=== PATIENT | female | born 1955 | race Caucasian/White ===

== ENCOUNTER → 2016-04-20 | Outpatient (CLI) | payer BC ==
[~2016-04-20] MED LIST: FOLI1TAB7 PO; HYDR-4380 PO; LEVO100T7 PO; LISI-461 PO; METH2.5T PO; MULTTAB58 PO; NAPR500T3 PO
--- NOTE | 2016-04-20 18:23 | DIAGNOSTIC IMAGING REPORT ---
RIGHT LOWER EXTREMITY VENOUS DOPPLER CLINICAL HISTORY: Right leg pain and swelling COMPARISON STUDY: No previous studies for comparison. TECHNIQUE: Sonography of the deep venous system of the right lower extremity was performed. Compression and augmentation were evaluated. FINDINGS: The right common femoral, superficial femoral and popliteal veins were compressible. Augmentation was normal. Flow was shown within the deep calf vessels. Note is made of occlusive thrombus within a superficial vein of the posterior right calf, likely the lesser saphenous vein. There is also superficial thrombus within several varicose veins within the posterior calf. Note is made of a 5.4 x 1.9 x 1.1 cm complex right popliteal cyst. IMPRESSION: 1. No evidence of deep venous thrombus within the right lower extremity. 2. Findings consistent with superficial thrombophlebitis of the right calf, as described above. 3. Complex suspected right popliteal cyst. A cystic lesion is considered much less likely however a follow-up ultrasound in 6 months is recommended. Electronically signed by: Miguel Fajardo M.D. 04/20/2016 6:22 PM Dictated Date/Time: 04/20/2016 6:20 PM
== END | disposition home or self-care (01) ==
LOC: C.ULTR 17:27
PROVIDERS: ATTEND Family Medicine
DX: M79.604 Pain in right leg (principal)

== ENCOUNTER → 2016-10-13 | Outpatient (CLI) | payer BC ==
--- NOTE | 2016-10-13 09:20 | DIAGNOSTIC IMAGING REPORT ---
RIGHT POPLITEAL ULTRASOUND CLINICAL HISTORY: Right knee popliteal cyst. COMPARISON STUDY: Right lower extremity venous Doppler April 20, 2016. FINDINGS: Sonography of the right popliteal fossa again demonstrates a complex right popliteal fluid collection which contains no color flow. This measures 4.9 x 1.3 x 3.2 cm. This previously measured 5.4 x 1.9 x 1.1 cm. Overall, this has slightly increased in size since prior exam. IMPRESSION: Slight increase in size of the complex right popliteal fluid collection suggestive of a popliteal cyst. Electronically signed by: Miguel Fajardo M.D. 10/13/2016 9:17 AM Dictated Date/Time: 10/13/2016 9:15 AM
== END | disposition home or self-care (01) ==
LOC: C.ULTR 08:58
PROVIDERS: ATTEND Family Medicine
DX: M71.21 Synovial cyst of popliteal space [Baker], right knee (principal)

== ENCOUNTER → 2016-10-28 | Outpatient (CLI) | payer BC | END | disposition home or self-care (01) | LOC: C.RDSM 11:54 | PROVIDERS: ATTEND Orthopaedic Surgery Sports Medicine | DX: M25.561 Pain in right knee (principal) ==

== ENCOUNTER → 2017-04-26 | Outpatient (CLI) | payer BC ==
[~2017-04-26] MED LIST changes: -FOLI1TAB7 PO; +FOLI1TAB8 PO; +NAPR-1231 PO; -NAPR500T3 PO
[2017-04-26 14:01] LABS: ALBUMIN 3.7 gm/dl (3.4-5.0); ALT/SGPT 23 U/L (12-78); BLOOD UREA NITROGEN 9 mg/dl (7-18); CALCIUM 9.1 mg/dl (8.5-10.1); CARBON DIOXIDE 29 mmol/L (21-32); CHOLESTEROL 210 mg/dl (0-200); CREATININE 0.81 mg/dl (0.60-1.20); GLUCOSE,FASTING 102 mg/dl (70-99); POTASSIUM 3.4 mmol/L (3.5-5.1); SODIUM 137 mmol/L (136-145)
[2017-04-26 14:10] LABS: ALKALINE PHOSPHATASE 65 U/L (45-117); AST/SGOT 18 U/L (15-37); LDL CHOLESTEROL CALCULATED 107 mg/dl; TOTAL PROTEIN 7.5 gm/dl (6.4-8.2)
== END | disposition home or self-care (01) ==
LOC: C.LABPBG 08:44
PROVIDERS: ATTEND Family Medicine
DX: I10 Essential (primary) hypertension (principal); Z72.0 Tobacco use; E03.9 Hypothyroidism, unspecified; M71.20 Synovial cyst of popliteal space [Baker], unspecified knee

== ENCOUNTER → 2017-09-10 | Outpatient (CLI) | payer BC | END | disposition home or self-care (01) | LOC: C.LABPBG 13:11 | PROVIDERS: ATTEND Family Medicine | DX: E03.9 Hypothyroidism, unspecified (principal) ==

== ENCOUNTER 2019-11-13 08:55 | Inpatient (IN) ==
[2019-11-13] MEDS ORDERED: SODIUM CHLORIDE 0.9% 1000ML 1,000 ML IV ONE ×2 (09:18→12:01)
[2019-11-13] MEDS ORDERED: ONDANSETRON INJ 2 MG/ML 2 ML VIAL IV STA (09:18)
--- NOTE | 2019-11-13 09:31 | Emergency Department Note ---
History of Present Illness General Chief complaint: Diarrhea Stated complaint: THINKS C-DIFF IS BACK Time Seen by Provider: 11/13/19 09:05 History of Present Illness Maximum Pain Intensity: 9 64-year-old female who presents to the emergency department with her with complaint of recurrence of diarrhea, abdominal pain and nausea. The patient reports that she was diagnosed with C. difficile colitis on 10/19/2019. She started oral vancomycin on 10/19, and completed the antibiotic on 10/28. The patient reports that she was doing fine until she developed diarrhea, rectal pain, abdominal pain and nausea this past Wednesday. The patient reports that she has gone to the bathroom at least a dozen times daily since then. She has not noticed any blood in the stools. The patient did contact her PCP (Dr. Weaver) and Dr. Johnson (ornamental metal worker) regarding her symptoms. She has not received any feedback from them over the weekend. The patient reports that she feels bad enough that she asked her to bring her to the emergency department for evaluation. The patient reports that she did have additional labs ordered for this morning. The patient rates her overall discomfort a 9 out of 10. She reports feeling severely dehydrated. Home Medications Home Medications Medication Instructions Recorded Confirmed Type adalimumab [Humira Pen] 80 mg SUBCUT .Q2WK FR 11/17/17 11/13/19 History duloxetine [Cymbalta] 60 mg PO QAM 11/17/17 11/13/19 History folic acid 1 mg PO QAM 11/17/17 11/13/19 History hydrocodone-acetaminophen 0.5 - 1 tab PO Q6H PRN 11/17/17 11/13/19 History levothyroxine 112 mcg PO HS 11/17/17 11/13/19 History lisinopril-hydrochlorothiazide 1 tab PO QAM 11/17/17 11/13/19 History methotrexate sodium 20 mg PO FR 11/17/17 11/13/19 History prednisone 5 mg PO QAM 11/17/17 11/13/19 History acetaminophen [Tylenol] 325 mg PO Q6H PRN 01/24/19 11/13/19 History cholecalciferol (vitamin D3) 25 mcg PO QAM 10/12/19 11/13/19 History [Vitamin D3] electrolytes-dextrose [Pedialyte] 240 ml PO QID PRN 10/12/19 11/13/19 History uioihyffuhjr-wgaq-koxdr acid 1 tab PO QAM 10/12/19 11/13/19 History [Centrum Women] ondansetron 4 mg PO Q6H PRN #15 tab 10/19/19 11/13/19 Rx folic acid 2 mg PO QDL 11/13/19 11/13/19 History Allergies Allergy/AdvReac Type Severity Reaction Status Date / Time No Known Allergies Allergy Verified 11/13/19 09:36 Past Med/Surg History Medical History Anemia High blood pressure Hypokalemia Hypothyroid Rheumatoid arthritis Surgical History No significant past surgical history Family History Other Family history non-contributory Social History Smoking Status: Current every day smoker Tobacco Type: Cigarettes Cigarettes Per Day: 10; Do You Dip or Chew Tobacco: No; Tobacco Cessation Education Requested by Patient: Yes Hx Alcohol Use: No Hx Substance Use: No Preferred Language: Turkmen Communication Ability: Effective Booking Manager Required: No Beliefs That Will Affect Care: None marital status: Current Living Situation: Spouse current occupational status: employed Other Information That Helps Us Care for You: No Feels Safe at Home: Yes Safety Concerns: Feels Safe At This Time Assistive Devices: Cane, CPAP, Denture - Upper and Glasses Review of Systems 10 system review was performed and was negative except for pertinent positives and negatives as indicated in history of present illness Physical Exam Vital Signs Vital Signs - 24 hr 11/13/19 09:00 11/13/19 10:55 11/13/19 13:37 Temperature 37.2 C Temperature Source Oral Pulse Rate 122 H Pulse Rate [Apical] 98 H 98 H Respiratory Rate 18 20 Respiratory Effort / Characteristics Non-Labored Spontaneous Non-Labored Spontaneous SOB on Exertion Respiratory Depth Normal Normal Respiratory Pattern Regular Regular Blood Pressure 121/79 Blood Pressure [Left Arm] 139/80 139/80 Blood Pressure Mean 93 Blood Pressure Mean [Left Arm] 99 99 Blood Pressure Position Sitting Blood Pressure Position [Left Arm] Sitting Pulse Oximetry 94 96 Oxygen Delivery Method Room Air Room Air Sepsis Recent Fever Within 48 Hours No Sepsis New/Unexplained Change in Mental Status N/A Sepsis Action Taken by Nursing No Action Required 11/13/19 13:41 11/13/19 16:17 Temperature Temperature Source Pulse Rate 108 H Pulse Rate [Apical] 92 H Respiratory Rate 20 20 Respiratory Effort / Characteristics Respiratory Depth Respiratory Pattern Blood Pressure 165/93 H Blood Pressure [Left Arm] 177/115 H Blood Pressure Mean Blood Pressure Mean [Left Arm] 135 Blood Pressure Position Blood Pressure Position [Left Arm] Pulse Oximetry 96 93 Oxygen Delivery Method Room Air Sepsis Recent Fever Within 48 Hours Sepsis New/Unexplained Change in Mental Status Sepsis Action Taken by Nursing CONSTITUTIONAL: Healthy and well nourished. Patient appears in moderate discomfort from pain and nausea. HEENT: Normocephalic, atraumatic. Pupils equal, round and reactive. Ears and nares are clear. Mucous membranes are dry. No tonsillar hypertrophy, exudates or posterior pharyngeal erythema. NECK: Full active range of motion without discomfort. LYMPHATICS: No cervical chain adenopathy. RESPIRATORY: Clear to auscultation bilaterally with no wheezing, crackles, rhonchi or stridor. CARDIOVASCULAR: Regular rate and rhythm with no murmurs, rubs or gallops. GASTROINTESTINAL: Bowel sounds present in all quadrants. Patient has generalized nonfocal tenderness to palpation of the abdomen. No rigidity, guarding or rebound. Negative Rovsing sign. Negative CVA tenderness. MUSCULOSKELETAL: Full range of motion of all joints without discomfort. INTEGUMENTARY: No rash or other significant dermatologic conditions noted. HEMATOLOGIC: No ecchymosis or petechiae. PSYCHIATRIC: Positive affect. NEUROLOGIC: No focal neurologic deficits noted. Course Course Patient history and physical exam were performed. Nurse's notes were reviewed. Vital signs were reviewed, showing a tachycardia of 122 bpm. Patient is curren tly afebrile and normotensive. Patient does appear in moderate discomfort with pain and nausea. I also reviewed prior medical records, showing that the patient did test positive for C. difficile on 10/18. As the patient indicates, she was provided a prescription for oral vancomycin, which the patient reports she completed with resolution of symptoms. IV access was established, and labs were drawn. The patient was hydrated with a liter of normal saline, and administered IV Zofran for nausea. Review of labs shows a mild hyponatremia and hypokalemia of 134 and 3.1, respectively. CBC is otherwise unremarkable. Glucose is mildly elevated at 138. Urinalysis is contaminated without obvious evidence for infection. Stool studies are ordered, with a positive C. difficile gene and C. difficile toxin A. Stool cultures are pending. CT of the abdomen and pelvis with IV contrast shows a worsening pancolitis without evidence for obstruction or free air. Findings were discussed with Dr. Mitchell, ED attending physician, who recommended hospitalist consultation. The case was then further discussed with Dr. Mcdonald, who recommended oral vancomycin and Colestid. Dr. Mitchell also recommended IV Compazine for additional nausea relief, along with additional IV hydration. All orders were entered for these medications, along with oral potassium chloride for the hypokalemia. Please see the hospitalist dictation for further treatment and final disposition. Administered Medications Colestipol HCl (Colestipol Hcl 1 Gm Tab) 1 gm PO BID SURESH Stop: 12/13/19 12:29 Last Admin: 11/13/19 13:41 Dose: 1 gm Documented by: [id number] Discontinued Medications Sodium Chloride (Nss 1000ml) 1,000 mls @ 999 mls/hr IV .Q1H1M ONE Stop: 11/13/19 10:18 Last Infusion: 11/13/19 10:58 Dose: 0 mls/hr Documented by: [id number] Admin: 11/13/19 09:42 Dose: 999 mls/hr Documented by: [id number] Sodium Chloride (Nss 1000ml) 1,000 mls @ 999 mls/hr IV .Q1H1M ONE Stop: 11/13/19 13:01 Last Infusion: 11/13/19 14:14 Dose: 0 mls/hr Documented by: [id number] Admin: 11/13/19 12:58 Dose: 999 mls/hr Documented by: [id number] Prochlorperazine 5 mg/ Syringe 5 mls @ 5 mls/min IV ONE ONE Stop: 11/13/19 12:02 Last Admin: 11/13/19 12:57 Dose: Not Given Documented by: [id number] Ioversol (Ioversol 100ml) 92 ml IV ONCE ONE Stop: 11/13/19 10:45 Last Admin: 11/13/19 10:44 Dose: 92 ml Documented by: [id number] Ondansetron HCl (Ondansetron Inj 2 Mg/Ml 2 Ml Vial) 4 mg IV NOW STA Stop: 11/13/19 09:19 Last Admin: 11/13/19 09:51 Dose: 4 mg Documented by: [id number] Potassium Chloride (Potassium Chloride 20 Meq Tabcr) 20 meq PO NOW STA Stop: 11/13/19 12:24 Last Admin: 11/13/19 12:57 Dose: 20 meq Documented by: [id number] Prochlorperazine (Prochlorperazine 5 Mg/Ml 2 Ml Vial) Confirm Administered Dose 10 mg .ROUTE .STK-MED ONE Stop: 11/13/19 12:43 Last Admin: 11/13/19 12:57 Dose: 5 mg Documented by: [id number] Vancomycin HCl (Vancomycin Hcl 125 Mg/2.5ml Soln) 125 mg PO NOW STA Stop: 11/13/19 12:20 Last Admin: 11/13/19 13:41 Dose: 125 mg Documented by: [id number] Medical Decision Making Medical Records Attestation: I reviewed the patient's medical records. Home Medications Current Medication List: was personally reviewed by me Laboratory Data Attestation: I reviewed the patient's lab results. Result diagrams: 11/13/19 09:35 11/13/19 09:35 Lab Results 11/13/19 11/13/19 11/13/19 Range/Units 09:35 09:35 09:35 WBC 9.07 (4.8-10.8) K/uL RBC 4.08 L (4.2-5.4) M/uL Hgb 14.0 (12.0-16.0) g/dL Hct 40.9 (37-47) % MCV 100.2 H (80-100) fL MCH 34.3 H (25-34) pg MCHC 34.2 (32-36) g/dL RDW Std Deviation 51.3 H (36.4-46.3) fL RDW Coeff of Hood 14.3 (11.5-14.5) % Plt Count 313 (130-400) K/uL MPV 10.7 H (7.4-10.4) fL Immature Gran % (Auto) 0.1 % Neut % (Auto) 72.5 % Lymph % (Auto) 9.6 % Person % (Auto) 17.6 % Eos % (Auto) 0.1 % Baso % (Auto) 0.1 % Neut # (Auto) 6.57 H (1.4-6.5) K/uL Lymph # (Auto) 0.87 L (1.2-3.4) K/uL Person # (Auto) 1.60 H (0.11-0.59) K/uL Eos # (Auto) 0.01 (0-0.5) K/uL Baso # (Auto) 0.01 (0-0.2) K/uL Immature Gran # (Auto) 0.01 (0.00-0.02) K/uL Sodium 134 L (136-145) mmol/L Potassium 3.1 L (3.5-5.1) mmol/L Chloride 99 (98-107) mmol/L Carbon Dioxide 27 (21-32) mmol/L Anion Gap 8.0 (3-11) BUN 7 (7-18) mg/dl Creatinine 0.78 (0.6-1.2) mg/dl Est Cr Clr Drug Dosing 74.0 ml/min Est GFR ( Amer) 94.4 Est GFR (Non-Af Amer) 81.5 BUN/Creatinine Ratio 9.5 L (10-20) Glucose 138 H (70-99) mg/dl Calcium 9.0 (8.5-10.1) mg/dl Magnesium (1.8-2.4) mg/dl Total Bilirubin 0.8 (0.2-1) mg/dl AST 16 (15-37) U/L ALT 30 (12-78) U/L Alkaline Phosphatase 80 (45-117) U/L Total Protein 7.1 (6.4-8.2) gm/dl Albumin 3.1 L (3.4-5.0) gm/dl Globulin 4.0 (2.5-4.0) gm/dl Albumin/Globulin Ratio 0.8 L (0.9-2) Lipase 45 L (73-393) U/L Urine Color Dark Yellow Urine Appearance Cloudy A (Clear) Urine pH 7.5 (4.5-7.5) Ur Specific [place] 1.016 (1.000-1.030) Urine Protein Negative (Negative) Urine Glucose (UA) Negative (Negative) Urine Ketones Negative (Negative) Urine Blood Negative (Negative) Urine Nitrite Negative (Negative) Urine Bilirubin Negative (Negative) Urine Urobilinogen Negative (Negative) Ur Leukocyte Esterase 1+ H (Negative) Urine WBC (Auto) 1-5 (0-5) /hpf Urine RBC (Auto) 0-4 (0-4) /hpf U Hyaline Cast (Auto) 10-30 H (0-5) /lpf U Epithel Cells (Auto) >30 H (0-5) /lpf Urine Bacteria (Auto) Negative (Negative) Stl C. diff Tox B Gene (Neg) Stl C.difficile Tox A&B (Negative) Random Vancomycin mcg/ml Hepatitis C Ab Screen (Neg) 11/13/19 11/13/19 11/13/19 Range/Units 09:35 09:35 09:35 WBC (4.8-10.8) K/uL RBC (4.2-5.4) M/uL Hgb (12.0-16.0) g/dL Hct (37-47) % MCV (80-100) fL MCH (25-34) pg MCHC (32-36) g/dL RDW Std Deviation (36.4-46.3) fL RDW Coeff of Hood (11.5-14.5) % Plt Count (130-400) K/uL MPV (7.4-10.4) fL Immature Gran % (Auto) % Neut % (Auto) % Lymph % (Auto) % Person % (Auto) % Eos % (Auto) % Baso % (Auto) % Neut # (Auto) (1.4-6.5) K/uL Lymph # (Auto) (1.2-3.4) K/uL Person # (Auto) (0.11-0.59) K/uL Eos # (Auto) (0-0.5) K/uL Baso # (Auto) (0-0.2) K/uL Immature Gran # (Auto) (0.00-0.02) K/uL Sodium (136-145) mmol/L Potassium (3.5-5.1) mmol/L Chloride (98-107) mmol/L Carbon Dioxide (21-32) mmol/L Anion Gap (3-11) BUN (7-18) mg/dl Creatinine (0.6-1.2) mg/dl Est Cr Clr Drug Dosing ml/min Est GFR ( Amer) Est GFR (Non-Af Amer) BUN/Creatinine Ratio (10-20) Glucose (70-99) mg/dl Calcium (8.5-10.1) mg/dl Magnesium 1.5 L (1.8-2.4) mg/dl Total Bilirubin (0.2-1) mg/dl AST (15-37) U/L ALT (12-78) U/L Alkaline Phosphatase (45-117) U/L Total Protein (6.4-8.2) gm/dl Albumin (3.4-5.0) gm/dl Globulin (2.5-4.0) gm/dl Albumin/Globulin Ratio (0.9-2) Lipase (73-393) U/L Urine Color Urine Appearance (Clear) Urine pH (4.5-7.5) Ur Specific [place] (1.000-1.030) Urine Protein (Negative) Urine Glucose (UA) (Negative) Urine Ketones (Negative) Urine Blood (Negative) Urine Nitrite (Negative) Urine Bilirubin (Negative) Urine Urobilinogen (Negative) Ur Leukocyte Esterase (Negative) Urine WBC (Auto) (0-5) /hpf Urine RBC (Auto) (0-4) /hpf U Hyaline Cast (Auto) (0-5) /lpf U Epithel Cells (Auto) (0-5) /lpf Urine Bacteria (Auto) (Negative) Stl C. diff Tox B Gene Positive Cdiff Gene H (Neg) Stl C.difficile Tox A&B Positive Cdiff Toxin A* (Negative) Random Vancomycin mcg/ml Hepatitis C Ab Screen Neg (Neg) 11/13/19 Range/Units 12:29 WBC (4.8-10.8) K/uL RBC (4.2-5.4) M/uL Hgb (12.0-16.0) g/dL Hct (37-47) % MCV (80-100) fL MCH (25-34) pg MCHC (32-36) g/dL RDW Std Deviation (36.4-46.3) fL RDW Coeff of Hood (11.5-14.5) % Plt Count (130-400) K/uL MPV (7.4-10.4) fL Immature Gran % (Auto) % Neut % (Auto) % Lymph % (Auto) % Person % (Auto) % Eos % (Auto) % Baso % (Auto) % Neut # (Auto) (1.4-6.5) K/uL Lymph # (Auto) (1.2-3.4) K/uL Person # (Auto) (0.11-0.59) K/uL Eos # (Auto) (0-0.5) K/uL Baso # (Auto) (0-0.2) K/uL Immature Gran # (Auto) (0.00-0.02) K/uL Sodium (136-145) mmol/L Potassium (3.5-5.1) mmol/L Chloride (98-107) mmol/L Carbon Dioxide (21-32) mmol/L Anion Gap (3-11) BUN (7-18) mg/dl Creatinine (0.6-1.2) mg/dl Est Cr Clr Drug Dosing ml/min Est GFR ( Amer) Est GFR (Non-Af Amer) BUN/Creatinine Ratio (10-20) Glucose (70-99) mg/dl Calcium (8.5-10.1) mg/dl Magnesium (1.8-2.4) mg/dl Total Bilirubin (0.2-1) mg/dl AST (15-37) U/L ALT (12-78) U/L Alkaline Phosphatase (45-117) U/L Total Protein (6.4-8.2) gm/dl Albumin (3.4-5.0) gm/dl Globulin (2.5-4.0) gm/dl Albumin/Globulin Ratio (0.9-2) Lipase (73-393) U/L Urine Color Urine Appearance (Clear) Urine pH (4.5-7.5) Ur Specific [place] (1.000-1.030) Urine Protein (Negative) Urine Glucose (UA) (Negative) Urine Ketones (Negative) Urine Blood (Negative) Urine Nitrite (Negative) Urine Bilirubin (Negative) Urine Urobilinogen (Negative) Ur Leukocyte Esterase (Negative) Urine WBC (Auto) (0-5) /hpf Urine RBC (Auto) (0-4) /hpf U Hyaline Cast (Auto) (0-5) /lpf U Epithel Cells (Auto) (0-5) /lpf Urine Bacteria (Auto) (Negative) Stl C. diff Tox B Gene (Neg) Stl C.difficile Tox A&B (Negative) Random Vancomycin < 0.8 mcg/ml Hepatitis C Ab Screen (Neg) Imaging Data Attestation: I personally reviewed and interpreted this imaging study as follows: My Impression: My interpretation of a CT of the abdomen and pelvis with IV contrast does not show any obvious obstruction, free air, diverticulitis or appendicitis. Pancolitis is noted. Radiologist report was also reviewed. Radiologist's Impression: CT OF THE ABDOMEN AND PELVIS WITH CONTRAST CLINICAL HISTORY: Abdominal pain, recent C-diff colitis. COMPARISON STUDY: CT of the abdomen and pelvis October 19, 2019. TECHNIQUE: Following IV administration of 92 mL of Optiray-320, axial images of the abdomen and pelvis were obtained from the lung bases to the proximal femurs. Images were reviewed in the axial, sagittal, and coronal planes. IV contrast was administered without complication. Automated exposure control was utilized for the study. A dose lowering technique was utilized adhering to the principles of ALARA. CT DOSE: 689.68 mGy.cm FINDINGS: Lung bases are unremarkable. There is fatty infiltration of the liver. No hepatic lesions are present. The spleen, right adrenal gland, kidneys and pancreas are normal. A 1.9 cm left adrenal nodule is similar to CT of November 17, 2017. This is benign and favors an adenoma. There is no biliary or pancreatic ductal dilatation. Infrarenal abdominal aorta is ectatic, measuring 2.6 cm in caliber. There is colonic diverticulosis. There is no evidence for acute diverticulitis. There is mild wall thickening of the entire colon. There is mild pericolonic infiltration. There is also wall thickening of the rectum. This has increased when compared to exam of October 19, 2019. No free air or abscess is present. Major vasculature is patent. There is no lymphadenopathy. Mild bladder wall thickening is noted. There are no suspicious osseous lesions. The appendix is normal. IMPRESSION: 1. Findings consistent with a pancolitis, mildly increased when compared to exam of October 19, 2019. While nonspecific, this would be consistent with the history of C. difficile colitis. No free air or abscess. 2. Fatty infiltration of the liver. 3. No bowel obstruction. Blood Pressure Blood Pressure Findings: Normal blood pressure MDM Narrative Patient presents to the emergency department with what appears to be a recurrent C. difficile colitis. The patient does not have any significant electrolyte abnormality except for mild hypokalemia and hyponatremia. Patient has no rectal bleeding and is not anemic. Sepsis is considered unlikely. Additional laboratory studies are not suggestive of pancreatitis, cholecystitis or hepatitis. Urinalysis is not consistent with infection. Impression & Plan Clostridium difficile colitis, Acute hypokalemia, Acute hyponatremia, Nausea Discharge Plan Visit Data Chief Complaint: Diarrhea Stated Complaint: THINKS C-DIFF IS BACK ED Provider: Terence Mitchell ED Midlevel Provider: Natanael Reed Discharge Problem: Clostridium difficile colitis, Acute hypokalemia, Acute hyponatremia, Nausea Discharge Instructions Interventions: ED Discharge Assessment Last Done: 11/13/19 16:17 Forms Stand Alone Forms: My [facility] [employer] Prescriptions Prescriptions: No Action hydrocodone-acetaminophen 5-325 mg Tablet 0.5 - 1 tab PO Q6H PRN (Reason: Pain) RF: 0 folic acid 1 mg Tablet 1 mg PO QAM RF: 0 lisinopril-hydrochlorothiazide 10-12.5 mg Tablet 1 tab PO QAM RF: 0 levothyroxine 112 mcg Tablet 112 mcg PO HS RF: 0 prednisone 5 mg Tablet 5 mg PO QAM RF: 0 methotrexate sodium 2.5 mg Tablet 20 mg PO FR RF: 0 duloxetine [Cymbalta] 30 mg Capsule,Delayed Release(Dr/Ec) 60 mg PO QAM RF: 0 Humira Pen 40 mg/0.8 mL Pen Injector Kit 80 mg SUBCUT .Q2WK FR RF: 0 electrolytes-dextrose [Pedialyte] Solution 240 ml PO QID PRN (Reason: Stomach Upset) RF: 0 cholecalciferol (vitamin D3) [Vitamin D3] 25 mcg (1,000 unit) Capsule 25 mcg PO QAM RF: 0 Centrum Women 18-400 mg-mcg Tablet 1 tab PO QAM RF: 0 folic acid 1 mg tablet 2 mg PO QDL RF: 0 acetaminophen [Tylenol] 325 mg Tablet 325 mg PO Q6H PRN (Reason: Pain) RF: 0 ondansetron 4 mg tablet,disintegrating 4 mg PO Q6H PRN (Reason: nausea and vomiting) Qty: 15 RF: 0 Referrals Referrals: Usha Weaver DO [Primary Care Provider] -
[2019-11-13 09:50] LABS: Basophils # (auto) 0.01 K/uL (0-0.2); Basophils % (auto) 0.1 %; Eosinophils # (auto) 0.01 K/uL (0-0.5); Eosinophils % (auto) 0.1 %; Hematocrit (blood only) 40.9 % (37-47); Immature Granulocytes # (auto) 0.01 K/uL (0.00-0.02); Immature Granulocytes % (auto) 0.1 %; Lymphocytes # (auto) 0.87 K/uL (1.2-3.4); Lymphocytes % (auto) 9.6 %; Mean Corpuscular Hemoglobin 34.3 pg (25-34); Mean Corpuscular Hgb Conc 34.2 g/dL (32-36); Mean Corpuscular Volume 100.2 fL (80-100); Mean Platelet Volume 10.7 fL (7.4-10.4); Monocytes % (auto) 17.6 %; Neutrophils # (auto) 6.57 K/uL (1.4-6.5); Neutrophils % (auto) 72.5 %; Platelet Count 313 K/uL (130-400); RDW Coefficient of Variation 14.3 % (11.5-14.5); RDW Standard Deviation 51.3 fL (36.4-46.3); Red Blood Count 4.08 M/uL (4.2-5.4); White Blood Count 9.07 K/uL (4.8-10.8)
[2019-11-13 09:51] LABS: Appearance Urine Cloudy (Clear); Bacteria Urine Automated Negative (Negative); Bilirubin Urine Negative (Negative); Blood Urine Negative (Negative); Color Urine Dark Yellow; Epithelial Cell Urine Auto >30 /lpf (0-5); Glucose Urine UA Negative (Negative); Ketones Urine Negative (Negative); Leukocyte Esterase Urine 1+ (Negative); Nitrite Urine Negative (Negative); RBC Urine Automated 0-4 /hpf (0-4); Specific Gravity Urine 1.016 (1.000-1.030); Urobilinogen Urine Negative (Negative); pH Urine 7.5 (4.5-7.5)
[2019-11-13 09:55] LABS: Protein Urine Negative (Negative); Sulfosalicylic Acid Urine Negative (Negative)
[2019-11-13 10:10] LABS: Albumin Level 3.1 gm/dl (3.4-5.0); BUN Creatinine Ratio 9.5 (10-20); Est GFR (African American) 94.4; Est GFR (Non-African American) 81.5; Potassium 3.1 mmol/L (3.5-5.1)
[2019-11-13 10:12] LABS: Albumin Globulin Ratio 0.8 (0.9-2); Bilirubin,Total 0.8 mg/dl (0.2-1); Total Protein 7.1 gm/dl (6.4-8.2)
[2019-11-13] MEDS ORDERED: IOVERSOL 100ml IV ONE (10:44)
--- NOTE | 2019-11-13 11:05 | CT Scan Report ---
CT OF THE ABDOMEN AND PELVIS WITH CONTRAST CLINICAL HISTORY: Abdominal pain, recent C-diff colitis. COMPARISON STUDY: CT of the abdomen and pelvis October 19, 2019. TECHNIQUE: Following IV administration of 92 mL of Optiray-320, axial images of the abdomen and pelvi s were obtained from the lung bases to the proximal femurs. Images were reviewed in the axial, sagitt al, and coronal planes. IV contrast was administered without complication. Automated exposure contro l was utilized for the study. A dose lowering technique was utilized adhering to the principles of A JAY. CT DOSE: 689.68 mGy.cm FINDINGS: Lung bases are unremarkable. There is fatty infiltration of the liver. No hepatic lesions a re present. The spleen, right adrenal gland, kidneys and pancreas are normal. A 1.9 cm left adrenal n odule is similar to CT of November 17, 2017. This is benign and favors an adenoma. There is no biliary or pancreatic ductal dilatation. Infrarenal abdominal aorta is ectatic, measuring 2.6 cm in caliber. There is colonic diverticulosis. There is no evidence for acute diverticulitis. There is mild wall t hickening of the entire colon. There is mild pericolonic infiltration. There is also wall thickening of the rectum. This has increased when compared to exam of October 19, 2019. No free air or abscess is present. Major vasculature is patent. There is no lymphadenopathy. Mild bladder wall thickening i s noted. There are no suspicious osseous lesions. The appendix is normal. IMPRESSION: 1. Findings consistent with a pancolitis, mildly increased when compared to exam of October 18 0. While nonspecific, this would be consistent with the history of C. difficile colitis. No free air or abscess. 2. Fatty infiltration of the liver. 3. No bowel obstruction. ACT 112: Negative or not required by law. Electronically signed by: Miguel Fajardo M.D. 11/13/2019 11:04 AM
[2019-11-13 11:46] LABS: Cdiff Antigen Positive
[2019-11-13] MEDS ORDERED: PROCHLORPERAZINE 5 MG in SYRINGE 4 ML IV ONE (12:01)
[2019-11-13 12:12] LABS: Cdiff Toxin A+B Positive Cdiff Toxin (Negative)
[2019-11-13] MEDS ORDERED: VANCOMYCIN HCL 125 MG/2.5ML SOLN PO STA (12:19)
[2019-11-13] MEDS ORDERED: POTASSIUM CHLORIDE 20 MEQ TABCR PO STA (12:23)
[2019-11-13] MEDS ORDERED: PROCHLORPERAZINE 5 MG/ML 2 ML VIAL ONE (12:42)
--- NOTE | 2019-11-13 13:29 | History & Physical Report ---
Date of Service November 13, 2019 Assessment & Plan (1) Recurrent Clostridioides difficile infection: Madelaine is a 64-year-old female with a past medical history of rheumatoid arthritis on Humira, methotrexate, and prednisone, hypertension, history of anemia, and past history of C. difficile who presents with 3 days of copious watery diarrhea concerning for first recurrence of C. difficile. C. difficile pancolitis, first recurrence - First recurrence, nonsevere (no leukocytosis, no VISHNU) - CT-A: Pancolitis, mildly increased when compared to exam of October 19, 2019. No free air or abscess. Fatty infiltration of the liver. No bowel obstruction. Patient on RA immunosuppressive therapy (Humira/MTX/prednisone) as below Initial episode onset by antibiotic use 1 month ago, treated with oral Vanco. Recurrence preceded by humira tx, no other med changes or abx. Fidaxomicin 200 mg twice daily x10 days -Patient may benefit from pulsed taper of Fidaxomicin (200mg PO on days 15, then once daily on alternate days on days 725) if she continues to recur 2/2 immunosuppressant treatment. [PMID: [id number]] Received colestipol 1 g in the ED with benefit. Continue 1 g twice daily. Hypokalemia, hyponatremia Sodium 134, potassium 3.1. Magnesium pending. Suspect due to GI losses with C. difficile diarrhea K rider x4 ordered, replete as needed Magnesium pending, last mag low at 1.6 - MgSulf 1g IV x1 - Mag-Ox 400 mg daily - BMP daily - Cr 0.78 Rheumatoid arthritis On Humira/prednisone/methotrexate prior to admission Hold methotrexate, Humira - Continue prednisone, stress dose x4 days (30, 20, 20, 20mg) - Pt due for next humira on 11/16, hold in the setting of active infection - May benefit from prolonged c. diff tx as noted above Hypothyroidism Continue Synthroid 112 mcg p.o. nightly - Last TSH 10/2019 normal Hypertension - Mildly hypertensive on admit with abdominal discomfort, mild tachycardia without prerenal appearing BMP Continue home lisinoprilhydrochlorothiazide 10-12.5 mg daily Polymyalgia, chronic pain Continue home duloxetine 60 mg p.o. every morning Continue home 5325 hydrocodone/acetaminophen every 6 hours as needed History of NANCIE on CPAP CPAP nightly Tobacco dependence Patient declines patch Nicotine gum as needed FEN/GI: Low fiber as tolerated, NSS+20KCl 100cc/hr until p.o. improves Disposition: Med/surge with telemetry CODE STATUS: Full code DVT prophylaxis: SCDs, heparin 5,000sq Q8H (2) Nausea: (3) Acute hyponatremia: (4) Acute hypokalemia: (5) No significant past surgical history: (6) Rheumatoid arthritis: History of Present Illness Chief Complaint: Diarrhea Primary Care Provider: Usha Weaver DO Madelaine is a 64-year-old female with a past medical history of rheumatoid arthritis on Humira, methotrexate, and prednisone, hypertension, history of anemia, and past history of C. difficile who presents with 3 days of copious watery diarrhea concerning for first recurrence of C. difficile. Madelaine reports she had her first episode of C. difficile last month. She reports that she initially had some left lower quadrant pain and was treated with Augmentin for diverticulitis. Following Augmentin treatment her pain increased and she developed severe copious diarrhea. She was diagnosed with gene/toxin positive C. difficile, nonsevere and was discharged to complete a 10-day course of oral vancomycin. She reports that she completed her complete course of oral vancomycin and her symptoms improved and she was having a formed but soft bowel movement about once daily for couple of weeks. Her symptoms recurred 3 days ago when she developed increasing diarrhea and abdominal tenderness which progressively increased over the weekend. He has not had associated fever, chills, sweats. Her bowel movements are completely liquid with a small amount of mucus and no blood. She denies syncope/presyncope. She has not had any medication changes or any antibiotics in the previous weeks since completing her vancomycin course. She is on Humira for rheumatoid arthritis, she reports she missed her 10/26 dose due to C. difficile treatment, received a dose on 11/02, and would normally be due for her next dose this week on 11/16. Today she has had diarrhea every 30-45 minutes. Twice since getting to ER. no blood in BM, some mucous with completely liquid stool. Painful BMs, feels her bottom is "sore " She has not had any cold-like symptoms. She reports a 40-year approximately half pack per day cigarette use. She has not been diagnosed with COPD or emphysema, but notes that she sometimes wheezes especially when going up stairs. She does not take any inhalers at home, but uses a CPAP for NANCIE. She does not feel short of breath at time of presentation to the ER, and has not needed oxygen at home. MedHx: Reviewed and as above Fhx: DM. Noncontributory. Surgical history: Reviewed Allergies: NKDA Social: Rare alcohol, none in 3 months. 10 cigarettes daily for more than 40 years. Would apreciate trying gum. No recreational drugs or medical marijuana. Lives at home with her and adult children. No sick contacts at home. Code Status: Full Code Allergies Allergy/AdvReac Type Severity Reaction Status Date / Time No Known Allergies Allergy Verified 11/13/19 09:36 Home Medications Home Medications Medication Instructions Recorded Confirmed Type adalimumab [Humira Pen] 80 mg SUBCUT .Q2WK FR 11/17/17 11/13/19 History duloxetine [Cymbalta] 60 mg PO QAM 11/17/17 11/13/19 History folic acid 1 mg PO QAM 11/17/17 11/13/19 History hydrocodone-acetaminophen 0.5 - 1 tab PO Q6H PRN 11/17/17 11/13/19 History levothyroxine 112 mcg PO HS 11/17/17 11/13/19 History lisinopril-hydrochlorothiazide 1 tab PO QAM 11/17/17 11/13/19 History methotrexate sodium 20 mg PO FR 11/17/17 11/13/19 History prednisone 5 mg PO QAM 11/17/17 11/13/19 History acetaminophen [Tylenol] 325 mg PO Q6H PRN 01/24/19 11/13/19 History cholecalciferol (vitamin D3) 25 mcg PO QAM 10/12/19 11/13/19 History [Vitamin D3] electrolytes-dextrose [Pedialyte] 240 ml PO QID PRN 10/12/19 11/13/19 History laqynxdqymjr-xsgz-ybwjr acid 1 tab PO QAM 10/12/19 11/13/19 History [Centrum Women] ondansetron 4 mg PO Q6H PRN #15 tab 10/19/19 11/13/19 Rx folic acid 2 mg PO QDL 11/13/19 11/13/19 History Past Med/Surg History Medical History Anemia High blood pressure Hypokalemia Hypothyroid Rheumatoid arthritis Surgical History No significant past surgical history Family History (Updated 11/14/19 @ 08:14 by George Mcdonald) Other Diabetes Family history non-contributory Social History Smoking Status: Current every day smoker Tobacco Type: Cigarettes Cigarettes Per Day: 10; Do You Dip or Chew Tobacco: No; Tobacco Cessation Education Requested by Patient: Yes Hx Alcohol Use: No Hx Substance Use: No Preferred Language: [place]se Communication Ability: Effective Computer Graphic Designer Required: No Beliefs That Will Affect Care: None marital status: Current Living Situation: Spouse current occupational status: employed Other Information That Helps Us Care for You: No Feels Safe at Home: Yes Safety Concerns: Feels Safe At This Time Assistive Devices: Cane, CPAP, Denture - Upper and Glasses Review of Systems Review of Systems: Constitutional: Denies fever, chills, malaise Eyes: Denies double vision, vision change, eye pain ENT: Denies ear pain, sore throat, sinus pain Cardiovascular: Denies Chest pain, chest pressure, palpitations, extremity swelling Respiratory: See HPI Gastrointestinal: See HPI Genitourinary: Denies pain with urination, urinary urgency, urinary frequency Musculoskeletal: Endorses joint pain, chronic arthritis. Otherwise denies muscle pains/new joint pains. Integumentary:Denies acute rash, lesions, bruising Neurological: Denies acute headache, numbness, tingling, focal weakness Physical Exam Physical Exam: General: A&Ox3. NAD. Appears fatigued. Cooperative. Nontoxic. HEENT: Atraumatic, normocephalic. Visual acuity grossly intact, hearing grossly intact. Pupils equal and reactive to light and accommodation. Extraocular movements intact without nystagmus. Pulm: Scattered expiratory wheezes more prominent on forced expiration. No rales, crackles, or rhonchi. Symmetrical chest rise. No increase work of br eathing. No respiratory distress. Cardiac: RRR, -mrg. Radial pulses intact and symmetrical. Abdominal: Mildly tender most prominent in right lower quadrant, slight tenderness in the left lower quadrant. No rebound tenderness. No guarding. No rigidity. Bowel sounds increased. Extremities: Moving all extremities equally. 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 Radial and PT pulses intact and symmetrical, non-bounding. Sensation to soft touch intact in fingertips and toes bilaterally without asymmetry. Results & Data Results & Data ([facility]) Vital Signs (Past 12 Hours) Vital Signs Temp Pulse Pulse Resp BP BP Pulse Ox 11/13/19 10:55 98 H 139/80 11/13/19 09:00 37.2 C 122 H 18 121/79 94 Code Status & VTE Plan VTE Prophylaxis Plan VTE Prophylaxis will be ordered: Yes Supervising Physician Co-Signing Physician Notes Attending Attestation & Admission Note: Pt seen/examined, chart reviewed, admission care plan d/w PGY3 Dr Rodo Walden. I agree w/ the carlisle components of his admission documentation. 64yo female with obesity, steroid-dependent RA (also on enbrel and methotrexate); tobacco dependence; HTN; hypothyroidism -- recent c diff colitis in early October Rx with 10-day course of vanco by mouth. Symptoms resolved with that treatment course. Now presenting with severe, recurrent diarrhea and repeat c diff gene/toxin +. CT abd/pelvis c/w pancolitis. Unable to tolerate any PO intake since symptoms began. PMH, PSH, allergies, meds, sochx, famhx - reviewed VSS, afebrile gen - looks dehydrated, ill appearing, NAD mouth - MM dry heart - RRR, s1 s2 lungs - mild end-exp wheeze b/l abd - distended, BS+ (hyperactive), mildly tender lower quadrants ext - no edema, pulses 2+ b/l skin - poor turgor A/P: 1st relapse of c diff colitis. Volume depletion. Electrolyte disturbance (low Na, low K, low mag). Steroid-dependent RA with enbrel/Mtx use. Tobacco use - suspect underlying COPD. Agree with dificid x 10 days. At risk of complications given her immunocompromised status. Stress-dose steroids - give additional 30mg prednisone today, with taper over 3- 4 days. Low fiber diet. IVF. Replete K and mag. Labs in am. Needs to quit smoking. George Mcdonald MD Resident Activity Tracking Resident Involvement: Resident Care Provided Care Provided: [facility]
[2019-11-13] MEDS: COLESTIPOL HCL 1 GM TAB PO SCH ×2 (13:41→21:23)
[2019-11-13] MEDS ORDERED: ONDANSETRON INJ 2 MG/ML 2 ML VIAL IV PRN (16:52)
[2019-11-13] MEDS ORDERED: NICOTINE POLACRILEX 2 MG GUM MT PRN (16:52)
[2019-11-13] MEDS ORDERED: ACETAMINOPHEN 325 MG TAB PO PRN (16:52)
[2019-11-13] MEDS ORDERED: HYDROCODONE/ACETAMOPHEN 5/325MG TAB PO PRN (17:04)
[2019-11-13] MEDS ORDERED: MAGNESIUM SULFATE / D5W 1 GM/100 ML BAG IV ONE (17:30)
[2019-11-13] MEDS: MAGNESIUM OXIDE 400 MG TAB PO SCH (17:35)
[2019-11-13] MEDS: NSS + 20MEQ KCL 20 MEQ/1,000 ML BAG IV SCH (17:35)
[2019-11-13] MEDS: POTASSIUM CHLORIDE / WTR 10 MEQ/100 ML PLCT IV SCH ×3 (19:52→23:16)
[2019-11-13] MEDS: LEVOTHYROXINE SODIUM 112 MCG TABLET PO SCH (19:54)
[2019-11-13] MEDS: FIDAXOMICIN 200 MG TAB PO SCH (19:54)
[2019-11-13] MEDS: HEPARIN SOD 5,000 UNIT/0.5 ML VIAL SQ SCH (19:57)
--- NOTE | 2019-11-13 23:44 | Billing Data ---
Date of Service November 13, 2019 Coding Level of Care Code 14433 Initial Inpt Care Lvl 3
[2019-11-14] MEDS ORDERED: MAGNESIUM SULFATE / D5W 1 GM/100 ML BAG IV ONE (01:00)
[2019-11-14] MEDS: NSS + 20MEQ KCL 20 MEQ/1,000 ML BAG IV SCH ×3 (03:51→21:40)
[2019-11-14] MEDS: POTASSIUM CHLORIDE / WTR 10 MEQ/100 ML PLCT IV SCH ×3 (03:53→10:10)
[2019-11-14] MEDS: HEPARIN SOD 5,000 UNIT/0.5 ML VIAL SQ SCH ×3 (05:34→20:00)
[2019-11-14 07:20] LABS: Basophils # (auto) 0.02 K/uL (0-0.2); Basophils % (auto) 0.2 %; Eosinophils # (auto) 0.43 K/uL (0-0.5); Eosinophils % (auto) 4.5 %; Hematocrit (blood only) 38.1 % (37-47); Hemoglobin 12.9 g/dL (12.0-16.0); Immature Granulocytes # (auto) 0.03 K/uL (0.00-0.02); Immature Granulocytes % (auto) 0.3 %; Lymphocytes # (auto) 2.61 K/uL (1.2-3.4); Lymphocytes % (auto) 27.4 %; Mean Corpuscular Hemoglobin 34.2 pg (25-34); Mean Corpuscular Hgb Conc 33.9 g/dL (32-36); Mean Corpuscular Volume 101.1 fL (80-100); Monocytes # (auto) 1.64 K/uL (0.11-0.59); Monocytes % (auto) 17.2 %; Neutrophils % (auto) 50.4 %; Platelet Count 296 K/uL (130-400); RDW Coefficient of Variation 14.4 % (11.5-14.5); RDW Standard Deviation 52.1 fL (36.4-46.3); Red Blood Count 3.77 M/uL (4.2-5.4); White Blood Count 9.53 K/uL (4.8-10.8)
[2019-11-14 08:19] LABS: BUN Creatinine Ratio 7.2 (10-20); Calcium 8.1 mg/dl (8.5-10.1); Creatinine Clr Calc Pharmacy 88.9 ml/min; Est GFR (African American) 110.3; Est GFR (Non-African American) 95.2; Potassium 2.8 mmol/L (3.5-5.1)
[2019-11-14 08:22] LABS: Magnesium 2.2 mg/dl (1.8-2.4)
[2019-11-14] MEDS ORDERED: POTASSIUM CHLORIDE 20 MEQ TABCR PO STA (08:24)
[2019-11-14] MEDS: FIDAXOMICIN 200 MG TAB PO SCH ×2 (08:52→20:00)
[2019-11-14] MEDS: MAGNESIUM OXIDE 400 MG TAB PO SCH (08:52)
[2019-11-14] MEDS ORDERED: predniSONE 10 MG TABLET PO ONE (09:00)
[2019-11-14] MEDS ORDERED: LISINOPRIL/HCTZ 10/12.5MG TAB PO SCH (09:00)
--- NOTE | 2019-11-14 09:36 | Gastrointestinal Consultation ---
Date of Consultation November 14, 2019 Assessment & Plan (1) Recurrent Clostridioides difficile infection: Recurrent C. difficile infection. She was on vancomycin previously for 2 weeks. She was started on Dificid 200 mg p.o. twice daily on admission. This will need to continue for 10 days. She is tolerating po diet. States she would like to go home today. Will need follow-up with GI which I will arrange once discharged. Please refer to supervising physician addendum for further recommendations. History of Present Illness Attending Physician: Madie Ferraro MD History of Present Illness The patient is a pleasant 64-year-old female with past medical history to include rheumatoid arthritis, hypothyroidism, anemia, mild hypertension, tobacco abuse with recent history of C. difficile infection diagnosed 10/19/2019 treated with vancomycin x2 weeks who presented to the emergency department 11/13/2019 due to recurrent diarrhea, nausea, abdominal cramping. She was subsequently admitted due to CT imaging that demonstrated pancolitis with positive C. difficile gene and toxin. On exam/interview today, she reports that she began experiencing diarrhea on 11/10/2019. She had finished vancomycin on 10/29/2019. When diarrhea started she thought that she may have eaten something that threw her off. She states she had 5 episodes of diarrhea Wednesday night, 4-5 Wednesday night, and multiple episodes on Wednesday. She reports nausea began on Wednesday. She had crampy abdominal discomfort but denies specific pain. She had sent a portal message to the office Wednesday evening but was unable to tolerate symptoms and presented to the emergency department for further evaluation. She reports mild nausea this morning. She is tolerating p.o. diet during our discussion. She reports she had approximately 4 episodes of diarrhea stools last night and several already this morning. She was given vancomycin in the emergency department. This was changed to Dificid with admission. She is a current smoker. She has been smoking approximately half a pack of cigarettes per day since 1974. She denies any use of alcohol. She denies use of recreational drugs including marijuana. She is with 1 adult daughter and 2 adult sons. Allergies Allergy/AdvReac Type Severity Reaction Status Date / Time No Known Allergies Allergy Verified 11/13/19 09:36 Home Medications Home Medications Medication Instructions Recorded Confirmed Type adalimumab [Humira Pen] 80 mg SUBCUT .Q2WK FR 11/17/17 11/13/19 History duloxetine [Cymbalta] 60 mg PO QAM 11/17/17 11/13/19 History folic acid 1 mg PO QAM 11/17/17 11/13/19 History hydrocodone-acetaminophen 0.5 - 1 tab PO Q6H PRN 11/17/17 11/13/19 History levothyroxine 112 mcg PO HS 11/17/17 11/13/19 History lisinopril-hydrochlorothiazide 1 tab PO QAM 11/17/17 11/13/19 History methotrexate sodium 20 mg PO FR 11/17/17 11/13/19 History prednisone 5 mg PO QAM 11/17/17 11/13/19 History acetaminophen [Tylenol] 325 mg PO Q6H PRN 01/24/19 11/13/19 History cholecalciferol (vitamin D3) 25 mcg PO QAM 10/12/19 11/13/19 History [Vitamin D3] electrolytes-dextrose [Pedialyte] 240 ml PO QID PRN 10/12/19 11/13/19 History rtyxjrfotner-hsin-nkepm acid 1 tab PO QAM 10/12/19 11/13/19 History [Centrum Women] ondansetron 4 mg PO Q6H PRN #15 tab 10/19/19 11/13/19 Rx folic acid 2 mg PO QDL 11/13/19 11/13/19 History Patient History Medical History Anemia High blood pressure Hypokalemia Hypothyroid Rheumatoid arthritis Surgical History No significant past surgical history Family History (Updated 11/14/19 @ 08:14 by George Mcdonald) Other Diabetes Family history non-contributory Social History Smoking Status: Current every day smoker Tobacco Type: Cigarettes Cigarettes Per Day: 10; Do You Dip or Chew Tobacco: No; Tobacco Cessation Education Requested by Patient: Yes Hx Alcohol Use: No Hx Substance Use: No Preferred Language: Malian Communication Ability: Effective Cat Dog Or Other Pet Groomer Required: No Beliefs That Will Affect Care: None marital status: Current Living Situation: Spouse current occupational status: employed Other Information That Helps Us Care for You: No Feels Safe at Home: Yes Safety Concerns: Feels Safe At This Time Assistive Devices: Cane, CPAP, Denture - Upper and Glasses Review of Systems Review of Systems: All systems reviewed & are unremarkable except as noted in Subjective Physical Exam Constitutional: WD/WN, vitals as above Eyes: PERRL, conjunctivae normal, anicteric sclerae ENMT: external ear and nose normal, oropharynx normal Neck: normal visual inspection and trachea midline Respiratory: normal respiratory effort, lungs clear to auscultation Cardiovascular: RRR, no murmur, no edema Gastrointestinal (Abdomen): normal bowel sounds, soft, nontender, no hepatosplenomegaly Musculoskeletal: Extremities: no cyanosis and no clubbing Skin: no rashes, warm and dry Neurologic: PERRL, EOMI, accommodation nl, no face palsy, no dysarthria Psychiatric: A+Ox3, euthymic affect Results & Data ([facility]) Vital Signs (Past 12 Hours) Vital Signs Temp Pulse Pulse Resp BP Pulse Ox 11/14/19 07:30 36.9 C 85 18 137/74 93 11/14/19 07:23 96 H 11/14/19 00:26 93 H 11/13/19 22:00 36.9 C 97 H 18 146/82 H 92 Laboratory Results - last 24 hr 11/13/19 11/13/19 11/13/19 09:35 09:35 09:35 WBC 9.07 RBC 4.08 L Hgb 14.0 Hct 40.9 MCV 100.2 H MCH 34.3 H MCHC 34.2 RDW Std Deviation 51.3 H RDW Coeff of Hood 14.3 Plt Count 313 MPV 10.7 H Immature Gran % (Auto) 0.1 Neut % (Auto) 72.5 Lymph % (Auto) 9.6 [place] % (Auto) 17.6 Eos % (Auto) 0.1 Baso % (Auto) 0.1 Neut # (Auto) 6.57 H Lymph # (Auto) 0.87 L [place] # (Auto) 1.60 H Eos # (Auto) 0.01 Baso # (Auto) 0.01 Immature Gran # (Auto) 0.01 Sodium 134 L Potassium 3.1 L Chloride 99 Carbon Dioxide 27 Anion Gap 8.0 BUN 7 Creatinine 0.78 Est Cr Clr Drug Dosing 74.0 Est GFR ( Amer) 94.4 Est GFR (Non-Af Amer) 81.5 BUN/Creatinine Ratio 9.5 L Glucose 138 H Calcium 9.0 Magnesium Total Bilirubin 0.8 AST 16 ALT 30 Alkaline Phosphatase 80 Total Protein 7.1 Albumin 3.1 L Globulin 4.0 Albumin/Globulin Ratio 0.8 L Lipase 45 L Urine Color Urine Appearance Urine pH Ur Specific [place] Urine Protein Urine Glucose (UA) Urine Ketones Urine Blood Urine Nitrite Urine Bilirubin Urine Urobilinogen Ur Leukocyte Esterase Urine WBC (Auto) Urine RBC (Auto) U Hyaline Cast (Auto) U Epithel Cells (Auto) Urine Bacteria (Auto) Stool Occult Bld Scrn Stl C. diff Tox B Gene Stl C.difficile Tox A&B Random Vancomycin Giardia Antigen Hepatitis C Ab Screen Norovirus RNA (PCR) Pending 11/13/19 11/13/19 11/13/19 09:35 09:35 09:35 WBC RBC Hgb Hct MCV MCH MCHC RDW Std Deviation RDW Coeff of Hood Plt Count MPV Immature Gran % (Auto) Neut % (Auto) Lymph % (Auto) [place] % (Auto) Eos % (Auto) Baso % (Auto) Neut # (Auto) Lymph # (Auto) [place] # (Auto) Eos # (Auto) Baso # (Auto) Immature Gran # (Auto) Sodium Potassium Chloride Carbon Dioxide Anion Gap BUN Creatinine Est Cr Clr Drug Dosing Est GFR ( Amer) Est GFR (Non-Af Amer) BUN/Creatinine Ratio Glucose Calcium Magnesium Total Bilirubin AST ALT Alkaline Phosphatase Total Protein Albumin Globulin Albumin/Globulin Ratio Lipase Urine Color Dark Yellow Urine Appearance Cloudy A Urine pH 7.5 Ur Specific [place] 1.016 Urine Protein Negative Urine Glucose (UA) Negative Urine Ketones Negative Urine Blood Negative Urine Nitrite Negative Urine Bilirubin Negative Urine Urobilinogen Negative Ur Leukocyte Esterase 1+ H Urine WBC (Auto) 1-5 Urine RBC (Auto) 0-4 U Hyaline Cast (Auto) 10-30 H U Epithel Cells (Auto) >30 H Urine Bacteria (Auto) Negative Stool Occult Bld Scrn Stl C. diff Tox B Gene Positive Cdiff Gene H Stl C.difficile Tox A&B Positive Cdiff Toxin A* Random Vancomycin Giardia Antigen Pending Hepatitis C Ab Screen Norovirus RNA (PCR) 11/13/19 11/13/19 11/13/19 09:35 09:35 12:29 WBC RBC Hgb Hct MCV MCH MCHC RDW Std Deviation RDW Coeff of Hood Plt Count MPV Immature Gran % (Auto) Neut % (Auto) Lymph % (Auto) [place] % (Auto) Eos % (Auto) Baso % (Auto) Neut # (Auto) Lymph # (Auto) [place] # (Auto) Eos # (Auto) Baso # (Auto) Immature Gran # (Auto) Sodium Potassium Chloride Carbon Dioxide Anion Gap BUN Creatinine Est Cr Clr Drug Dosing Est GFR ( Amer) Est GFR (Non-Af Amer) BUN/Creatinine Ratio Glucose Calcium Magnesium 1.5 L Total Bilirubin AST ALT Alkaline Phosphatase Total Protein Albumin Globulin Albumin/Globulin Ratio Lipase Urine Color Urine Appearance Urine pH Ur Specific [place] Urine Protein Urine Glucose (UA) Urine Ketones Urine Blood Urine Nitrite Urine Bilirubin Urine Urobilinogen Ur Leukocyte Esterase Urine WBC (Auto) Urine RBC (Auto) U Hyaline Cast (Auto) U Epithel Cells (Auto) Urine Bacteria (Auto) Stool Occult Bld Scrn Stl C. diff Tox B Gene Stl C.difficile Tox A&B Random Vancomycin < 0.8 Giardia Antigen Hepatitis C Ab Screen Neg Norovirus RNA (PCR) 11/14/19 11/14/19 11/14/19 06:45 06:45 09:20 WBC 9.53 RBC 3.77 L Hgb 12.9 Hct 38.1 MCV 101.1 H MCH 34.2 H MCHC 33.9 RDW Std Deviation 52.1 H RDW Coeff of Hood 14.4 Plt Count 296 MPV 11.0 H Immature Gran % (Auto) 0.3 Neut % (Auto) 50.4 Lymph % (Auto) 27.4 [place] % (Auto) 17.2 Eos % (Auto) 4.5 Baso % (Auto) 0.2 Neut # (Auto) 4.80 Lymph # (Auto) 2.61 [place] # (Auto) 1.64 H Eos # (Auto) 0.43 Baso # (Auto) 0.02 Immature Gran # (Auto) 0.03 H Sodium 138 Potassium 2.8 L Chloride 107 Carbon Dioxide 21 Anion Gap 11.0 BUN 5 L Creatinine 0.65 Est Cr Clr Drug Dosing 88.9 Est GFR ( Amer) 110.3 Est GFR (Non-Af Amer) 95.2 BUN/Creatinine Ratio 7.2 L Glucose 108 H Calcium 8.1 L Magnesium 2.2 Total Bilirubin AST ALT Alkaline Phosphatase Total Protein Albumin Globulin Albumin/Globulin Ratio Lipase Urine Color Urine Appearance Urine pH Ur Specific [place] Urine Protein Urine Glucose (UA) Urine Ketones Urine Blood Urine Nitrite Urine Bilirubin Urine Urobilinogen Ur Leukocyte Esterase Urine WBC (Auto) Urine RBC (Auto) U Hyaline Cast (Auto) U Epithel Cells (Auto) Urine Bacteria (Auto) Stool Occult Bld Scrn Pending Stl C. diff Tox B Gene Stl C.difficile Tox A&B Random Vancomycin Giardia Antigen Hepatitis C Ab Screen Norovirus RNA (PCR) 11/13/2019: CT of the abdomen pelvis with contrast demonstrated 1. Findings consistent with a pancolitis, mildly increased when compared to exam of October 19, 2019. While nonspecific, this would be consistent with the history of C. difficile colitis. No free air or abscess. 2. Fatty infiltration of the liver. 3. No bowel obstruction.
--- NOTE | 2019-11-14 10:36 | Hospitalist Progress Note ---
Date of Service November 14, 2019 Assessment & Plan (1) Recurrent Clostridioides difficile infection: * 64-year-old female with a past medical history of rheumatoid arthritis on Humira, methotrexate, and prednisone, hypertension, history of anemia, and past history of C. difficile who presents with 3 days of copious watery diarrhea concerning for first recurrence of C. difficile. * CTAP with pancolitis, first recurrence. No free air/abscess or obstruction. Fatty infiltration of liver noted * Given patient with RA on immunosuppressive therapy with Humira/MTX/prednisone, at risk for recurrence as demonstrated by her holding this while on Vanco PO and resumed a week following and now developed recurrent cdiff (initially treated with Augmentin for diverticulitis and then developed c.diff 1st time) * Continue with fidaxomicin 200mg BID x 10 days --> [facility] about having in stock -- have 10 tablets and can order more to dispense but will need prior auth * --> if continues to recur secondary to immunosuppressant therapy, may benefit from pulsed taper of Dificid 200mg PO on days 15, then once daily on alternate days on days 725 * Continue colestipol 1 g BID * Continue supportive care with IVF for now, although patient seems to be taking adequate PO. Expect d/c tomorrow if able to maintain * Replace electrolytes as needed * GI consulted -- continue treatment as ordered until improved enough to continue at home. May benefit from fecal transplant at [place] if relapse following Dificid. Will need follow up at d/c * Reported decreased frequency but still with same amount * Low fiber diet * fecal occult negative, stool WBC smear with moderate fecal WBC, mod mixed normal fecal delgado. No ecoli jennifer toxin detected on prelim * Continue to monitor (2) Nausea: * None reported today * Antiemetics prn (3) Acute hyponatremia: * Na 134 on admission -- suspect secondary to GI loss/cdiff as above * IVF continued * RESOLVED -- Na 138 * Continue to monitor (4) Acute hypokalemia: * K 3.1 on admission. Mag also low -- replaced through evening and night with mag now 2.2, however K only 2.8 -- secondary to above * Continue K in IVF and ordered 2K riders in addition to 40meq PO * No changes since yesterday PAC/PVCs on monitor and has been running 80-90s on monitor * BMP in AM and replace as needed -- expect rise now that Mag now wnl (5) Rheumatoid arthritis: * On Humira/prednisone/methotrexate prior to admission * Hold methotrexate, Humira (next dose scheduled for 11/16 but will be held in setting of active infection) * Continue prednisone, stress dose x4 days (30, 20, 20, 20mg) then resume home dose * May benefit from prolonged c. diff tx as noted above (6) Hypomagnesemia: * Mag 1.6 previous in October. Repeat down to 1.5 -- replaced * RESOLVED -- Mag 2.2 on AM labs (7) HTN (hypertension): * Mildly hypertensive on admit with abdominal discomfort, mild tachycardia * BP 136/76 * Continue home lisinoprilhydrochlorothiazide 10-12.5 mg daily but would consider holding if patient unable to keep up with oral intake * Continue to monitor (8) Hypothyroidism: * Continue Synthroid 112 mcg p.o. nightly * Last TSH 10/2019 wnl at 1.5 (9) NANCIE (obstructive sleep apnea): * CPAP (10) Polymyalgia: * Continue home duloxetine 60 mg p.o. every morning, 5325 hydrocodone/acetaminophen every 6 hours as needed (11) Tobacco use disorder: * Current smoker -- ordered nicotine patch if patient agreeable * Smoking cessation encouraged (12) DVT prophylaxis: * Heparin SQ Dispo: possible discharge tomorrow Admission and Anticipated Discharge Date Admission Date: November 13, 2019 Supervising Physician Co-Signing Physician Notes AVTAR Supervision Note: I did not personally see or examine the patient today, but I verified all carlisle points of AVTAR Farley's assessment and plan with the following exceptions/additions: For recurrent hypokalemia and hypomagnesemia, recommend discontinuing HCTZ and increase lisinopril dose to 20mg daily. If needed, could always add amlodipine to regimen for antihypertensives if BPs high. Continue Dificid treatment and await approval of prior auth prior to discharge to home Subjective Patient evaluated this morning. Still with same amount of diarrhea, but she states frequency has decreased and now is brown in color, which is a change from the green/mucus she had previously. Still feeling a little worn out. Denies fevers, chills, chest pain, shortness of breath, nausea or vomiting. Abd pain controlled. Eating/drinking without difficulty. Questions vanco vs Dificid and would like rx sent to [facility] pharmacy if they have this medication. Discussed low potassium and now that magnesium has been replaced, expect normalization of this on AM labs. She is hopeful for discharge tomorrow. Review of Systems Review of Systems: All systems reviewed & are unremarkable except as noted in HPI & below Physical Exam Constitutional: WD/WN, vitals as above comfortable; no acute distress Eyes: PERRL, conjunctivae normal, anicteric sclerae ENMT: mmm Neck: normal visual inspection Respiratory: normal respiratory effort, lungs clear to auscultation (minimal expiratory wheezing) Cardiovascular: RRR, no murmur, no edema Gastrointestinal (Abdomen): normal bowel sounds, soft, nontender, no hepatos plenomegaly Inspection/Auscultation: + abdomen distended (improved per patient) and + hyperactive bowel sounds Musculoskeletal: no cyanosis or clubbing, extremities motor strength 5/5 Skin: no rashes, warm and dry Neurologic: PERRL, EOMI, accommodation nl, no face palsy, no dysarthria Psychiatric: Orientation: alert and oriented x 3 Lymphatic: no cervical or axillary lymphadenopathy Results & Data Results & Data ([facility]) Vital Signs (Past 12 Hours) Vital Signs Temp Pulse Pulse Resp BP Pulse Ox 11/14/19 07:30 36.9 C 85 18 137/74 93 11/14/19 07:23 96 H 11/14/19 00:26 93 H Laboratory Results 11/14/19 11/14/19 11/14/19 Range/Units 09:20 06:45 06:45 WBC 9.53 (4.8-10.8) K/uL RBC 3.77 L (4.2-5.4) M/uL Hgb 12.9 (12.0-16.0) g/dL Hct 38.1 (37-47) % MCV 101.1 H (80-100) fL MCH 34.2 H (25-34) pg MCHC 33.9 (32-36) g/dL RDW Std Deviation 52.1 H (36.4-46.3) fL RDW Coeff of Hood 14.4 (11.5-14.5) % Plt Count 296 (130-400) K/uL MPV 11.0 H (7.4-10.4) fL Immature Gran % (Auto) 0.3 % Neut % (Auto) 50.4 % Lymph % (Auto) 27.4 % Charles % (Auto) 17.2 % Eos % (Auto) 4.5 % Baso % (Auto) 0.2 % Neut # (Auto) 4.80 (1.4-6.5) K/uL Lymph # (Auto) 2.61 (1.2-3.4) K/uL Charles # (Auto) 1.64 H (0.11-0.59) K/uL Eos # (Auto) 0.43 (0-0.5) K/uL Baso # (Auto) 0.02 (0-0.2) K/uL Immature Gran # (Auto) 0.03 H (0.00-0.02) K/uL Sodium 138 (136-145) mmol/L Potassium 2.8 L (3.5-5.1) mmol/L Chloride 107 (98-107) mmol/L Carbon Dioxide 21 (21-32) mmol/L Anion Gap 11.0 (3-11) BUN 5 L (7-18) mg/dl Creatinine 0.65 (0.6-1.2) mg/dl Est Cr Clr Drug Dosing 88.9 ml/min Est GFR ( Amer) 110.3 Est GFR (Non-Af Amer) 95.2 BUN/Creatinine Ratio 7.2 L (10-20) Glucose 108 H (70-99) mg/dl Calcium 8.1 L (8.5-10.1) mg/dl Magnesium 2.2 (1.8-2.4) mg/dl Stool Occult Bld Scrn Negative (Negative) Hepatitis C Ab Screen (Neg) 11/13/19 Range/Units 09:35 WBC (4.8-10.8) K/uL RBC (4.2-5.4) M/uL Hgb (12.0-16.0) g/dL Hct (37-47) % MCV (80-100) fL MCH (25-34) pg MCHC (32-36) g/dL RDW Std Deviation (36.4-46.3) fL RDW Coeff of Hood (11.5-14.5) % Plt Count (130-400) K/uL MPV (7.4-10.4) fL Immature Gran % (Auto) % Neut % (Auto) % Lymph % (Auto) % Charles % (Auto) % Eos % (Auto) % Baso % (Auto) % Neut # (Auto) (1.4-6.5) K/uL Lymph # (Auto) (1.2-3.4) K/uL Charles # (Auto) (0.11-0.59) K/uL Eos # (Auto) (0-0.5) K/uL Baso # (Auto) (0-0.2) K/uL Immature Gran # (Auto) (0.00-0.02) K/uL Sodium (136-145) mmol/L Potassium (3.5-5.1) mmol/L Chloride (98-107) mmol/L Carbon Dioxide (21-32) mmol/L Anion Gap (3-11) BUN (7-18) mg/dl Creatinine (0.6-1.2) mg/dl Est Cr Clr Drug Dosing ml/min Est GFR ( Amer) Est GFR (Non-Af Amer) BUN/Creatinine Ratio (10-20) Glucose (70-99) mg/dl Calcium (8.5-10.1) mg/dl Magnesium (1.8-2.4) mg/dl Stool Occult Bld Scrn (Negative) Hepatitis C Ab Screen Neg (Neg) PG Care Time/CCT Total # of Minutes Spent Total Time Spent with Patient: Total time spent is greater than 50% in coordination of care (as documented) at patient's floor/unit and/or counseling patient: Coding Level of Care Code 28733 Subseq Hosp Care Lvl 2 Diagnoses Recurrent Clostridioides difficile infection A49.8 Nausea R11.0 Acute hyponatremia E87.1 Acute hypokalemia E87.6 Rheumatoid arthritis M06.9 Hypomagnesemia E83.42 HTN (hypertension) I10 Hypothyroidism E03.9 NANCIE (obstructive sleep apnea) G47.33 Polymyalgia M35.3 Tobacco use disorder F17.200 DVT prophylaxis Z29.9
[2019-11-14] MEDS: COLESTIPOL HCL 1 GM TAB PO SCH ×2 (12:08→20:00)
[2019-11-14] MEDS: NICOTINE 7 MG/24 HR TDSY TD SCH (12:31)
--- NOTE | 2019-11-14 13:41 | Progress Notes ---
DATE: 11/14/2019 ADDENDUM (submitted by Ashwini Saeed): I interviewed and examined the patient as well as reviewed the chart and labs. The patient is on day 2 of Dificid for her C. diff. colitis. Her abdominal pain is decreased, although she is still having frequent loose stools. She is recorded to have 6 watery and loose stools so far today, but she is tolerating a low-fiber diet. IMPRESSION: The patient will continue on current course until she is improved enough that she can complete her treatment at home. I did talk to her about the possibility of a fecal transplant at [facility] if she has a relapse following Dificid.
[2019-11-14] MEDS: LEVOTHYROXINE SODIUM 112 MCG TABLET PO SCH (20:00)
[2019-11-15] MEDS: HEPARIN SOD 5,000 UNIT/0.5 ML VIAL SQ SCH ×3 (04:10→21:23)
[2019-11-15 06:57] LABS: Hematocrit (blood only) 34.6 % (37-47); Hemoglobin 11.8 g/dL (12.0-16.0); Mean Corpuscular Hemoglobin 34.6 pg (25-34); Mean Corpuscular Hgb Conc 34.1 g/dL (32-36); Mean Corpuscular Volume 101.5 fL (80-100); Mean Platelet Volume 10.4 fL (7.4-10.4); Platelet Count 258 K/uL (130-400); RDW Coefficient of Variation 14.3 % (11.5-14.5); RDW Standard Deviation 51.9 fL (36.4-46.3); Red Blood Count 3.41 M/uL (4.2-5.4); White Blood Count 7.65 K/uL (4.8-10.8)
[2019-11-15 07:36] LABS: BUN Creatinine Ratio 7.2 (10-20); Calcium 7.5 mg/dl (8.5-10.1); Creatinine Clr Calc Pharmacy 111.1 ml/min; Est GFR (African American) 118.7; Est GFR (Non-African American) 102.4; Potassium 3.1 mmol/L (3.5-5.1)
[2019-11-15] MEDS: lisinopriL 20 MG TAB PO SCH (07:45)
[2019-11-15] MEDS: NSS + 20MEQ KCL 20 MEQ/1,000 ML BAG IV SCH (07:45)
[2019-11-15] MEDS: MAGNESIUM OXIDE 400 MG TAB PO SCH (07:46)
[2019-11-15] MEDS: NICOTINE 7 MG/24 HR TDSY TD SCH (07:46)
[2019-11-15] MEDS: FIDAXOMICIN 200 MG TAB PO SCH ×2 (07:46→20:36)
[2019-11-15] MEDS ORDERED: POTASSIUM CHLORIDE 20 MEQ TABCR PO STA (08:13)
--- NOTE | 2019-11-15 08:40 | Gastroenterology Progress Note ---
Date of Service November 15, 2019 Assessment & Plan (1) Recurrent Clostridioides difficile infection: Recurrent C. difficile infection. She was on vancomycin previously for 2 weeks. She was started on Dificid 200 mg p.o. twice daily on admission. This will need to continue for 10 days. Case management is working on obtaining authorization prior to hospital discharge. She is tolerating po diet. Will need follow-up with GI which I will arrange once discharged. Please refer to supervising physician addendum for further recommendations. Admission and Anticipated Discharge Date Admission Date: November 13, 2019 Supervising Physician Co-Signing Physician Notes I have seen and examined nataly. I agree with NICOLA Fernandez note above ex cept as below. Pt states diarreha has improved. Cdiff--improved---complete course of Dificid. If has recurrent cdiff off dificid then would do extended vancomycin taper. Subjective Today the patient reports that diarrhea has continued through the night. She reports that she has had 4-5 episodes of diarrhea last night and this morning. She is having some crampy abdominal discomfort but denies specific pain. Denies any nausea vomiting this morning. She is tolerating a p.o. ocular diet while I am in the room. She continues Dificid and is tolerating well. Review of Systems Review of Systems: All systems reviewed & are unremarkable except as noted in Subjective Physical Exam Constitutional: WD/WN, vitals as above Eyes: PERRL, conjunctivae normal, anicteric sclerae ENMT: external ear and nose normal, oropharynx normal Neck: normal visual inspection and trachea midline Respiratory: normal respiratory effort, lungs clear to auscultation Cardiovascular: RRR, no murmur, no edema Gastrointestinal (Abdomen): normal bowel sounds, soft, nontender, no hepatosplenomegaly Musculoskeletal: Extremities: no cyanosis and no clubbing Skin: no rashes, warm and dry Neurologic: PERRL, EOMI, accommodation nl, no face palsy, no dysarthria Psychiatric: A+Ox3, euthymic affect Results & Data ([facility]) Vital Signs (Past 12 Hours) Vital Signs Temp Pulse Pulse Resp BP BP Pulse Ox 11/15/19 07:55 37.2 C 98 H 20 168/77 H 94 11/15/19 07:12 90 11/15/19 03:44 82 11/14/19 23:18 36.8 C 79 20 138/82 95 Laboratory Results - last 24 hr 11/13/19 11/14/19 11/15/19 09:35 09:20 06:46 WBC 7.65 RBC 3.41 L Hgb 11.8 L Hct 34.6 L MCV 101.5 H MCH 34.6 H MCHC 34.1 RDW Std Deviation 51.9 H RDW Coeff of Hood 14.3 Plt Count 258 MPV 10.4 Sodium Potassium Chloride Carbon Dioxide Anion Gap BUN Creatinine Est Cr Clr Drug Dosing Est GFR ( Amer) Est GFR (Non-Af Amer) BUN/Creatinine Ratio Glucose Calcium Magnesium Stool Occult Bld Scrn Negative Giardia Antigen SEE NOTE 11/15/19 06:46 WBC RBC Hgb Hct MCV MCH MCHC RDW Std Deviation RDW Coeff of Hood Plt Count MPV Sodium 141 Potassium 3.1 L Chloride 110 H Carbon Dioxide 26 Anion Gap 5.0 BUN 4 L Creatinine 0.52 L Est Cr Clr Drug Dosing 111.1 Est GFR ( Amer) 118.7 Est GFR (Non-Af Amer) 102.4 BUN/Creatinine Ratio 7.2 L Glucose 80 Calcium 7.5 L Magnesium 2.0 Stool Occult Bld Scrn Giardia Antigen 11/13/2019: Stool for white blood cell with moderate fecal white blood cell and mixed normal fecal delgado. 11/15/2019: Shiga toxin stool preliminary result is negative. Stool culture preliminary results no Salmonella, Shigella, Campylobacter identified to date
--- NOTE | 2019-11-15 08:53 | Hospitalist Progress Note ---
Date of Service November 15, 2019 Assessment & Plan (1) Recurrent Clostridioides difficile infection: * 64-year-old female with a past medical history of rheumatoid arthritis on Humira, methotrexate, and prednisone, hypertension, history of anemia, and past history of C. difficile who presents with 3 days of copious watery diarrhea concerning for first recurrence of C. difficile. * CTAP with pancolitis, first recurrence. No free air/abscess or obstruction. Fatty infiltration of liver noted * Given patient with RA on immunosuppressive therapy with Humira/MTX/prednisone, at risk for recurrence as demonstrated by her holding this while on Vanco PO and resumed a week following and now developed recurrent cdiff (initially treated with Augmentin for diverticulitis and then developed c.diff 1st time) * Continue with fidaxomicin 200mg BID x 10 days --> checked with and [facility] pharmacy about having in stock -- have 10 tablets and can order more to dispense but will need prior auth * --> if continues to recur secondary to immunosuppressant therapy, may benefit from pulsed taper of Dificid 200mg PO on days 15, then once daily on alternate days on days 725 * Continue colestipol 1 g BID * GI consulted -- continue treatment as ordered until improved enough to continue at home. May benefit from fecal transplant at [place] if relapse following Dificid. Will need follow up at d/c * Reported decreased frequency but still with same amount * Low fiber diet * fecal occult negative, stool WBC smear with moderate fecal WBC, mod mixed normal fecal delgado. No ecoli shiga toxin detected on prelim * D/C IVF at this time given wheezing on examination, although 94% on RA and keeping up with PO intake. * Replace electrolytes as needed * Continue to monitor (2) Nausea: * None reported today * Antiemetics prn (3) Acute hyponatremia: * Na 134 on admission -- suspect secondary to GI loss/cdiff as above * RESOLVED -- Na 141 * IVF disctoniued as above * Continue to monitor (4) Acute hypokalemia: * Persistent despite replacement of magnesium (now 2.0) -- suspect likely secondary to HCTZ use as she has required K supplementation in the past * Increased lisinopril to 20mg PO daily for better BP control and hypoK as we discontinued her HCTZ * K 3.1 on AM labs -- ordered 40meq PO today * Monitor on AM labs (5) Rheumatoid arthritis: * On Humira/prednisone/methotrexate prior to admission * Hold methotrexate, Humira (next dose scheduled for 11/16 but will be held in setting of active infection) * Continue prednisone, but will decrease to 10mg daily as BPs elevated and no signs of insufficiency as well as lack of sleep last evening due to elevated dose * Will need follow up with her Draughtsman Dr Lyn at discharge for further discussion/management of Humira moving forward * May benefit from prolonged c. diff tx as noted above (6) Hypomagnesemia: * Mag 1.6 previous in October. Repeat down to 1.5 -- replaced * RESOLVED -- Mag 2.0 on AM labs * Will repeat in AM given diarrhea to ensure stability (7) HTN (hypertension): * Mildly hypertensive on admit with abdominal discomfort, mild tachycardia * BP elevated at 168/77 this morning but did not receive her AM medications and also got increased prednisone as above. No headache/blurred vision/s/sx of ischemia * D/C'd IVF today, decreased prednisone to 10mg daily as well as discontinued her HCTZ and increased Lisinopril to 20mg PO daily * Continue to monitor (8) Hypothyroidism: * Continue Synthroid 112 mcg p.o. nightly * Last TSH 10/2019 wnl at 1.5 (9) NANCIE (obstructive sleep apnea): * CPAP (10) Polymyalgia: * Continue home duloxetine 60 mg p.o. every morning, 5325 hydrocodone/acetaminophen every 6 hours as needed (11) Tobacco use disorder: * Current smoker -- ordered nicotine patch with good results, continued * Smoking cessation encouraged again today during visit and offered to send rx at discharge if agreeable (12) Fatty liver: * Noted on CT * Needs weight loss (13) DVT prophylaxis: * Heparin SQ --> patient has been refusing CM assisting with insurance auth for Dificid -- hoping to hear back later today/tomorrow Dispo: possible discharge tomorrow Admission and Anticipated Discharge Date Admission Date: November 13, 2019 Supervising Physician Co-Signing Physician Notes PA Supervision Note: I did not personally see or examine the patient today, but I verified all carlisle points of AVTAR Farley's assessment and plan with the following exceptions/additions: None Subjective Patient evaluated this morning. BMs decreased in frequency and amount. Formed last evening and tolerated lunch well, but did not like her dinner and didn't take much in. She did have lots of applesauce and fluids. Cramping followed by BMs. 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 She states good results with nicotine patch yesterday and will continue. Discussed insurance authorization still pending for her Dificid but her potassium is low, likely combination of recent diarrhea and HCTZ use. Discussed now that magnesium replaced, potassium still low and increasing her Lisinopril and discontinuing her HCTZ. Agreeable to plan. She states she did have to take potassium supplementation in the past but that it has been quite a while. Denies fever, chills, chest pain, shortness of breath, abdominal pain (but does have occasional cramping), nausea or vomiting, hematochezia or melena. Hopeful for discharge tomorrow. Review of Systems Review of Systems: All systems reviewed & are unremarkable except as noted in HPI & below Physical Exam Constitutional: WD/WN, vitals as above comfortable; no acute distress Eyes: PERRL, conjunctivae normal, anicteric sclerae Neck: normal visual inspection Respiratory: normal respiratory effort, lungs clear to auscultation (minimal expiratory wheezing) Cardiovascular: RRR, no murmur, no edema Gastrointestinal (Abdomen): normal bowel sounds, soft, nontender, no hepatosplenomegaly Inspection/Auscultation: + abdomen distended (improved per patient) Musculoskeletal: no cyanosis or clubbing, extremities motor strength 5/5 Skin: no rashes, warm and dry Neurologic: PERRL, EOMI, accommodation nl, no face palsy, no dysarthria Psychiatric: Orientation: alert and oriented x 3 Lymphatic: no cervical or axillary lymphadenopathy Results & Data Results & Data ([facility]) Vital Signs (Past 12 Hours) Vital Signs Temp Pulse Pulse Resp BP BP Pulse Ox 11/15/19 07:55 37.2 C 98 H 20 168/77 H 94 11/15/19 07:12 90 11/15/19 03:44 82 11/14/19 23:18 36.8 C 79 20 138/82 95 Laboratory Results 11/15/19 11/15/19 11/14/19 Range/Units 06:46 06:46 09:20 WBC 7.65 (4.8-10.8) K/uL RBC 3.41 L (4.2-5.4) M/uL Hgb 11.8 L (12.0-16.0) g/dL Hct 34.6 L (37-47) % MCV 101.5 H (80-100) fL MCH 34.6 H (25-34) pg MCHC 34.1 (32-36) g/dL RDW Std Deviation 51.9 H (36.4-46.3) fL RDW Coeff of Hood 14.3 (11.5-14.5) % Plt Count 258 (130-400) K/uL MPV 10.4 (7.4-10.4) fL Sodium 141 (136-145) mmol/L Potassium 3.1 L (3.5-5.1) mmol/L Chloride 110 H (98-107) mmol/L Carbon Dioxide 26 (21-32) mmol/L Anion Gap 5.0 (3-11) BUN 4 L (7-18) mg/dl Creatinine 0.52 L (0.6-1.2) mg/dl Est Cr Clr Drug Dosing 111.1 ml/min Est GFR ( Amer) 118.7 Est GFR (Non-Af Amer) 102.4 BUN/Creatinine Ratio 7.2 L (10-20) Glucose 80 (70-99) mg/dl Calcium 7.5 L (8.5-10.1) mg/dl Magnesium 2.0 (1.8-2.4) mg/dl Stool Occult Bld Scrn Negative (Negative) Giardia Antigen 11/13/19 Range/Units 09:35 WBC (4.8-10.8) K/uL RBC (4.2-5.4) M/uL Hgb (12.0-16.0) g/dL Hct (37-47) % MCV (80-100) fL MCH (25-34) pg MCHC (32-36) g/dL RDW Std Deviation (36.4-46.3) fL RDW Coeff of Hood (11.5-14.5) % Plt Count (130-400) K/uL MPV (7.4-10.4) fL Sodium (136-145) mmol/L Potassium (3.5-5.1) mmol/L Chloride (98-107) mmol/L Carbon Dioxide (21-32) mmol/L Anion Gap (3-11) BUN (7-18) mg/dl Creatinine (0.6-1.2) mg/dl Est Cr Clr Drug Dosing ml/min Est GFR ( Amer) Est GFR (Non-Af Amer) BUN/Creatinine Ratio (10-20) Glucose (70-99) mg/dl Calcium (8.5-10.1) mg/dl Magnesium (1.8-2.4) mg/dl Stool Occult Bld Scrn (Negative) Giardia Antigen SEE NOTE PG Care Time/CCT Total # of Minutes Spent Total Time Spent with Patient: Total time spent is greater than 50% in coordination of care (as documented) at patient's floor/unit and/or counseling patient: Coding Level of Care Code 11589 Subseq Hosp Care Lvl 2 Diagnoses Recurrent Clostridioides difficile infection A49.8 Nausea R11.0 Acute hyponatremia E87.1 Acute hypokalemia E87.6 Rheumatoid arthritis M06.9 Hypomagnesemia E83.42 HTN (hypertension) I10 Hypothyroidism E03.9 NANCIE (obstructive sleep apnea) G47.33 Polymyalgia M35.3 Tobacco use disorder F17.200 Fatty liver K76.0 DVT prophylaxis Z29.9
[2019-11-15] MEDS ORDERED: predniSONE 20 MG TAB PO SCH (09:00)
[2019-11-15] MEDS: COLESTIPOL HCL 1 GM TAB PO SCH ×2 (12:03→20:38)
[2019-11-15] MEDS ORDERED: amLODIPine BESYLATE 5 MG TAB PO ONE (16:45)
[2019-11-15] MEDS ORDERED: LORazepam 0.5 MG TAB PO STA (16:53)
[2019-11-15] MEDS ORDERED: hydrALAZINE HCL 20 MG/ML VIAL IV PRN (18:31)
[2019-11-15] MEDS: LEVOTHYROXINE SODIUM 112 MCG TABLET PO SCH (20:38)
[2019-11-16] MEDS: HEPARIN SOD 5,000 UNIT/0.5 ML VIAL SQ SCH ×3 (05:17→22:30)
[2019-11-16] MEDS: COLESTIPOL HCL 1 GM TAB PO SCH ×2 (07:37→20:21)
[2019-11-16] MEDS: FIDAXOMICIN 200 MG TAB PO SCH ×2 (07:37→20:30)
[2019-11-16] MEDS: MAGNESIUM OXIDE 400 MG TAB PO SCH (07:37)
[2019-11-16 08:44] LABS: Basophils # (auto) 0.04 K/uL (0-0.2); Basophils % (auto) 0.4 %; Hematocrit (blood only) 40.2 % (37-47); Hemoglobin 13.1 g/dL (12.0-16.0); Immature Granulocytes # (auto) 0.12 K/uL (0.00-0.02); Immature Granulocytes % (auto) 1.2 %; Lymphocytes # (auto) 4.02 K/uL (1.2-3.4); Lymphocytes % (auto) 39.6 %; Mean Corpuscular Hemoglobin 33.1 pg (25-34); Mean Corpuscular Hgb Conc 32.6 g/dL (32-36); Mean Corpuscular Volume 101.5 fL (80-100); Mean Platelet Volume 10.7 fL (7.4-10.4); Monocytes # (auto) 1.46 K/uL (0.11-0.59); Monocytes % (auto) 14.4 %; Neutrophils # (auto) 4.22 K/uL (1.4-6.5); Neutrophils % (auto) 41.4 %; Platelet Count 316 K/uL (130-400); RDW Coefficient of Variation 14.5 % (11.5-14.5); Red Blood Count 3.96 M/uL (4.2-5.4); White Blood Count 10.16 K/uL (4.8-10.8)
[2019-11-16 09:08] LABS: Albumin Globulin Ratio 0.7 (0.9-2); Albumin Level 2.8 gm/dl (3.4-5.0); BUN Creatinine Ratio 3.9 (10-20); Bilirubin,Total 0.3 mg/dl (0.2-1); Calcium 8.2 mg/dl (8.5-10.1); Creatinine Clr Calc Pharmacy 93.2 ml/min; Est GFR (Non-African American) 96.6; Globulin 3.8 gm/dl (2.5-4.0); Total Protein 6.6 gm/dl (6.4-8.2)
[2019-11-16] MEDS: NICOTINE 7 MG/24 HR TDSY TD SCH (09:14)
[2019-11-16 09:46] LABS: Potassium 3.3 mmol/L (3.5-5.1)
[2019-11-16 09:50] LABS: Magnesium 1.7 mg/dl (1.8-2.4)
--- NOTE | 2019-11-16 09:56 | Gastroenterology Progress Note ---
Date of Service November 16, 2019 Assessment & Plan (1) Recurrent Clostridioides difficile infection: Improving on Dificid. She should complete course of that. If has recurrent symptoms would check Cdiff again and if postiive used vancomycin with extended taper. Will sign off. Please call for further questions. Admission and Anticipated Discharge Date Admission Date: November 13, 2019 Subjective cc f/u diarrhea HPI Pt states diarrhea is less and she is tolearting solid food. Stools about 3 in last 24 hours. Physical Exam Gastrointestinal (Abdomen): normal bowel sounds, soft, nontender, no hepatosplenomegaly Results & Data ([facility]) Vital Signs (Past 12 Hours) Vital Signs Temp Pulse Pulse Resp BP Pulse Ox 11/16/19 07:00 36.8 C 92 H 20 147/93 H 96 11/16/19 05:00 87 11/16/19 03:00 36.7 C 88 20 150/87 H 93
[2019-11-16] MEDS ORDERED: POTASSIUM CHLORIDE 20 MEQ TABCR PO ONE (11:30)
[2019-11-16] MEDS: lisinopriL 20 MG TAB PO SCH (11:53)
[2019-11-16] MEDS: predniSONE 10 MG TABLET PO SCH (11:54)
[2019-11-16] MEDS: MAGNESIUM SULFATE / D5W 1 GM/100 ML BAG IV SCH ×2 (11:54→13:56)
--- NOTE | 2019-11-16 16:06 | Hospitalist Progress Note ---
Date of Service November 16, 2019 Assessment & Plan (1) Recurrent Clostridioides difficile infection: * 64-year-old female with a past medical history of rheumatoid arthritis on Humira, methotrexate, and prednisone, hypertension, history of anemia, and past history of C. difficile who presents with 3 days of copious watery diarrhea concerning for first recurrence of C. difficile. * CTAP with pancolitis, first recurrence. No free air/abscess or obstruction. Fatty infiltration of liver noted * Given patient with RA on immunosuppressive therapy with Humira/MTX/prednisone, at risk for recurrence as demonstrated by her holding this while on Vanco PO and resumed a week following and now developed recurrent cdiff (initially treated with Augmentin for diverticulitis and then developed c.diff 1st time) * Continue with fidaxomicin 200mg BID x 10 days --> checked with and [facility] about having in stock -- have 10 tablets and can order more to dispense but will need prior auth (STILL WAITING, called twice yesterday and twice today -- it is flagged as urgent but still awaiting) * --> if continues to recur secondary to immunosuppressant therapy, per GI recommendations, would use vancomycin with extended taper * Continue colestipol 1 g BID * GI consulted -- appreciate assistance * Only 3 BM in past 24 hour reported * Low fiber diet * fecal occult negative, stool WBC smear with moderate fecal WBC, mod mixed normal fecal delgado. No ecoli shiga toxin detected on prelim * Replace electrolytes as needed * Continue to monitor (2) Nausea: * None reported today * Antiemetics prn (3) Acute hyponatremia: * Na 134 on admission -- suspect secondary to GI loss/cdiff as above * RESOLVED -- Na 138 (4) Acute hypokalemia: * Persistent despite replacement of magnesium (now 2.0) -- suspect likely secondary to HCTZ use as she has required K supplementation in the past * Increased lisinopril to 20mg PO daily for better BP control and hypoK as we discontinued her HCTZ --> to continue lisinopril 20mg at discharge * K 3.3 on AM labs -- ordered 20meq PO today but expect normalization given increased ROSA and now without diarrhea * Monitor on AM labs (5) Rheumatoid arthritis: * On Humira/prednisone/methotrexate prior to admission * Hold methotrexate, Humira (next dose scheduled for 11/16 but will be held in setting of active infection) * Continue home prednisone * Will need follow up with her Industrial Energy Engineer Dr Lyn at discharge for further discussion/management of Humira moving forward * May benefit from prolonged c. diff tx as noted above if recurs (6) Hypomagnesemia: * Mag 1.6 previous in October. Repeat down to 1.5 -- replaced * Mag 1.7 on AM labs -- ordered 2gm (7) HTN (hypertension): * BP much better controlled with adjustments as above, currently 131/77 * Continue increased lisinopril 20mg and pt instructed to d/c her HCTZ as done during this admission (8) Hypothyroidism: * Continue Synthroid 112 mcg p.o. nightly * Last TSH 10/2019 wnl at 1.5 (9) NANCIE (obstructive sleep apnea): * CPAP (10) Polymyalgia: * Continue home duloxetine 60 mg p.o. every morning, 5325 hydrocodone/acetaminophen every 6 hours as needed (11) Tobacco use disorder: * Current smoker -- ordered nicotine patch with good results, continued * Smoking cessation encouraged again today during visit and offered to send rx at discharge if agreeable (12) Fatty liver: * Noted on CT * Needs weight loss (13) DVT prophylaxis: * Heparin SQ --> patient has been refusing but did get two doses. * Encouraged frequent ambulation, currently 94% on RA and without shortness of breath or calf tenderness on examination Dispo: possible discharge tonight if we hear back from insurance, otherwise should hear back by tomorrow. CM assisting Admission and Anticipated Discharge Date Admission Date: November 13, 2019 Supervising Physician Co-Signing Physician Notes PA Supervision Note: I did not personally see or examine the patient today, but I verified all carlisle points of AVTAR Farley's assessment and plan with the following exceptions/additions: None Subjective Patient evaluated earlier this afternoon. States she is feeling much improved. Disappointed to see "our friends" in reference to the IV magnesium and potassium supplementation this morning. Discussed potassium improved and will likely be back to baseline by tomorrow given increase in her lisinopril and discontinuation of her HCTZ. Reported only 3 "snakes" in reference to bowel movements. Formed and without mucous or discoloration like in days past. Denies fever, chills, chest pain, shortness of breath, abdominal pain nausea or vomiting. Discussed insurance auth still pending and will check again this afternoon but worst case scenario we should hear back by tomorrow and will be able to get her home at that time. She did miss her third knee injection as previously done by Anika Stokes and [facility] that was supposed to be scheduled for Wednesday. She states third was to be within 7-10 days of second injection and today would be day 10. She states she will call their office but will let us know if she needs any assistance scheduling a follow-up with them. She had gotten two of the Heparin SQ injections but refused others. Discussed prevention of blood clots. She states she has been ambulating frequently in the room but it is difficult as she only has so far she is able to go while on contact precautions. Denies calve tenderness but did have some cramping in her left posterior thigh this morning which has resolved. Nicotine patch continuing to provide relief for her cravings. Hopeful for discharge this evening but understands this may not be until the morning. Questions/concerns addressed at this time. Review of Systems Review of Systems: All systems reviewed & are unremarkable except as noted in HPI & below Physical Exam Constitutional: WD/WN, vitals as above comfortable; no acute distress Eyes: PERRL, conjunctivae normal, anicteric sclerae Neck: normal visual inspection Respiratory: normal respiratory effort, lungs clear to auscultation (coarse breath sounds posterior lung richardson) Cardiovascular: RRR, no murmur, no edema Gastrointestinal (Abdomen): normal bowel sounds, soft, nontender, no hepatosplenomegaly Musculoskeletal: no cyanosis or clubbing, extremities motor strength 5/5 Skin: no rashes, warm and dry Neurologic: PERRL, EOMI, accommodation nl, no face palsy, no dysarthria Psychiatric: Orientation: alert and oriented x 3 Lymphatic: no cervical or axillary lymphadenopathy Results & Data Results & Data ([facility]) Vital Signs (Past 12 Hours) Vital Signs Temp Pulse Pulse Resp BP BP Pulse Ox 11/16/19 11:00 36.8 C 85 18 131/77 94 11/16/19 08:30 40 L 11/16/19 07:00 36.8 C 92 H 20 147/93 H 96 11/16/19 05:00 87 Laboratory Results 11/16/19 11/16/1920 Range/Units 09:15 08:26 08:26 WBC 10.16 (4.8-10.8) K/uL RBC 3.96 L (4.2-5.4) M/uL Hgb 13.1 (12.0-16.0) g/dL Hct 40.2 (37-47) % MCV 101.5 H (80-100) fL MCH 33.1 (25-34) pg MCHC 32.6 (32-36) g/dL RDW Std Deviation 53.0 H (36.4-46.3) fL RDW Coeff of Hood 14.5 (11.5-14.5) % Plt Count 316 (130-400) K/uL MPV 10.7 H (7.4-10.4) fL Immature Gran % (Auto) 1.2 % Neut % (Auto) 41.4 % Lymph % (Auto) 39.6 % Carolina % (Auto) 14.4 % Eos % (Auto) 3.0 % Baso % (Auto) 0.4 % Neut # (Auto) 4.22 (1.4-6.5) K/uL Lymph # (Auto) 4.02 H (1.2-3.4) K/uL Carolina # (Auto) 1.46 H (0.11-0.59) K/uL Eos # (Auto) 0.30 (0-0.5) K/uL Baso # (Auto) 0.04 (0-0.2) K/uL Immature Gran # (Auto) 0.12 H (0.00-0.02) K/uL Sodium 138 (136-145) mmol/L Potassium 3.3 L (3.5-5.1) mmol/L Chloride 107 (98-107) mmol/L Carbon Dioxide 27 (21-32) mmol/L Anion Gap 4.0 (3-11) BUN 2 L (7-18) mg/dl Creatinine 0.62 (0.6-1.2) mg/dl Est Cr Clr Drug Dosing 93.2 ml/min Est GFR ( Amer) 112.0 Est GFR (Non-Af Amer) 96.6 BUN/Creatinine Ratio 3.9 L (10-20) Glucose 100 H (70-99) mg/dl Calcium 8.2 L (8.5-10.1) mg/dl Magnesium 1.7 L (1.8-2.4) mg/dl Total Bilirubin 0.3 (0.2-1) mg/dl AST 21 (15-37) U/L ALT 36 (12-78) U/L Alkaline Phosphatase 57 (45-117) U/L Total Protein 6.6 (6.4-8.2) gm/dl Albumin 2.8 L (3.4-5.0) gm/dl Globulin 3.8 (2.5-4.0) gm/dl Albumin/Globulin Ratio 0.7 L (0.9-2) PG Care Time/CCT Total # of Minutes Spent Total Time Spent with Patient: Total time spent is greater than 50% in coordination of care (as documented) at patient's floor/unit and/or counseling patient: Coding Level of Care Code 28562 Subseq Hosp Care Lvl 2 Diagnoses Recurrent Clostridioides difficile infection A49.8 Nausea R11.0 Acute hyponatremia E87.1 Acute hypokalemia E87.6 Rheumatoid arthritis M06.9 Hypomagnesemia E83.42 HTN (hypertension) I10 Hypothyroidism E03.9 NANCIE (obstructive sleep apnea) G47.33 Polymyalgia M35.3 Tobacco use disorder F17.200 Fatty liver K76.0 DVT prophylaxis Z29.9
[2019-11-16] MEDS: LEVOTHYROXINE SODIUM 112 MCG TABLET PO SCH (20:24)
[2019-11-17] MEDS: HEPARIN SOD 5,000 UNIT/0.5 ML VIAL SQ SCH (06:14)
[2019-11-17 08:06] LABS: Hematocrit (blood only) 40.4 % (37-47); Hemoglobin 13.7 g/dL (12.0-16.0); Mean Corpuscular Hgb Conc 33.9 g/dL (32-36); Mean Corpuscular Volume 100.2 fL (80-100); Mean Platelet Volume 10.6 fL (7.4-10.4); Nucleated RBC # (auto) 0.03 K/uL (0-0); Nucleated RBC % (auto) 0.3 %; Platelet Count 313 K/uL (130-400); RDW Coefficient of Variation 14.4 % (11.5-14.5); Red Blood Count 4.03 M/uL (4.2-5.4); White Blood Count 11.55 K/uL (4.8-10.8)
[2019-11-17] MEDS: predniSONE 10 MG TABLET PO SCH (08:19)
[2019-11-17] MEDS: MAGNESIUM OXIDE 400 MG TAB PO SCH (08:19)
[2019-11-17] MEDS: COLESTIPOL HCL 1 GM TAB PO SCH (08:20)
[2019-11-17] MEDS: lisinopriL 20 MG TAB PO SCH (08:20)
[2019-11-17] MEDS: NICOTINE 7 MG/24 HR TDSY TD SCH (08:21)
[2019-11-17] MEDS: FIDAXOMICIN 200 MG TAB PO SCH (08:27)
[2019-11-17 08:38] LABS: Albumin Level 2.8 gm/dl (3.4-5.0); Calcium 8.4 mg/dl (8.5-10.1); Est GFR (African American) 109.7; Est GFR (Non-African American) 94.7; Magnesium 2.2 mg/dl (1.8-2.4); Potassium 2.9 mmol/L (3.5-5.1)
[2019-11-17 08:41] LABS: Albumin Globulin Ratio 0.8 (0.9-2); Bilirubin,Total 0.3 mg/dl (0.2-1); Globulin 3.6 gm/dl (2.5-4.0); Total Protein 6.4 gm/dl (6.4-8.2)
[2019-11-17] MEDS ORDERED: POTASSIUM CHLORIDE 20 MEQ TABCR PO STA (08:42)
[2019-11-17 08:52] LABS: Basophils # (auto) 0.06 K/uL (0-0.2); Basophils % (auto) 0.5 %; Eosinophils % (auto) 2.6 %; Immature Granulocytes # (auto) 0.22 K/uL (0.00-0.02); Immature Granulocytes % (auto) 1.9 %; Lymphocytes # (auto) 5.02 K/uL (1.2-3.4); Lymphocytes % (auto) 43.5 %; Monocytes # (auto) 1.88 K/uL (0.11-0.59); Monocytes % (auto) 16.3 %; Neutrophils # (auto) 4.07 K/uL (1.4-6.5); Neutrophils % (auto) 35.2 %
--- NOTE | 2019-11-17 09:45 | Discharge Summary ---
Date of Service November 17, 2019 Admission HPI Per Admitting Provider Madelaine is a 64-year-old female with a past medical history of rheumatoid arthritis on Humira, methotrexate, and prednisone, hypertension, history of anemia, and past history of C. difficile who presents with 3 days of copious watery diarrhea concerning for first recurrence of C. difficile. Madelaine reports she had her first episode of C. difficile last month. She reports that she initially had some left lower quadrant pain and was treated with Augmentin for diverticulitis. Following Augmentin treatment her pain increased and she developed severe copious diarrhea. She was diagnosed with gene/toxin positive C. difficile, nonsevere and was discharged to complete a 10-day course of oral vancomycin. She reports that she completed her complete course of oral vancomycin and her symptoms improved and she was having a formed but soft bowel movement about once daily for couple of weeks. Her symptoms recurred 3 days ago when she developed increasing diarrhea and abdominal tenderness which progressively increased over the weekend. He has not had associated fever, chills, sweats. Her bowel movements are completely liquid with a small amount of mucus and no blood. She denies syncope/presyncope. She has not had any medication changes or any antibiotics in the previous weeks since completing her vancomycin course. She is on Humira for rheumatoid arthritis, she reports she missed her 10/26 dose due to C. difficile treatment, received a dose on 11/02, and would normally be due for her next dose this week on 11/16. Today she has had diarrhea every 30-45 minutes. Twice since getting to ER. no blood in BM, some mucous with completely liquid stool. Painful BMs, feels her bottom is "sore " She has not had any cold-like symptoms. She reports a 40-year approximately half pack per day cigarette use. She has not been diagnosed with COPD or emphysema, but notes that she sometimes wheezes especially when going up stairs. She does not take any inhalers at home, but uses a CPAP for NANCIE. She does not feel short of breath at time of presentation to the ER, and has not needed oxygen at home. MedHx: Reviewed and as above Fhx: DM. Noncontributory. Surgical history: Reviewed Allergies: NKDA Social: Rare alcohol, none in 3 months. 10 cigarettes daily for more than 40 years. Would apreciate trying gum. No recreational drugs or medical marijuana. Lives at home with her and adult children. No sick contacts at home. Code Status: Full Code Admission Exam Per Admitting Provider General: A&Ox3. NAD. Appears fatigued. Cooperative. Nontoxic. HEENT: Atraumatic, normocephalic. Visual acuity grossly intact, hearing grossly intact. Pupils equal and reactive to light and accommodation. Extraocular movements intact without nystagmus. Pulm: Scattered expiratory wheezes more prominent on forced expiration. No rales, crackles, or rhonchi. Symmetrical chest rise. No increase work of breathing. No respiratory distress. Cardiac: RRR, -mrg. Radial pulses intact and symmetrical. Abdominal: Mildly tender most prominent in right lower quadrant, slight tenderness in the left lower quadrant. No rebound tenderness. No guarding. No rigidity. Bowel sounds increased. Extremities: Moving all extremities equally. Track Helper strength, ankle plantar flexion/dorsiflexion, hip flexion 5/5 and symmetric. Radial and PT pulses i ntact and symmetrical, non-bounding. Sensation to soft touch intact in fingertips and toes bilaterally without asymmetry. Principal Diagnosis Recurrent Cdiff Discharge Exam Constitutional WD/WN, vitals as above comfortable; no acute distress Eyes PERRL, conjunctivae normal, anicteric sclerae Neck normal visual inspection Respiratory normal respiratory effort, lungs clear to auscultation (coarse breath sounds posterior lung richardson) Cardiovascular RRR, no murmur, no edema Gastrointestinal (Abdomen) normal bowel sounds, soft, nontender, no hepatosplenomegaly Musculoskeletal no cyanosis or clubbing, extremities motor strength 5/5 Skin no rashes, warm and dry Neurologic PERRL, EOMI, accommodation nl, no face palsy, no dysarthria Psychiatric Orientation: alert and oriented x 3 Lymphatic no cervical or axillary lymphadenopathy Discharge Data Allergies Allergy/AdvReac Type Severity Reaction Status Date / Time No Known Allergies Allergy Verified 11/13/19 09:36 Consultations 11/13/19 12:23 ED Decision to Admit Stat Ordered Studies 11/13/19 09:18 CT abd pelvis IV con only Stat Hospital Course (1) Recurrent Clostridioides difficile infection: * 64-year-old female with a past medical history of rheumatoid arthritis on Humira, methotrexate, and prednisone, hypertension, history of anemia, and past history of C. difficile who presented with 3 days of copious watery diarrhea concerning for first recurrence of C. difficile. * CTAP with pancolitis, first recurrence. No free air/abscess or obstruction. F atty infiltration of liver noted * Given patient with RA on immunosuppressive therapy with Humira/MTX/prednisone, at risk for recurrence as demonstrated by her holding this while on Vanco PO and resumed a week following and now developed recurrent cdiff (initially treated with Augmentin for diverticulitis and then developed c.diff 1st time) * Cdiff positive * Initiated Dificid and had to await insurance authorization -- to complete today course of 10 days * Colestipol while inpatient and sent with cholestyramine at discharge to help with diarrhea, drastically improved from admission and now formed stool * Electrolytes monitored and replaced as needed, supportive care with IVF as well * GI consulted -- will need follow up as arranged by their office * If recurs, would consider tapered dose of dificid or [place]anco [place] [facility] [place] (2) Nausea: * None reported today * Antiemetics prn while inpatient (3) Acute hyponatremia: * Na 134 on admission -- suspect secondary to GI loss/cdiff as above as well as HCTZ use * RESOLVED -- Na 140 (4) Acute hypokalemia: * Secondary to HCTZ usage * HCTZ discontinued and her lisinopril was increased to 20mg daily * K down to 2.9 and given 40meq po with rx for 20meq po daily with repeat labs outpatient in next 2 days but suspect patient will have improvement now off HCTZ, increased ROSA and diarrhea slowed * Follow up with PCP outpatient (5) Rheumatoid arthritis: * On Humira/prednisone/methotrexate prior to admission * Held methotrexate, Humira (next dose scheduled for 11/16 but instructed to hold in setting of active infection and follow up with Dr. Lyn prior to restarting once finished with her abx as above * Continued home prednisone at discharge * May benefit from prolonged c. diff tx as noted above if recurs (6) Hypomagnesemia: * Mag 1.6 previous in October. Repeat down to 1.5 -- replaced * Resolved -- Mag 2.2 * Repeat as outpatient to see if she would need supplementation now that diarrhea resolved (7) HTN (hypertension): * BP improved with d/c HCTZ and increased lisinopril to 20mg daily as above * Follow up with PCP outpatient for further titration/adjustments (8) Hypothyroidism: * Continued Synthroid 112 mcg p.o. nightly * Last TSH 10/2019 wnl at 1.5 (9) NANCIE (obstructive sleep apnea): * CPAP (10) Polymyalgia: * Continue home duloxetine 60 mg p.o. every morning, 5325 hydrocodone/acetaminophen every 6 hours as needed (11) Tobacco use disorder: * Current smoker -- ordered nicotine patch with good results, continued while inpatient * Smoking cessation encouraged again today (12) Fatty liver: * Noted on CT * Needs weight loss (13) DVT prophylaxis: * Heparin SQ --> patient has been refusing but was agreeable for some -- 97% on RA. no sob, calf tenderness Discharged home Total Time Total Time Spent Total Time Spent (In Minutes): 60 Discharge Plan Discharge Items Patient Disposition: Home - Self-Care Reason For Visit: C DIFF COLITIS Discharge Diagnosis: Recurrent cdiff Goals: You have been hospitalized for an acute medical problem. During your stay at [facility], we have made an effort to correct the problem that brought you to the hospital while keeping you as comfortable as possible. Medications were used to bring your condition under control and your discharge instructions will include directions for any medications you should take after leaving the hospital. Please make sure you see your Primary Care Provider as part of your follow up plan. Activity: Resume your previous activity Non-emergency contact: Primary Care Provider, Specialist and Benefits Representative Call non-emergency contact if: you have any medication questions, your symptoms worsen, your pain is concerning for you and you have a fever Follow-up/Referrals: Usha Weaver DO [Primary Care Provider] - Matthieu Johnson [Physician] - 11/20/19 1:40 pm (You have an appt with Ashwini Saede on WednesdayNovember 19 at 140p. It is important that you keep this appt, if it does not fit your schedule, please call [phone] to reschedule. Please arrive 15 minutes prior to your appt. ) Aimee Lyn MD, PhD [Physician] - (Dr. Lyn's office will call you with appt date and time. ) Diet: Heart Healthy and Low Fiber Ambulatory Orders: Basic Metabolic Panel (Routine) Timeframe: 2 Days Location: Determined by Patient Ordered By: Adriana Farley Magnesium (Routine) Timeframe: 2 Days Location: Determined by Patient Ordered By: Adriana Farley Addtl Attending Provider Instructions: You have been hospitalized for cdiff. You have been treated with Dificid and will continue this medication twice daily for the next six days. Insurance authorization was finally accepted and your prescription has been sent. If this happens again, GI is recommending either a tapered dose of dificid or vancomycin vs a fecal transplant as they had previously discussed. You are also being sent home with some cholestyramine that will help with diarrhea during this time. Your blood pressures had been elevated and your potassium continued to be low, likely due to the hydrochlorothiazide in your blood pressure medicine and this was discontinued and your lisinopril was increased to 20mg daily. A prescription has been sent for the increased dose of lisinopril and this will also help with your potassium. You have been sent in a prescription for 20meq of potassium daily until potassium back in normal range. You have been provided lab slips to repeat your BMP and magnesium in the next two days to ensure you will not need any further supplementation. You should continue to hold your methotrexate and Humira until seen by Dr. Lyn. You should follow up with Dr. Johnson's office in the next several weeks. Their office will call you with follow-up appointment. You should also follow up with your primary care provider in the next week to monitor your progress. Please return to the emergency department with worsening diarrhea, abdominal pain, shortness of breath, chest pain or for any other symptoms that are worrisome for you It is highly recommended that you quit smoking and utilize smoking cessation agents to help with this. It has been a pleasure being a part of the medical team providing for you while you have been in the hospital. Take care! Pending Studies at Discharge: No Stand-Alone Forms: [facility], Work/School Release (Inpt), Smoking Cessation Medications and DC Order Prescriptions: New Dificid 200 mg Tablet 200 mg PO BID Qty: 12 RF: 0 cholestyramine (with sugar) 4 gram powder 4 g PO TID Qty: 378 RF: 0 lisinopril 20 mg Tablet 20 mg PO QAM Qty: 30 RF: 1 potassium chloride 20 mEq tablet extended release 20 meq PO DAILY Qty: 30 RF: 0 Continued hydrocodone-acetaminophen 5-325 mg Tablet 0.5 - 1 tab PO Q6H PRN (Reason: Pain) RF: 0 folic acid 1 mg Tablet 1 mg PO QAM RF: 0 levothyroxine 112 mcg Tablet 112 mcg PO HS RF: 0 prednisone 5 mg Tablet 5 mg PO QAM RF: 0 duloxetine [Cymbalta] 30 mg Capsule,Delayed Release(Dr/Ec) 60 mg PO QAM RF: 0 electrolytes-dextrose [Pedialyte] Solution 240 ml PO QID PRN (Reason: Stomach Upset) RF: 0 cholecalciferol (vitamin D3) [Vitamin D3] 25 mcg (1,000 unit) Capsule 25 mcg PO QAM RF: 0 Centrum Women 18-400 mg-mcg Tablet 1 tab PO QAM RF: 0 folic acid 1 mg tablet 2 mg PO QDL RF: 0 acetaminophen [Tylenol] 325 mg Tablet 325 mg PO Q6H PRN (Reason: Pain) RF: 0 ondansetron 4 mg tablet,disintegrating 4 mg PO Q6H PRN (Reason: nausea and vomiting) Qty: 15 RF: 0 Discontinued lisinopril-hydrochlorothiazide 10-12.5 mg Tablet 1 tab PO QAM RF: 0 methotrexate sodium 2.5 mg Tablet 20 mg PO FR RF: 0 Humira Pen 40 mg/0.8 mL Pen Injector Kit 80 mg SUBCUT .Q2WK FR RF: 0 Discharge Orders: Discharge Order (Routine); Ordered 11/17/19 Ordered By: Adriana Farley Admission Data Admit Date/Time: 11/13/19 13:08 Attending Provider: Madie Ferraro Admit Provider: George Mcdonald Primary Care Provider: Usha Weaver Other Providers: George Mcdonald Other Interventions: Discharge Summary Assessment (RN) Last Done: 11/17/19 10:23 Supervising Physician Co-Signing Physician Notes PA Supervision Note: I personally saw and examined the patient. I verified all carlisle points and agree with AVTAR Farley with the following exceptions and/or additions: Pt doing well, no complaints, diarrhea resolved, ladi po. Denies CP/SOB/abd pain VSS NAD, AAOx3 RRR no mgr CTAB no wcr ABd +BS soft NT ND EXt no edema 64 yo female here with recurrent c. diff colitis, improved on DIficid, stable for dc to home on dificid course as above Coding Level of Care Code D/C Day Management >30 mins Diagnoses Recurrent Clostridioides difficile infection A49.8 Nausea R11.0 Acute hyponatremia E87.1 Acute hypokalemia E87.6 Rheumatoid arthritis M06.9 Hypomagnesemia E83.42 HTN (hypertension) I10 Hypothyroidism E03.9 NANCIE (obstructive sleep apnea) G47.33 Polymyalgia M35.3 Tobacco use disorder F17.200 Fatty liver K76.0 DVT prophylaxis Z29.9
== END 2019-11-17 11:18 | disposition home or self-care (01) | DRG 372 ==
LOC: ED 08:55 → 2W 13:08 → SUATTDRO 13:08 → 2W 16:17

== ENCOUNTER 2024-01-21 08:07 | Inpatient (IN) ==
--- NOTE | 2024-01-21 08:38 | Emergency Department Note ---
History of Present Illness General Chief complaint: Shortness of Breath/Dyspnea Stated complaint: SOB/TROUBLE BREATHING, DIZZY Time Seen by Provider: 01/21/24 08:18 History of Present Illness Patient is a 69-year-old female with past medical history significant for rheumatoid arthritis, hypertension, hypothyroidism, lifelong smoker without diagnosis of COPD, history of sleep apnea, among other chronic medical problems who presents to the emergency department for evaluation of shortness of breath. She reports developing some upper respiratory symptoms in the last several days. She developed cough and wheezing in the last 1-2 days. She has used DayQuil and NyQuil, and has an albuterol inhaler that she was using. Her primary care provider's office called in prescriptions for DuoNebs which she started yesterday, she is only done 2. Last nebulizer treatment was about 4 hours ago. She reports midsternal chest pain with coughing, and scant sputum production. No fevers. Denies any sick contacts. Again, lifelong smoker, but no formal diagnosis of COPD. She only has an albuterol inhaler that she uses as needed. Home Medications Medication Instructions Recorded Confirmed Type folic acid 1 mg tablet 1 mg PO QAM 11/17/17 01/21/24 History prednisone 5 mg tablet 5 mg PO QAM 11/17/17 01/21/24 History cholecalciferol (vitamin D3) 25 25 mcg PO QAM 10/12/19 01/21/24 History mcg (1,000 unit) capsule (Vitamin D3) multivitamin-ferrous 1 tab PO QAM 10/12/19 01/21/24 History fumarate-folic acid 18 mg-400 mcg tablet (Centrum Women) lisinopril 20 mg tablet 20 mg PO QAM #30 tabs 11/17/19 01/21/24 Rx methotrexate sodium 2.5 mg tablet 20 mg PO WK 01/19/22 01/21/24 History turmeric 400 mg capsule 400 mg PO QAM ##0 01/19/22 01/21/24 History levothyroxine 150 mcg tablet 150 mcg PO QAM 03/31/22 01/21/24 History amlodipine 2.5 mg tablet 2.5 mg PO QAM 01/21/24 01/21/24 History duloxetine 60 mg capsule,delayed 60 mg PO DAILY 01/21/24 01/21/24 History release hydroxychloroquine 200 mg tablet 400 mg PO HS 01/21/24 01/21/24 History ipratropium 0.5 mg-albuterol 3 mg 3 ml inhalation Q6H PRN 01/21/24 01/21/24 History (2.5 mg base)/3 mL nebulization SOB/Wheezing soln metoprolol succinate 50 mg 50 mg PO DAILY 01/21/24 01/21/24 History tablet,extended release 24 hr rosuvastatin 10 mg tablet 10 mg PO DAILY 01/21/24 01/21/24 History Allergies Allergy/AdvReac Type Severity Reaction Status Date / Time amoxicillin [From Augmentin] AdvReac Unknown Diarrhea Verified 04/03/22 07:55 clavulanic acid AdvReac Unknown Diarrhea Verified 04/03/22 07:55 [From Augmentin] Past Med/Surg History Problem List (Updated 01/21/24 @ 14:03 by Elo Ritter) Elevated troponin (Acute) Hypomagnesemia (Acute) Acute exacerbation of chronic obstructive pulmonary disease (Acute) Elevated troponin COPD exacerbation Encounter for pre-operative examination HTN (hypertension) (Chronic) Hypothyroid (Chronic) Right knee pain (Acute) No significant past surgical history Acute hypokalemia (Acute) Recurrent Clostridioides difficile infection Tobacco use disorder Hypothyroidism Hypomagnesemia Bilateral lumbar radiculopathy Polymyalgia NANCIE (obstructive sleep apnea) cpap Fatty liver Medical History Hypothyroidism DVT prophylaxis Hypomagnesemia Rheumatoid arthritis on methotrexate and prednisone Clostridium difficile colitis hx 2020- resolved, no current issues High blood pressure Surgical History S/P epidural steroid injection Hx of colonoscopy Hx of breast biopsy Hx of dilation and curettage Hx of tonsillectomy Hx of basal cell carcinoma excision Family History Other Diabetes Family history non-contributory Social History Smoking Status: Current every day smoker Tobacco Type: Cigarettes Cigarettes Per Day: 10 cigs per day; Second Hand Exposure: No; Do You Dip or Chew Tobacco: No; Hx Alcohol Use: No Hx Substance Use: No Preferred Language: [place] Communication Ability: Effective Director [facility] Required: No Beliefs That Will Affect Care: None marital status: Current Living Situation: Family current occupational status: employed Feels Safe at Home: Yes Assistive Devices: CPAP, Denture - Upper and Glasses Review of Systems A total of 10 systems reviewed and were otherwise negative Physical Exam Vital Signs Vital Signs - 24 hr 01/21/24 08:11 01/21/24 08:32 01/21/24 08:33 Temperature 36.9 C Temperature Source Temporal Artery Scan Pulse Rate 100 H 102 H 104 H Respiratory Rate 21 21 Blood Pressure 180/90 H 133/103 H Blood Pressure Mean 120 113 Pulse Oximetry 94 94 Oxygen Delivery Method Room Air Room Air Oxygen Flow Rate Sepsis Recent Fever Within 48 Hours No Sepsis New/Unexplained Change in Mental Status N/A Sepsis Action Taken by Nursing No Action Required Oxygen Flow Rate - Titration Pulse Oximetry Post Tiitration 01/21/24 09:03 01/21/24 10:00 01/21/24 10:31 Temperature Temperature Source Pulse Rate 98 H 98 H 102 H Respiratory Rate 21 17 18 Blood Pressure 136/103 H 129/103 H 129/88 Blood Pressure Mean 114 111 93 Pulse Oximetry 96 96 95 Oxygen Delivery Method Nebulizer Room Air Room Air Oxygen Flow Rate 6 Sepsis Recent Fever Within 48 Hours Sepsis New/Unexplained Change in Mental Status Sepsis Action Taken by Nursing Oxygen Flow Rate - Titration Pulse Oximetry Post Tiitration 01/21/24 11:00 01/21/24 11:48 01/21/24 12:00 Temperature Temperature Source Pulse Rate 101 H 98 H Respiratory Rate 20 20 Blood Pressure 130/85 126/95 Blood Pressure Mean 104 110 Pulse Oximetry 95 90 97 Oxygen Delivery Method Room Air Nasal Cannula Nasal Cannula Oxygen Flow Rate 2 Sepsis Recent Fever Within 48 Hours Sepsis New/Unexplained Change in Mental Status Sepsis Action Taken by Nursing Oxygen Flow Rate - Titration 2 Pulse Oximetry Post Tiitration 93 01/21/24 12:33 01/21/24 13:30 Temperature Temperature Source Pulse Rate 99 H 101 H Respiratory Rate 20 Blood Pressure 143/101 H Blood Pressure Mean 124 Pulse Oximetry 95 Oxygen Delivery Method Nasal Cannula Oxygen Flow Rate 2 Sepsis Recent Fever Within 48 Hours Sepsis New/Unexplained Change in Mental Status Sepsis Action Taken by Nursing Oxygen Flow Rate - Titration Pulse Oximetry Post Tiitration CONSTITUTIONAL: Patient is an ill 69-year-old female who is awake and alert and sitting semiupright on the gurney. Audible wheezing noted, but vital signs are stable. Mild conversational dyspnea. EYES: Pupils equal, round, reactive to light and accommodation. EOMs intact without nystagmus. Sclera are anicteric. ENT: Tympanic membranes intact, with normal landmarks. External canals are clear. Oral and nasopharynx are clear. Mucous membranes are moist, no lesions, tongue and gums appear normal. CARDIOVASCULAR: Regular rate and rhythm. Peripheral pulses easy to palpable. RESPIRATORY: Breath sounds are diminished with harsh inspiratory and expiratory wheezes throughout. GI: Bowel sounds are present. Abdomen is soft, nontender, nondistended. No organomegaly. No pulsatile masses. No guarding or rebound. MUSCULOSKELETAL: Full range of motion of extremities x 4 with good strength. No cyanosis, edema, joint tenderness or swelling. No deformity. INTEGUMENTARY: No lesions or rash, normal skin turgor. LYMPH: No lymphadenopathy. Course Course Patient was seen and assessed as above. External medical records are reviewed. She presents to the emergency department for evaluation of chest pain and shortness of breath, in the setting of an upper respiratory illness that started this week. On exam, she is in moderate distress from increased work of breathing and wheezing. She is immune compromised, on methotrexate and chronic prednisone for RA. IV lock was initiated and laboratory studies were collected. EKG was obtained. She was observed on the cardiac nurse. She was given Solu-Medrol 125 mg IV and DuoNeb x 3. CBC with differential, CMP, urinalysis, troponin, BNP and magnesium more collected. Chest x-ray was obtained. Upper respiratory viral panel was performed. Diagnostics, as interpreted by la: Laboratory studies: Normal white count at 10,600, left shift noted. H&H 14.3 and 40.9. Magnesium slightly low at 1.3, otherwise no significant electrolyte imbalance requiring correction. No VISHNU. No transaminitis. High-sensitivity troponin elevated at 92.4, repeat 2-hour troponin not statistically change, 94.8. BNP mildly elevated at 134, but not likely indicative of acute CHF. Upper respiratory BioFire positive for coronavirus OC43. ECG: Poor tracing due to artifact, sinus rhythm, occasional PACs at 99 bpm. No acute ischemic changes. No significant change on review of EKG from 10/2019. Cardiac Monitoring: Cardiac monitoring: An order was placed for continuous cardiac monitoring. The monitor shows a sinus tachycardia between 98 and 110 per my interpretation. Imaging studies: Chest x-ray clear, no infiltrate or consolidation. Case reviewed with attending physician, Dr. Sweet. Patient was ordered a dose of magnesium IV for repletion. She was reassessed after each DuoNeb, with minimal improvement in her wheezing. Vital signs remained stable, she was oxygenating well on room air. All laboratory and diagnostic imaging studies were reviewed with her. She appears to have an acute viral URI, which is causing COPD exacerbation. Wheezing was refractory to nebulizer treatments x 3, in combination with the elevated troponin (likely demand mediated), I did recommend further inpatient care and she was in agreement. Patient discussed with ED case packer and sealer and consultation placed with the [facility] service for further care and management. Patient was reviewed with Seth Castelan PA-C. Please refer to her H&P and orders for further information. Differential diagnosis: Bronchitis, reactive airway disease, pneumonia, pneumothorax, COPD exacerbation, CHF, infection, cardiac ischemia, pulmonary embolism, musculoskeletal, as well as other pathologies. Administered Medications Discontinued Medications Albuterol (Albut/Ipratrop 3mg/0.5mg Neb 3 Ml Vial) 3 ml INH NOW STA Stop: 01/21/24 08:33 Last Admin: 01/21/24 08:41 Dose: 3 ml Documented By: ELIAZAR Albuterol (Albut/Ipratrop 3mg/0.5mg Neb 3 Ml Vial) 3 ml NEB NOW STA; Protocol Stop: 01/21/24 09:03 Last Admin: 01/21/24 09:10 Dose: 3 ml Documented By: ELIAZAR Albuterol (Albut/Ipratrop 3mg/0.5mg Neb 3 Ml Vial) 3 ml NEB NOW STA; Protocol Stop: 01/21/24 09:27 Last Admin: 01/21/24 09:58 Dose: 3 ml Documented By: ELIAZAR Amlodipine Besylate (Amlodipine Besylate 5 Mg Tab) 2.5 mg PO NOW ONE Stop: 01/21/24 11:22 Last Admin: 01/21/24 12:06 Dose: 2.5 mg Documented By: ELIAZAR Magnesium Sulfate/Dextrose (Magnesium Sulfate / D5w) 1 gm in 100 mls @ 100 mls/hr IV NOW STA Stop: 01/21/24 10:28 Last Infusion: 01/21/24 10:58 Dose: Infused Documented By: Admin: 01/21/24 09:58 Dose: 100 mls/hr Documented By: ELIAZAR Levothyroxine Sodium (Levothyroxine Sodium 150 Mcg Tablet) 150 mcg PO ONE ONE Stop: 01/21/24 11:23 Last Admin: 01/21/24 12:06 Dose: 150 mcg Documented By: ELIAZAR Lisinopril (Lisinopril 20 Mg Tab) 20 mg PO NOW ONE Stop: 01/21/24 11:24 Last Admin: 01/21/24 12:06 Dose: 20 mg Documented By: ELIAZAR Methylprednisolone (Methylprednisolone 125 Mg/2 Ml Vial) 125 mg IV NOW STA Stop: 01/21/24 08:33 Last Admin: 01/21/24 08:41 Dose: 125 mg Documented By: ELIAZAR Medical Decision Making Differential Diagnosis See ED course. Medical Records Attestation: I reviewed the patient's medical records. Home Medications Current Medication List: was personally reviewed by me Laboratory Data Attestation: I reviewed the patient's lab results. 01/21/24 08:25 01/21/24 08:25 Lab Results 01/21/24 01/21/24 01/21/24 Range/Units 08:25 08:28 10:37 WBC 10.67 (4.8-10.8) K/ul RBC 4.25 (4.20-5.40) M/uL Hgb 14.3 (12.0-16.0) g/dl Hct 40.9 (37.0-47.0) % MCV 96.2 (80.0-100.0) fL MCH 33.6 (25.0-34.0) pg MCHC 35.0 (32.0-36.0) g/dL RDW Std Deviation 47.9 H (36.4-46.3) fL RDW Coeff of Hood 13.6 (11.5-14.5) % Plt Count 196 (130-400) K/uL MPV 11.5 (9.4-12.4) fL Immature Gran % (Auto) 0.3 % Neut % (Auto) 82.3 % Lymph % (Auto) 8.1 % Kimball % (Auto) 8.9 % Eos % (Auto) 0.0 % Baso % (Auto) 0.4 % Neut # (Auto) 8.79 H (1.40-6.50) K/uL Lymph # (Auto) 0.86 L (1.20-3.40) K/uL Kimball # (Auto) 0.95 H (0.11-0.59) K/uL Eos # (Auto) 0.00 (0.00-0.50) K/uL Baso # (Auto) 0.04 (0.00-0.20) K/uL Immature Gran # (Auto) 0.03 (0.01-0.20) K/uL VBG pH (7.36-7.41) VBG pCO2 (38-50) mmHg VBG pO2 mmHg VBG HCO3 mmol/L VBG O2 Saturation % VBG Base Excess mEq/L Sodium 135 L (136-145) mmol/L Potassium 3.6 (3.5-5.1) mmol/L Chloride 97 L (98-107) mmol/L Carbon Dioxide 28 (21-32) mmol/L Anion Gap 10 (3-11) BUN 11 (6-23) mg/dl Creatinine 0.74 (0.6-1.2) mg/dl Est Cr Clr Drug Dosing Not Reportable eGFR 88.62 BUN/Creatinine Ratio 14.9 (10-20) Glucose 183 H (70-99(Fasting)) mg/dl Calcium 9.3 (8.6-10.3) mg/dl Magnesium 1.3 L (1.7-2.4) mg/dl Total Bilirubin 0.3 (0.2-1.0) mg/dl AST 22 (13-39) U/L ALT 16 (7-52) U/L Alkaline Phosphatase 67 (34-104) U/L Troponin I High Sens 92.4 H* 94.8 H* (0-14) pg/ml B-Natriuretic Peptide 134 H (0-100) pg/ml Total Protein 7.3 (6.0-8.3) gm/dl Albumin 3.9 (3.4-5.0) gm/dl Globulin 3.4 (2.5-4.0) gm/dl Albumin/Globulin Ratio 1.1 (0.9-2) Adenovirus (PCR) Not Detected (NotDetected) B. pertussis DNA (PCR) Not Detected (NotDetected) B.parapertussis DNA PCR Not Detected (NotDetected) C. pneumoniae DNA (PCR) Not Detected (NotDetected) Coronavirus OC43 (PCR) DETECTED A (NotDetected) Coronavirus HKU1 (PCR) Not Detected (NotDetected) Coronavirus 229E (PCR) Not Detected (NotDetected) SARS-CoV-2 (PCR) Not Detected (NotDetected) Coronavirus NL63 (PCR) Not Detected (NotDetected) Human Metapneumovir PCR Not Detected (NotDetected) Influenza Type A (PCR) Not Detected (NotDetected) Influenza Type B (PCR) Not Detected (NotDetected) M. pneumoniae (PCR) Not Detected (NotDetected) Parainfluenza 1 (PCR) Not Detected (NotDetected) Parainfluenza 2 (PCR) Not Detected (NotDetected) Parainfluenza 3 (PCR) Not Detected (NotDetected) Parainfluenza 4 (PCR) Not Detected (NotDetected) RSV (PCR) Not Detected (NotDetected) Entero/Rhino (PCR) Not Detected (NotDetected) 01/21/24 Range/Units 11:43 WBC (4.8-10.8) K/ul RBC (4.20-5.40) M/uL Hgb (12.0-16.0) g/dl Hct (37.0-47.0) % MCV (80.0-100.0) fL MCH (25.0-34.0) pg MCHC (32.0-36.0) g/dL RDW Std Deviation (36.4-46.3) fL RDW Coeff of Hood (11.5-14.5) % Plt Count (130-400) K/uL MPV (9.4-12.4) fL Immature Gran % (Auto) % Neut % (Auto) % Lymph % (Auto) % Kimball % (Auto) % Eos % (Auto) % Baso % (Auto) % Neut # (Auto) (1.40-6.50) K/uL Lymph # (Auto) (1.20-3.40) K/uL Kimball # (Auto) (0.11-0.59) K/uL Eos # (Auto) (0.00-0.50) K/uL Baso # (Auto) (0.00-0.20) K/uL Immature Gran # (Auto) (0.01-0.20) K/uL VBG pH 7.43 H (7.36-7.41) VBG pCO2 37 L (38-50) mmHg VBG pO2 49 mmHg VBG HCO3 25 mmol/L VBG O2 Saturation 81.7 % VBG Base Excess 0.5 mEq/L Sodium (136-145) mmol/L Potassium (3.5-5.1) mmol/L Chloride (98-107) mmol/L Carbon Dioxide (21-32) mmol/L Anion Gap (3-11) BUN (6-23) mg/dl Creatinine (0.6-1.2) mg/dl Est Cr Clr Drug Dosing eGFR BUN/Creatinine Ratio (10-20) Glucose (70-99(Fasting)) mg/dl Calcium (8.6-10.3) mg/dl Magnesium (1.7-2.4) mg/dl Total Bilirubin (0.2-1.0) mg/dl AST (13-39) U/L ALT (7-52) U/L Alkaline Phosphatase (34-104) U/L Troponin I High Sens (0-14) pg/ml B-Natriuretic Peptide (0-100) pg/ml Total Protein (6.0-8.3) gm/dl Albumin (3.4-5.0) gm/dl Globulin (2.5-4.0) gm/dl Albumin/Globulin Ratio (0.9-2) Adenovirus (PCR) (NotDetected) B. pertussis DNA (PCR) (NotDetected) B.parapertussis DNA PCR (NotDetected) C. pneumoniae DNA (PCR) (NotDetected) Coronavirus OC43 (PCR) (NotDetected) Coronavirus HKU1 (PCR) (NotDetected) Coronavirus 229E (PCR) (NotDetected) SARS-CoV-2 (PCR) (NotDetected) Coronavirus NL63 (PCR) (NotDetected) Human Metapneumovir PCR (NotDetected) Influenza Type A (PCR) (NotDetected) Influenza Type B (PCR) (NotDetected) M. pneumoniae (PCR) (NotDetected) Parainfluenza 1 (PCR) (NotDetected) Parainfluenza 2 (PCR) (NotDetected) Parainfluenza 3 (PCR) (NotDetected) Parainfluenza 4 (PCR) (NotDetected) RSV (PCR) (NotDetected) Entero/Rhino (PCR) (NotDetected) Imaging Data Attestation: I personally reviewed and interpreted this imaging study as follows: Radiologist's Impression: Chest X-Ray 01/21/24 08:32 XR chest 1V portable CLINICAL HISTORY: Dyspnea TECHNIQUE: Single frontal radiograph of the chest was obtained. Comparison: Comparison is made to chest radiograph 02/13/2022 FINDINGS: No lines and tubes are seen. Calcified aortic knob is seen. The lungs are clear. No evidence of pleural effusion or pneumothorax. IMPRESSION: No acute abnormalities and in particular no radiographic evidence of pneumonia. ACT 112: Negative or not required by law. Electronically signed by: Jack Johnson M.D. 01/21/2024 9:05 AM MDM Narrative See ED Course. Impression & Plan Acute exacerbation of chronic obstructive pulmonary disease, Hypomagnesemia, Elevated troponin Discharge Plan Visit Data Chief Complaint: Shortness of Breath/Dyspnea Stated Complaint: SOB/TROUBLE BREATHING, DIZZY ED Provider: Cher Sweet ED Midlevel Provider: Elo Ritter Discharge Problem: Acute exacerbation of chronic obstructive pulmonary disease, Hypomagnesemia, Elevated troponin Patient Disposition: Admitted As Inpatient Forms Stand Alone Forms: My [facility] Prescriptions Prescriptions: No Action folic acid 1 mg Tablet 1 mg PO QAM prednisone 5 mg Tablet 5 mg PO QAM cholecalciferol (vitamin D3) [Vitamin D3] 25 mcg (1,000 unit) Capsule 25 mcg PO QAM Rx Instructions: Unable to verify OTC meds at this date/time. Centrum Women 18-400 mg-mcg Tablet 1 tab PO QAM Rx Instructions: Unable to verify OTC meds at this date/time. lisinopril 20 mg Tablet 20 mg PO QAM Qty: 30 1RF methotrexate sodium 2.5 mg tablet 20 mg PO WK Rx Instructions: takes 8 tabs on fridays turmeric 400 mg Capsule 400 mg PO QAM Qty: 0 Rx Instructions: Unable to verify OTC meds at this date/time. levothyroxine 150 mcg Tablet 150 mcg PO QAM ipratropium-albuterol 0.5 mg-3 mg(2.5 mg base)/3 mL solution for nebulization 3 ml inhalation Q6H PRN (Reason: SOB/Wheezing) metoprolol succinate 50 mg tablet extended release 24 hr 50 mg PO DAILY amlodipine 2.5 mg tablet 2.5 mg PO QAM hydroxychloroquine 200 mg tablet 400 mg PO HS rosuvastatin 10 mg tablet 10 mg PO DAILY duloxetine 60 mg capsule,delayed release(DR/EC) 60 mg PO DAILY Referrals Referrals: Usha Weaver DO [Primary Care Provider] -
[2024-01-21] MEDS: ALBUT/IPRATROP 3MG/0.5MG NEB 3 ML VIAL INH STA (08:41)
[2024-01-21] MEDS: methylPREDNISolone 125 MG/2 ML VIAL IV STA (08:41)
[2024-01-21 08:48] LABS: Basophils # (auto) 0.04 K/uL (0.00-0.20); Basophils % (auto) 0.4 %; Hematocrit (blood only) 40.9 % (37.0-47.0); Hemoglobin 14.3 g/dl (12.0-16.0); Immature Granulocytes # (auto) 0.03 K/uL (0.01-0.20); Immature Granulocytes % (auto) 0.3 %; Lymphocytes # (auto) 0.86 K/uL (1.20-3.40); Lymphocytes % (auto) 8.1 %; Mean Corpuscular Hemoglobin 33.6 pg (25.0-34.0); Mean Corpuscular Volume 96.2 fL (80.0-100.0); Mean Platelet Volume 11.5 fL (9.4-12.4); Monocytes # (auto) 0.95 K/uL (0.11-0.59); Monocytes % (auto) 8.9 %; Neutrophils # (auto) 8.79 K/uL (1.40-6.50); Neutrophils % (auto) 82.3 %; Platelet Count 196 K/uL (130-400); RDW Coefficient of Variation 13.6 % (11.5-14.5); RDW Standard Deviation 47.9 fL (36.4-46.3); Red Blood Count 4.25 M/uL (4.20-5.40); White Blood Count 10.67 K/ul (4.8-10.8)
[2024-01-21 09:06] LABS: Alanine Aminotransferase 16 U/L (7-52); Albumin Globulin Ratio 1.1 (0.9-2); Albumin Level 3.9 gm/dl (3.4-5.0); Alkaline Phosphatase 67 U/L (34-104); Anion Gap 10 (3-11); Aspartate Aminotransferase 22 U/L (13-39); BUN Creatinine Ratio 14.9 (10-20); Bilirubin,Total 0.3 mg/dl (0.2-1.0); Blood Urea Nitrogen 11 mg/dl (6-23); Calcium 9.3 mg/dl (8.6-10.3); Carbon Dioxide 28 mmol/L (21-32); Chloride 97 mmol/L (98-107); Globulin 3.4 gm/dl (2.5-4.0); Glucose 183 mg/dl (70-99(Fasting)); Magnesium 1.3 mg/dl (1.7-2.4); Potassium 3.6 mmol/L (3.5-5.1); Sodium 135 mmol/L (136-145); Total Protein 7.3 gm/dl (6.0-8.3)
--- NOTE | 2024-01-21 09:07 | XRay Report ---
XR chest 1V portable CLINICAL HISTORY: Dyspnea TECHNIQUE: Single frontal radiograph of the chest was obtained. Comparison: Comparison is made to chest radiograph 02/13/2022 FINDINGS: No lines and tubes are seen. Calcified aortic knob is seen. The lungs are clear. No evidence of pleur al effusion or pneumothorax. IMPRESSION: No acute abnormalities and in particular no radiographic evidence of pneumonia. ACT 112: Negative or not required by law. Electronically signed by: Jack Johnson M.D. 01/21/2024 9:05 AM
[2024-01-21] MEDS: ALBUT/IPRATROP 3MG/0.5MG NEB 3 ML VIAL NEB STA ×2 (09:10→09:58)
[2024-01-21 09:17] LABS: Troponin I High Sensitivity 92.4 pg/ml (0-14)
[2024-01-21 09:42] LABS: Adenovirus PCR Not Detected (NotDetected); Bordetella parapertussis PCR Not Detected (NotDetected); Bordetella pertussis PCR Not Detected (NotDetected); Chlamydia pneumoniae PCR Not Detected (NotDetected); Coronavirus 229E PCR Not Detected (NotDetected); Coronavirus CoV-2 (COVID19)PCR Not Detected (NotDetected); Coronavirus HKU1 PCR Not Detected (NotDetected); Coronavirus NL63 PCR Not Detected (NotDetected); Coronavirus OC43PCR DETECTED (NotDetected); Human Metapneumovirus PCR Not Detected (NotDetected); Influenza A PCR Not Detected (NotDetected); Influenza B PCR Not Detected (NotDetected); Mycoplasma pneumoniae PCR Not Detected (NotDetected); Parainfluenza Virus 1 PCR Not Detected (NotDetected); Parainfluenza Virus 2 PCR Not Detected (NotDetected); Parainfluenza Virus 3 PCR Not Detected (NotDetected); Parainfluenza Virus 4 PCR Not Detected (NotDetected); Respiratory Syncytial VirusPCR Not Detected (NotDetected); Rhinovirus/Enterovirus PCR Not Detected (NotDetected)
[2024-01-21] MEDS: MAGNESIUM SULFATE / D5W 1 GM/100 ML BAG IV STA (09:58)
--- NOTE | 2024-01-21 10:51 | Emergency Department Note ---
ED Visit Note I was consulted by the Advanced Practice Provider. I personally made/approved the management plan and take responsibility for the patient management. I performed a substantive portion of the visit. This includes the aspects of: -History/Physical -MDM .
--- NOTE | 2024-01-21 10:54 | History & Physical Report ---
Date of Service January 21, 2024 Assessment & Plan (1) COPD exacerbation: Plan: One day SOB + coughing, without relief and utilizing inhaler nebulizers at home. No O2 at baseline, satting on RA. No formal diagnosis COPD or CHF per patient, does smoke cigarettes daily ~ 1/2 ppd, since 19 y/o - Admit - No O2 at baseline; O2 as needed, wean as patient tolerates - IC + FV - CBC grossly WNL, with exception RDW 47.9; CMP sodium 135, chloride 97, no anion gap, glucose 183; magnesium 1.3 - Troponin 92.4, pending repeat; BNP 134 - Pending VBG - Biofire (+) for coronavirus 0C43 -> airborne, contact precautions - No clear guidelines per [place] Disease-Specific Infection Prevention & Control Isolation Guidelines - Able to adjust this as appropriate - CXR without evidence of pneumonia or acute processes - EKG sinus, PACs, right 100 bpm; no signs ischemia - Provided with prednisolone and albuterol nebulizer/inhalers in ED - DuoNeb q4hr, Budesonide-formoterol BID while awake - Home dose steroids- prednisone 5mg --> Increase to 40mg BID while inpatient - Deferring abx currently- no F/C, no leukocytosis, no PNA on Cxr, + h/o Cdiff --> Reevaluate during course of stay as appropriate - CBC + CMP am (2) Elevated troponin: Plan: Pt w/ h/o significant cardiac history; no current chest pain or cardiac symptoms otherwise - Troponin 92.4, pending repeat every 6 hours until peak - EKG sinus tach, PACs; rate around 100 bpm; without ischemic changes - Likely 2/2 demand (3) Hypomagnesemia: Plan: Documented history of during last hospital admission - Mg 1.3 on admission; replaced with mag sulfate in ED - Provide Mag sulfate 2 g x 1 - Continue po Mg --> 400mg BID - Mg am (4) Rheumatoid arthritis: Plan: H/o RA - Prednisone/hydroxychloroquine/methotrexate (20 mg weekly) prior to admission - Continue methotrexate + hydroxychloroquine given no sign of bacterial infection at this time - no leukocytosis at this time or other signs of infection; no antibiotics on board at this time- if hospital course starts to reveal signs of possible infection/antibiotics were used, hold immunosuppressive agents - Continue prednisone at increased dose 40mg BID while inpatient, then taper back to 5mg daily - Due for methotrexate today- will provide dose Plan Hypothyroidism- levothyroxine; Last TSH 10/2019 1.5; pending repeat HTN- amlodipine, lisinopril, metoprolol succinate HLD- rosuvastatin Polymyalgia, chronic pain- Duloxetine History of NANCIE on CPAP- To be on CPAP but has not been on since it was recalled; f/u appointment 02/15 Tobacco dependence- encouraged cessation, patch and nicotine gum offered - Smokes 02/09 ppd, since 19 y/o Provided AM medications Dispo: Admit Diet: Reg VTE Prophylaxis: Lovenox Code: Full Admission and Anticipated Discharge Date Admission Date: 01/21/2024 History of Present Illness Chief Complaint: SOB Primary Care Provider: Usha Weaver DO 69-year-old female presenting for SOB and coughing x 1 day, no home O2. ED course: CBC grossly WNL with exception RDW 47.9, neutrophils 8.79, monocytes 0.95, lymphocytes 0.86; CMP sodium 135, chloride 97, glucose 183; magnesium 1.3 (replaced in ED); troponin 92.4, pending repeat; BNP 134; pending BioFire; CXR no acute abnormalities and no radiographic evidence of pneumonia; EKG sinus rhythm, PACs; rate around 100 bpm; provided with methylprednisolone, mag sulfate, and albuterol nebulizer in ED. Patient is a 69-year-old female PMHx RA, HTN, hypothyroidism, lifelong smoker without diagnosis of COPD, and NANCIE who presented for shortness of breath and coughing x 2-3 days. States that she has been using at home inhaler and nebulizer without relief. No O2 at home per baseline. Shortness of breath and coughing started approximately 2 to 3 days ago, rather sudden onset compared to slow progression. States that she has been having productive coughing, producing sputum a clear sputum. Notes wheezing and herself which has been ongoing. Some episodes of lightheadedness when coughing hard, no episodes syncope. Was provided with nebulizer as outpatient, and has been using that without great relief. 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 Denying current chest pain, palpitations, abdominal pain, N/V/D/C, numbness/tingling, LUTS, or headache. Did not take a.m. medications. Smokes approximately half pack cigarettes per day, ongoing since 19 years old. Has been unable to smoke past few days secondary to breathing. Please see Dr. Peace's attestation for adjustments/additions to treatment plan. Allergies Allergy/AdvReac Type Severity Reaction Status Date / Time amoxicillin [From Augmentin] AdvReac Unknown Diarrhea Verified 04/03/22 07:55 clavulanic acid AdvReac Unknown Diarrhea Verified 04/03/22 07:55 [From Augmentin] Home Medications Medication Instructions Recorded Confirmed Type folic acid 1 mg tablet 1 mg PO QAM 11/17/17 01/21/24 History prednisone 5 mg tablet 5 mg PO QAM 11/17/17 01/21/24 History cholecalciferol (vitamin D3) 25 25 mcg PO QAM 10/12/19 01/21/24 History mcg (1,000 unit) capsule (Vitamin D3) multivitamin-ferrous 1 tab PO QAM 10/12/19 01/21/24 History fumarate-folic acid 18 mg-400 mcg tablet (Centrum Women) lisinopril 20 mg tablet 20 mg PO QAM #30 tabs 11/17/19 01/21/24 Rx methotrexate sodium 2.5 mg tablet 20 mg PO WK 01/19/22 01/21/24 History turmeric 400 mg capsule 400 mg PO QAM ##0 01/19/22 01/21/24 History levothyroxine 150 mcg tablet 150 mcg PO QAM 03/31/22 01/21/24 History amlodipine 2.5 mg tablet 2.5 mg PO QAM 01/21/24 01/21/24 History duloxetine 60 mg capsule,delayed 60 mg PO DAILY 01/21/24 01/21/24 History release hydroxychloroquine 200 mg tablet 400 mg PO HS 01/21/24 01/21/24 History ipratropium 0.5 mg-albuterol 3 mg 3 ml inhalation Q6H PRN 01/21/24 01/21/24 History (2.5 mg base)/3 mL nebulization SOB/Wheezing soln metoprolol succinate 50 mg 50 mg PO DAILY 01/21/24 01/21/24 History tablet,extended release 24 hr rosuvastatin 10 mg tablet 10 mg PO DAILY 01/21/24 01/21/24 History Past Med/Surg History Problem List (Updated 01/21/24 @ 14:03 by Elo Ritter) Elevated troponin (Acute) Hypomagnesemia (Acute) Acute exacerbation of chronic obstructive pulmonary disease (Acute) Elevated troponin COPD exacerbation Encounter for pre-operative examination HTN (hypertension) (Chronic) Hypothyroid (Chronic) Right knee pain (Acute) No significant past surgical history Acute hypokalemia (Acute) Recurrent Clostridioides difficile infection Tobacco use disorder Hypothyroidism Hypomagnesemia Bilateral lumbar radiculopathy Polymyalgia NANCIE (obstructive sleep apnea) cpap Fatty liver Medical History Hypothyroidism DVT prophylaxis Hypomagnesemia Rheumatoid arthritis on methotrexate and prednisone Clostridium difficile colitis hx 2020- resolved, no current issues High blood pressure Surgical History S/P epidural steroid injection Hx of colonoscopy Hx of breast biopsy Hx of dilation and curettage Hx of tonsillectomy Hx of basal cell carcinoma excision Family History Other Diabetes Family history non-contributory Social History Smoking Status: Current every day smoker Tobacco Type: Cigarettes Cigarettes Per Day: 10 cigs per day; Second Hand Exposure: No; Do You Dip or Chew Tobacco: No; Hx Alcohol Use: No Hx Substance Use: No Preferred Language: Lithuanian Communication Ability: Effective Explosives Worker Required: No Beliefs That Will Affect Care: None marital status: Current Living Situation: Spouse and Family current occupational status: employed Feels Safe at Home: Yes Safety Concerns: Feels Safe At This Time Assistive Devices: Glasses Assistive Devices Comment: cpap was recalled, has appt for new machine Review of Systems Review of Systems: All systems reviewed & are unremarkable except as noted in Subjective Physical Exam Physical Exam: General: No acute distress Skin: Warm and dry, without rashes or lesions. No cyanosis Head: Normocephalic, atraumatic Eyes: PERRL, conjunctivae clear, sclera non-icteric ENT: External ear and ear canal without swelling; nose atraumatic; good dentition Neck: Supple, no LAD; no JVD Cardio: RRR, no M/G/R, S1 and S2 normal Resp: No respiratory distress; inspiratory + expiratory wheezing throughout, even when just talking; lungs without rales or rhonchi Abdomen: Soft, symmetric, nontender; no masses or hepatosplenomegaly; Bowel sounds normoactive MSK: No deformities, full ROM throughout; pulses palpable and equal; no edema. Neuro: Awake, alert; sensation intact bilaterally; CN intact Psych: Appropriate mood and affect present in room at time of visit. Results & Data Results & Data Vital Signs (Past 12 Hours) Vital Signs Temp Pulse Resp BP Pulse Ox O2 Del Method O2 Flow Rate 01/21/24 10:00 98 H 17 129/103 H 96 Room Air 01/21/24 09:03 98 H 21 136/103 H 96 Nebulizer 6 01/21/24 08:33 104 H 21 133/103 H 94 Room Air 01/21/24 08:32 102 H 01/21/24 08:11 36.9 C 100 H 21 180/90 H 94 Room Air Laboratory Results 01/21/24 01/21/24 08:28 08:25 WBC 10.67 RBC 4.25 Hgb 14.3 Hct 40.9 MCV 96.2 MCH 33.6 MCHC 35.0 RDW Std Deviation 47.9 H RDW Coeff of Hood 13.6 Plt Count 196 MPV 11.5 Immature Gran % (Auto) 0.3 Neut % (Auto) 82.3 Lymph % (Auto) 8.1 [place] % (Auto) 8.9 Eos % (Auto) 0.0 Baso % (Auto) 0.4 Neut # (Auto) 8.79 H Lymph # (Auto) 0.86 L [place] # (Auto) 0.95 H Eos # (Auto) 0.00 Baso # (Auto) 0.04 Immature Gran # (Auto) 0.03 Sodium 135 L Potassium 3.6 Chloride 97 L Carbon Dioxide 28 Anion Gap 10 BUN 11 Creatinine 0.74 Est Cr Clr Drug Dosing Not Reportable eGFR 88.62 BUN/Creatinine Ratio 14.9 Glucose 183 H Calcium 9.3 Magnesium 1.3 L Total Bilirubin 0.3 AST 22 ALT 16 Alkaline Phosphatase 67 Troponin I High Sens 92.4 H* B-Natriuretic Peptide 134 H Total Protein 7.3 Albumin 3.9 Globulin 3.4 Albumin/Globulin Ratio 1.1 Adenovirus (PCR) Not Detected B. pertussis DNA (PCR) Not Detected B.parapertussis DNA PCR Not Detected C. pneumoniae DNA (PCR) Not Detected Coronavirus OC43 (PCR) DETECTED A Coronavirus HKU1 (PCR) Not Detected Coronavirus 229E (PCR) Not Detected SARS-CoV-2 (PCR) Not Detected Coronavirus NL63 (PCR) Not Detected Human Metapneumovir PCR Not Detected Influenza Type A (PCR) Not Detected Influenza Type B (PCR) Not Detected M. pneumoniae (PCR) Not Detected Parainfluenza 1 (PCR) Not Detected Parainfluenza 2 (PCR) Not Detected Parainfluenza 3 (PCR) Not Detected Parainfluenza 4 (PCR) Not Detected RSV (PCR) Not Detected Entero/Rhino (PCR) Not Detected Diagnostic Findings Chest X-Ray 01/21/24 08:32 XR chest 1V portable CLINICAL HISTORY: Dyspnea TECHNIQUE: Single frontal radiograph of the chest was obtained. Comparison: Comparison is made to chest radiograph 02/13/2022 FINDINGS: No lines and tubes are seen. Calcified aortic knob is seen. The lungs are clear. No evidence of pleural effusion or pneumothorax. IMPRESSION: No acute abnormalities and in particular no radiographic evidence of pneumonia. ACT 112: Negative or not required by law. Electronically signed by: Jack Johnson M.D. 01/21/2024 9:05 AM Medications Administered Methylprednisolone 125 mg IV Mag sulfate/dextrose 1 g and 1000 mL at 100 mL/h IV Albuterol 3L neb x 2, inhaler x 1 ECG Additional Comments: Sinus rhythm, PACs, marked ST abnormality possible lateral subendocardial injury 99 bpm [place] 204, QRS 80, QT/QTc 336/431, PRT 71, 5, 55 Code Status & VTE Plan Code Status Full VTE Prophylaxis Plan VTE Prophylaxis will be ordered: Yes Supervising Physician Co-Signing Physician Notes I personally saw and examined the patient. I independently reviewed the labs, EKG, imaging, problem list, medication list, past medical history and family history. I verified all carlisle points and agree with Seth Castelan PA-C with the following exceptions and/or additions: 69 year old female presents to the ER with shortness of breath. No known history of COPD or asthma. Significant improved when seen in the evening with nebulizers given earlier in the day O/E HS RRR, no murmurs, Chest expiratory wheezing without crackles, Abdo SNT A/P Suspected COPD exacerbation - encouraged smoking cessation, duonebs, budesonide/formoterol Neb, Solu-medrol 40mg IV BID, no antibiotics given history of c. diff Hypoxia - aim O2 sats > 88% PG Care Time/CCT Total # of Minutes Spent Total Time Spent with Patient: Total time spent is greater than 50% in coordination of care (as documented) at patient's floor/unit and/or counseling patient: Coding Level of Care Code 78822 INT INP/OBS CARE 2/55MIN Diagnoses COPD exacerbation J44.1 Elevated troponin R79.89 Hypomagnesemia E83.42 Rheumatoid arthritis M06.9 Time Spent (min) 60
[2024-01-21 11:57] LABS: Base Excess VBG 0.5 mEq/L; HCO3 VBG 25 mmol/L; Oxygen Saturation VBG 81.7 %; PCO2 VBG 37 mmHg (38-50); PO2 VBG 49 mmHg; pH VBG 7.43 (7.36-7.41)
[2024-01-21] MEDS: LEVOTHYROXINE SODIUM 150 MCG TABLET PO ONE (12:06)
[2024-01-21] MEDS: lisinopril 20 MG TAB PO ONE (12:06)
[2024-01-21] MEDS: amLODIPine BESYLATE 5 MG TAB PO ONE (12:06)
--- NOTE | 2024-01-21 12:27 | Electrocardiogram Report ---
Test Reason : Blood Pressure : */* mmHG Vent. Rate : 99 BPM Atrial Rate : 99 BPM P-R Int : 204 ms QRS Dur : 80 ms QT Int : 336 ms P-R-T Axes : 71 5 55 degrees QTcB Int : 431 ms Poor data quality, interpretation may be adversely affected Sinus rhythm with Premature atrial complexes Abnormal ECG When compared with ECG of 19-Oct-2019 16:27, Premature atrial complexes are now Present Confirmed by Brad Michelle ([id number]) on 01/21/2024 12:27:20 PM Referred By: REFERRED SELF Confirmed By: Brad Michelle
[2024-01-21] MEDS: ALBUT/IPRATROP 3MG/0.5MG NEB 3 ML VIAL NEB SCH (14:40)
[2024-01-21] MEDS ORDERED: INFLUENZA VACC TS2024-25(65y+)/PF (IIV3) 0.5mL Syr IM ONE (17:19)
[2024-01-21 19:15] LABS: Appearance Urine Clear (Clear); Bacteria Urine Automated None Seen (None Seen); Bilirubin Urine Negative (Negative); Blood Urine Trace (Negative); Cast Urine Automated 0-2 /lpf (0-2); Color Urine Yellow; Glucose Urine UA Trace (Negative); Ketones Urine Negative (Negative); Leukocyte Esterase Urine Negative (Negative); Nitrite Urine Negative (Negative); Protein Urine Trace (Negative); Specific Gravity Urine 1.014 (1.000-1.030); Urobilinogen Urine Negative (Negative); WBC Urine Automated 0-5 /hpf (0-5); pH Urine 5.5 (4.5-7.5)
[2024-01-21] MEDS: metHOTREXate sodium 2.5 MG TAB PO ONE (19:39)
[2024-01-21] MEDS: FORMOTEROL 20 MCG/2 ML VIAL NEB SCH (20:13)
[2024-01-21] MEDS: BUDESONIDE 0.5 MG/2 ML VIAL (PULMICORT) NEB SCH (20:13)
[2024-01-21] MEDS ORDERED: methylPREDNISolone 125 MG/2 ML VIAL IV SCH (21:00)
[2024-01-21] MEDS ORDERED: predniSONE 20 MG TAB PO SCH (21:00)
[2024-01-21] MEDS: ENOXAPARIN INJ 40 MG/0.4 ML SYR SQ SCH (21:11)
[2024-01-21] MEDS: HYDROXYCHLOROQUINE SULFATE 200 MG TAB PO SCH (21:11)
[2024-01-21] MEDS: methylPREDNISolone 40 MG in SYRINGE 0 ML IV SCH (21:11)
[2024-01-22] MEDS: LEVOTHYROXINE SODIUM 150 MCG TABLET PO SCH (05:27)
[2024-01-22 06:09] LABS: Hematocrit (blood only) 38.9 % (37.0-47.0); Hemoglobin 13.1 g/dl (12.0-16.0); Mean Corpuscular Hgb Conc 33.7 g/dL (32.0-36.0); Mean Platelet Volume 11.6 fL (9.4-12.4); Platelet Count 202 K/uL (130-400); RDW Coefficient of Variation 13.5 % (11.5-14.5); RDW Standard Deviation 48.5 fL (36.4-46.3); Red Blood Count 3.97 M/uL (4.20-5.40); White Blood Count 10.63 K/ul (4.8-10.8)
[2024-01-22 06:19] LABS: BUN Creatinine Ratio 21.7 (10-20); Creatinine Clr Calc Pharmacy 76.8 ml/min; Magnesium 1.9 mg/dl (1.7-2.4); Potassium 3.7 mmol/L (3.5-5.1)
[2024-01-22 06:40] LABS: Thyroid Stimulating Hormone 0.115 uIu/ml (0.300-4.500); Troponin I High Sensitivity 35.8 pg/ml (0-14)
[2024-01-22] MEDS: BUDESONIDE/FORMOTEROL FUMARATE 160/4.5 60 PUFFS/INHALER INH SCH (06:40)
--- NOTE | 2024-01-22 07:01 | Hospitalist Progress Note ---
Date of Service January 22, 2024 Assessment & Plan (1) COPD exacerbation: Plan: No formal diagnosis COPD or CHF per patient, extensive smoking history x50 years - No supplemental O2 requirement at baseline; O2 as needed, currently stable on room air - VBG on admission consistent with mild respiratory alkalosis (pH 7.43, pCO2 37) - Biofire (+) for coronavirus 0C43 - CXR without evidence of pneumonia or acute processes - Continue DuoNeb q4hr, Budesonide-formoterol BID - Continue IV Methylprednisolone 40mg BID - IC + FV (2) Elevated troponin: Plan: Resolved - No chest pain or palpitations - Troponin peaked ~95, likely demand ischemia in the setting of COPD exacerbation - EKG without ischemic changes (3) Hypomagnesemia: Plan: Resolved - Mg 1.3 on admission s/p repletion - repeat Mg 1.9 (4) Rheumatoid arthritis: Plan: H/o RA - Prednisone/hydroxychloroquine/methotrexate (20 mg weekly) prior to admission - Okay to continue methotrexate (last dose 01/20) + hydroxychloroquine given no sign of bacterial infection at this time - no leukocytosis, afebrile - if hospital course reveals signs of possible infection/if antibiotics required, will hold immunosuppressive agents - Continue escalated steroid dosing for COPD exacerbation, then taper back to baseline dose of 5mg daily Plan Hypothyroidism- TSH ~.115, suggestive of overtreatment - continue Levothyroxine, recommend dose titration in outpatient setting HTN- amlodipine, lisinopril, metoprolol succinate HLD- rosuvastatin Polymyalgia, chronic pain- Duloxetine History of NANCIE on CPAP- To be on CPAP but has not been on since it was recalled; f/u appointment 02/15 Tobacco dependence- encouraged cessation, patch and nicotine gum offered - Smokes 1/2 ppd, since 19 y/o Diet: Reg VTE Prophylaxis: Lovenox Admission and Anticipated Discharge Date Admission Date: January 21, 2024 Supervising Physician Co-Signing Physician Notes Attending Physician Supervision Note: I independently interviewed and examined the patient and verified the carlisle history and physical, reviewed labs and image studies and agree with findings and care plan noted above. 69 y/o F here with shortness of breath. No known history of COPD or asthma. E xtensive history of smoking. Significant improved when seen in the evening with nebulizers given earlier in the day HS RRR, no murmurs, Chest expiratory wheezing without crackles, Abdo SNT Suspected COPD exacerbation - Sec to viral illness. -Continue Solu-medrol 40mg IV BID, -Duonebs, budesonide/formoterol Neb, encouraged smoking cessation, no antibiotics given history of c. diff -will need PFT on discharge Hypoxia - aim O2 sats > 88% Subjective Patient reports increased SOB since Wednesday, also developed cough but denies fevers/chills, rhinorrhea, sore throat. Patient with significant smoking history, states that she has never had formal pulmonary function testing, not on oxygen at home. Currently on 2L though states that she does not think supplemental O2 is necessary. Not on maintenance inhalers, only PRNs. Review of Systems Review of Systems: as per HPI Physical Exam Physical Exam: General: Alert and oriented. No acute distress Cardiac: Regular rate and rhythm, no murmurs appreciated Respiratory: Lungs diminished bilaterally, mild expiratory wheezes appreciated Extremities: No lower extremity edema, calves non-tender bilaterally Results & Data Results & Data Vital Signs (Past 12 Hours) Vital Signs Temp Pulse Pulse Pulse Resp BP Pulse Ox 01/22/24 06:58 104 H 18 90 01/22/24 04:37 36.6 C 93 H 20 134/72 95 01/21/24 23:24 36.6 C 96 H 20 128/78 94 01/21/24 23:07 91 H 18 94 01/21/24 21:59 101 H 01/21/24 20:14 98 H 18 91 01/21/24 20:00 36.6 C 99 H 20 139/85 92 01/21/24 19:40 O2 Del Method O2 Flow Rate 01/22/24 06:58 Nasal Cannula 2 01/22/24 04:37 Nasal Cannula 01/21/24 23:24 Nasal Cannula 2 01/21/24 23:07 Nasal Cannula 2 01/21/24 21:59 01/21/24 20:14 Nasal Cannula 2 01/21/24 20:00 Nasal Cannula 2 01/21/24 19:40 Nasal Cannula 2 Resident Activity Tracking Resident Involvement: Resident Care Provided Care Provided: Adult Hospital Medicine
[2024-01-22] MEDS: amLODIPine BESYLATE 5 MG TAB PO SCH (10:13)
[2024-01-22] MEDS: DULoxetine HCL 60 MG CAP PO SCH (10:14)
[2024-01-22] MEDS: lisinopril 20 MG TAB PO SCH (10:14)
[2024-01-22] MEDS: MAGNESIUM OXIDE 400 MG TAB PO SCH (10:15)
[2024-01-22] MEDS: ROSUVASTATIN CALCIUM 10 MG TAB PO SCH (10:16)
[2024-01-22] MEDS: FOLIC ACID 1 MG TAB PO SCH (10:16)
[2024-01-22] MEDS: METOPROLOL SUCC 50MG EXT REL TAB PO SCH (10:16)
--- OUTSIDE RECORDS SUMMARY | 2024-01-22 16:19 | External Medical Summary | Summary of Care ---
Author Name Unknown Organization [facility] Address [address] [place] [address] Phone [phone] Care Team Providers Care Senior Program Planner Name Role Phone Usha Weaver DO Primary Care Provider Reason for Visit * Reason Comments NEW PATIENT New patient. Sleep a pnea. Has CPAP. Was recalled . Doesn't have new one. Hasn't used one in over year. * Evaluate & Treat - Unlimited Visits (Within 10 days (routine)) - Authorized Specialty Diagnoses / Procedures Referred By Andrea diaz Referred To Contact Sleep Medicine / Sleep Disorders Diagnoses Sleep apnea, unspecified type Jerald Guo PA-C [address] [place] [address] Referral ID Status Reason Start Date Expiration Date Visits Requested Visits Authorized [id number] Authorized Specialty Services Required 4 2 2 Encounter Details Date Type Department Care Team (Late st Contact Info) Description 12/16/2023 1:40 PM EST Office Visit Sleep Disorders Ctr [facility] [address] [place] [phone] Kyara Weiner DO [address] [place] [address] Obstructive sleep apnea*; Hypersomnolence Allergies Active Allergy Reactions Criticality Noted Date Comments Amoxicillin-Pot Clavulanate 10/24/19 22 Other reaction(s): C diff documented as of this encounter (statuses as of 12/16/2023) Medications Medication Sig Dispensed Refills Start Date End Date Status DULoxetine (CYMBALTA) 60 MG CPEP Take 1 Capsule by mouth in the morning. 09/20/2018 Active Cyanocobalamin (VITAMIN B-12) 1000 MCG Tablet Take 1 Tablet by mouth in the morning. Active Urea 40 % External Cream As needed 04/10/2019 Active Lisinopril 20 MG Oral Tablet (PRINIVIL) 1 Tablet. 1 daily 11/17/2019 Active Cholecalciferol 25 MCG (1000 UT) Oral Capsule 1 daily 10/12/2019 Active Levothyroxine Sodium 150 MCG Oral Capsule Take 1 Capsule by mouth in the morning. 07/27/2021 Active Folic Acid 1 MG Oral Tablet Take by mouth 1 Tablet in the morning. 30 Tablet 5 10/23/2021 Active Albuterol Sulfate HFA 108 (90 Base) MCG/ACT Inhalation Aerosol Solution INHALE TWO PUFFS BY MOUTH FOUR TIMES DAILY NEEDED 02/13/2022 Active Acetaminophen ER 650 MG Oral Tablet Extended Release Take 1 Tablet by mouth every 8 hours as needed. Active Euflexxa 20 MG/2ML Intra-articular Solution Prefilled Syringe Inject 20 mg intra-articular ly every 7 days for three weeks into right knee. 6 mL 06/15/2022 Active Milk Thistle 250 MG Oral Capsule Take 1 Capsule by mouth in the morning. Active Turmeric 500 MG Oral Capsule Take 1 Capsule by mouth in the morning. Active One A Day Women 50 Plus Oral Tablet Chewable Take 1 Tablet by mouth every morning. 10/21/2022 Active Euflexxa 20 MG/2ML Intra-articular Solution Prefilled Syringe (Sodium Hyaluronate (Viscosup)) Inject 20mg intra-articular ly into both knees once weekly for 3 weeks 12 mL 03/25/2023 Active Rosuvastatin Calcium 10 MG Oral Tablet (Crestor) Take 1 Tablet by mouth in the morning. Active amLODIPine Besylate 2.5 MG Oral Tablet (Norvasc) Take 1 Tablet by mouth in the morning. 90 Tablet 3 05/25/2023 Active Aspirin 81 MG Oral Tablet Delayed Release Take 1 Tablet by mouth in the morning. 05/25/2023 Active Metoprolol Succinate ER 50 MG Oral Tablet Extended Release 24 Hour (Toprol XL)Indications:Hy pertensive heart disease without congestive heart failure,Premature atrial contractions,HTN, goal below 140/90 Take 1 Tablet by mouth daily. 90 Tablet 3 06/28/2023 Active Methotrexate Sodium 2.5 MG Oral Tablet TAKE EIGHT TABLETS BY MOUTH ONCE WEEKLY 104 Tablet 1 10/05/2023 Active Euflexxa 20 MG/2ML Intra-articular Solution Prefilled Syringe (Sodium Hyaluronate (Viscosup)) Inject 20 mg intra-articular ly into right knee every 7 days for 3 weeks. DJD M17.11 6 mL 10/15/2023 Active predniSONE 5 MG Oral Tablet (Deltasone) Take 1 Tablet by mouth in the morning. 90 Tablet 1 10/19/2023 Active Ipratropium-Albut mike 0.5-2.5 (3) MG/3ML Inhalation Solution (Duoneb)Indicatio ns:Chronic obstructive pulmonary disease, unspecified COPD type (HCC) Inhale 3 mL by mouth every 6 hours as needed for Shortness of Breath or Wheezing. 180 mL 5 12/07/2023 Active Hydroxychloroquin e Sulfate 200 MG Oral Tablet (Plaquenil) Take 2 Tablets by mouth at bedtime. 60 Tablet 5 12/10/2023 Active Ciclopirox 8 % External Solution APPLY TOPICALLY EVERY DAY FOR THREE MONTHS 07/31/2021 Discontinued documented as of this encounter (statuses as of 12/16/2023) Active Problems Problem Noted Date Diagnosed Date Hyperlipidemia 09/21/2023 Age-related osteoporosis wit hout current pathological fracture 09/21/2023 History of squamous cell carcinoma of skin 09/15 Prediabetes 09/15/2022 Fibromyalgia 09/15/2022 Obstructive sleep apnea syndrome 09/15/2022 Polymyalgia 09/15/2022 Sacroiliitis 09/15/2022 Steatosis of liver 09/15/2022 Tobacco user 09/15/2022 Recurrent major depressive disorder, in partial remission 09/15/2022 Rheumatoid arthritis 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 10/07/2015 Hypothyroidism 05/10/2014 Hypertension 05/10/2014 Raynaud's syndrome 04/14/2007 Other psoriasis 04/14/2007 documented as of this encounter (statuses as of 12/16/2023) Resolved Problems Problem Noted Date Diagnosed Date Resolved Date Encounter for long-term (cur rent) use of high-risk medication 08/27/2014 11/25/2017 Encounter for long-term (cur rent) use of medications 06/03/2010 09/21/2023 ARTHRITIS,RHEUMATOID 01/18/2009 016 Arthropathy of hand 04/14/2007 07/25/19 11 Other and unspecified nonspe cific immunological findings 04/14/2007 10/31/2009 documented as of this encounter (statuses as of 12/16/2023) Immunizations Name Administration Dates Next Due COVID-19 mRNA, LNP-s, No Pre serve, 2-Dose Series (Moderna) 04/12/2020,03/15/2020 Covid-19, Mrna, Lnp-s, Pf, B ivalent, 50 Mcg, IM, 12 yrs and above (Moderna) 11/28/2021 Pneumococcal Conjugate Vacci ne, 20-valent (Bnopvyo23) 08/17/2023 Pneumococcal Polysaccharide PPV23 (Pneumovax) 11/22/2019,10/08/2014,01/18/2009,01/26(Deferred: Patient Refused - Patient has URI) Seasonal Influenza Vac., MDV , IM, 0.5 mL (Fluzone) 10/25/2017,12/19/2014,03/15/2014(Defer red: Patient Refused),03/03/2012(Deferred: Patient Refused - does not want to have it),01/30/2010,01/30/2010(Deferred: Patient Refused),12/09/2007,11/15/2007(Deferre d: Patient Refused - Patient has URI) Seasonal Influenza, Quadriva lent Hd (Fluzone Hd) 11/17/2022 TDAP (age 10 and older)(Boostrix) 06/19/2021 Zoster Vaccine Recombinant (Shingrix) 02/18/2019 ,12/20/2018 documented as of this encounter Social History Tobacco Use Types Packs/Day Years Used Date Smoking Tobacco: Every Day Cigarettes 0.6 36 Smokeless Tobacco: Never Tobacco Cessation:Ready to Q uit: Not Asked; Counseling Given: Not Answered Comments:1/2 ppd smoker. 12/16/2023. Alcohol Use Standard Drinks/Week Comments Not Currently 0 (1 standard drink = 0.6 oz pur e alcohol) Hunger Vital Sign Answer Date Recorded Within the past 12 months, y ou worried that your food would run out before you got the money to buy more. Never true 09/21/19 24 Within the past 12 months, t he food you bought just didn't last and you didn't have money to get more. Never true 09/21/2023 Childcare Answer Date Recorded Do you feel overwhelmed with taking care of a child, family member or friend? No 09/21/2023 Does your family need help f inding childcare? (Household - for ages 0-17 years) Not on file 09/21/2023 Clothing Answer Date Recorded Have you been unable to get clothing when it was really needed? No 09/21/2023 Is your family able to get c lothes or diapers when needed? (Household - for ages 0-17 years) Not on file 09/21/2023 Personal Safety Answer Date Recorded Do you feel unsafe or have concerns for your saf ety? No 09/21/2023 Do you have concerns for you r family's safety? (Household - for ages 0-17 years) Not on file 09/21/2023 Utilities Answer Date Recorded Do you have trouble paying y our heating, water, or electric bill? No 09/21/2023 Is your family able to pay t he heat, water, or electric bill? (Household - for ages 0-17 years) Not on file 09/21/2023 Does your family have access to good internet? (Household - for ages 0-17 years) Not on file 09/21/2023 Employment Status Answer Date Recorded Are you unemployed or without regular income? No 09/21/2023 Does the household have a re gular source of income? (Household - for ages 0-17 years) Not on file 09/21/2023 Social Connections Answer Date Recorded How often do you feel lonely or isolated from th ose around you? Never 09/21/2023 Financial Resource Strain Answer Date R ecorded Do you have any trouble payi ng for your medications, or do you think you might in the future? No 09/21/2023 Does your family have troubl e paying for medicine? (Household - for ages 0-17 years) Not on file 09/21/2023 Transportation Needs Answer Date Record ed Do you have trouble getting a ride to medical visits or work? (Adult - for ages 18 years and over) Not on file 09/21/2023 Does your family have a hard time getting a ride to doctors visits? (Household - for ages 0-17 years) Not on file 09/21/2023 Has lack of transportation k ept you from medical appointments, meetings, work, or from getting things needed for daily living? Check all that apply. No 09/21/2023 Do you (or your family) have trouble finding or paying for a ride (transportation)? (Household - for ages 0-17 years) Not on file 09/21/2023 Housing Stability Answer Date Recorded Do you currently live in a s helter or have no steady place to sleep at night? No 09/21/2023 Do you think you are at risk of becoming homeless? (Adult - for ages 18 years and over) Not on file 09/21/2023 Does your family worry about paying for your home or becoming homeless? (Household - for ages 0-17 years) Not on file 0 09/21/2023 Are you homeless or worried that you might be in the future? No 09/21/2023 Are you (or your family) brittaney eless or worried that you might be in the future? (Household - for ages 0-17 years) Not on file Food Insecurity Answer Date Recorded Do you need food for this week? No 09/21/2023 Are you able to get enough f ood for your family? (Household - for ages 0-17 years) Not on file 09/21/2023 Does your family need food t his week? (Household - for ages 0-17 years) Not on file 09/21/2023 Do you always have enough fo od for your family? (Household - for ages 0-17 years) Not on file 09/21/2023 Sex and Gender Information Value Date Recorded Sex Assigned at Female 02/09/2022 10:46 PM EST Gender Identity Female 02/09/2022 10:46 PM EST Sexual Orientation Straight 02/09/2022 10 :46 PM EST Job Start Date Occupation Industry Not on file Not on file Not on file documented as of this encounter Last Filed Vital Signs Vital Sign Reading Time Taken Comments Blood Pressure 118/78 12/16/2023 1:23 PM EST Pulse 58 12/16/2023 1:23 PM EST Temperature 36.9 C (98.4 F) 12/16/2023 1:23 PM ES T Respiratory Rate 16 12/16/2023 1:23 PM EST Oxygen Saturation 97% 12/16/2023 1:23 PM EST Inhaled Oxygen Concentration - - Weight 83.5 kg (184 lb) 12/16/2023 1:23 PM EST Height 152.5 cm (5' 0.05") 12/16/2023 1:23 PM ES T Body Mass Index 35.88 12/16/2023 1:23 PM EST documented in this encounter Progress Notes * Tim Weinerkwasi Marin, DO - 12/16/2023 1:29 PM EST Sleep Medicine Evaluation [address] [place] [address] [address] Consultation was requested by: Jerald Guo PA-C for: chronic fatigue, untreated NANCIE and a copy of this report is being sent to the provider electronically. Relevant available records reviewed. HPI: Madelaine Seo is a(n) 68 year old female presenting for evaluation and management of NANCIE. She does not recall why she was initially tested for sleep apnea. She notes she was not this tired at that time. [employer] HST 01/12/2018 (weight around 182 lbs): AHI(3%) 12.4, AHI(4%) 8.6, SpO2 mini 83%, time <90% 22.3 min (across 2 nights). (Report to be scanned.) She was subsequently treated with CPAP. Per most recent data in [facility], she was using autoCPAP 4-20 cwp. However, she stopped using CPAP after learning of the Respironics recall. Has not received a recall replacement device. She has not used CPAP in over a year. She had had issues with mask leak, not staying in place well. + daytime sleepiness, feels like she could take a nap now. Napping most days. She will often get up, get dressed, then lay down and nap. More sleepy since she retired 2 years ago. Sleepiness has been worse in the past year to year and a half. She does not relate this to timing of when she had stopped the CPAP. Getting thyroid rechecked. Patient reports a typical bedtime of 8 PM, to read for an hour or two. It takes varying times to fall asleep. If she puts the TV on, she will get to sleep. Sometimes her active mind keeps her up. Patient awakens by midnight to go to the bathroom, sometimes again at 4 AM. From 4 AM on, she will have very weird dreams. Patient awakens for the day by 8-9 AM, feeling varying, often still tired, though she notes she felt well rested this morning after going to bed last night at 6 PM. Patient does feel sleepy and tired during the day. Patient does have caffeine, tea in the morning, and Pepsi often 1/day. The patient reports having ("+" indicates reports, "-" indicates denies): unsure Snoring (sleeps alone; sleeps separately) - Choking/gasping awakenings + Mouth breathing, dry mouth when congested. occasional Acid reflux at night + Nocturia - Morning headaches Restless Legs Syndrome Symptoms ("+" indicates reports, "-" indicates denies): - Urge to move legs at night Parasomnias Symptoms ("+" indicates reports, "-" indicates denies): - Sleepwalking - Dream-enactment Narcoleptic Symptoms ("+" indicates reports, "-" indicates denies): + Vivid dreams - Dreams with short naps (only in later part of overnight sleep) - Sleep paralysis - Sleep-related hallucinations - Cataplexy A couple times she felt like her left hip might give out, but not seeming to be related to emotion Excessive Daytime Sleepiness: Austin Sleepiness Scale 7 Modified F.O.S.Q. 22 - Drowsy driving + Sleepy with sedentary activity Austin Sleepiness Scale Question 12/16/2023 9:26 AM EST - Filed by Patient What is the chance you will doze off in the following situation? Sitting and reading No chance of dozing Watching TV Moderate chance of dozing Sitting inactive in a public place, such as a theater or meeting Slight chance of dozing As a passenger in a car for an hour without a break Slight chance of dozing Lying down to rest in the afternoon when circumstances permit High chance of dozing When sitting and talking to someone No chance of dozing When sitting quietly after lunch without alcohol No chance of dozing In a car, while stopped for a few minutes in traffic No chance of dozing Score (range: 0 - 24) 7 Functional Outcomes Of Sleep Question 12/16/2023 9:29 AM EST - Filed by Patient Please complete the following questions. Do you have difficulty concentrating because you are sleepy or tired? Yes, moderate Do you have difficulty remembering things because you are sleepy or tired? Yes, moderate Do you have difficulty operating a motor vehicle for short distances (less than 100 miles) because you become sleepy? No Do you have difficulty operating a motor vehicle for long distances (more than 100 miles) because you become sleepy? Yes, a little Do you have difficulty visiting family or friends in their home because you become sleepy or tired?Yes, a little Has your relationship with family, friends, or work colleagues been affected because you are sleepyor tired? Yes, moderate Do you have difficulty watching a movie or video because you become sleepy or tired? Yes, moderate Do you have difficulty being as active as you want to be in the evening because you are tired or sleepy? Yes, moderate Do you have difficulty being as active as you want to be in the morning because you are tired or sleepy? Yes, extreme Has your mood been affected because you are sleepy or tired? Yes, extreme Score (range: 10 - 40) 22 Travel Screening Question 12/16/2023 1:18 PM EST - Filed by Patient Do you have any of the following new or worsening symptoms? None of these Have you recently been in contact with someone who was sick? No / Unsure Prior sleep study: only the HST as noted above. PMH: Past Medical History: Diagnosis Date Anemia HTN, goal below 140/90 Hypertension, benign Hypothyroidism RA Polymyalgia Fibromyalgia NANCIE HLD Past Surgical History: Procedure Laterality Date BIOPSY OF BREAST, OPEN DILATION AND CURETTAGE (D&C) D&C and laproscopy Tonsillectomy at about 6 yo ALLERGIES: Review of patient's allergies indicates: Allergen Reactions Amoxicillin-Pot Clavulanate Other reaction(s): C diff MEDS: Current Outpatient Medications Medication Sig Dispense Refill Hydroxychloroquine Sulfate 200 MG Oral Tablet (Plaquenil) Take 2 Tablets by mouth at bedtime. 60 Tablet 5 Ipratropium-Albuterol 0.5-2.5 (3) MG/3ML Inhalation Solution (Duoneb) Inhale 3 mL by mouth every 6 hours as needed for Shortness of Breath or Wheezing. 180 mL 5 predniSONE 5 MG Oral Tablet (Deltasone) Take 1 Tablet by mouth in the morning. 90 Tablet 1 Euflexxa 20 MG/2ML Intra-articular Solution Prefilled Syringe (Sodium Hyaluronate (Viscosup)) Inject 20 mg intra-articularly into right knee every 7 days for 3 weeks. DJD M17.11 6 mL 0 Methotrexate Sodium 2.5 MG Oral Tablet TAKE EIGHT TABLETS BY MOUTH ONCE WEEKLY 104 Tablet 1 Metoprolol Succinate ER 50 MG Oral Tablet Extended Release 24 Hour (Toprol XL) Take 1 Tablet by mouth daily. 90 Tablet 3 amLODIPine Besylate 2.5 MG Oral Tablet (Norvasc) Take 1 Tablet by mouth in the morning. 90 Tablet 3 Aspirin 81 MG Oral Tablet Delayed Release Take 1 Tablet by mouth in the morning. Rosuvastatin Calcium 10 MG Oral Tablet (Crestor) Take 1 Tablet by mouth in the morning. Euflexxa 20 MG/2ML Intra-articular Solution Prefilled Syringe (Sodium Hyaluronate (Viscosup)) Inject 20mg intra-articularly into both knees once weekly for 3 weeks 12 mL 0 Euflexxa 20 MG/2ML Intra-articular Solution Prefilled Syringe Inject 20 mg intra-articularly every 7 days for three weeks into right knee. 6 mL 0 Acetaminophen ER 650 MG Oral Tablet Extended Release Take 1 Tablet by mouth every 8 hours as needed. Albuterol Sulfate HFA 108 (90 Base) MCG/ACT Inhalation Aerosol Solution INHALE TWO PUFFS BY MOUTH FOUR TIMES DAILY NEEDED Folic Acid 1 MG Oral Tablet Take by mouth 1 Tablet in the morning. 30 Tablet 5 Levothyroxine Sodium 150 MCG Oral Capsule Take 1 Capsule by mouth in the morning. Cholecalciferol 25 MCG (1000 UT) Oral Capsule 1 daily Lisinopril 20 MG Oral Tablet (PRINIVIL) 1 Tablet. 1 daily Urea 40 % External Cream As needed Cyanocobalamin (VITAMIN B-12) 1000 MCG Tablet Take 1 Tablet by mouth in the morning. DULoxetine (CYMBALTA) 60 MG CPEP Take 1 Capsule by mouth in the morning. Milk Thistle 250 MG Oral Capsule Take 1 Capsule by mouth in the morning. (Patient not taking: Reported on 12/16/2023) One A Day Women 50 Plus Oral Tablet Chewable Take 1 Tablet by mouth every morning. (Patient not taking: Reported on 12/16/2023) Turmeric 500 MG Oral Capsule Take 1 Capsule by mouth in the morning. (Patient not taking: Reported on 12/16/2023) No current facility-administered medications for this visit. FHx: no known family history of sleep disordered breathing Social hx: Tobacco use: smokes 1/2 ppd, trying to quit Alcohol use: none Drug use: none PE: VITAL SIGNS: Filed Vitals: 12/16/23 1323 BP: 118/78 Pulse: 58 Resp: 16 Temp: 36.9 C (98.4 F) TempSrc: Tympanic SpO2: 97% Weight: 83.5 kg (184 lb) Height: 1.525 m (5' 0.05") Body mass index is 35.88 kg/m. GEN: Ambulatory, obese, NAD ORAL: denture Tongue not enlarged Hard palate normal Oral mucous membranes moist OP: Soft palate normal Mallampati IV NECK: Circumference 14.5" RESP: Unlabored respirations Breath sounds clear, no wheezes or rales CVS: Regular rate and rhythm NEURO: Speech clear and appropriate IMPRESSION/RECOMMENDATIONS: Mild NANCIE per 2018 HST, untreated for over a year Excessive daytime sleepiness - suspect NANCIE contributes to EDS. She is also working with PCP on dosing of levothyroxine. RA may also play a role in excessive fatigue. - update sleep testing to re-qualify for tx of NANCIE - [facility] home sleep apnea test to re-evaluate for NANCIE. Discussed that if the HSAT does not show NANCIE,we will likely recommend in-lab PSG. If testing confirms NANCIE, will likely plan to restart CPAP, with new CPAP device (her old device is > 5 yo now). - Avoid driving when sleepy/drowsy. Follow-up: Return will send MyG with HST results. | Check-out note: [facility] HST Ruby Weiner DO documented in this encounter Nursing Notes * Tamica Mix, ROMULO - 12/16/2023 1:27 PM EST Chief Complaint Patient presents with NEW PATIENT New patient. Sleep apnea. Has CPAP. Was recalled . Doesn't have new one. Hasn't used one in over year. Austin Sleepiness Scale Question 12/16/2023 9:26 AM EST - Filed by Patient What is the chance you will doze off in the following situation? Sitting and reading No chance of dozing Watching TV Moderate chance of dozing Sitting inactive in a public place, such as a theater or meeting Slight chance of dozing As a passenger in a car for an hour without a break Slight chance of dozing Lying down to rest in the afternoon when circumstances permit High chance of dozing When sitting and talking to someone No chance of dozing When sitting quietly after lunch without alcohol No chance of dozing In a car, while stopped for a few minutes in traffic No chance of dozing Score (range: 0 - 24) 7 Functional Outcomes Of Sleep Question 12/16/2023 9:29 AM EST - Filed by Patient Please complete the following questions. Do you have difficulty concentrating because you are sleepy or tired? Yes, moderate Do you have difficulty remembering things because you are sleepy or tired? Yes, moderate Do you have difficulty operating a motor vehicle for short distances (less than 100 miles) because you become sleepy? No Do you have difficulty operating a motor vehicle for long distances (more than 100 miles) because you become sleepy? Yes, a little Do you have difficulty visiting family or friends in their home because you become sleepy or tired?Yes, a little Has your relationship with family, friends, or work colleagues been affected because you are sleepyor tired? Yes, moderate Do you have difficulty watching a movie or video because you become sleepy or tired? Yes, moderate Do you have difficulty being as active as you want to be in the evening because you are tired or sleepy? Yes, moderate Do you have difficulty being as active as you want to be in the morning because you are tired or sleepy? Yes, extreme Has your mood been affected because you are sleepy or tired? Yes, extreme Score (range: 10 - 40) 22 Travel Screening Question 12/16/2023 1:18 PM EST - Filed by Patient Do you have any of the following new or worsening symptoms? None of these Have you recently been in contact with someone who was sick? No / Unsure Neck: 14.5". documented in this encounter Plan of Treatment Upcoming Encounters Date Type Department Care Team (Late st Contact Info) Description 02/14/2024 3:00 PM EST Office Visit Rheumatology [address] [place] [phone] Kellie Bales CRNP [address] [place] [address] [place] [id number] 02/16/2024 1:00 PM EST PulmDiagnostic Sleep Lab Ruby Maynard [address] [place] [address] [facility] [address] [place] [address] 05/26/2024 9:00 AM EDT Imaging Radiology [address] [place] [address] 06/15/2024 7:30 AM EDT Cardiac Studies Cardiac Studies [address] [place] [address] 06/15/2024 9:00 AM EDT Imaging Radiology [address] [place] [address] 06/15/2024 9:45 AM EDT Imaging Radiology [address] [place] [address] 06/22/2024 12:30 PM EDT Office Visit Cardiology [address] [place] [address] Jerald Guo PA-C [address] [place] [address] 09/19/2024 11:35 AM EDT Telemedicine Care at Home [address] [place] [address] Merissa England CRNP [address] [place], [place] [id number] Scheduled Orders Name Type Priority Associated Diagnoses Orde r Schedule SLEEP TEST W/ TYPE 3 PORTABLE MONITOR, 4 CHANNEL; AT HOME Procedures Routine Obstructive sleep apnea Hypersomnolence Ordered: 12/16/2023 Health Maintenance Due Date Last Done Comments Albumin/Creatinine Ratio 1975 VITAMIN D LEVEL ONCE IN A LIFETIME-USE SMARTSET# [id number] 1997 Cologuard 2002 Colonoscopy 2002 Colorectal Cancer Screening 2002 Fecal Occult Blood Test 2002 Sigmoidoscopy 2002 TSH 05/27/2023 05/26/2022, 05/09, 11/01/2003, Additional history exists COVID-19 Vaccine ( season) 2023 11/28/2021, 04/12/2020, 03/15/2020 Influenza Vaccine (FLU shot) (#1) 2023 11/17/2022, 12/11/2021, 11/13/2020, Additional history exists Mammogram 04/06/2024 04/06/2023, 04/08, 05/16/2020, Additional history exists HbA1c 08/05/2024 08/06/2023 Depression Monitoring 09/20/2024 09/21/2023 GFR 11/04/2024 11/05/2023, 07/10, 08/02/2023, Additional history exists DXA Scan 03/31/2025 03/31/2023, 03/12, 12/24/2020 Lipid Panel 08/05/2028 08/06/2023, 01/10, 02/07/2002 DTap/Tdap Vaccines (2 - Td or Tdap) 06/20/2031 06/19/2021 Zoster Vaccines Completed 02/24/2019, 02/08, 12/20/2018 Pneumococcal Vaccine: 65+ Years Completed 08/17/2023, 11/22/2019, 10/08/2014, Additional history exists HPV (Gardasil) Vaccine Aged Out No lo nger eligible based on patient's age to complete this topic Hepatitis B Vaccine Aged Out No longe r eligible based on patient's age to complete this topic MENINGOCOCCAL (MENACTRA/MENVEO) Aged Out No longer eligible based on patient's age to complete this topic documented as of this encounter Medical Devices Not on filedocumented as of this encounter Visit Diagnoses Diagnosis Obstructive sleep apnea- Primary Obstructive sleep apnea (adult) (pediatric) Hypersomnolence Hypersomnia, unspecified documented in this encounter Care Teams Senior Program Planner Relationship Specialty Start Date End Date Usha Weaver DO [address] [place] [address] Dr Sanders [address] [place] [address], [place] [address] PCP - General Family Medicine 03/15/14 documented as of this encounter
--- OUTSIDE RECORDS SUMMARY | 2024-01-22 16:19 | External Medical Summary | Summary of Care ---
Author Name Unknown Organization [facility] Address [address] [place] [address] Phone [phone] Care Team Providers Care Automatic Log Cut Off Sawyer Name Role Phone Usha Weaver DO Primary Care Provider Reason for Referral * Evaluate & Treat - Unlimited Visits (Within 10 days (routine)) - Authorized Specialty Diagnoses / Procedures Referred By Andrea diaz Referred To Contact Sleep Medicine / Sleep Disorders Diagnoses Sleep apnea, unspecified type Jerald Guo PA-C [address] [facility] [place] [address] Referral ID Status Reason Start Date Expiration Date Visits Requested Visits Authorized [id number] Authorized Specialty Services Required 4 2 2 Question Answer GS CAD SLEEP MED ADULT REFERRAL Sleep Apnea Testing and Management Does the patient snore and/or gasp at night or has been told they stop breathing at night? Yes, document patient's symptoms in progress note Referral Priority Within 10 days (routine) Where should this appointment be scheduled? [facility] (Diagnostic [facility]) (Within 10 days (routine)) - Authorized Specialty Diagnoses / Procedures Referred By Contac t Referred To Contact Cardiac Studies Diagnoses Hypertensive heart disease without congestive heart failure Premature atrial contractions SOW (dyspnea on exertion) Procedures ECHO, COMPLETE (2D), TRANS-THORACIC Jerald Guo PA-C [address] [place] [address] Referral ID Status Reason Start Date Expiration Date V isits Requested Visits Authorized [id number] Authorized [facility] 06/06/2024 999 999 Reason for Visit * Reason Comments Follow Up 6 1/2 month follow u p. URI last week and saw PCP- stated prednisone and z-xavier which has helped with wheezing. Tired all the time. After waking needs a nap about 3 hours later. SOB no worse then prior. Denies chest pain, edema, dizziness and palpitations. Encounter Details Date Type Department Care Team (Late st Contact Info) Description 12/07/2023 10:00 AM EDT Office Visit Cardiology [address] [place] [address] Jerald Guo PA-C [address] [place] [address] Hypersomnolence*; HTN, goal below 140/90; Hypertensive heart disease without congestive heart failure; Mild carotid artery disease (HCC); Premature atrial contractions; History of tobacco abuse; Left carotid bruit; Abdominal aortic ectasia (HCC); SOW (dyspnea on exertion); Sleep apnea, unspecified type; Chronic obstructive pulmonary disease, unspecified COPD type (HCC) Allergies Active Allergy Reactions Criticality Noted Date Comments Amoxicillin-Pot Clavulanate 10/24/19 22 Other reaction(s): C diff documented as of this encounter (statuses as of 12/08/2023) Medications Medication Sig Dispensed Refills Start Date [...] UT) Oral Capsule 1 daily 10/12/2019 Active Ciclopirox 8 % External Solution APPLY TOPICALLY EVERY DAY FOR THREE MONTHS 07/31/2021 Active Levothyroxine Sodium 150 MCG Oral Capsule [...] by mouth in the morning. 05/25/2023 Active Hydroxychloroquine Sulfate 200 MG Oral Tablet (Plaquenil) Take 2 Tablets by mouth at bedtime. 60 Tablet 5 06/11/2023 Active Metoprolol Succinate ER 50 MG Oral Tablet Extended Release 24 Hour (Toprol XL)Indications:Hyper tensive heart disease without congestive heart failure,Premature atrial [...] the morning. 90 Tablet 1 10/19/2023 Active Ipratropium-Albutero l 0.5-2.5 (3) MG/3ML Inhalation Solution (Duoneb)Indications: Chronic obstructive pulmonary disease, unspecified COPD type (HCC) Inhale 3 mL by mouth every 6 hours as needed for Shortness of Breath or Wheezing. 180 mL 5 12/07/2023 Active documented as of this encounter (statuses as of 12/08/2023) Active Problems Problem Noted Date Diagnosed Date Hyperlipidemia 09/21/2023 Age-related osteoporosis wit hout current pathological fracture 09/21/2023 History of squamous cell carcinoma of skin 09/15 Prediabetes 09/15/2022 Fibromyalgia 09/15/2022 Obstructive sleep apnea syndrome 09/15/2022 Polymyalgia 09/15/2022 Sacroiliitis 09/15/2022 Steatosis of liver 09/15/2022 Tobacco user 09/15/2022 Recurrent major depressive disorder, in partial remission 09/15/2022 Rheumatoid arthritis of [facility] without rheumatoid factor 10/07/2015 Hypothyroidism 05/10/2014 Hypertension 05/10/2014 Raynaud's syndrome 04/14/2007 Other psoriasis 04/14/2007 documented as of this encounter (statuses as of 12/08/2023) Resolved Problems Problem Noted Date Diagnosed Date Resolved Date Encounter for long-term (cur rent) use of high-risk medication 08/27/2014 11/25/2017 Encounter for long-term (cur rent) use of medications 06/03/2010 09/21/2023 ARTHRITIS,RHEUMATOID 01/18/2009 016 Arthropathy of hand 04/14/2007 07/25/19 11 Other and unspecified nonspe cific immunological findings 04/14/2007 10/31/2009 documented as of this encounter (statuses as of 12/08/2023) Immunizations Name Administration Dates Next Due COVID-19 mRNA, LNP-s, No Pre serve, 2-Dose Series (Moderna) 04/12/2020,03/15/2020 Covid-19, Mrna, Lnp-s, Pf, B ivalent, 50 Mcg, IM, 12 yrs and above (Moderna) 11/28/2021 Pneumococcal Conjugate Vacci ne, 20-valent (Piuclpd03) 08/17/2023 Pneumococcal Polysaccharide PPV23 (Pneumovax) 11/22/2019,10/08/2014,01/18/2009,01/26(Deferred: Patient [...] Day Cigarettes 0.6 36 Smokeless Tobacco: Never Alcohol Use Standard Drinks/Week Comments Not Currently [...] No 09/21/2023 Does the household have a [facility] source of income? (Household - for ages [...] Sign Reading Time Taken Comments Blood Pressure 124/74 12/07/2023 9:58 AM EDT Pulse 76 12/07/2023 9:58 AM EDT Temperature - - Respiratory Rate 16 12/07/2023 9:58 AM EDT Oxygen Saturation - - Inhaled Oxygen Concentration - - Weight 83.3 kg (183 lb 9.6 oz) 12/07/2023 9:58 A M EDT Height - - Body Mass Index 34.69 01/08/2023 10:50 AM EST documented in this encounter Progress Notes * Jerald Guo PA-C - 12/07/2023 10:00 AM EDT History of Present Illness: Madelaine Seo is a 68 year old female who returns today for routine cardiology follow-up evaluation Initial consultation was with Dr. Roca in April of 2022, evaluation after pre anesthesia clinic assessment noted the patient to be hypertensive and tachycardic. Frequent ectopy observed on monitor during surgical procedure (carpal tunnel). Metoprolol prescribed with improvement in breathlessness with activity as well as resolution of left subclavian area chest tightness that typically occurred without rhyme or reason. Amlodipine added for blood pressure in November 2022 without adverse reaction. Patient returns today feeling somewhat poorly. Notes recently being seen through her PCP and treated with an acute COPD exacerbation with a Z-Xavier, prednisone, and albuterol inhaler. Notes not feelingsignificantly improved with the use of prednisone as she had in the past. Patient notes significantissues attempting to utilize the albuterol nebulizer. She notes significant chronic fatigue and desc ribes being tired all the time. She notes being up for 2 hours then being ready to go and take a nap. She has a history of sleep apnea however she has not use CPAP since the David recall. Laboratory work was recently completed through [facility], unfortunately is not available for review. She notes plans for follow-up laboratory work through her PCP in January. She continues to smoke, 1/2 pack per day. No chest pain, palpitations, or orthopnea, PND, edema, dizziness, syncope, melena, hematochezia, or hematuria. Problem List: Frequent ectopy Longstanding hypertension, hypertensive heart disease Rheumatoid arthritis Polymyalgia rheumatica Psoriasis Prediabetes Hypothyroidism Anemia Chronic tobacco abuse Obesity Obstructive sleep apnea Review of patient's allergies indicates: Allergen Reactions Amoxicillin-Pot Clavulanate Other reaction(s): C diff Current Outpatient Medications Medication Sig Dispense Refill DULoxetine (CYMBALTA) 60 MG CPEP Take 1 Capsule by mouth in the morning. Cyanocobalamin (VITAMIN B-12) 1000 MCG Tablet Take 1 Tablet by mouth in the morning. Urea 40 % External Cream As needed Lisinopril 20 MG Oral Tablet (PRINIVIL) 1 Tablet. 1 daily Cholecalciferol 25 MCG (1000 UT) Oral Capsule 1 daily Levothyroxine Sodium 150 MCG Oral Capsule Take 1 Capsule by mouth in the morning. Folic Acid 1 MG Oral Tablet Take by mouth 1 Tablet in the morning. 30 Tablet 5 Albuterol Sulfate HFA 108 (90 Base) MCG/ACT Inhalation Aerosol Solution INHALE TWO PUFFS BY MOUTH FOUR TIMES DAILY NEEDED Acetaminophen ER 650 MG Oral Tablet Extended Release Take 1 Tablet by mouth every 8 hours as needed. Euflexxa 20 MG/2ML Intra-articular Solution Prefilled Syringe Inject 20 mg intra-articularly every 7 days for three weeks into right knee. 6 mL 0 Milk Thistle 250 MG Oral Capsule Take 1 Capsule by mouth in the morning. Turmeric 500 MG Oral Capsule Take 1 Capsule by mouth in the morning. One A Day Women 50 Plus Oral Tablet Chewable Take 1 Tablet by mouth every morning. Euflexxa 20 MG/2ML Intra-articular Solution Prefilled Syringe (Sodium Hyaluronate (Viscosup)) Inject 20mg intra-articularly into both knees once weekly for 3 weeks 12 mL 0 Rosuvastatin Calcium 10 MG Oral Tablet (Crestor) Take 1 Tablet by mouth in the morning. amLODIPine Besylate 2.5 MG Oral Tablet (Norvasc) Take 1 Tablet by mouth in the morning. 90 Tablet 3 Aspirin 81 MG Oral Tablet Delayed Release Take 1 Tablet by mouth in the morning. Hydroxychloroquine Sulfate 200 MG Oral Tablet (Plaquenil) Take 2 Tablets by mouth at bedtime. 60 Tablet 5 Metoprolol Succinate ER 50 MG Oral Tablet Extended Release 24 Hour (Toprol XL) Take 1 Tablet by mouth daily. 90 Tablet 3 Methotrexate Sodium 2.5 MG Oral Tablet TAKE EIGHT TABLETS BY MOUTH ONCE WEEKLY 104 Tablet 1 Euflexxa 20 MG/2ML Intra-articular Solution Prefilled Syringe (Sodium Hyaluronate (Viscosup)) Inject 20 mg intra-articularly into right knee every 7 days for 3 weeks. DJD M17.11 6 mL 0 predniSONE 5 MG Oral Tablet (Deltasone) Take 1 Tablet by mouth in the morning. 90 Tablet 1 Ipratropium-Albuterol 0.5-2.5 (3) MG/3ML Inhalation Solution (Duoneb) Inhale 3 mL by mouth every 6 hours as needed for Shortness of Breath or Wheezing. 180 mL 5 Ciclopirox 8 % External Solution APPLY TOPICALLY EVERY DAY FOR THREE MONTHS (Patient not taking: Reported on 12/07/2023) No current facility-administered medications for this visit. OBJECTIVE/PHYSICAL EXAMINATION: BP 124/74 | Pulse 76 | Resp 16 | Wt 83.3 kg (183 lb 9.6 oz) | BMI 34.69 kg/m | BSA 1.89 m General: Alert. Oriented. Fatigued. Eyes: PER. Conjunctiva pink, sclera clear. HENT: Normocephalic. Atraumatic. Neck: Left carotid bruit. No JVD. Heart: Irregular with frequent ectopy, 68 bpm. No murmur. No rub. No gallop. Lungs: Decreased. Diminished. No wheeze. No rhonchi. No rales. SpO2 96% on room air at rest. Abdomen: +BS. Extremities: No clubbing. No cyanosis. No significant edema. Pulses: radial=2/4, posterior tibial=1/4. Limited neurological examination: No focal deficit. Data: Stress testing performed in August 2003 notable for a hypertensive systolic blood pressure response to exercise, supraventricular ectopy observed following exercise, nonischemic May 26, 2022 TTE Interpretation Summary (as per Dr. Jeffries): The LV wall thickness is moderately increased (concentric). The left ventricular cavity size is normal. The qualitative LV ejection fraction is 55-59% (normal). The right ventricular systolic function is normal as assessed by tricuspid annular plane systolic excursion (TAPSE) (normal >1.7 cm). The left atrium is normal sized. The right atrial size is normal. No significant valvular disease is present. EKG on May 25, 2023: Sinus rhythm at 72 bpm with premature supraventricular complexes, stable inferior and lateral T-wave abnormality. Lipid Panel Results: Results for orders placed or performed in visit on 08/06/23 LIPID PANEL WITH DIRECT LDL IF TG IS HIGH Result Value Ref Range Triglycerides 70 <=174 mg/dL Cholesterol 141 <200 mg/dL HDL Cholesterol 61 >49 mg/dL Non-HDL Cholesterol 80 <=159 mg/dL LDL Cholesterol 66 <=129 mg/dL ASSESSMENT AND RECOMMENDATIONS/PLAN: Chronic fatigue, untreated sleep apnea. Recent CBC okay. Known hypothyroidism, followed by PCP. Recommend Sleep Medicine evaluation, retesting and treatment for known sleep apnea and/or nocturnal hypoxemia. Hypertension. Blood pressure is acceptably controlled. Continue the current antihypertensive regimen. Dyslipidemia. Lipids acceptably controlled, as above. Continue rosuvastatin 10 mg/day. Chronic atrial and ventricular ectopy. Patient asymptomatic in regards to the ectopy. She is at increased risk for atrial fibrillation as noted. Continue beta-berlin therapy. Refer for resting echocardiography. Reconsider referral for ambulatory ekg evaluation at next evaluation. Mild atherosclerotic changes, infrarenal abdominal aortic ectasia via May 2023 chest imaging. Continue aspirin and statin. Refer for an abdominal aortic duplex in May 2023. Chronic tobacco use. Mild emphysema via May [address] chest CT. Find a way to become an ex-smoker. Prior nightmares noted with Chantix. She has nicotine replacement therapy at homeand is considering. [place] quit program discussed. DuoNebs prescribed noting difficulty using albuterolinhaler with her rheumatoid arthritis. Harsh left carotid bruit. Carotid duplex in May 2023 with mild bilateral internal carotid artery disease. Continue aspirin. Continue statin. Find a way to become an ex-smoker. Repeat carotid duplexin May 2024 Routine Cardiology follow-up in 6 months or as needed. ER with emergencies. Jerald Guo PA-C Department of Cardiology I spent a total of 30-39 minutes (exact time 34 mins) on the date of service in preparation, delivery, and documentation of the care provided to Madelaine Seo excluding any time spent in the performance of separately billed services. This visit involved medical care services related to at least one serious condition or complex condition requiring ongoing care. This chart was completed in part utilizing [employer] Speech Voice Recognition Software. Grammatical errors, random word insertions, prounoun errors, and incomplete sentences are an occasional consequence of this system due to software l imitations, ambient noise, and hardware issues. Any formal questions or concerns about the content,text, or information contained within the body of this dictation should be directly addressed to the provider for clarification. documented in this encounter Nursing Notes * Shane Wagoner LPN - 12/07/2023 9:57 AM EDT Patient identified by full name and date of Chief Complaint Patient presents with Follow Up 6 1/2 month follow up. URI last week and saw PCP- stated prednisone and z-xavier which has helped withwheezing. Tired all the time. After waking needs a nap about 3 hours later. SOB no worse then prior. Denies chest pain, edema, dizziness and palpitations. Examination Room: 3 Name: Madelaine Buck Rayray Date of : (1955). Reason for Visit: Follow up Interim Hospitalization(s): Denies Problems/Concerns: See chief complaint Chest Pain/SOB: See chief complaint [facility] Discussed: Yes My [facility] is a way you can talk to your provider online through e-mail. Would you like to sign up? I can activate it for you? ALREADY ACTIVE Patient was instructed to not get up on the exam table until directed and assisted by their provider; patient is to remain seated in the chair/ wheelchair/ exam table for fall prevention and safety reasons. Patient is aware to have assistance to step down off exam table with personnel. Patient voiced full comprehension of instructions. documented in this encounter Plan of Treatment Upcoming Encounters Date Type Department Care Team (Late st Contact Info) Description 12/16/2023 1:40 PM EST [facility] [address] [place] [phone] Kyara Weiner DO [address] [place] [address] 02/14/2024 3:00 PM EST Office Visit Rheumatology [address] [place] [phone] Kellie Bales CRNP [address] [place] [address] [place] [address] 05/26/2024 9:00 AM EDT Imaging Radiology [address] [place] [address] 06/15/2024 7:30 AM EDT Cardiac Studies Cardiac Studies [address] [place] [address] 06/15/2024 9:00 AM EDT Imaging Radiology [address] [place] [address] 06/15/2024 9:45 AM EDT Imaging Radiology [address] [place] [address] 06/22/2024 12:30 PM EDT Office Visit Cardiology [address] [place] [address] Jerald Guo PA-C [address] [place] [address] 09/19/2024 11:35 AM EDT Telemedicine Care at Home [address] [place] [address] Merissa England, APARTMENT MANAGER [address] [place] [address] Scheduled Orders Name Type Priority Associated Diagnoses Orde r Schedule VASC DUPLEX CAROTID BILAT Medical Imaging Routine Left carotid bruit Expected: 06/06/2024, Expires: 01/06/2025 VASC AORTIC DUPLEX EVAL-COMPLETE Medical Imaging Routine Abdominal aortic ectasia (HCC) Expected: 06/06/2024, Expires: 01/06/2025 ECHO, COMPLETE (2D), TRANS-THORACIC Echocardiology Routine Hypertensive heart disease without congestive heart failure Premature atrial contractions SOW (dyspnea on exertion) Expected: 06/06/2024, Expires: 01/06/2026 Scheduled Referrals Name Type Priority Associated Diagnoses Orde r Schedule SLEEP MEDICINE REFERRAL OP Referral Within 10 days (routine) Sleep apnea, unspecified type Ordered: 12/07/2023 Health Maintenance Due Date Last Done Comments Albumin/Creatinine Ratio 1975 VITAMIN D LEVEL ONCE IN A LIFETIME-USE SMARTSET# [id number] 1997 Cologuard 2002 Colonoscopy 2002 Colorectal Cancer [...] as of this encounter Visit Diagnoses Diagnosis Hypersomnolence- Primary Hypersomnia, unspecified HTN, goal below 140/90 Unspecified essential hypertension Hypertensive heart disease without congestive heart failure Unspecified hypertensive heart disease without heart failure Mild carotid artery disease (HCC) Unspecified disorders of arteries and arterioles Premature atrial contractions Supraventricular premature beats History of tobacco abuse Personal history of tobacco use, presenting hazards to health Left carotid bruit Other symptoms involving cardiovascular system Abdominal aortic ectasia (HCC) Abdominal aortic ectasia SOW (dyspnea on exertion) Other dyspnea and respiratory abnormality Sleep apnea, unspecified type Chronic obstructive pulmonary disease, unspecified COPD type (HCC) documented in this encounter Care Teams Automatic Log Cut Off Sawyer Relationship Specialty Start Date End Date Usha Weaver DO [address] [facility] [address] Sanders [address] [place], [place] [address] [address] PCP - General Family Medicine 03/15/14 documented as of this encounter"
--- OUTSIDE RECORDS SUMMARY | 2024-01-22 16:19 | External Medical Summary | Continuity of Care Document ---
Author Name Unknown Organization [facility] [address] Address [address] [place], [place] [id number] Care Team Providers Care Collision Technician Name Role Phone Usha Weaver Primary Care Physician [phone] Encounter [facility] [id number] Date(s): 01/17/24 - 01/17/24 [facility] [address] [place], [place] [phone] Encounter Diagnosis Essential (primary) hypertension(Final) - Hyperlipidemia, unspecified(Final) - Hypothyroidism, unspecified(Final) - Discharge Disposition: Home or Self Care Attending Physician: DO Weaver Kristen M Referring Physician: DO Weaver Kristen M Allergies, Adverse Reactions, Alerts Substance Criticality Severity Reaction Reaction Severity Status Augmentin C diff Active Immunizations Given and Recorded Vaccine Date Status Refusal Reason pneumococcal 20-valent conjugate vaccine 08/17/23 Given influenza virus vaccine, inactivated 12/11/21 Dylan rded influenza virus vaccine, inactivated 12/11/21 Dylan rded influenza virus vaccine, inactivated 11/13/20 Dylan rded influenza virus vaccine, inactivated 11/22/19 Give n influenza virus vaccine, inactivated 10/26/18 Dylan rded influenza virus vaccine, inactivated 10/26/17 Dylan rded influenza virus vaccine, inactivated 10/28/16 Give n influenza virus vaccine, inactivated 12/19/14 Dylan rded SARS-CoV-2 mRNA-1273 (6y+ bivalent) 1 11/28/21 Rec orded tetanus/diphtheria/pertuss, acel (Tdap) 06/19/21 G iven tetanus/diphtheria/pertuss, acel (Tdap) 08/30/11 R ecorded tetanus/diphtheria/pertuss, acel (Tdap) 10/11/08 R ecorded SARS-CoV-2 (COVID-19) mRNA-1273 vaccine 12/27/20 R ecorded SARS-CoV-2 (COVID-19) mRNA-1273 vaccine 04/12/20 R ecorded SARS-CoV-2 (COVID-19) mRNA-1273 vaccine 03/15/20 R ecorded pneumococcal 23-valent vaccine 11/22/19 Given pneumococcal 23-valent vaccine 2 10/08/14 Recorded pneumococcal 23-valent vaccine 3 01/18/09 Recorded zoster vaccine, inactivated 4 02/24/19 Recorded zoster vaccine, inactivated 5 02/18/19 Recorded tetanus toxoids-diphtheria, Td (Adult) 01/13/99 Re corded 1Result Comment: 2022-02-27: Historical information-source unspecified 2Result Comment: 2021-06-19: Historical information-source unspecified 3Result Comment: 2021-06-19: Historical information-source unspecified 4Result Comment: 2021-06-19: Historical information-source unspecified 5Result Comment: 2021-06-19: Historical information-source unspecified Medications Aerosol Pocket Chamber Start: 11/29/23 11:13:00 AM EDT, See Instructions, Disp# 1 each, Please use with albuterol inhaler,Pharmacy: [email or web address] Start Date: 11/29/23 Status: Ordered albuterol CFC free 90 mcg/inh MDI Start: 02/13/22 10:16:00 AM EST, 2 puff, inhaled, qid, Disp# 8 g, PRN: as needed for wheezing, Pharmacy: [facility] Start Date: 02/13/22 Status: Ordered amLODIPine 2.5 mg oral tablet Start: 12/17/22 10:43:00 AM EST, 1 tab, PO, Daily Start Date: 12/17/22 Status: Ordered Crestor 10 mg oral tablet Start: 09/22/23 11:53:00 AM EDT, 1 tab, PO, Daily, Disp# 90 tab, Refills: 3, Pharmacy: [facility] Start Date: 09/22/23 Status: Ordered DULoxetine 60 mg oral delayed release capsule Start: 07/02/23 3:33:00 PM EDT, 1 cap, PO, Daily, Disp# 90 cap, Refills: 3, Pharmacy: [facility] Start Date: 07/02/23 Status: Ordered Efudex/Calciportiene Start: 10/26/23 11:25:00 AM EDT, Efudex/Calciportiene, eRx Product Type: Compound, See Instructions,Disp# 30 g, Refills: 1, Apply to invovled areas BID 5 days. Don't get near eyes. Avoid sun., Note to Pharmacy: Compounded 5% flurouracil and calciportiene 0.005% cream, Pharmacy [facility] Start Date: 10/26/23 Status: Ordered Euflexxa 10 mg/mL intra-articular solution Start: 10/15/23 11:55:00 AM EDT, 20 mg =, intra-articular, q7days, Disp# 6 mL, Refills: 0, R KNEE [id number], Note to Pharmacy: 3 syringes for R knees. Please ship to physician's office; [address] [place] [address], Pharmacy: [facility] Start Date: 10/15/23 Stop Date: 11/05/23 Status: Ordered folic acid 1 mg oral tablet Start: 02/10/23 2:18:00 PM EST, 1 tab, PO, Daily, Disp# 90 tab, Refills: 3, Pharmacy: [facility] Start Date: 02/10/23 Stop Date: 02/05/24 Status: Ordered hydroxychloroquine 200 mg oral tablet TAKE TWO TABLETS BY MOUTH AT BEDTIME Start Date: 06/30/22 Status: Ordered levothyroxine 150 mcg (0.15 mg) oral tablet Start: 02/16/23 12:00:00 PM EST, See Instructions, Disp# 90 tab, Refills: 3, TAKE ONE TABLET BY MOUTHEVERY , Pharmacy: [email or web address] Start Date: 02/16/23 Status: Ordered lisinopril 20 mg oral tablet Start: 12/16/23 10:11:00 AM EST, 1 tab, PO, Daily, Disp# 90 tab, Refills: 1, Pharmacy: [facility] Start Date: 12/16/23 Status: Ordered methotrexate 2.5 mg oral tablet Start: 12/22/21 8:00:00 AM EST Start Date: 12/22/21 Status: Ordered metoprolol succinate 50 mg oral tablet, extended release Start: 12/17/22 10:43:00 AM EST, 1 tab, PO, Daily Start Date: 12/17/22 Status: Ordered multivitamin Start: 10/21/22 11:10:00 AM EDT, 1 tab, PO, Daily Start Date: 10/21/22 Status: Ordered Penlac Nail Lacquer 8% topical solution Start: 07/31/21 3:03:00 PM EDT, 1 appl, topical, Daily, Disp# 6.6 mL, Refills: 4, Pharmacy: [facility] Start Date: 07/31/21 Stop Date: 11/18/23 Status: Ordered predniSONE 20 mg oral tablet Start: 11/29/23 11:10:00 AM EDT, 2 tab, PO, Daily, Disp# 10 tab, Refills: 0, Pharmacy: [facility] Start Date: 11/29/23 Stop Date: 12/04/23 Status: Ordered predniSONE 5 mg oral tablet Start: 03/24/22 1:01:00 PM EST Start Date: 03/24/22 Status: Ordered turmeric 500 mg oral capsule Start: 10/21/22 11:11:00 AM EDT Start Date: 10/21/22 Status: Ordered Vitamin B12 1000 mcg oral tablet Start: 03/15/18 11:11:00 AM EST, 1 tab, PO, Daily Start Date: 03/15/18 Status: Ordered Vitamin D3 1000 intl units (25 mcg) oral capsule Start: 10/21/22 11:11:00 AM EDT, 1 cap, PO, Daily Start Date: 10/21/22 Status: Ordered Zithromax Z-Xavier 250 mg oral tablet Start: 11/29/23 11:10:00 AM EDT, See Comments, PO, Daily, Disp# 6 tab, 500 mg (2 tabs) on day 1, then 250 mg (1 tab) on days 2-5, Pharmacy: [email or web address] Start Date: 11/29/23 Status: Ordered Problem List Condition Confirmation Course Effective Dates Status H ealth Status Informant Acute bronchitis Confirmed Active Adult hypothyroidism Confirmed Active Anemia Confirmed Active Ankle pain, left Confirmed Active ARTHRITIS, RHEUMATOID Confirmed Active Xerosis cutis Confirmed Active Carpal tunnel syndrome, right Confirmed Active Carpal tunnel syndrome of right wrist Confirmed Active Changing skin lesion Confirmed Active Estrogen deficiency Confirmed Active Acute pain of right foot Confirmed Active Lateral pain of left hip Confirmed Active History of squamous cell carcinoma Confirmed Active Elevated blood sugar Confirmed Active Hyperlipidemia Confirmed Active Hypokalemia Confirmed Active IT band syndrome Confirmed Active Sacroiliitis Confirmed Active 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 Confirmed Active Hyperkeratosis Confirmed Active Left lower quadrant pain Confirmed Active Lumbar pain with radiation down left leg Confirmed Active Mild HTN Confirmed Active Actinic keratoses Confirmed Active Notalgia paresthetica Confirmed Active Tinea unguium Confirmed Active Osteoarthritis of right knee Confirmed Active Left knee DJD Confirmed Active Right knee DJD Confirmed Active Pain 1 Confirmed Active Left knee pain Confirmed Active Right hand paresthesia Confirmed Active Paresthesia of left leg Confirmed Active Seborrheic keratoses Confirmed Active Squamous cell carcinoma Confirmed Active Situational stress Confirmed Active S/P orthopedic surgery, follow-up exam Confirmed Active Bakers cyst Confirmed Active Popliteal cyst Confirmed Active Tobacco abuse Confirmed Active Weight disorder Confirmed Active 1right knee Procedures Procedure Date Related Diagnosis Body Site Status Shave biopsy and cauterizati on of skin 1 10/21/22 Completed Carpal tunnel release 2 04/03/22 C ompleted COLONOSCOPY & POLYPECTOMY 3, 4, 5 11/06/21 Completed Shave biopsy and cauterization of skin 10/20/[address] of abdomen and pelvis wit h contrast 6 12/26/[address] of abdomen and pelvis wit h contrast 7 11/13/19 Completed Hand X-ray - right 8 01/23/19 Comp leted Electrodesiccation with curettage 03/24/18 Completed Shave biopsy and cauterization of skin 03/15/18 Completed Chest x-ray 9 01/05/18 Completed Ultrasound scan of knee 10 10/13/16 Completed Colonoscopy 11 10/05/11 Completed D&C - Dilatation and curettage Completed Laparoscopy Completed Mammogram 12 Completed 1Central upper forehead 2R 3Impression: one 5mm polyp in the descending colon, removed witha jumbo cold forceps. Resected and retrieved. Diverticulosis in the sigmoid colon and in the descending colon. The exam was otherwise normal. Pathology letter sent. 4path: colonic mucosa w/ mild hyperplastic change and mild melanosis coli 55 year recall 6Impression: Findings of colitis have resolved as compared to the 11/13/2019. Moderate colonic diverticulosis without CT evidence of acute diverticulitis There is nonspecific bladder wall thickening. Correlation with clinical findings and urinalysis will be required. Additional findings as above. 71. Findings consistent with a pancolitis, mildly increased when compared to exam of October 19, 2019. While nonspecific, this would be consistent with the history of C. difficile colitis. No free air or abscess. 2. Fatty infiltration of the liver. 3. No bowel obstruction. 8IMPRESSION: No fracture or dislocation Arthritis as described above 9No acute process 10Slight increase in size of the complex right popliteal fluid collection suggestive of a popliteal cyst. 11Repeat colonoscopy in 10 years for surveillance Impression: Diverticulosis in the sigmoid colon 12wnl Results Laboratory List Name Date Complete Blood Count w Differential (CBC ,DIFFH) 01/17/24 Comprehensive Metabolic Panel (COMP META B PANEL) 01/17/24 Hemoglobin A1C (HEMOGLOBIN, A1C) 01/17/24 T4, Free (T4, FREE) 01/17/24 Thyroid Stimulating Hormone (TSH) 4 Most recent to oldest [Reference Range]: 1 eGFR CKD-EPI [>60 mL/min/1.73 m2] >90 mL /min/1.73 m2 1 (01/17/24 8:09 AM) Estimated Average Glucose 131 mg/dL 2 (01/17/24 8:09 AM) Estimated CrCl 82.66 mL/min (01/17/24 8:53 AM) MPV [9.0-12.2 fL] 11.6 fL (01/17/24 8:09 AM) Immature Gran% 0.7 % (01/17/24 8:09 AM) Neut% 63.3 % (01/17/24 8:09 AM) Lymph% 28.0 % (01/17/24 8:09 AM) [place]% 7.1 % (01/17/24 8:09 AM) Baso% 0.6 % (01/17/24 8:09 AM) Eos% 0.3 % (01/17/24 8:09 AM) Immat Gran, Abs [0-0.4 K/uL] 0.06 K/uL (01/17/24 8:09 AM) Neut, Abs [2.0-7.7 K/uL] 5.75 K/uL (01/17/24 8:09 AM) Lymph, Abs [1.0-3.4 K/uL] 2.54 K/uL (01/17/24 8:09 AM) [place], Abs [0-1.0 K/uL] 0.64 K/uL (01/17/24 8:09 AM) Baso, Abs [0-0.1 K/uL] 0.05 K/uL (01/17/24 8:09 AM) Eos, Abs [0-0.5 K/uL] 0.03 K/uL (01/17/24 8:09 AM) Type of Diff: AUTO *Unknown* (01/17/24 8:09 AM) RDW [11.5-14.2 %] 13.6 % (01/17/24 8:09 AM) Anion Gap [5-14 mmol/L] 3 mmol/L *LOW* (01/17/24 8:09 AM) Alb [3.5-5.0 g/dL] 3.6 g/dL (01/17/24 8:09 AM) Alk Phos [38-126 unit/L] 58 unit/L (01/17/24 8:09 AM) ALT [<35 unit/L] 18 unit/L (01/17/24 8:09 AM) AST [15-46 unit/L] 23 unit/L (01/17/24 8:09 AM) BUN [7-20 mg/dL] 10 mg/dL (01/17/24 8:09 AM) Ca [8.4-10.2 mg/dL] 8.9 mg/dL (01/17/24 8:09 AM) Cl- [96-107 mmol/L] 104 mmol/L (01/17/24 8:09 AM) HCO3 [22-30 mmol/L] 30 mmol/L (01/17/24 8:09 AM) Cret [0.60-1.00 mg/dL] 0.63 mg/dL (01/17/24 8:09 AM) HbA1c [4.0-6.0 %] 6.2 % *HI* (01/17/24 8:09 AM) Glu [74-106 mg/dL] 198 mg/dL *HI* (01/17/24 8:09 AM) Hct [35-44 %] 39.6 % (01/17/24 8:09 AM) Hgb [11.7-15.0 g/dL] 13.5 g/dL (01/17/24 8:09 AM) K [3.5-5.1 mmol/L] 3.5 mmol/L (01/17/24 8:09 AM) MCH [28-33 pg] 34.8 pg *HI* (01/17/24 8:09 AM) MCHC [32-36 g/dL] 34.1 g/dL (01/17/24 8:09 AM) MCV [81-96 fL] 102.1 fL *HI* (01/17/24 8:09 AM) Na [137-145 mmol/L] 137 mmol/L (01/17/24 8:09 AM) Plts [150-350 K/uL] 220 K/uL (01/17/24 8:09 AM) RBC [3.90-5.00 M/uL] 3.88 M/uL *LOW* (01/17/24 8:09 AM) Free T4 [0.70-1.48 ng/dL] 1.31 ng/dL 3 (01/17/24 8:09 AM) T Bili [0.2-1.3 mg/dL] 0.5 mg/dL (01/17/24 8:09 AM) Prot [6.3-8.2 g/dL] 6.7 g/dL (01/17/24 8:09 AM) TSH [0.47-4.68 uIU/mL] 0.62 uIU/mL 4 (01/17/24 8:09 AM) WBC [4.0-10.4 K/uL] 9.07 K/uL (01/17/24 8:09 AM) 1Result Comment: Testing Performed By: Dept of Pathology [facility] [address], [address], [place] [address] 2Result Comment: Testing Performed By: Dept of Pathology [facility] [address], [address], [place] [address] 3Result Comment: Testing Performed By: Dept of Pathology [facility] [address], [address] [place] [address] 4Result Comment: Testing Performed By: Dept of Pathology [facility] [address], [address] [facility] [place] [address] Social History Social History Type Response Tobacco Current every day sm oker, Cigarettes, 10 per day. Smoking Status Current every day li ght smoker Sex Sex Representation Female (finding) Patient Care team information Care Team Personnel Name: NICOLA Saeed Janet Griffith Position: Nurse Pract - Pulmonary Med Member Role: Lifetime Relationship Address: [address] [place] [phone] Name: DO Weaver Kristen M Position: Physician - Family Med Member Role: Primary Care Provider Address: [address] [place] [phone] [place] Name: NICOLA Beavers Shari A Position: Nurse Pract - Family Med Member Role: Lifetime Relationship Address: [address] [place] [phone] [place] Care Team Related Persons Name: SHELLEY JEAN Name: MITUL JEAN
--- OUTSIDE RECORDS SUMMARY | 2024-01-22 16:19 | External Medical Summary | Summary of Care ---
Author Name Unknown Organization [facility] Address [address] [place] [address] Phone [phone] Care Team Providers Care Painter And Body Work Name Role Phone Meg Ushamita Leo DO Primary Care Provider Reason for Visit * Reason Comments eRx-Medication Refill Encounter Details Date Type Department Care Team (Late st Contact Info) Description 12/09/2023 Refill Rheumatology [address] [place] [phone] Kellie Roach CRNP [address] [place] [address] [place] [id number] Allergies Active Allergy Reactions Criticality Noted Date Comments Amoxicillin-Pot Clavulanate 10/24/19 22 Other reaction(s): C diff documented as of this encounter (statuses as of 12/10/2023) Medications Medication Sig Dispensed Refills Start Date [...] at bedtime. 60 Tablet 5 12/10/2023 Active Hydroxychloroquin e Sulfate 200 MG Oral Tablet (Plaquenil) Take 2 Tablets by mouth at bedtime. 60 Tablet 5 06/11/2023 Discontinued documented as of this encounter (statuses as of 12/10/2023) Active Problems Problem Noted Date Diagnosed Date Hyperlipidemia 09/21/2023 Age-related osteoporosis wit hout current pathological fracture 09/21/2023 History of squamous cell carcinoma of skin 09/15 Prediabetes 09/15/2022 Fibromyalgia 09/15/2022 Obstructive sleep apnea syndrome 09/15/2022 Polymyalgia 09/15/2022 Sacroiliitis 09/15/2022 Steatosis of liver 09/15/2022 Tobacco user 09/15/2022 Recurrent major depressive disorder, in partial remission 09/15/2022 Rheumatoid arthritis of [facility] without rheumatoid factor 10/07/2015 Hypothyroidism 05/10/2014 Hypertension 05/10/2014 Raynaud's syndrome 04/14/2007 Other psoriasis 04/14/2007 documented as of this encounter (statuses as of 12/10/2023) Resolved Problems Problem Noted Date Diagnosed Date Resolved Date Encounter for long-term (cur rent) use of high-risk medication 08/27/2014 11/25/2017 Encounter for long-term (cur rent) use of medications 06/03/2010 09/21/2023 ARTHRITIS,RHEUMATOID 01/18/2009 016 Arthropathy of hand 04/14/2007 07/25/19 11 Other and unspecified nonspe cific immunological findings 04/14/2007 10/31/2009 documented as of this encounter (statuses as of 12/10/2023) Immunizations Name Administration Dates Next Due COVID-19 mRNA, LNP-s, No Pre serve, 2-Dose Series (Moderna) 04/12/2020,03/15/2020 Covid-19, Mrna, Lnp-s, Pf, B ivalent, 50 Mcg, IM, 12 yrs and above (Moderna) 11/28/2021 Pneumococcal Conjugate Vacci ne, 20-valent ([id number]) 08/17/2023 Pneumococcal Polysaccharide PPV23 (Pneumovax) 11/22/2019,10/08/2014,01/18/2009,01/26(Deferred: Patient [...] 09/21/2023 Does the household have a re lar source of income? (Household - for ages [...] on file documented as of this encounter Miscellaneous Notes * Telephone Encounter - Simón Vu [facility] - 12/10/2023 10:48 AM EDTSigned Prescriptions: Disp Refills Hydroxychloroquine Sulfate 200 MG Oral Tab*60 Tab*5 Sig: Take 2 Tablets by mouth at bedtime.Authorizing Provider: KELLIE ROACH User: SIMÓN VU----- * Telephone Encounter - Simón Vu [facility] - 12/10/2023 10:45 AM EDT Rheumatology: Refill Request(s) Per review of the refill parameters, Medication was refilled Simón Vu RPh [facility] Clinical Pharmacist Rheumatology Department 12/10/2023,10:47 AM documented in this encounter Plan of Treatment Upcoming Encounters Date Type Department Care Team (Late st Contact Info) Description 12/16/2023 1:40 PM EST Office Visit Sleep Disorders Ctr [facility] [address] [place] [phone] Kyara Weiner DO [address] [place] [address] 02/14/2024 3:00 PM EST Office Visit Rheumatology [address] [place] [phone] Kellie Roach CRNP [address] [place] [address] [place] [address] 05/26/2024 9:00 AM EDT Imaging Radiology [address] [place] [address] 06/15/2024 7:30 AM EDT Cardiac Studies Cardiac Studies [address] [place] [address] 06/15/2024 9:00 AM EDT Imaging Radiology [address] [place] [address] 06/15/2024 9:45 AM EDT Imaging Radiology [address] [place] [address] 06/22/2024 12:30 PM EDT Office Visit Cardiology [address] [place] [address] Jerald Guo PA-C [address] [place] [address] 09/19/2024 11:35 AM EDT Telemedicine Care at Home [address] [place], [place] [phone] Merissa England, NICOLA [address] [place], [place] [phone] Health Maintenance Due Date Last Done Comments Albumin/Creatinine Ratio 1975 VITAMIN D LEVEL ONCE IN A LIFETIME-USE SMARTSET# 30274 1997 Cologuard 2002 Colonoscopy 2002 Colorectal Cancer [...] Not on filedocumented as of this encounter Care Teams Painter And Body Work Relationship Specialty Start Date End Date Usha Weaver DO [address] [place] [address] Dr Sanders [address] [place] [address], [place] [address] PCP - General Family Medicine 03/15/14 documented as of this encounter
--- OUTSIDE RECORDS SUMMARY | 2024-01-22 16:19 | External Medical Summary | Continuity of Care Document ---
Author Name Unknown Organization [facility] [address] Address [address] [place] [id number] Care Team Providers Care Data Processing Mechanic Name Role Phone Usha eWaver Primary Care Physician [phone] [id number] Date(s): 01/17/24 - 01/17/24 [facility] [address] [place], [phone] Encounter Diagnosis Essential (primary) hypertension(Final) - Hyperlipidemia, [...] 1 each, Please use with albuterol inhaler,Pharmacy: [facility] Start Date: 11/29/23 Status: Ordered albuterol CFC free 90 mcg/inh MDI Start: 02/13/22 10:16:00 AM EST, 2 puff, inhaled, qid, Disp# 8 g, PRN: as needed for wheezing, Pharmacy: [facility] Start Date: 02/13/22 Status: Ordered amLODIPine 2.5 mg oral tablet Start: 12/17/22 10:43:00 AM EST, 1 tab, PO, Daily Start Date: 12/17/22 Status: Ordered Crestor 10 mg oral tablet Start: 09/22/23 11:53:00 AM EDT, 1 tab, PO, Daily, Disp# 90 tab, Refills: 3, Pharmacy: [facility] Start Date: 09/22/23 Status: Ordered DULoxetine 60 mg oral delayed release capsule Start: 07/02/23 3:33:00 PM EDT, 1 cap, PO, Daily, Disp# 90 cap, Refills: 3, Pharmacy: [facility] Start Date: 07/02/23 Status: Ordered Efudex/Calciportiene Start: [...] physician's office; [address] [place] [address], Pharmacy: [facility] Start Date: 10/15/23 Stop Date: 11/05/23 Status: Ordered folic acid 1 mg oral tablet Start: 02/10/23 2:18:00 PM EST, 1 tab, PO, Daily, Disp# 90 tab, Refills: 3, Pharmacy: [facility] Start Date: 02/10/23 Stop Date: 02/05/24 Status: Ordered hydroxychloroquine 200 mg oral tablet TAKE TWO TABLETS BY MOUTH AT BEDTIME Start Date: 06/30/22 Status: Ordered levothyroxine 150 mcg (0.15 mg) oral tablet Start: 02/16/23 12:00:00 PM EST, See Instructions, Disp# 90 tab, Refills: 3, TAKE ONE TABLET BY MOUTHEVERY , Pharmacy: [facility] Start Date: 02/16/23 Status: Ordered lisinopril 20 mg oral tablet Start: 12/16/23 10:11:00 AM EST, 1 tab, PO, Daily, Disp# 90 tab, Refills: 1, Pharmacy: [facility] Start Date: 12/16/23 Status: Ordered methotrexate 2.5 [...] Daily, Disp# 6.6 mL, Refills: 4, Pharmacy: [facility] Start Date: 07/31/21 Stop Date: 11/18/23 Status: Ordered predniSONE 20 mg oral tablet Start: 11/29/23 11:10:00 AM EDT, 2 tab, PO, Daily, Disp# 10 tab, Refills: 0, Pharmacy: [facility] Start Date: 11/29/23 Stop Date: 12/04/23 Status: [...] mg (1 tab) on days 2-5, Pharmacy: [facility] Start Date: 11/29/23 Status: Ordered Problem List [...] AM) Lymph% 28.0 % (01/17/24 8:09 AM) [place]% 7.1 % (01/17/24 8:09 AM) Baso% 0.6 % (01/17/24 8:09 AM) Eos% 0.3 % (01/17/24 8:09 AM) Immat Gran, Abs [0-0.4 K/uL] 0.06 K/uL (01/17/24 8:09 AM) Neut, Abs [2.0-7.7 K/uL] 5.75 K/uL (01/17/24 8:09 AM) Lymph, Abs [1.0-3.4 K/uL] 2.54 K/uL (01/17/24 8:09 AM) [place], Abs [0-1.0 K/uL] 0.64 K/uL (01/17/24 8:09 [...] Comment: Testing Performed By: Dept of Pathology [facility] [address], [address], [place] [address] 2Result Comment: Testing Performed By: Dept of Pathology [facility] [address], [address], [place] [address] 3Result Comment: Testing Performed By: Dept of Pathology [facility] [address], [address] [place] [address] 4Result Comment: Testing Performed By: Dept of Pathology [facility] [address], [address] [facility] [place] [address] Social History Social History Type Response Tobacco Current every day sm oker, Cigarettes, 10 per day. Smoking Status Current every day li ght smoker Sex Sex Representation Female (finding) Patient Care team information Care Team Personnel Name: NICOLA Saeed Janet Griffith Position: Nurse Pract - Pulmonary Med Member Role: Lifetime Relationship Address: [address] [place] [phone] Name: DO Weaver Kristen M Position: Physician - Family Med Member Role: Primary Care Provider Address: [address] [place] [address] [place] Name: NICOLA Beavers Shari A Position: Nurse Pract - Family Med Member Role: Lifetime Relationship Address: [address] [place] [phone] [place] Care Team Related Persons Name: SHELLEY JEAN Name: MITUL JEAN
--- OUTSIDE RECORDS SUMMARY | 2024-01-22 16:20 | External Medical Summary ---
Author Name Unknown Address Unknown Organization K01:[facility] [place] [facility] [address] [facility] [address] Laboratory Report Ordering Provider Test Date Status MARLEY PRIDE 11/05/2023 13:33:10 Final Observation Date Value Abnormality Reference (Units ) Status WBC, Total 11/05/2023 13:33:10 11.88 Above high normal 4.00-10.80 (K/uL) Final RBC 11/05/2023 13:33:10 4.41 3.85-5.15 (M/uL) Final Hemoglobin 11/05/2023 13:33:10 14.7 12.0-15.3 (g/dL) Final HCT 11/05/2023 13:33:10 44.8 36.0-45.2 (%) Final MCV 11/05/2023 13:33:10 101.6 81.5-97.5 (fL) Final MCH 11/05/2023 13:33:10 33.3 27.0-34.0 (pg) Final MCHC 11/05/2023 13:33:10 32.8 32.0-36.0 (g/dL) Final RDW 11/05/2023 13:33:10 14.2 11.5-15.5 (%) Final Platelets 11/05/2023 13:33:10 237 140-400 (K/uL) Final MPV 11/05/2023 13:33:10 11.7 6.6-11.1 (fL) Final Nucleated erythrocytes/100 leukocytes [Ratio] in Blood by Automated count 11/05/2023 13:33:10 0 <=0 (/100 WBCs) Final Performing Location [facility] [place] [address] [facility] [address]
--- OUTSIDE RECORDS SUMMARY | 2024-01-22 16:20 | External Medical Summary | Continuity of Care Document ---
Author Name Unknown Organization [facility] [address] [facility] [address] [id number] Care Team Providers Care Pick Up Man Name Role Phone Usha Weaver Primary Care Physician [phone] [id number] Date(s): 10/26/23 - 10/26/23 [facility] [address] [facility] [address] [place] [id number] Encounter Diagnosis History of squamous cell carcinoma(Discharge Diagnosis) - 10/26/23 Seborrheic keratoses(Discharge Diagnosis) - 10/26/23 Actinic keratoses(Discharge Diagnosis) - 10/26/23 Xerosis cutis(Discharge Diagnosis) - 10/26/23 Discharge Disposition: Home or Self Care Attending Physician: MD Mullen Sara B Allergies, Adverse Reactions, Alerts Substance Criticality Severity Reaction Reaction Severity Status Augmentin C diff Active Assessment and Plan Extracted from: Title:Dermatology Office Visit Note Author:Antonio thomas MD, Sara B Date:10/26/23 1.History of squamous cell carcinoma Warning signs of skin cancer were reviewed. Sun protection reviewed. Follow-up in 12 months, sooner for any changing or growing lesions or acute concerns. I also recommended monthly self skin exams 2.Seborrheic keratoses Chronic, within normal limits 3.Actinic keratoses Chronic but worsening. Discussed with patient. Offered different options including freezingand topicals. She elected to proceed with Efudex calcipotriene. [facility] Risks and benefits discussedincluding pain open sores bleeding superinfection redness. Written instructions given. Call with any issues. 4.Xerosis cutis Recommended Cetaphil or CeraVe creams twice daily Immunizations Given and Recorded Vaccine Date Status [...] 5Result Comment: 2021-06-19: Historical information-source unspecified Medications albuterol CFC free 90 mcg/inh MDI Start: 02/13/22 10:16:00 AM EST, 2 puff, inhaled, qid, Disp# 8 g, PRN: as needed for wheezing, Pharmacy: [facility] Start Date: 02/13/22 Status: Ordered amLODIPine 2.5 mg oral tablet Start: 12/17/22 10:43:00 AM EST, 1 tab, PO, Daily Start Date: 12/17/22 Status: Ordered Crestor 10 mg oral tablet Start: 09/22/23 11:53:00 AM EDT, 1 tab, PO, Daily, Disp# 90 tab, Refills: 3, Pharmacy: [facility] Start Date: 09/22/23 Status: Ordered DULoxetine 60 mg oral delayed release capsule Start: 07/02/23 3:33:00 PM EDT, 1 cap, PO, Daily, Disp# 90 cap, Refills: 3, Pharmacy: [facility] Start Date: 07/02/23 Status: Ordered Efudex/Calciportiene Start: [...] Please ship to physician's office; [address] [place] [address], [place] [address], Pharmacy: [facility] Start Date: 10/15/23 Stop Date: 11/05/23 Status: Ordered folic acid 1 mg oral tablet Start: 02/10/23 2:18:00 PM EST, 1 tab, PO, Daily, Disp# 90 tab, Refills: 3, Pharmacy: [facility] Start Date: 02/10/23 Stop Date: 02/05/24 Status: Ordered hydroxychloroquine 200 mg oral tablet TAKE TWO TABLETS BY MOUTH AT BEDTIME Start Date: 06/30/22 Status: Ordered levothyroxine 150 mcg (0.15 mg) oral tablet Start: 02/16/23 12:00:00 PM EST, See Instructions, Disp# 90 tab, Refills: 3, TAKE ONE TABLET BY MOUTHEVERY , Pharmacy: [facility] Start Date: 02/16/23 Status: Ordered lisinopril 20 mg oral tablet Start: 07/01/23 9:30:00 AM EDT, 1 tab, PO, Daily, Disp# 90 tab, Refills: 1, [facility] Start Date: 07/01/23 Status: Ordered methotrexate 2.5 mg oral tablet [...] Daily, Disp# 6.6 mL, Refills: 4, [facility] Start Date: 07/31/21 Stop Date: 11/18/23 Status: Ordered predniSONE 5 mg oral tablet [...] PO, Daily Start Date: 10/21/22 Status: Ordered Mental Status 10/26/23 Barriers to Learning one year None evide nt Mandatory Health Literacy Documentation Yes Health Literacy Communication Barriers N ever Primary Language Turkmen Problem List Condition Confirmation Course Effective Dates [...] Active Weight disorder Confirmed Active 1right knee Diagnosis Diagnosis Type Effective Dates Health Status Clinical Service Informant Seborrheic keratoses Discharge Diagnosis 10/26/23 Actinic keratoses Discharge Diagnosis 10/26/23 Xerosis cutis Discharge Diagnosis 10/26/23 History of squamous cell carcinoma Discharge Diagnosis 10/26/23 Procedures Procedure Date Related Diagnosis Body Site [...] Impression: Diverticulosis in the sigmoid colon 12wnl Social History Social History Type Response Tobacco Current every day sm oker, Cigarettes, 10 per day. 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 She is here for a skin check. [1] Physical Exam Gen: Well appearing patient, no acute distress. Alert and oriented x3. Good mood. Waist up skin exam completed per pt request of face, ears, scalp, hair, lips, neck, chest, back, abdomen, upper extremitites bilaterally including hands and fingersplus legs from upper thighs to ankles.She also has a knee brace in place on the right knee. She has multiple thin actinic keratoses on the nose and medial cheeks a little bit on the upper cutaneous lip. Numerous lentigines and seborrheic keratoses. No evidence of recurrent squamous cell. Scars are clear. She has xerosis especially on the arms and back. Assessment/Plan 1.History of squamous cell carcinoma Warning signs of skin cancer were reviewed. Sun protection reviewed. Follow-up in 12 months,sooner for any changing or growing lesions or acute concerns. I also recommended monthly self skin exams 2.Seborrheic keratoses Chronic, within normal limits 3.Actinic keratoses Chronic but worsening. Discussed with patient. Offered different options including freezingand topicals. She elected to proceed with Efudex calcipotriene. [facility]. Risks and benefits discussedincluding pain open sores bleeding superinfection redness. Written instructions given. Call with any issues. 4.Xerosis cutis Recommended Cetaphil or CeraVe creams twice daily Problem List/Past Medical History Ongoing Actinic keratoses Acute bronchitis Acute pain of right foot Adult hypothyroidism Anemia Ankle pain, left ARTHRITIS, RHEUMATOID Bakers cyst Carpal tunnel syndrome of right wrist Carpal tunnel syndrome, right Changing skin lesion Elevated blood sugar Estrogen deficiency History of squamous cell carcinoma Hyperkeratosis Hyperlipidemia Hypokalemia IT band syndrome Lateral pain of left hip Left knee DJD Left knee pain Left lower quadrant pain Lumbar pain with radiation down left leg Mild HTN Notalgia paresthetica Osteoarthritis of right knee Pain Paresthesia of left leg Popliteal cyst Right hand paresthesia Right knee DJD S/P orthopedic surgery, follow-up exam Sacroiliitis Seborrheic keratoses Situational stress Squamous cell carcinoma 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 Tinea unguium Tobacco abuse Weight disorder Xerosis cutis Procedure/Surgical History Shave biopsy and cauterization of skin| Service Date: 3Carpal tunnel release| Service Date: 04/03/2022 COLONOSCOPY & POLYPECTOMY| Service Date: 11/06/2021 Shave biopsy and cauterization of skin| Service Date: 2CT of abdomen and pelvis with contrast| Service Date: 12/26/2019CT of abdomen and pelvis with contrast| Service Date: 11/13/2019Hand X-ray - right| Service Date: 01/23/2019Electrodesiccation with curettage| Service Date: 03/24/2018Shave biopsy and cauterization of skin| Service Date: 03/15/2018Chest x-ray| Service Date: 01/05/2018Ultrasound scan of knee| Service Date: 10/13/2016Colonoscopy| Service Date: 10/05/2011Laparoscopy D&C - Dilatation and curettage Mammogram Medications albuterol(albuterol CFC free 90 mcg/inh MDI), 2 puff, inhaled, qid, PRN amLODIPine(amLODIPine 2.5 mg oral tablet), 2.5 mg= 1 tab, PO, Daily cholecalciferol(Vitamin D3 1000 intl units (25 mcg) oral capsule), 25 mcg= 1 cap, PO, Daily ciclopirox topical(Penlac Nail Lacquer 8% topical solution), 1 appl, topical, Daily, 4 refills cyanocobalamin(Vitamin B12 1000 mcg oral tablet), 1000 mcg= 1 tab, PO, Daily DULoxetine(DULoxetine 60 mg oral delayed release capsule), 60 mg= 1 cap, PO, Daily, 3 refills folic acid(folic acid 1 mg oral tablet), 1 mg= 1 tab, PO, Daily, 3 refills hydroxychloroquine(hydroxychloroquine 200 mg oral tablet) levothyroxine(levothyroxine 150 mcg (0.15 mg) oral tablet), See Instructions, 3 refills lisinopril(lisinopril 20 mg oral tablet), 1 tab, PO, Daily methotrexate(methotrexate 2.5 mg oral tablet) metoprolol(metoprolol succinate 50 mg oral tablet, extended release), 50 mg= 1 tab, PO, Daily multivitamin, 1 tab, PO, Daily predniSONE(predniSONE 5 mg oral tablet) rosuvastatin(Crestor 10 mg oral tablet), 10 mg= 1 tab, PO, Daily, 3 refills sodium hyaluronate(Euflexxa 10 mg/mL intra-articular solution), 20 mg, intra- articular, q7days turmeric(turmeric 500 mg oral capsule) unlisted medication(Efudex/Calciportiene), See Instructions, 1 refills Allergies AugmentinC diff Social History Smoking Status Current every day light smoker Alcohol - Denies Alcohol Use Substance Abuse - Denies Substance Abuse Tobacco Use:Current every day smoker Type:Cigarettes Tobacco use per day:10 Family History Cancer: Mother. Diabetes: Mother. Heart attack: Father. High Blood Pressure: Father. Stroke: Father. Health Status Family Member(s) [1]Office Visit Note; MD Paz, Mckayla Lance 10/21/2022 11:48 EDT Electronic Signature on File Electronically Reviewed/Signed by: Mckayla Mullen MD Author Signature Dt/Tm:10/26/2023 11:29 AM Department of Dermatology [facility] Patient Care team information Care Team Personnel Name: NICOLA Saeed Janet Griffith Position: Nurse Pract - Pulmonary Med Member Role: Lifetime Relationship Address: [address] [place] [id number] Name: DO Weaver Kristen M Position: Physician - Family Med Member Role: Primary Care Provider Address: [address] [place] [address] Name: NICOLA Beavers Shari A Position: Nurse Pract - Family Med Member Role: Lifetime Relationship Address: [address] [place] [address] Care Team Related Persons Name: SHELLEY JEAN Name: MITUL JEAN"
--- OUTSIDE RECORDS SUMMARY | 2024-01-22 16:20 | External Medical Summary | Continuity of Care Document ---
Author Name Unknown Organization [facility] [address] [place], [place] [address]A Address [address] [place] [id number] Care Team Providers Care Poultry Hanger Name Role Phone Usha Weaver Primary Care Physician [phone] [id number] Date(s): 09/27/23 - 09/27/23 [facility] [address] [facility] [address] [place] [address] Encounter Diagnosis Right knee DJD(Discharge Diagnosis) - 09/27/23 Discharge Disposition: Home or Self Care Attending Physician: JOSE Rojas, Ana Gaytan Allergies, Adverse Reactions, Alerts Substance Criticality Severity [...] g, PRN: as needed for wheezing, [facility]acy: [facility] Start Date: 02/13/22 Status: Ordered amLODIPine 2.5 mg oral tablet Start: 12/17/22 10:43:00 AM EST, 1 tab, PO, Daily Start Date: 12/17/22 Status: Ordered Crestor 10 mg oral tablet Start: 09/22/23 11:53:00 AM EDT, 1 tab, PO, Daily, Disp# 90 tab, Refills: 3, Pharmacy: [facility] Start Date: 09/22/23 Status: Ordered DULoxetine 60 mg oral delayed release capsule Start: 07/02/23 3:33:00 PM EDT, 1 cap, PO, Daily, Disp# 90 cap, Refills: 3, [facility] Start Date: 07/02/23 Status: Ordered folic acid 1 mg oral tablet Start: 02/10/23 2:18:00 PM EST, 1 tab, PO, Daily, Disp# 90 tab, Refills: 3, Pharmacy: [facility] Start Date: 02/10/23 Stop Date: 02/05/24 Status: Ordered hydroxychloroquine 200 mg oral tablet TAKE TWO TABLETS BY MOUTH AT BEDTIME Start Date: 06/30/22 Status: Ordered levothyroxine 150 mcg (0.15 mg) oral tablet Start: 02/16/23 12:00:00 PM EST, See Instructions, Disp# 90 tab, Refills: 3, TAKE ONE TABLET BY MOUTHEVER, Pharmacy: [facility] Start Date: 02/16/23 Status: Ordered lisinopril 20 mg oral tablet Start: 07/01/23 9:30:00 AM EDT, 1 tab, PO, Daily, Disp# 90 tab, Refills: 1, Pharmacy: [facility] Start Date: 07/01/23 Status: Ordered methotrexate 2.5 [...] Daily, Disp# 6.6 mL, Refills: 4, Pharmacy: [facility] Start Date: 07/31/21 Stop Date: 11/18/23 Status: [...] Start Date: 10/21/22 Status: Ordered Mental Status 09/27/23 Barriers to Learning one year None evide nt Mandatory Health Literacy Documentation Yes Health Literacy Communication Barriers N ever Primary Language Tanzanian Problem List Condition Confirmation Course Effective Dates [...] Diagnosis Diagnosis Type Effective Dates Health Status Cl inical Service Informant Right knee DJD Discharge Diagnosis 09/27/23 Procedures Procedure Date Related Diagnosis Body Site [...] of skin 03/15/18 Completed Chest x-ray 9 11/28/18 Completed Ultrasound scan of knee 10 10/13/16 [...] Pulmonary Med Member Role: Lifetime Relationship Address: [address] [place] [id number] [place] Name: DO Weaver Kristen M Position: Physician - Family Med Member Role: Primary Care Provider Address: [address] [place] [id number] [place] Name: NICOLA Beavers Shari A Position: Nurse Pract - Family Med Member Role: Lifetime Relationship Address: [address] [place] [id number] [place] Care Team Related Persons Name: SHELLEY JEAN Name: MITUL JEAN
--- OUTSIDE RECORDS SUMMARY | 2024-01-22 16:20 | External Medical Summary ---
Author Name Unknown Address Unknown Organization K01:[facility] [place] [address] [facility] [address] Laboratory Report Ordering Provider Test Date Status MARLEY PRIDE 11/05/2023 13:33:10 Final Observation Date Value Abnormality Reference (Units ) Status SYNC LEUKOCYTES IN BLOOD BY AUTOMATED COUNT 11/05/2023 13:33:10 11.88 Above high normal 4.00-10.80 (K/uL) Final Segs 11/05/2023 13:33:10 77.4 Above high normal 40.0-75.0 (%) Final Lymphs % 11/05/2023 13:33:10 14.6 Below low normal 18.0-42.0 (%) Final Monos 11/05/2023 13:33:10 6.5 1.0-11.0 (%) Final Eosinophils 11/05/2023 13:33:10 0.0 0.0-6.0 (%) Final Basos 11/05/2023 13:33:10 0.7 0.0-2.0 (%) Final Immature Granulocyte, Percent 11/05/2023 13:33:10 0.8 0.0-2.0 (%) Final Absolute Segs 11/05/2023 13:33:10 9.21 Above high normal 1.80-7.70 (K/uL) Final Lymphs, absolute 11/05/2023 13:33:10 1.73 1.00-4.80 (K/ul) Final Monos, Abs 11/05/2023 13:33:10 0.77 0.00-1.10 (K/uL) Final Eos, Abs 11/05/2023 13:33:10 0.00 0.00-0.70 (K/uL) Final Basos, Abs 11/05/2023 13:33:10 0.08 0.00-0.20 (K/uL) Final Immature Granulocytes, Number 11/05/2023 13:33:10 0.09 0.00-0.20 (K/uL) Final Performing Location [facility] [place] [facility] [address] [facility] [address]
--- OUTSIDE RECORDS SUMMARY | 2024-01-22 16:20 | External Medical Summary | Continuity of Care Document ---
Author Name Unknown Organization [address] Address [address] [place] [phone] Care Team Providers Care Internal Combustion Engineer Name Role Phone Usha Weaver Primary Care Physician [phone] [id number] Date(s): 11/29/23 - 11/29/[address], [address] [phone] Encounter Diagnosis Wheezing(Discharge Diagnosis) - 11/29/23 COPD exacerbation(Discharge Diagnosis) - 11/29/23 Discharge Disposition: Home or Self Care Attending Physician: DO Stanley Mehwish Referring Physician: DO Stanley Mehwish Allergies, Adverse Reactions, Alerts Substance Criticality Severity Reaction Reaction Severity Status Augmentin C diff Active Assessment and Plan Extracted from: Title:Office Visit Note - APSO Author:DO Stanley Mehwish Date:11/29/23 1.Wheezing 2.COPD exacerbation Chronic in severe exacerbation/progression/side effects Goal:Resolution Data:_ Plan: -Discussed use of albuterol inhaler every 4 hours regularly until symptoms improve. If she needs the albuterol inhaler more than every 4 hours, she should be seekingadditional medical care. -Prescription for an AeroChamber was also provided. -Will start aprednisone burst with40 mg for 5 days. -Prescription for Z-Xavier was provided. -She was advised to follow-up if symptoms not improving,if symptoms persistconsider chest x-ray for further evaluation. - Continue symptomatic OTC medications such as Dayquil/Nyquil ormucinex Immunizations Given and Recorded Vaccine Date Status [...] 1 each, Please use with albuterol inhaler,Pharmacy: [facility] Start Date: 11/29/23 Status: Ordered albuterol CFC free 90 mcg/inh MDI Start: 02/13/22 10:16:00 AM EST, 2 puff, inhaled, qid, Disp# 8 g, PRN: as needed for wheezing, Pharmacy: [facility] Start Date: 02/13/22 Status: Ordered amLODIPine 2.5 mg oral tablet Start: 12/17/22 10:43:00 AM EST, 1 tab, PO, Daily Start Date: 12/17/22 Status: Ordered Crestor 10 mg oral tablet Start: 09/22/23 11:53:00 AM EDT, 1 tab, PO, Daily, Disp# 90 tab, Refills: 3, Pharmacy: [facility] Start Date: 09/22/23 Status: Ordered DULoxetine 60 mg oral delayed release capsule Start: 07/02/23 3:33:00 PM EDT, 1 cap, PO, Daily, Disp# 90 cap, Refills: 3, [facility] Start Date: 07/02/23 Status: Ordered Efudex/Calciportiene Start: [...] to physician's office; [address] [place] [address], [place] [address], Pharmacy: [facility] Start Date: 10/15/23 Stop Date: 11/05/23 Status: Ordered folic acid 1 mg oral tablet Start: 02/10/23 2:18:00 PM EST, 1 tab, PO, Daily, Disp# 90 tab, Refills: 3, Pharmacy: [facility] Start Date: 02/10/23 Stop Date: 02/05/24 Status: Ordered hydroxychloroquine 200 mg oral tablet TAKE TWO TABLETS BY MOUTH AT BEDTIME Start Date: 06/30/22 Status: Ordered levothyroxine 150 mcg (0.15 mg) oral tablet Start: 02/16/23 12:00:00 PM EST, See Instructions, Disp# 90 tab, Refills: 3, TAKE ONE TABLET BY MOUTHEVERY DAY, Pharmacy: [facility] Start Date: 02/16/23 Status: Ordered lisinopril 20 mg oral tablet Start: 07/01/23 9:30:00 AM EDT, 1 tab, PO, Daily, Disp# 90 tab, Refills: 1, Pharmacy: [facility] Start Date: 07/01/23 Status: Ordered methotrexate 2.5 [...] Daily, Disp# 6.6 mL, Refills: 4, Pharmacy: [facility] Start Date: 07/31/21 Stop Date: 11/18/23 Status: Ordered predniSONE 20 mg oral tablet Start: 11/29/23 11:10:00 AM EDT, 2 tab, PO, Daily, Disp# 10 tab, Refills: 0, Pharmacy: [facility] Start Date: 11/29/23 Stop Date: 12/04/23 Status: [...] mg (1 tab) on days 2-5, Pharmacy: [facility] [place] Start Date: 11/29/23 Status: Ordered Mental Status 11/29/23 Barriers to Learning one year None evide nt Mandatory Health Literacy Documentation Yes Health Literacy Communication Barriers N ever Primary Language Georgian Problem List Condition Confirmation Course Effective Dates [...] Effective Dates Health Status Clinical Service Informant Wheezing Discharge Diagnosis 11/29/23 Non-Specified COPD exacerbation Discharge Diagnosis 11/29/23 Non-Specified Procedures Procedure Date Related Diagnosis Body Site [...] polyp in the descending colon, removed witha Soniqplaymbo cold forceps. Resected and retrieved. Diverticulosis in [...] Impression: Diverticulosis in the sigmoid colon 12wnl Vital Signs Most recent to oldest [Reference Range]: 1 Patient Weight 82 kg (11/29/23 10:48 AM) Heart Rate 62 bpm (11/29/23 10:48 AM) Respiratory Rate 20 br/min (11/29/23 10:48 AM) Blood Pressure 118/82mmHg (11/29/23 10:48 AM) Social History Social History Type Response Tobacco Current every day sm oker, Cigarettes, 10 per day. Smoking Status Current every day jackelyn ght smoker Sex Sex Representation Female (finding) [facility]CM Outpt Note * DO Stanley Mehwish: PERFORM Event Display: [facility] Outpt Note Authored Date: [id number] Assessment/Plan 1.Wheezing 2.COPD exacerbation Chronic in severe exacerbation/progression/side effects Goal:Resolution Data:_ Plan: -Discussed use of albuterol inhaler every 4 hours regularly until symptoms improve. If she needs the albuterol inhaler more than every 4 hours, she should be seekingadditional medical care. -Prescription for an AeroChamber was also provided. -Will start aprednisone burst with40 mg for 5 days. -Prescription for Z-Xavier was provided. -She was advised to follow-up if symptoms not improving,if symptoms persistconsider chest x-rayfor further evaluation. - Continue symptomatic OTC medications such as Dayquil/Nyquil ormucinex Chief Complaint SOB, wheezing, cough x 1 week, pain in left chest when coughing History of Present Illness Dio a 68-year-old femaleseen for an acute visitfor shortness of breath, coughing and wheezing. Symptoms began lastMonday. She denies any feversor chills. She feels like her wheezing has gotten worse over the past week. She has been using her albuterol twice a day, though today shehas already used it twice. She has been using NyQuil/DayQuil. Physical Exam Vitals & Measurements HR:62(Monitored) RR:20 BP:118/82 SpO2:95% WT:82.000kg(Dosing) WT:82kg PHQ2 Data(Data Documented on:11/29/2023 10:49) Emotional health assessment NEGATIVE GENERAL APPEARANCE: The patient is alert, oriented and in no acute distress. VITALS: As above. HEENT: Head is normocephalic/atraumatic. TMs clear bilaterally. Oropharynx with no tonsillar swelling or exudates, no post nasal drip visualized. NECK: Supple without lymphadenopathy. CARDIOVASCULAR: Regular rate and rhythm LUNGS:Has bilateralinspiratory and expiratory wheezingon anterior and posterior examination. No area of focal consolidation/cracklesor rhonchi. NEUROLOGICAL: Grossly non-focal exam. Problem List/Past Medical History Ongoing Actinic keratoses [...] tablet), 2.5 mg= 1 tab, PO, Daily azithromycin(Zithromax Z-Xavier 250 mg oral tablet), See Comments, PO, Daily cholecalciferol(Vitamin D3 1000 intl units [...] 3 refills hydroxychloroquine(hydroxychloroquine 200 mg oral tablet) inhalation accessory(Aerosol Pocket Chamber), See Instructions levothyroxine(levothyroxine 150 mcg (0.15 mg) oral tablet), See Instructions, 3 refills lisinopril(lisinopril 20 mg oral tablet), 1 tab, PO, Daily methotrexate(methotrexate 2.5 mg oral tablet) metoprolol(metoprolol succinate 50 mg oral tablet, extended release), 50 mg= 1 tab, PO, Daily multivitamin, 1 tab, PO, Daily predniSONE(predniSONE 5 mg oral tablet) predniSONE(predniSONE 20 mg oral tablet), 40 mg= 2 tab, PO, Daily rosuvastatin(Crestor 10 mg oral tablet), 10 mg= [...] Father. Stroke: Father. Health Status Family Member(s) Immunizations Vaccine Date Status pneumococcal 20-valent conjugate vaccine 08/17/2023 Given influenza virus vaccine, inactivated 12/11/2021 Recorded influenza virus vaccine, inactivated 12/11/2021 Recorded SARS-CoV-2 mRNA-1273 (6y+ bivalent) 11/28/2021 Recorded Comments : 2022-02-27: Historical information-source unspecified tetanus/diphtheria/pertuss, acel (Tdap) 06/19/2021 Given SARS-CoV-2 (COVID-19) mRNA-1273 vaccine 12/27/2020 Recorded influenza virus vaccine, inactivated 11/13/2020 Recorded SARS-CoV-2 (COVID-19) mRNA-1273 vaccine 04/12/2020 Recorded SARS-CoV-2 (COVID-19) mRNA-1273 vaccine 03/15/2020 Recorded pneumococcal 23-valent vaccine 11/22/2019 Given influenza virus vaccine, inactivated 11/22/2019 Given zoster vaccine, inactivated 02/24/2019 Recorded Comments : 2021-06-19: Historical information-source unspecified zoster vaccine, inactivated 02/18/2019 Recorded Comments : 2021-06-19: Historical information-source unspecified influenza virus vaccine, inactivated 10/26/2018 Recorded influenza virus vaccine, inactivated 10/26/2017 Recorded influenza virus vaccine, inactivated 10/28/2016 Given influenza virus vaccine, inactivated 12/19/2014 Recorded pneumococcal 23-valent vaccine 10/08/2014 Recorded Comments : 2021-06-19: Historical information-source unspecified tetanus/diphtheria/pertuss, acel (Tdap) 08/30/2011 Recorded pneumococcal 23-valent vaccine 01/18/2009 Recorded Comments : 2021-06-19: Historical information-source unspecified tetanus/diphtheria/pertuss, acel (Tdap) 10/11/2008 Recorded tetanus toxoids-diphtheria, Td (Adult) 01/13/1999 Recorded Recommendations Health Maintenance Pending(in the next year) OverDue Adult Influenza Vaccine due08/08/23and every 1year Due Adult COVID-19 Vaccination due11/29/23Unknown Frequency Adult Social Determinants of Health Screening due11/29/23Unknown Frequency Falls Plan of Care due11/29/23Unknown Frequency Hepatitis C Screening due11/29/23One-time only Shingles Vaccine due11/29/23One-time only Satisfied(in the past 1 year) Satisfied Body Mass Index on08/17/23.Satisfied by ROMULO Benítez Angela Breast Cancer Screening on04/06/23.Satisfied by ROMULO Velazquez Angela Lipid Screening on12/17/22.Satisfied by Contributor_system, [email or web address] Electronic Signature on File CC: Usha WeaverDO [address] [place] [address] Electronically Reviewed/Signed by: Clarissa Stanley DO Author Signature Dt/Tm:11/29/2023 11:24 AM Division of Sports Medicine MM Patient Care team information Care Team Personnel Name: NICOLA Saeed Janet Griffith Position: Nurse Pract - Pulmonary Med Member Role: Lifetime Relationship Address: [address] [place] [id number] Name: DO Weaver Kristen M Position: Physician - Family Med Member Role: Primary Care Provider Address: [address] [place] [address] Name: NICOLA Beavers Shari A Position: Nurse Pract - Family Med Member Role: Lifetime Relationship Address: [address] [place] [address] Care Team Related Persons Name: SHELLEY JEAN Name: MITUL JEAN"
--- OUTSIDE RECORDS SUMMARY | 2024-01-22 16:20 | External Medical Summary | Summary of Care ---
Author Name Unknown Organization [facility] Address [address] [place] [address] Phone [phone] Care Team Providers Care Field Checker Name Role Phone Usha Weaver DO Primary Care Provider Reason for Referral * Evaluate & Treat - Unlimited Visits (Within 10 days (routine)) - Authorized Specialty Diagnoses / Procedures Referred By Andrea diaz Referred To Contact Sleep Medicine / Sleep Disorders Diagnoses Sleep apnea, unspecified type Jerald Guo PA-C [address] [place] [address] Referral ID Status Reason Start Date Expiration Date Visits Requested Visits Authorized [id number] Authorized Specialty Services Required 4 2 2 [...] Guo PA-C [address] [place] [address] Referral ID Status Reason Start Date Expiration Date V isits Requested Visits Authorized [id number] Authorized Precert 06/06/2024 999 999 Reason for [...] 12/07/2023 10:00 AM EDT Office Visit Cardiology [address] [place] [address] Jerald Guo PA-C [address] [place] [address] Hypersomnolence*; HTN, goal below 140/90; Hypertensive heart [...] in partial remission 09/15/2022 Rheumatoid arthritis of [facility] without rheumatoid factor 10/07/2015 Hypothyroidism 05/10/2014 [...] (Moderna) 11/28/2021 Pneumococcal Conjugate Vacci ne, 20-valent ([id number]) 08/17/2023 Pneumococcal Polysaccharide PPV23 (Pneumovax) 11/22/2019,10/08/2014,01/18/2009,01/26(Deferred: Patient [...] No 09/21/2023 Does the household have a [facility] source [facility] income? (Household - for ages [...] recall. Laboratory work was recently completed through [facility], unfortunately is not available for review. She [...] This chart was completed in part utilizing [employer] Speech Voice Recognition Software. Grammatical errors, random [...] EST [facility] [address] [place] [phone] Kyara Weiner DO [address] [place] [address] 02/14/2024 3:00 PM EST Office Visit Rheumatology [address] [place] [phone] Kellie Bales CRNP [address] [place] [address] [place] [address] 05/26/2024 9:00 AM EDT Imaging Radiology [address] [place] [address] 06/15/2024 7:30 AM EDT Cardiac Studies Cardiac Studies [address] [place] [address] 06/15/2024 9:00 AM EDT Imaging Radiology [address] [place] [address] 06/15/2024 9:45 AM EDT Imaging Radiology [address] [place] [address] 06/22/2024 12:30 PM EDT Office Visit Cardiology [address] [place] [address] Jerald Guo PA-C [address] [place] [address] 09/19/2024 11:35 AM EDT Telemedicine Care at Home [address] [place] [address] Merissa England, OPERATIONS RESEARCH MANAGER [address] [place] [address] Scheduled Orders Name Type Priority [...] D LEVEL ONCE IN A LIFETIME-USE SMARTSET# [id number] 1997 Cologuard 2002 Colonoscopy 2002 Colorectal Cancer [...] (HCC) documented in this encounter Care Teams Field Checker Relationship Specialty Start Date End Date Usha Weaver DO [address] [facility] [address] [place], [place] [address] [address] PCP - General Family Medicine 03/15/14 documented as of this encounter"
--- OUTSIDE RECORDS SUMMARY | 2024-01-22 16:20 | External Medical Summary | Continuity of Care Document ---
Author Name Unknown Organization [id number] Address [address] [place] [phone] Care Team Providers Care Rn Oncology Research Name Role Phone Usha Weaver Primary Care Physician [phone] Encounter [facility] [id number] Date(s): 11/15/23 - 11/15/23 [facility] 0 [facility] [facility] [address] [place] [address] Encounter Diagnosis Right knee DJD(Discharge Diagnosis) - 11/15/23 Discharge Disposition: Home or Self Care Attending Physician: JOSE Rojas Jennifer R Allergies, Adverse Reactions, Alerts Substance Criticality Severity Reaction Reaction Severity Status Augmentin C diff Active Assessment and Plan Extracted from: Title:Clinical Document Author:JOSE Rojas Je nnifer R Date:11/15/23 ORTHOPAEDICS OUTPATIENT NOTE Name: MADELAINE JEAN Patient Number: [id number] : 1955 Date of Service: 11/15/2023 DJD right knee, Euflexxa injection #2 of 3 HPI: Madelaine is here today for Her second Euflexxa injection to the right knee. No issues from last week's injection. Overall doing well. Has not noticed any significant relief thus far. OBJECTIVE Vitals: Last Updated 11/15/23 10:23 Date Temp BP Location Pulse RR SpO2 Pain 11/15/23 3 11/08/23 0 10/26/23 0 Physical Exam Exam of the right knee: No effusion. No erythema. No ecchymosis. A stable leg manage exam with varus valgus stress at 0 and 30 degrees. She is able to independently straight leg raise and hold against resistance. Strength is 5/5. Full ankle range of motion. No distal edema. Calf is supple and nontender. No prepatellar effusion. Nontender the quadriceps or patellar tendons. Medial and lateral joint line tenderness with palpation. Crepitation with flexion and extension. Ambulates with a slight antalgic gait with no assistive device. ASSESSMENT: DJD right knee, Euflexxa injection #2 of 3 PLAN: Recommended ice, anti-inflammatories and activity modifications necessary. Follow-up next week as scheduled. Call with any problems, questions or concerns. Procedure: Patient was placed in the supine position on the exam table. Her right knee was bumped with a rolled towel for comfort. Timeout and verbal consent was obtained. Risks and benefits of the injection were discussed. Injection site was confirmed by Junaid Aj LPN. The right knee superolateral pouch was marked with my initials, cleansed with alcohol, anesthetized with ethyl chloride and cleansed with alcohol again. Her second vial of Euflexxa was injected into her right knee by Houston Adam PA-C. It was free-flowing throughout the joint. She tolerated the injection well. Pressure was applied for hemostasis and a Band-Aid was applied to the injection site. This chart was completed utilizing [employer] voice recognition software. Grammatical errors, random word insertions, pronoun errors, and in complete sentences are an occasional consequence of the system. Any questions or concerns about the content, text, or information contained within the body of this dictation should be addressed directly to the provider for clarification. Immunizations Given and Recorded Vaccine Date Status [...] g, PRN: as needed for wheezing, Pharmacy: [facility] Start Date: 02/13/22 Status: Ordered amLODIPine 2.5 mg oral tablet Start: 12/17/22 10:43:00 AM EST, 1 tab, PO, Daily Start Date: 12/17/22 Status: Ordered Crestor 10 mg oral tablet Start: 09/22/23 11:53:00 AM EDT, 1 tab, PO, Daily, Disp# 90 tab, Refills: 3, Pharmacy: [facility] Start Date: 09/22/23 Status: Ordered DULoxetine 60 mg oral delayed release capsule Start: 07/02/23 3:33:00 PM EDT, 1 cap, PO, Daily, Disp# 90 cap, Refills: 3, Pharmacy: [facility] Start Date: 07/02/23 Status: Ordered Efudex/Calciportiene Start: [...] to physician's office; [address] [place] [address], [place] [address], Pharmacy: [facility] Start Date: 10/15/23 Stop Date: 11/05/23 Status: Ordered folic acid 1 mg oral tablet Start: 02/10/23 2:18:00 PM EST, 1 tab, PO, Daily, Disp# 90 tab, Refills: 3, Pharmacy: [facility] Start Date: 02/10/23 Stop Date: 02/05/24 Status: Ordered hydroxychloroquine 200 mg oral tablet TAKE TWO TABLETS BY MOUTH AT BEDTIME Start Date: 06/30/22 Status: Ordered levothyroxine 150 mcg (0.15 mg) oral tablet Start: 02/16/23 12:00:00 PM EST, See Instructions, Disp# 90 tab, Refills: 3, TAKE ONE TABLET BY MOUTHEVERY DAY, Pharmacy: [facility] Start Date: 02/16/23 Status: Ordered lisinopril 20 mg oral tablet Start: 07/01/23 9:30:00 AM EDT, 1 tab, PO, Daily, Disp# 90 tab, Refills: 1, Pharmacy: [facility] Start Date: 07/01/23 Status: Ordered methotrexate 2.5 [...] Daily, Disp# 6.6 mL, Refills: 4, Pharmacy: [facility] Start Date: 07/31/21 Stop Date: 11/18/23 Status: [...] Start Date: 10/21/22 Status: Ordered Mental Status 11/15/23 Barriers to Learning one year None evide nt Mandatory Health Literacy Documentation Yes Health Literacy Communication Barriers N ever Primary Language German Problem List Condition Confirmation Course Effective Dates [...] Service Informant Right knee DJD Discharge Diagnosis 11/15/23 Procedures Procedure Date Related Diagnosis Body Site [...] ght smoker Sex Sex Representation Female (finding) Ortho Outpt Note * JOSE Rojas, Ana Gaytan: PERFORM Event Display: Ortho Outpt Note Authored Date: [id number] ORTHOPAEDICS OUTPATIENT NOTE Name: MADELAINE JEAN Patient Number: [id number] : 1955 Date of Service: 11/15/2023 DJD right knee, Euflexxa injection #2 of 3 HPI: Madelaine is here today for Her second Euflexxa injection to the right knee. No issues from last week's injection. Overall doing well. Has not noticed any significant relief thus far. OBJECTIVE Vitals: Last Updated 11/15/23 10:23 Date Temp BP Location Pulse RR SpO2 Pain 11/15/23 3 11/08/23 0 10/26/23 0 Physical Exam Exam of the right knee: No effusion. No erythema. No ecchymosis. A stable leg manage exam with varus valgus stress at 0 and 30 degrees. She is able to independently straight leg raise and hold against resistance. Strength is 5/5. Full ankle range of motion. No distal edema. Calf is supple and nontender. No prepatellar effusion. Nontender the quadriceps or patellar tendons. Medial and lateral joint line tenderness with palpation. Crepitation with flexion and extension. Ambulates with a slight antalgic gait with no assistive device. ASSESSMENT: DJD right knee, Euflexxa injection #2 of 3 PLAN: Recommended ice, anti-inflammatories and activity modifications necessary. Follow-up next week as scheduled. Call with any problems, questions or concerns. Procedure: Patient was placed in the supine position on the exam table. Her right knee was bumped with a rolled towel for comfort. Timeout and verbal consent was obtained. Risks and benefits of the injection were discussed. Injection site was confirmed by Junaid Aj LPN. The right knee superol ateral pouch was marked with my initials, cleansed with alcohol, anesthetized with ethyl chloride and cleansed with alcohol again. Her second vial of Euflexxa was injected into her right knee by JOSE Gamez. It was free-flowing throughout the joint. She tolerated the injection well. Pressure was applied for hemostasis and a Band-Aid was applied to the injection site. This chart was completed utilizing [employer] voice recognition software. Grammatical errors,random word insertions, pronoun errors, and in complete sentences are an occasional consequence of the system. Any questions or concerns about the content, text, or information contained within the body of this dictation should be addressed directly to the provider for clarification. Electronic Signature on File Electronically Reviewed/Signed by: Ana Rojas PA-C Author Signature Dt/Tm:11/15/2023 01:11PM Division of Sports Medicine Electronically Reviewed/Signed by: Jude Paul MD Cosigner Signature Dt/Tm: 11/16/2023 02:11 PM [facility] Community Nurse Department of Orthopaedics and Rehabilitation [facility] [address], [address] Patient Care team information Care Team Personnel Name: NICOLA Saeed Janet Griffith Position: Nurse Pract - Pulmonary Med Member Role: Lifetime Relationship Address: [address] [place] [address] Name: DO Weaver Kristen M Position: Physician - Family Med Member Role: Primary Care Provider Address: [address] [place] [address] [place] Name: NICOLA Beavers Shari A Position: Nurse Pract - Family Med Member Role: Lifetime Relationship Address: [address] [place] [address] [place] Care Team Related Persons Name: SHELLEY JEAN Name: MITUL JEAN
--- OUTSIDE RECORDS SUMMARY | 2024-01-22 16:20 | External Medical Summary | Continuity of Care Document ---
Author Name Unknown Organization [id number] Address [address] [place] [address] [phone] Care Team Providers Care Director [employer] Name Role Phone Usha Weaver Primary Care Physician [phone] Encounter [facility] [phone] Date(s): 11/08/23 - 11/08/23 [facility] [address] [place] [address] Encounter Diagnosis Right knee DJD(Discharge Diagnosis) - 11/08/23 Discharge Disposition: Home or Self Care Attending Physician: JOSE Rojas Jennifer R Allergies, Adverse Reactions, Alerts Substance Criticality Severity Reaction Reaction Severity Status Augmentin C diff Active Assessment and Plan Extracted from: Title:Clinical Document Author:JOSE Rojas Je nnifer R Date:11/08/23 ORTHOPAEDICS OUTPATIENT NOTE Name: MADELAINE JEAN Patient Number: [id number] : 1955 Date of Service: 11/08/2023 Chief Complaint: DJD right knee, Euflexxa injection #1 of 3 HPI: Madelaine is here today for another start of her Euflexxa series into her right knee. Doing well. No new injury. No significant issues from the cortisone injection she had about a month ago. She would like to continue with the Euflexxa injections as long as they are helping. She is not interested in a Total joint arthroplasty at this time. OBJECTIVE Vitals: Last Updated 11/08/23 10:37 Date Temp BP Location Pulse RR SpO2 Pain 11/08/23 0 10/26/23 0 09/27/23 8 Physical Exam Exam of the right knee: [...] device. ASSESSMENT: DJD right knee, Euflexxa injection #1 of 3 PLAN: Recommended ice, anti-inflammatories and [...] ethyl chloride and cleansed with alcohol again. Then injected her first vial of Euflexxa into her right knee. It was free-flowing throughout the joint. She tolerated the injection well. Pressure was applied for hemostasis and a Band-Aid was applied to the injection site. This chart was completed utilizing Cloud9 IDE voice recognition software. Grammatical errors, random word [...] Dylan rded influenza virus vaccine, inactivated 10/26/17 Dlyan rded influenza virus vaccine, inactivated 10/28/16 Give [...] g, PRN: as needed for wheezing, Pharmacy: [facility] Start Date: 02/13/22 Status: Ordered amLODIPine 2.5 mg oral tablet Start: 12/17/22 10:43:00 AM EST, 1 tab, PO, Daily Start Date: 12/17/22 Status: Ordered Crestor 10 mg oral tablet Start: 09/22/23 11:53:00 AM EDT, 1 tab, PO, Daily, Disp# 90 tab, Refills: 3, Pharmacy: [facility] Start Date: 09/22/23 Status: Ordered DULoxetine 60 mg oral delayed release capsule Start: 07/02/23 3:33:00 PM EDT, 1 cap, PO, Daily, Disp# 90 cap, Refills: 3, Pharmacy: [facility] Start Date: 07/02/23 Status: Ordered Efudex/Calciportiene Start: [...] to physician's office; [address] [place] [place] [id number], Pharmacy: [facility] Start Date: 10/15/23 Stop Date: 11/05/23 Status: Ordered folic acid 1 mg oral tablet Start: 02/10/23 2:18:00 PM EST, 1 tab, PO, Daily, Disp# 90 tab, Refills: 3, Pharmacy: [facility] Start Date: 02/10/23 Stop Date: 02/05/24 Status: Ordered hydroxychloroquine 200 mg oral tablet TAKE TWO TABLETS BY MOUTH AT BEDTIME Start Date: 06/30/22 Status: Ordered levothyroxine 150 mcg (0.15 mg) oral tablet Start: 02/16/23 12:00:00 PM EST, See Instructions, Disp# 90 tab, Refills: 3, TAKE ONE TABLET BY MOUTHEVERY DAY, Pharmacy: [facility] Start Date: 02/16/23 Status: Ordered lisinopril 20 mg oral tablet Start: 07/01/23 9:30:00 AM EDT, 1 tab, PO, Daily, Disp# 90 tab, Refills: 1, Pharmacy: [facility] Start Date: 07/01/23 Status: Ordered methotrexate 2.5 [...] Daily, Disp# 6.6 mL, Refills: 4, Pharmacy: [facility] Start Date: 07/31/21 Stop Date: 11/18/23 Status: [...] Start Date: 10/21/22 Status: Ordered Mental Status 11/08/23 Barriers to Learning one year None evide nt Mandatory Health Literacy Documentation Yes Health Literacy Communication Barriers N ever Primary Language Uzbek Problem List Condition Confirmation Course Effective Dates [...] Service Informant Right knee DJD Discharge Diagnosis 11/08/23 Procedures Procedure Date Related Diagnosis Body Site [...] Ortho Outpt Note * JOSE Rojas, Ana R: PERFORM, MODIFY Event Display: Ortho Outpt Note Authored Date: [id number] ORTHOPAEDICS OUTPATIENT NOTE Name: MADELAINE JEAN Patient Number: [id number] : 1955 Date of Service: 11/08/2023 Chief Complaint: DJD right knee, Euflexxa injection #1 of 3 HPI: Madelaine is here today for another start of her Euflexxa series into her right knee. Doing well. No new injury. No significant issues from the cortisone injection she had about a month ago. She would like to continue with the Euflexxa injections as long as they are helping. She is not interested in a Total joint arthroplasty at this time. OBJECTIVE Vitals: Last Updated 11/08/23 10:37 Date Temp BP Location Pulse RR SpO2 Pain 11/08/23 0 10/26/23 0 09/27/23 8 Physical Exam Exam of the right knee: [...] device. ASSESSMENT: DJD right knee, Euflexxa injection #1 of 3 PLAN: Recommended ice, anti-inflammatories and [...] ethyl chloride and cleansed with alcohol again. Then injected her first vial of Euflexxa into her right knee. It wasfree-flowing throughout the joint. She tolerated the injection well. Pressure was applied for hemostasis and a Band-Aid was applied to the injection site. This chart was completed utilizing Cloud9 IDE voice recognition software. Grammatical errors,random word insertions, pronoun errors, and in complete sentences are an occasional consequence of the system. Any questions or concerns about the content, text, or information contained within the body of this dictation should be addressed directly to the provider for clarification. Electronic Signature on File Electronically Reviewed/Signed by: Ana Rojas PA-C Author Signature Dt/Tm:11/08/2023 02:52PM Division of Sports Medicine Electronically Reviewed/Signed by: Jude Paul MD Cosigner Signature Dt/Tm: 11/09/2023 09:41 AM [facility] [employer] Department of Orthopaedics and Rehabilitation [facility] [address], [address] Patient Care team information Care Team Personnel Name: NICOLA Saeed Janet Griffith Position: Nurse Pract - Pulmonary Med Member Role: Lifetime Relationship Address: [address] [place] [id number] [place] Name: DO Weaver Kristen M Position: Physician - Family Med Member Role: Primary Care Provider Address: [address] [place] [id number] [place] Name: NICOLA Beavers Shari A Position: Nurse Pract - Family Med Member Role: Lifetime Relationship Address: [address] [place] [address] [place] Care Team Related Persons Name: SHELLEY JEAN Name: MITUL JEAN
--- OUTSIDE RECORDS SUMMARY | 2024-01-22 16:20 | External Medical Summary | Summary of Care ---
Author Name Unknown Organization [facility] Address [address] [place] [address] Phone [phone] Care Team Providers Care Filling Machine Set Up Mechanic Name Role Phone Meg Ushalynn Leo DO Primary Care Provider Reason for Visit * Reason Comments eRx-Medication Refill Encounter Details Date Type Department Care Team (Late st Contact Info) Description 10/04/2023 Refill Rheumatology [address] [place] [phone] Shannen Roach CRNP [address] [place] [address] [place] [address] Allergies Active Allergy Reactions Criticality Noted Date Comments Amoxicillin-Pot Clavulanate 10/24/19 22 Other reaction(s): C diff documented as of this encounter (statuses as of 10/05/2023) Medications Medication Sig Dispensed Refills Start Date [...] Tablet by mouth every morning. 10/21/2022 Active predniSONE 5 MG Oral Tablet (Deltasone) Take 1 Tablet by mouth in the morning. 90 Tablet 2 01/08/2023 Active Euflexxa 20 MG/2ML Intra-articular Solution Prefilled [...] by mouth in the morning. 05/25/2023 Active Hydroxychloroquin e Sulfate 200 MG Oral [...] ONCE WEEKLY 104 Tablet 1 10/05/2023 Active Methotrexate Sodium 2.5 MG Oral Tablet TAKE EIGHT TABLETS BY MOUTH ONCE WEEKLY 104 Tablet 1 04/20/2023 Discontinued documented as of this encounter (statuses as of 10/05/2023) Active Problems Problem Noted Date Diagnosed Date Hyperlipidemia 09/21/2023 Age-related osteoporosis wit hout current pathological fracture 09/21/2023 History of squamous cell carcinoma of skin 09/15 Prediabetes 09/15/2022 Fibromyalgia 09/15/2022 Obstructive sleep apnea syndrome 09/15/2022 Polymyalgia 09/15/2022 Sacroiliitis 09/15/2022 Steatosis of liver 09/15/2022 Tobacco user 09/15/2022 Recurrent major depressive disorder, in partial remission 09/15/2022 Rheumatoid arthritis of [facility] sites without rheumatoid factor 10/07/2015 Hypothyroidism 05/10/2014 Hypertension 05/10/2014 Raynaud's syndrome 04/14/2007 Other psoriasis 04/14/2007 documented as of this encounter (statuses as of 10/05/2023) Resolved Problems Problem Noted Date Diagnosed Date Resolved Date Encounter for long-term (cur rent) use of high-risk medication 08/27/2014 11/25/2017 Encounter for long-term (cur rent) use of medications 06/03/2010 09/21/2023 ARTHRITIS,RHEUMATOID 01/18/2009 016 Arthropathy of hand 04/14/2007 07/25/19 11 Other and unspecified nonspe cific immunological findings 04/14/2007 10/31/2009 documented as of this encounter (statuses as of 10/05/2023) Immunizations Name Administration Dates Next Due COVID-19 mRNA, LNP-s, No Pre serve, 2-Dose Series (Moderna) 04/12/2020,03/15/2020 Covid-19, Mrna, Lnp-s, Pf, B ivalent, 50 Mcg, IM, 12 yrs and above (Moderna) 11/28/2021 Pneumococcal Conjugate Vacci ne, 20-valent ([id number]) 08/17/2023 Pneumococcal Polysaccharide PPV23 (Pneumovax) 11/22/2019,10/08/2014,01/18/2009,01/26(Deferred: Patient Refused - Patient has URI) Seasonal Influenza, Quadriva lent Hd (Fluzone Hd) 11/17/2022 Seasonal Influenza, Split, I IV3, With Preserve, Inj 10/25/2017,12/19/2014,03/15/2014(Defer red: Patient Refused),03/03/2012(Deferred: Patient Refused - does not want to have it),01/30/2010,01/30/2010(Deferred: Patient Refused),12/09/2007,11/15/2007(Deferre d: Patient Refused - Patient has URI) TDAP (age 10 and older)(Boostrix) 06/19/2021 Zoster Vaccine Recombinant (Shingrix) 02/18/2019 ,12/20/2018 documented as of this encounter Social History Tobacco Use Types Packs/Day Years Used Date Smoking Tobacco: Every Day Cigarettes 0.6 36 Smokeless Tobacco: Never Alcohol Use Standard Drinks/Week Comments Not Currently 0 (1 standard drink = 0.6 oz pur e alcohol) Sex and Gender Information Value Date Recorded Sex Assigned at Female 02/09/2022 10:46 PM EST Gender Identity Female 02/09/2022 10:46 PM EST Sexual Orientation Straight 02/09/2022 10 :46 PM EST Job Start Date Occupation Industry Not on file Not on file Not on file documented as of this encounter Miscellaneous Notes * Telephone Encounter - Mayra Clements RPh - 10/05/2023 10:08 AM EDTSigned Prescriptions: Disp Refills Methotrexate Sodium 2.5 MG Oral Tablet 104 Ta*1 Sig: TAKE EIGHT TABLETS BY MOUTH ONCE WEEKLYAuthorizing Provider: SHANNEN ROACH User: MAYRA CLEMENTS--- * Telephone Encounter - Mayra Clements RPh - 10/05/2023 10:07 AM EDT Rheumatology: Refill Request(s) Per review of the refill parameters, Medication was refilled Mayra Clements RPh [facility] Clinical Pharmacist Rheumatology Department 10/05/2023,10:07 AM * Telephone Encounter - Jessica Ramirez - 10/04/2023 1:56 PM EDTPending Prescriptions: Disp Refills Methotrexate Sodium 2.5 MG Oral Tablet [Ph*104 Ta*1 Sig: TAKE EIGHT TABLETS BY MOUTH ONCE WEEKLY * Telephone Encounter - Jessica Ramirez - 10/04/2023 1:55 PM EDT Did you pend patient's preferred pharmacy and medication before forwarding?yes [facility] [address] [place] Pending Prescriptions: Disp Refills Methotrexate Sodium 2.5 MG Oral Tablet [P*104 Ta*1 Sig: TAKE EIGHT TABLETS BY MOUTH ONCE WEEKLY Last Visit: 10/23/2021 (in office), Visit date not found (telemedicine) Next Visit: Visit date not found If no future appointments scheduled, and last appointment is greater than a year ago, please schedule patient for a follow-up appointment Last date the medication was ordered: 04/20/2023 Is this request for a controlled substance?No Urine Drug Screen: Results for orders placed or performed in visit on 04/01/20 PAIN MANAGEMENT DRUG PANEL, URINE W/ INTERPRETATION Result Value Compliance Interpretation Based on the medication information provided: The absence of hydrocodone could be due to intermittent use of low-dose hydrocodone therapy. Amphetamines Screen, U Negative Benzodiazepines Screen, U Negative Cannabinoids Screen, U Negative Cocaine Metabolite Screen, U Negative Hydrocodone Screen, U Refer to confirmation results (A) Methadone Metabolite Screen, U Negative Morphine/Codeine Screen, U Negative Oxycodone Screen, U Negative Valid Interpretation Normal Creatinine, U 29 Narrative Cutoff Concentrations: Drug Level Amphetamines 500 ng/mL Benzodiazepines 100 ng/mL Cannabinoids 50 ng/mL Cocaine Metabolite 150 ng/mL Hydrocodone / Hydromorphone 100 ng/mL Methadone Metabolite 100 ng/mL Morphine / Codeine 300 ng/mL Oxycodone / Oxymorphone 100 ng/mL Screening results are presumptive and can only be used for medical purposes. Confirmatory testing is available upon request. Patient Phone Numbers Labs: Lab Results Component Value Date/Time CREAT 0.8 08/06/2023 09:10 AM CREAT 0.8 09/18/2019 02:02 PM POTASSIUM 3.7 08/06/2023 09:10 AM POTASSIUM 3.8 08/27/2016 01:29 PM TSH 0.25 (L) 05/26/2022 01:06 PM TSH 0.24 (L) 05/25/2014 03:50 PM LDLCALC 66 08/06/2023 09:10 AM LDLCALC 84 02/07/2002 08:53 AM LDLDIRECT 88 02/07/2002 08:53 AM ALT 24 08/06/2023 09:10 AM ALT 30 09/18/2019 02:02 PM HGBA1C 6.4 (H) 08/06/2023 09:10 AM documented in this encounter Plan of Treatment Upcoming Encounters Date Type Department Care Team (Late st Contact Info) Description 12/07/2023 10:00 AM EDT Office Visit Cardiology [address] [place] [address] Jerald Guo PA-C [address] [place] [address] 01/31/2024 2:00 PM EST Office Visit Rheumatology [address] [place] [phone] Shannen Roach CRNP [address] [employer] [facility] [place] [address] 05/26/2024 9:00 AM EDT Imaging Radiology [address] [place] [address] 09/19/2024 11:35 AM EDT Telemedicine Care at Home [address] [place] [address] Merissa England CRNP [address] [place] [address] Health Maintenance Due Date Last Done Comments Albumin/Creatinine Ratio 1975 VITAMIN D LEVEL ONCE IN A LIFETIME-USE SMARTSET# 40373 1997 Cologuard 2002 Colonoscopy 2002 Colorectal Cancer Screening 2002 Fecal Occult Blood Test 2002 Sigmoidoscopy 2002 COVID-19 Vaccine ( season) 2022 11/28/2021, 04/12/2020, 03/15/2020 TSH 05/27/2023 05/26/2022, 05/09, 11/01/2003, Additional history exists Influenza Vaccine (FLU shot) (#1) 2023 11/17/2022, 12/11/2021, 11/13/2020, Additional history exists Mammogram 04/06/2024 04/06/2023, 04/08, 05/16/2020, Additional history exists GFR 08/05/2024 08/06/2023, 07/10, 04/06/2023, Additional history exists HbA1c 08/05/2024 08/06/2023 Depression Monitoring 09/20/2024 09/21/2023 DXA Scan 03/31/2025 03/31/2023, 03/12, 12/24/2020 Lipid [...] filedocumented as of this encounter Care Teams Filling Machine Set Up Mechanic Relationship Specialty Start Date End Date Usha Weaver DO [address] [facility] [address] [place] [address], [place] [address] PCP - General Family Medicine 03/15/14 documented as of this encounter
--- OUTSIDE RECORDS SUMMARY | 2024-01-22 16:20 | External Medical Summary | Summary of Care ---
Author Name Unknown Organization [facility] Address [address] [place] [address] Phone [phone] Care Team Providers Care Staff Electronic Warfare Officer Name Role Phone MegCharuen Felipa Primary Care Provider Reason for Visit * Reason Onset Date Comments Medication Refill 10/17/2023 Encounter Details Date Type Department Care Team (Late st Contact Info) Description 10/17/2023 Refill Rheumatology [address] [place] [phone] Shannen Roach CRNP [address] [facility] [place] [id number] Allergies Active Allergy Reactions Criticality Noted Date Comments Amoxicillin-Pot Clavulanate 10/24/19 22 Other reaction(s): C diff documented as of this encounter (statuses as of 10/19/2023) Medications Medication Sig Dispensed Refills Start Date [...] Syringe (Sodium Hyaluronate (Viscosup)) Inject 20 mg into the bilateral knee joints once a week for 3 weeks. 12 mL 10/08/2023 11/02/2023 Active Euflexxa 20 MG/2ML Intra-articular Solution Prefilled Syringe (Sodium Hyaluronate (Viscosup)) Inject 20 mg intra-articular ly into right knee every 7 days for 3 weeks. DJD M17.11 6 mL 10/15/2023 Active predniSONE 5 MG Oral Tablet (Deltasone) Take 1 Tablet by mouth in the morning. 90 Tablet 1 10/19/2023 Active predniSONE 5 MG Oral Tablet (Deltasone) Take 1 Tablet by mouth in the morning. 90 Tablet 2 01/08/2023 10/17/2023 Discontinue d(Refill) documented as of this encounter (statuses as of 10/19/2023) Active Problems Problem Noted Date Diagnosed Date Hyperlipidemia 09/21/2023 Age-related osteoporosis wit hout current pathological fracture 09/21/2023 History of squamous cell carcinoma of skin 09/15 Prediabetes 09/15/2022 Fibromyalgia 09/15/2022 Obstructive sleep apnea syndrome 09/15/2022 Polymyalgia 09/15/2022 Sacroiliitis 09/15/2022 Steatosis of liver 09/15/2022 Tobacco user 09/15/2022 Recurrent major depressive disorder, in partial remission 09/15/2022 Rheumatoid arthritis of [facility] sites without rheumatoid factor 10/07/2015 Hypothyroidism 05/10/2014 Hypertension 05/10/2014 Raynaud's syndrome 04/14/2007 Other psoriasis 04/14/2007 documented as of this encounter (statuses as of 10/19/2023) Resolved Problems Problem Noted Date Diagnosed Date Resolved Date Encounter for long-term (cur rent) use of high-risk medication 08/27/2014 11/25/2017 Encounter for long-term (cur rent) use of medications 06/03/2010 09/21/2023 ARTHRITIS,RHEUMATOID 01/18/2009 016 Arthropathy of hand 04/14/2007 07/25/19 11 Other and unspecified nonspe cific immunological findings 04/14/2007 10/31/2009 documented as of this encounter (statuses as of 10/19/2023) Immunizations Name Administration Dates Next Due COVID-19 mRNA, LNP-s, No Pre serve, 2-Dose Series (Moderna) 04/12/2020,03/15/2020 Covid-19, Mrna, Lnp-s, Pf, B ivalent, 50 Mcg, IM, 12 yrs and above (Moderna) 11/28/2021 Pneumococcal Conjugate Vacci ne, 20-valent ([id number]) 08/17/2023 Pneumococcal Polysaccharide PPV23 (Pneumovax) 11/22/2019,10/08/2014,01/18/2009,01/26(Deferred: Patient Refused - Patient has URI) Seasonal Influenza, Quadriva lent Hd (Fluzone Hd) 11/17/2022 Seasonal Influenza, Trivalen t, (IIV3), with Preserv, (Fluzone) 10/25/2017,12/19/2014,03/15/2014(Defer red: Patient Refused),03/03/2012(Deferred: Patient Refused [...] No 09/21/2023 Does the household have a [facility] source of income? (Household - for [...] encounter Miscellaneous Notes * Telephone Encounter - Trino Fontanez [facility] - 10/19/2023 3:10 PM EDTSigned Prescriptions: Disp Refills predniSONE 5 MG Oral Tablet (Deltasone) 90 Tab*1 Sig: Take 1 Tablet by mouth in the morning.Authorizing Provider: SHANNEN ROACH User: TRINO FONTANZE-- * Telephone Encounter - Trino Fontanez RPh - 10/19/2023 3:08 PM EDT Rheumatology: Refill Request(s) Per review of the refill parameters, Medication was refilled Trino Fontanez RPh [facility] Clinical Pharmacist Rheumatology Department 10/19/2023,3:08 PM * Telephone Encounter - Nya Sun LPN - 10/18/2023 8:48 AM EDTPending Prescriptions: Disp Refills predniSONE 5 MG Oral Tablet (Deltasone) 90 Tab*2 Sig: Take 1 Tablet by mouth in the morning. documented in this encounter Plan of Treatment Upcoming Encounters Date Type Department Care Team (Late st Contact Info) Description 12/07/2023 10:00 AM EDT Office Visit Cardiology [address] [place] [id number] Jerald Guo PA-C [address] [place] [address] 01/31/2024 2:00 PM EST Office Visit Rheumatology [address] [place] [phone] Shannen Roach CRNP [address] [place] [address] [place] [address] 05/26/2024 9:00 AM EDT Imaging Radiology [address] [place] [address] 09/19/2024 11:35 AM EDT Telemedicine Care at Home [address] [place] [address] Merissa England CRNP [address] [place] [facility] [place] [address] Health Maintenance Due Date Last Done Comments Albumin/Creatinine Ratio 1975 VITAMIN D LEVEL ONCE IN A LIFETIME-USE SMARTSET# [id number] 1997 Cologuard 2002 Colonoscopy 2002 Colorectal Cancer [...] filedocumented as of this encounter Care Teams Staff Electronic Warfare Officer Relationship Specialty Start Date End Date Usha Weaver DO [address] [place] [address] [address] PCP - General Family Medicine 03/15/14 documented as of this encounter
--- OUTSIDE RECORDS SUMMARY | 2024-01-22 16:20 | External Medical Summary ---
Author Name Unknown Address Unknown Organization K01:[facility] [place] [address] [place] [address] Laboratory Report Ordering Provider Test Date Status MARLEY PRIDE 11/05/2023 13:33:10 Final Observation Date Value Abnormality Reference (Units ) Status BUN 11/05/2023 13:33:10 9 6-20 (mg/dL) Final Creatinine 11/05/2023 13:33:10 0.8 0.5-1.0 (mg/dL) Final Glomerular filtration rate/1.73 sq M.predicted [Volume Rate/Area] in Serum, Plasma or Blood by Creatinine-based formula (CKD-EPI) 11/05/2023 13:33:10 85 >=60 (mL/min) Final eGFR is calculated based on the CKD-EPI 2020 equation. Sodium 11/05/2023 13:33:10 141 135-146 (m mol/L) Final Potassium 11/05/2023 13:33:10 4.0 3.5-5.1 (m mol/L) Final Cl 11/05/2023 13:33:10 101 98-107 (mm ol/L) Final CO2 11/05/2023 13:33:10 27 22-32 (mmo l/L) Final Anion gap 11/05/2023 13:33:10 13 7-15 (mmol /L) Final Glucose 11/05/2023 13:33:10 87 70-120 (mg /dL) Final Albumin 11/05/2023 13:33:10 4.2 3.8-5.0 (g /dL) Final AST (Aspartate aminotransferase) 11/05/2023 13:33:10 29 10-35 (U/L) Final Alk Phos 11/05/2023 13:33:10 77 35-130 (U/ L) Final Bilirubin, Total 11/05/2023 13:33:10 0.2 <=1 .2 (mg/dL) Final Calcium 11/05/2023 13:33:10 10.0 8.4-10.2 ( mg/dL) Final Protein 11/05/2023 13:33:10 6.7 6.0-8.3 (g /dL) Final ALT (Alanine aminotransferase) 11/05/2023 13:33:10 30 10-35 (U/L) Final Performing Location [facility] [address] [facility] [address]
--- OUTSIDE RECORDS SUMMARY | 2024-01-22 16:20 | External Medical Summary | Continuity of Care Document ---
Author Name Unknown Organization [place] [id number] Address [address] [place] [id number] Care Team Providers Care Logging Tractor Operator Swamp Name Role Phone Usha Weaver Primary Care Physician [phone] Encounter [facility] [id number] Date(s): 11/22/23 - 11/22/23 [facility] [address] [place] [id number] [facility] [address] [place] [address] Encounter Diagnosis Right knee DJD(Discharge Diagnosis) - 11/22/23 Discharge Disposition: Home or Self Care Attending Physician: JOSE Rojas Jennifer R Allergies, Adverse Reactions, Alerts Substance Criticality Severity Reaction Reaction Severity Status Augmentin C diff Active Assessment and Plan Extracted from: Title:Orthopaedics Office Visit Note Author:Zenia mckeon PA-C, Jennifer R Date:11/22/23 1.Right knee DJD Assessment: DJD right knee, Euflexxa injection #3 of 3 Plan: Recommended ice, anti-inflammatories and activity modifications as necessary. Follow-up on an as-needed basis. Call with any problems, questions or concerns. She understands and agrees with the plan. All questions were answered today. Procedure:Patient was placed in the supine position on [...] chloride and cleansed with alcohol again. Her third vial of Euflexxa was injected into her right knee. It was free-flowing throughout the joint. She tolerated the injection well. Pressure was applied for hemostasis and a Band-Aid was applied to the injection site. This chart was completed utilizing gDine voice recognition software. Grammatical errors, random word [...] g, PRN: as needed for wheezing, Pharmacy: [facility] Start Date: 02/13/22 Status: Ordered amLODIPine 2.5 mg oral tablet Start: 12/17/22 10:43:00 AM EST, 1 tab, PO, Daily Start Date: 12/17/22 Status: Ordered Crestor 10 mg oral tablet Start: 09/22/23 11:53:00 AM EDT, 1 tab, PO, Daily, Disp# 90 tab, Refills: 3, Pharmacy: [facility] Start Date: 09/22/23 Status: Ordered DULoxetine 60 mg oral delayed release capsule Start: 07/02/23 3:33:00 PM EDT, 1 cap, PO, Daily, Disp# 90 cap, Refills: 3, Pharmacy: [facility] Start Date: 07/02/23 Status: Ordered Efudex/Calciportiene Start: [...] R knees. Please ship to physician's office; [address] [place] [address], [place] [address], Pharmacy: [facility] Start Date: 10/15/23 Stop Date: 11/05/23 Status: Ordered folic acid 1 mg oral tablet Start: 02/10/23 2:18:00 PM EST, 1 tab, PO, Daily, Disp# 90 tab, Refills: 3, Pharmacy: [facility] Start Date: 02/10/23 Stop Date: 02/05/24 Status: Ordered hydroxychloroquine 200 mg oral tablet TAKE TWO TABLETS BY MOUTH AT BEDTIME Start Date: 06/30/22 Status: Ordered levothyroxine 150 mcg (0.15 mg) oral tablet Start: 02/16/23 12:00:00 PM EST, See Instructions, Disp# 90 tab, Refills: 3, TAKE ONE TABLET BY MOUTHEVERY DAY, Pharmacy: [facility] Start Date: 02/16/23 Status: Ordered lisinopril 20 mg oral tablet Start: 07/01/23 9:30:00 AM EDT, 1 tab, PO, Daily, Disp# 90 tab, Refills: 1, Pharmacy: [facility] Start Date: 07/01/23 Status: Ordered methotrexate 2.5 [...] Daily, Disp# 6.6 mL, Refills: 4, Pharmacy: [facility] Start Date: 07/31/21 Stop Date: 11/18/23 Status: [...] Start Date: 10/21/22 Status: Ordered Mental Status 11/22/23 Barriers to Learning one year None evide nt Mandatory Health Literacy Documentation Yes Health Literacy Communication Barriers N ever Primary Language Tajik Problem List Condition Confirmation Course Effective Dates [...] Service Informant Right knee DJD Discharge Diagnosis 11/22/23 Non-Specified Procedures Procedure Date Related Diagnosis Body [...] per day. Smoking Status Current [facility] Sex Sex Representation Female (finding) Ortho Outpt Note * JOSE Rojas, Ana Gaytan: PERFORM Event Display: Ortho Outpt Note Authored Date: [id number] Primary Care Provider DO Weaver Kristen M Chief Complaint R knee euflexxa History of Present Illness Madelaine is here today for her third Euflexxa injection into her right knee. No issues from last week's injection. Overall doing very well. Has not noticed any significant relief. Mild discomfort today but nothing out of the ordinary. She has done well with the series in the past. Physical Exam Vitals:Last Updated 11/22/23 10:28 Date Temp BP Location Pulse RR SpO2 Pain 11/22/23 4 11/15/23 3 11/08/23 0 Exam of the right knee:No effusion. No erythema. No ecchymosis. A stable leg manage examwith varus valgus stress at 0 and 30 degrees. She is able to independently straight leg raise andhold against resistance. Strength is 5/5. Full ankle range of motion. No distal edema. Calfis supple and nontender. No prepatellar effusion. Nontender the quadriceps or patellar tendons.Medial and lateral joint line tenderness with palpation. Crepitation with flexion and extension. Ambulates with a slight antalgic gait with no assistive device. Assessment/Plan 1.Right knee DJD Assessment: DJD right knee, Euflexxa injection #3 of 3 Plan: Recommended ice, anti-inflammatories and activity modifications as necessary. Follow-up on an as-needed basis. Call with any problems, questions or concerns. She understands and agrees with the plan. All questions were answered today. Procedure:Patient was placed in the supine position on [...] chloride and cleansed with alcohol again. Her third vial of Euflexxa was injected into her rightknee. It was free-flowing throughout the joint. She tolerated the injection well. Pressure was applied for hemostasis and a Band-Aid was applied to the injection site. This chart was completed utilizing gDine voice recognition software. Grammatical errors, random word insertions, pronoun errors, and in complete sentences are an occasional consequence of the system. Any questions or concerns about the content, text, or information contained within the body of this dictation should be addressed directly to the provider for clarification. Problem List/Past Medical History Ongoing Actinic keratoses [...] biopsy and cauterization of skin| Service Date: 10/21/2022arpal tunnel release| Service Date: 04/03/2022 COLONOSCOPY & [...] Father. High Blood Pressure: Father. Stroke: Father. Electronic Signature on File Electronically Reviewed/Signed by: Ana Rojas PA-C Author Signature Dt/Tm:11/22/2023 10:52AM Division of Sports Medicine Electronically Reviewed/Signed by: Jude Paul MD Cosigner Signature Dt/Tm: 11/22/2023 12:53 PM [facility] Department of Orthopaedics and Rehabilitation [facility] [address], [place] [address] [facility] Patient Care team information Care Team Personnel Name: NICOLA Saeed Janet Griffith Position: Nurse Pract - Pulmonary Med Member Role: Lifetime [facility] [address] [facility] [address] Name: DO Weaver Kristen M Position: Physician - Family Med Member Role: Primary Care Provider Address: [address] [place] [id number] [place] Name: NICOLA Beavers Shari A Position: Nurse Pract - Family Med Member Role: Lifetime Relationship Address: [address] [place] [id number] [place] Care Team Related Persons Name: SHELLEY JEAN Name: MITUL JEAN"
--- OUTSIDE RECORDS SUMMARY | 2024-01-22 16:20 | External Medical Summary | Summary of Care ---
Author Name Unknown Organization [facility] Address [address] [place] [address] Phone [phone] Care Team Providers Care Senior Product Consultant Name Role Phone Usha Weaver DO Primary Care Provider Reason for Visit * Reason Comments Outpatient Testing Encounter Details Date Type Department Care Team (Late st Contact Info) Description 11/05/2023 1:30 PM EDT Laboratory Laboratory [address] [place] [phone] [facility] [address] [place] [address] Encounter for long-term (current) use of medications Allergies Active Allergy Reactions Criticality Noted Date Comments Amoxicillin-Pot Clavulanate 10/24/19 22 Other reaction(s): C diff documented as of this encounter (statuses as of 11/05/2023) Medications Medication Sig Dispensed Refills Start Date [...] the morning. 90 Tablet 1 10/19/2023 Active documented as of this encounter (statuses as of 11/05/2023) Active Problems Problem Noted Date Diagnosed Date Hyperlipidemia 09/21/2023 Age-related osteoporosis wit hout current pathological fracture 09/21/2023 History of squamous cell carcinoma of skin 09/15 Prediabetes 09/15/2022 Fibromyalgia 09/15/2022 Obstructive sleep apnea syndrome 09/15/2022 Polymyalgia 09/15/2022 Sacroiliitis 09/15/2022 Steatosis of liver 09/15/2022 Tobacco user 09/15/2022 Recurrent major depressive disorder, in partial remission 09/15/2022 Rheumatoid arthritis of [facility] sites without rheumatoid factor 10/07/2015 Hypothyroidism 05/10/2014 Hypertension 05/10/2014 Raynaud's syndrome 04/14/2007 Other psoriasis 04/14/2007 documented as of this encounter (statuses as of 11/05/2023) Resolved Problems Problem Noted Date Diagnosed Date Resolved Date Encounter for long-term (cur rent) use of high-risk medication 08/27/2014 11/25/2017 Encounter for long-term (cur rent) use of medications 06/03/2010 09/21/2023 ARTHRITIS,RHEUMATOID 01/18/2009 016 Arthropathy of hand 04/14/2007 07/25/19 11 Other and unspecified nonspe cific immunological findings 04/14/2007 10/31/2009 documented as of this encounter (statuses as of 11/05/2023) Immunizations Name Administration Dates Next Due COVID-19 mRNA, LNP-s, No Pre serve, 2-Dose Series (Moderna) 04/12/2020,03/15/2020 Covid-19, Mrna, Lnp-s, Pf, B ivalent, 50 Mcg, IM, 12 yrs and above (Moderna) 11/28/2021 Pneumococcal Conjugate Vacci ne, 20-valent ([id number]) 08/17/2023 Pneumococcal Polysaccharide PPV23 (Pneumovax) 11/22/2019,10/08/2014,01/18/2009,01/26(Deferred: Patient [...] on file documented as of this encounter Plan of Treatment Upcoming Encounters Date Type Department Care Team (Late st Contact Info) Description 12/07/2023 10:00 AM EDT Office Visit Cardiology [address] [place] [address] Jerald Guo PA-C [address] [place] [address] 02/14/2024 3:00 PM EST Office Visit Rheumatology [address] [place] [phone] Kellie Bales CRNP [address] [facility] [place] [address] 05/26/2024 9:00 AM EDT Imaging Radiology [address] [place] [address] 09/19/2024 11:35 AM EDT Telemedicine Care at Home [address] [place] [address] Merissa England, MAINFRAME DEVELOPER [address] [place] [address] Pending Results Name Type Priority Associated Diagnoses Date /Time CBC WITH WBC DIFFERENTIAL Lab Routine Encounter for long-term (current) use of medications 11/05/2023 1:33 PM EDT COMPREHENSIVE METABOLIC PANEL Lab Routine Encounter for long-term (current) use of medications 11/05/2023 1:33 PM EDT CBC Lab Routine Encounter for long-term (current) use of medications 11/05/2023 1:33 PM EDT DIFFERENTIAL, AUTOMATED Lab Routine Encounter for long-term (current) use of medications 11/05/2023 1:33 PM EDT Health Maintenance Due Date Last Done Comments Albumin/Creatinine Ratio 1975 VITAMIN D LEVEL ONCE IN A LIFETIME-USE SMARTSET# [id number] 1997 Cologuard 2002 Colonoscopy 2002 Colorectal Cancer [...] as of this encounter Visit Diagnoses Diagnosis Encounter for long-term (current) use of medications Encounter for long-term (current) use of other medications documented in this encounter Care Teams Senior Product Consultant Relationship Specialty Start Date End Date Usha Weaver DO [address] [facility] [address] Sanders [address] [place] [phone] PCP - General Family Medicine 03/15/14 documented as of this encounter
--- OUTSIDE RECORDS SUMMARY | 2024-01-22 16:21 | External Medical Summary | Summary of Care ---
Author Name Unknown Organization [facility] Address [address] [place] [address] Phone [phone] Care Team Providers Care Labor Delivery Rn Name Role Phone Usha Weaver DO Primary Care Provider Reason for Visit * Reason Comments Outpatient Testing Encounter Details Date Type Department Care Team (Late st Contact Info) Description 08/06/2023 9:10 AM EDT Laboratory Laboratory [address] [place] [phone] [facility] [address] [place] [address] Encounter for long-term (current) use of medications; Arthritis, rheumatoid (HCC); Blood glucose elevated; Inflammation of sacroiliac joint (HCC); Dyslipidemia, goal LDL below 160; Hypothyroidism Allergies Active Allergy Reactions Criticality Noted Date Comments Amoxicillin-Pot Clavulanate 10/24/19 22 Other reaction(s): C diff documented as of this encounter (statuses as of 08/06/2023) Medications Medication Sig Dispensed Refills Start Date [...] for 3 weeks 12 mL 03/25/2023 Active Methotrexate Sodium 2.5 MG Oral Tablet TAKE EIGHT TABLETS BY MOUTH ONCE WEEKLY 104 Tablet 1 04/20/2023 Active Rosuvastatin Calcium 10 MG Oral Tablet [...] mouth daily. 90 Tablet 3 06/28/2023 Active documented as of this encounter (statuses as of 08/06/2023) Active Problems Problem Noted Date Diagnosed Date History of squamous cell carcinoma of skin 09/15 Prediabetes 09/15/2022 Fibromyalgia 09/15/2022 Obstructive sleep apnea syndrome 09/15/2022 Polymyalgia 09/15/2022 Sacroiliitis 09/15/2022 Steatosis of liver 09/15/2022 Tobacco user 09/15/2022 Recurrent major depressive disorder, in partial remission 09/15/2022 Rheumatoid arthritis of [facility] sites without rheumatoid factor 10/07/2015 Hypothyroidism 05/10/2014 Hypertension 05/10/2014 Encounter for long-term (current) use of medicat ions 06/03/2010 Raynaud's syndrome 04/14/2007 Other psoriasis 04/14/2007 documented as of this encounter (statuses as of 08/06/2023) Resolved Problems Problem Noted Date Diagnosed Date Resolved Date Encounter for long-term (cur rent) use of high-risk medication 08/27/2014 11/25/2017 ARTHRITIS,RHEUMATOID 01/18/2009 016 Arthropathy of hand 04/14/2007 07/25/19 11 Other and unspecified nonspe cific immunological findings 04/14/2007 10/31/2009 documented as of this encounter (statuses as of 08/06/2023) Immunizations Name Administration Dates Next Due COVID-19 mRNA, LNP-s, No Pre serve, 2-Dose Series (Moderna) 04/12/2020,03/15/2020 Pneumococcal Polysaccharide PPV23 (Pneumovax) 10/08/2014,01/18/2009,01/27/2008(Defer red: Patient Refused - Patient has URI) Seasonal Influenza, Quadriva lent Hd (Fluzone Hd) 11/17/2022 Seasonal Influenza, Split, I IV3, With Preserve, Inj 10/25/2017,12/19/2014,03/15/2014(Defer red: Patient Refused),03/03/2012(Deferred: Patient Refused - does not want to have it),01/30/2010,01/30/2010(Deferred: Patient Refused),12/09/2007,11/15/2007(Deferre d: Patient Refused - Patient has URI) Zoster Vaccine Recombinant (Shingrix) 02/18/2019 ,12/20/2018 documented [...] Care Team (Late st Contact Info) Description 09/21/2023 10:30 AM EDT Telemedicine Care at Home [address] [place] [address] Merissa England CRNP [address] [place] [address] 12/07/2023 10:00 AM EDT Office Visit Cardiology [address] [place] [address] Jerald Guo PA-C [address] [facility] [address] 01/31/2024 2:00 PM EST Office Visit Rheumatology [address] [place] [phone] Kellie Bales CRNP [address] [place] [address] [place] [address] 05/26/2024 9:00 AM EDT Imaging Radiology [address] [place] [address] Pending Results Name Type Priority Associated Diagnoses Date /Time LIPID PANEL WITH DIRECT LDL IF TG IS HIGH Lab Routine Arthritis, rheumatoid (HCC) Blood glucose elevated Inflammation of sacroiliac joint (HCC) Dyslipidemia, goal LDL below 160 Hypothyroidism 08/06/2023 9:10 AM EDT HEMOGLOBIN A1C Lab Routine Arthritis, rheumatoid (HCC) Blood glucose elevated Inflammation of sacroiliac joint (HCC) Dyslipidemia, goal LDL below 160 Hypothyroidism 08/06/2023 9:10 AM EDT COMPREHENSIVE METABOLIC PANEL Lab Routine Arthritis, rheumatoid (HCC) Blood glucose elevated Inflammation of sacroiliac joint (HCC) Dyslipidemia, goal LDL below 160 Hypothyroidism 08/06/2023 9:10 AM EDT Scheduled Orders Name Type Priority Associated Diagnoses Orde r Schedule CBC Lab Routine Encounter for long-term (current) use of medications Ordered: 08/06/2023 DIFFERENTIAL, AUTOMATED Lab Routine Encounter for long-term (current) use of medications Ordered: 08/06/2023 Health Maintenance Due Date Last Done Comments HbA1c 1965 Depression Monitoring 1969 Albumin/Creatinine Ratio 1975 DTaP,Tdap,and Td Vaccines (1 - Tdap) 01/11/1976 Cologuard 2002 Colonoscopy 2002 Colorectal Cancer Screening 2002 Fecal Occult Blood Test 2002 Sigmoidoscopy 2002 Lipid Panel 02/07/2007 02/07/2002, 02/07/2002 COVID-19 Vaccine (3 - Moderna risk series) 05/10/2020 04/12/2020, 03/15/2020 Pneumococcal Vaccine: 65+ Years (3 of 3 - PCV) 11/21/2020 11/22/2019, 10/08/2014, 01/18/2009 TSH 05/27/2023 05/26/2022, 05/09, 11/01/2003, Additional history exists Mammogram 04/06/2024 04/06/2023, 04/08, 05/16/2020, Additional history exists GFR 08/01/2024 08/02/2023, 03/12, 11/05/2022, Additional history exists DXA Scan 03/31/2033 03/31/2023, 03/12, 12/24/2020 Zoster Vaccines Completed 02/24/2019, 02/08, 12/20/2018 Influenza Vaccine (FLU shot) Completed 11/2022, 12/11/2021, 11/13/2020, Additional history exists GARDASIL-HPV IMMUNIZATION SERIES Aged Out No longer eligible based on patient's age to complete this topic Hepatitis B Aged Out No longer eligi ble based on patient's age to complete this topic MENINGOCOCCAL (MENACTRA/MENVEO) Aged Out No longer eligible based on patient's age to complete this topic documented as of this encounter Medical Devices Not on filedocumented as of this encounter Visit Diagnoses Diagnosis Encounter for long-term (current) use of medications Encounter for long-term (current) use of other medications Arthritis, rheumatoid (HCC) Rheumatoid arthritis Blood glucose elevated Other abnormal glucose Inflammation of sacroiliac joint (HCC) Sacroiliitis, not elsewhere classified Dyslipidemia, goal LDL below 160 Other and unspecified hyperlipidemia Hypothyroidism Unspecified hypothyroidism documented in this encounter Care Teams Labor Delivery Rn Relationship Specialty Start Date End Date Usha Weaver DO 6 [facility] [address] [place] [address] PCP - General Family Medicine 03/15/14 documented as of this encounter
--- OUTSIDE RECORDS SUMMARY | 2024-01-22 16:21 | External Medical Summary | Summary of Care ---
Author Name Unknown Organization [facility] Address [address] [place] [address] Phone [phone] Care Team Providers Care Traffic Workforce Representative Name Role Phone MegCharulynn Clarosna Primary Care Provider Encounter Details Date Type Department Care Team (Late st Contact Info) Description 08/09/2023 Orders Only Outcomes Research Department [address] [place] [address] Sherry Polk CHRA [employer] Research Other*[id number] Allergies Active Allergy Reactions Criticality Noted Date Comments Amoxicillin-Pot Clavulanate 10/24/19 22 Other reaction(s): C diff documented as of this encounter (statuses as of 08/09/2023) Medications Medication Sig Dispensed Refills Start Date [...] as of this encounter (statuses as of 08/09/2023) Active Problems Problem Noted Date Diagnosed Date [...] as of this encounter (statuses as of 08/09/2023) Resolved Problems Problem Noted Date Diagnosed Date Resolved Date Encounter for long-term (cur rent) use of high-risk medication 08/27/2014 11/25/2017 ARTHRITIS,RHEUMATOID 01/18/2009 016 Arthropathy of hand 04/14/2007 07/25/19 11 Other and unspecified nonspe cific immunological findings 04/14/2007 10/31/2009 documented as of this encounter (statuses as of 08/09/2023) Immunizations Name Administration Dates Next Due COVID-19 [...] EDT Telemedicine Care at Home [address] [place] [address] Merissa England CRNP [address] [place] [address] 12/07/2023 10:00 AM EDT Office Visit Cardiology [address] [place] [address] Jerald Guo PA-C [address] [place] [address] 01/31/2024 2:00 PM EST Office Visit Rheumatology [address] [place] [phone] Kellie Bales [facility] [address] [facility] [address] 05/26/2024 9:00 AM EDT Imaging Radiology [address] [place] [address] Scheduled Orders Name Type Priority Associated Diagnoses Orde r Schedule MYCODE SUBSEQUENT ADULT Lab Routine MyCode Research Other*[id number] Every 6 Months for 2 Occurrences starting 08/09/2023 until 08/28/2024 Health Maintenance Due Date Last Done Comments Depression Monitoring 1969 Albumin/Creatinine Ratio 1975 DTaP,Tdap,and Td Vaccines (1 - Tdap) 01/11/1976 Cologuard 2002 Colonoscopy 2002 Colorectal Cancer Screening 2002 Fecal Occult Blood Test 2002 Sigmoidoscopy 2002 COVID-19 Vaccine (3 - Moderna risk series) 05/10/2020 04/12/2020, 03/15/2020 Pneumococcal Vaccine: 65+ Years (3 of 3 - PCV) 11/21/2020 11/22/2019, 10/08/2014, 01/18/2009 TSH 05/27/2023 05/26/2022, 05/09, 11/01/2003, Additional history exists Mammogram 04/06/2024 04/06/2023, 04/08, 05/16/2020, Additional history exists GFR 08/05/2024 08/06/2023, 07/10, 04/06/2023, Additional history exists HbA1c 08/05/2024 08/06/2023 Lipid Panel 08/05/2028 08/06/2023, 01/10, 02/07/2002 DXA Scan 03/31/2033 03/31/2023, 03/12, 12/24/2020 Zoster [...] as of this encounter Visit Diagnoses Diagnosis MyCode Research Other*[id number] documented in this encounter Care Teams Traffic Workforce Representative Relationship Specialty Start Date End Date Usha Weaver DO [address] [place] [address] Dr Sanders [address] [place] [address], [place] [address] PCP - General Family Medicine 03/15/14 documented as of this encounter
--- OUTSIDE RECORDS SUMMARY | 2024-01-22 16:21 | External Medical Summary | Summary of Care ---
Author Name Unknown Organization [facility] Address [address] [place] [address] Phone [phone] Care Team Providers Care Eligibility Technician Name Role Phone Usha Weaver DO Primary Care Provider Reason for Visit * Reason Comments Outpatient Testing Encounter Details Date Type Department Care Team (Late st Contact Info) Description 08/06/2023 9:10 AM EDT Laboratory Laboratory [address] [place] [phone] [facility] Lab [address] [place] [address] Encounter for long-term (current) use of medications [...] in partial remission 09/15/2022 Rheumatoid arthritis of [facility] sites without rheumatoid factor 10/07/2015 Hypothyroidism 05/10/2014 [...] EDT Telemedicine Care at Home [address] [place] [address] Merissa England CRNP [address] [place] [address] 12/07/2023 10:00 AM EDT Office Visit Cardiology [address] [place] [address] Jerald Guo PA-C [address] [place] [address] 01/31/2024 2:00 PM EST Office Visit Rheumatology [address] [place] [phone] Kell[facility]ales [facility] [facility] [place] [address] 05/26/2024 9:00 AM EDT Imaging Radiology [address] [place] [address] Scheduled Orders Name Type Priority Associated Diagnoses [...] medications documented in this encounter Care Teams Eligibility Technician Relationship Specialty Start Date End Date Usha Weaver DO [address] [place] [address], [place] [address] PCP - General Family Medicine 03/15/14 documented as of this encounter
--- OUTSIDE RECORDS SUMMARY | 2024-01-22 16:21 | External Medical Summary | Summary of Care ---
Author Name Unknown Organization [facility] Address [address] [place] [address] Phone [phone] Care Team Providers Care Public Health Internship Name Role Phone Usha Weaver DO Primary Care Provider Reason for Visit * Reason Comments Outpatient Testing Encounter Details Date Type Department Care Team (Late st Contact Info) Description 08/06/2023 9:10 AM EDT Laboratory Laboratory [address] [place] [phone] [facility] Lab [address] [place] [address] Encounter for long-term (current) use of medications [...] in partial remission 09/15/2022 Rheumatoid arthritis of [facility] sites without rheumatoid factor 10/07/2015 [...] EDT Telemedicine Care at Home [address] [place] [address] Merissa England CRNP [address] [place] [address] 12/07/2023 10:00 AM EDT Office Visit Cardiology [address] [place] [address] Jerald Guo PA-C [address] [place] [address] 01/31/2024 2:00 PM EST Office Visit Rheumatology [address] [place] [phone] Kell[facility]ales [facility] [facility] [address] 05/26/2024 9:00 AM EDT Imaging Radiology [address] [place] [address] Pending Results Name Type Priority Associated Diagnoses Date /Time COMPREHENSIVE METABOLIC PANEL Lab Routine Encounter for long-term (current) use of medications 08/06/2023 9:06 AM EDT Scheduled Orders Name Type Priority [...] medications documented in this encounter Care Teams Public Health Internship Relationship Specialty Start Date End Date Usha Weaver DO [address] Sanders [address] [place] [id number] PCP - General Family Medicine 03/15/14 documented as of this encounter
--- OUTSIDE RECORDS SUMMARY | 2024-01-22 16:21 | External Medical Summary | Continuity of Care Document ---
Author Name Unknown Organization [address] Address [address] [place] [phone] Care Team Providers Care Market Research Associate Name Role Phone Usha Weaver Primary Care Physician [phone] [id number] Date(s): 08/17/23 - 08/17/[address], [address] [phone] Encounter Diagnosis Body mass index [BMI] 35.0-35.9, adult(Discharge Diagnosis) - 08/17/23 Mild HTN(Discharge Diagnosis) - 08/17/23 Hyperlipidemia(Discharge Diagnosis) - 08/17/23 Adult hypothyroidism(Discharge Diagnosis) - 08/17/23 Discharge Disposition: Home or Self Care Attending Physician: DO Weaver Kristen M Referring Physician: DO Weaver Kristen M Allergies, Adverse Reactions, Alerts Substance Criticality Severity Reaction Reaction Severity Status Augmentin C diff Active Assessment and Plan Extracted from: Title:Office Visit Note Author:DO Weaver Kriste n M Date:08/17/23 1.Mild HTN Chronic condition, stable Goal:Resolution Data:unique tests ordered: _ Plan: _recheck 138/86--pt states she will discuss with cardio 2.Hyperlipidemia Chronic condition, stable Goal:Resolution Data:unique tests ordered: _ Plan: _well controlled 3.Adult hypothyroidism Chronic condition, stable Goal:Resolution Data:unique tests ordered: _ Plan: _check TSH and free t4 Pneumococcal Immunizations Given and Recorded Vaccine Date Status Refusal Reason pneumococcal 20-valent conjugate vaccine 08/17/23 Given influenza virus vaccine, inactivated 12/11/21 Dylan rded influenza virus vaccine, inactivated 12/11/21 Dylan rded influenza virus vaccine, inactivated 10/6/21 Dylan rded influenza virus vaccine, inactivated 11/22/19 [...] g, PRN: as needed for wheezing, Pharmacy: [facility] Start Date: 02/13/22 Status: Ordered amLODIPine 2.5 mg oral tablet Start: 12/17/22 10:43:00 AM EST, 1 tab, PO, Daily Start Date: 12/17/22 Status: Ordered Crestor 10 mg oral tablet Start: 02/16/23 12:01:00 PM EST, 1 tab, PO, Daily, Disp# 90 tab, Refills: 3, Pharmacy: [facility] Start Date: 02/16/23 Status: Ordered DULoxetine 60 mg oral delayed release capsule Start: 07/02/23 3:33:00 PM EDT, 1 cap, PO, Daily, Disp# 90 cap, Refills: 3, Pharmacy: [facility] Start Date: 07/02/23 Status: Ordered folic acid 1 mg oral tablet Start: 02/10/23 2:18:00 PM EST, 1 tab, PO, Daily, Disp# 90 tab, Refills: 3, Pharmacy: [facility] Start Date: 02/10/23 Stop Date: 02/05/24 Status: Ordered hydroxychloroquine 200 mg oral tablet TAKE TWO TABLETS BY MOUTH AT BEDTIME Start Date: 06/30/22 Status: Ordered levothyroxine 150 mcg (0.15 mg) oral tablet Start: 02/16/23 12:00:00 PM EST, See Instructions, Disp# 90 tab, Refills: 3, TAKE ONE TABLET BY MOUTHEVER DAY, Pharmacy: [facility] Start Date: 02/16/23 Status: Ordered lisinopril 20 mg oral tablet Start: 07/01/23 9:30:00 AM EDT, 1 tab, PO, Daily, Disp# 90 tab, Refills: 1, Pharmacy: [facility] Start Date: 07/01/23 Status: Ordered methotrexate 2.5 [...] Daily, Disp# 6.6 mL, Refills: 4, [facility] [place] Start Date: 07/31/21 Stop Date: 11/18/23 Status: [...] Start Date: 10/21/22 Status: Ordered Mental Status 08/17/23 Barriers to Learning one year None evide nt Mandatory Health Literacy Documentation Yes Health Literacy Communication Barriers N ever Primary Language Trinidadian Problem List Condition Confirmation Course Effective Dates [...] Effective Dates Health Status Clinical Service Informant Body mass index [BMI] 35.0-35.9, adult Discharge Diagnosis 08/17/23 Non-Specified Mild HTN Discharge Diagnosis 08/17/23 Non-Specified Hyperlipidemia Discharge Diagnosis 08/17/23 Non-Specified Adult hypothyroidism Discharge Diagnosis 08/17/23 Non-Specified Procedures Procedure Date Related Diagnosis Body [...] polyp in the descending colon, removed witha [employer] cold forceps. Resected and retrieved. Diverticulosis in [...] Most recent to oldest [Reference Range]: 1 Height 153 cm (08/17/23 8:43 AM) Patient Weight 82.5 kg (08/17/23 8:43 AM) Body Mass Index 35.24 kg/m2 (08/17/23 8:43 AM) Temperature [36.5-37.9 DegC] 36.0 DegC *LOW* (08/17/23 8:43 AM) Heart Rate 54 bpm (08/17/23 8:43 AM) Respiratory Rate 16 br/min (08/17/23 8:43 AM) Blood Pressure 154/88mmHg (08/17/23 8:43 AM) Cuff Pulse Pressure 66 mmHg (08/17/23 8:43 AM) Social History Social History Type Response Tobacco Current every day sm oker, Cigarettes, 10 per day. Smoking Status Current every day he hector smoker Sex FCM Outpt Note * DO Weaver Kristen M: PERFORM Event Display: FCM Outpt Note Authored Date: Chief Complaint follow up appt- review [facility] History of Present Illness Pt presents to discuss labs [facility]. Review of Systems ROS: Denies RANDLE, visual changes, SOB, CP, N/V, no edema, fever, chills, dysuria, bowel changes Physical Exam Vitals & Measurements T:36.0C HR:54(Monitored) RR:16 BP:154/88 SpO2:98% HT:153cm WT:82.500kg(Dosing) WT:82.5kg BMI:35.24 PHQ2 Data(Data Documented on:08/17/2023 08:43) Emotional health assessment NEGATIVE G: AAAOx3, NAD H: RR normal S1/S2 no M/R/G L: CTA b/l no r/r/w HEENT: external ear canal and TM wnl, oral mucosa moist, no lymphadenopathy A: soft +bs nt nd E: no c/C/E b/l, pos distal pulses P: normal affect and insight, no homicidal/suicidal ideation Assessment/Plan 1.Mild HTN Chronic condition, stable Goal:Resolution Data:unique tests ordered: _ Plan: _recheck 138/86--pt states she will discuss with cardio 2.Hyperlipidemia Chronic condition, stable Goal:Resolution Data:unique tests ordered: _ Plan: _well controlled 3.Adult hypothyroidism Chronic condition, stable Goal:Resolution Data:unique tests ordered: _ Plan: _check TSH and free t4 Pneumococcal Attestation I spent4 mintime in previsit planning including prepping note and chart review . I spent22 time in face to face interaction with patient concerning the issues that brought them in today. I spent4 min time in post visit planning including finishing note and depart process Total time spent today on patient visit30 min Problem List/Past Medical History Ongoing Actinic keratoses [...] intra-articular solution), 20 mg, intra- articular, q7days sodium hyaluronate(Euflexxa 10 mg/mL intra-articular solution), 20 mg, intra- articular, q7days sodium hyaluronate(Euflexxa 10 mg/mL intra-articular solution), 20 mg, intra- articular, q7days turmeric(turmeric 500 mg oral capsule) Allergies AugmentinC diff Social History Smoking Status Current every day heavy smoker Alcohol - Denies Alcohol Use Substance Abuse - Denies Substance Abuse Tobacco Use:Current every day smoker Type:Cigarettes Tobacco use per day:10 Family History Cancer: Mother. Diabetes: Mother. Heart attack: Father. High Blood Pressure: Father. Stroke: Father. Health Status Family Member(s) Immunizations Vaccine Date Status influenza virus vaccine, inactivated 12/11/2021 Recorded influenza [...] Recommendations Health Maintenance Pending(in the next year) Due Adult Influenza Vaccine due08/08/23and every 1year Adult COVID-19 Vaccination due08/17/23Unknown Frequency Adult Social Determinants of Health Screening due08/17/23Unknown Frequency Hepatitis C Screening due08/17/23One-time only Shingles Vaccine due08/17/23One-time only Satisfied(in the past 1 year) Satisfied Body Mass Index on08/17/23.Satisfied by ROMULO Benítez Angela Breast Cancer Screening on04/06/23.Satisfied by ROMULO Velazquez Angela Lipid Screening on12/17/22.Satisfied by Contributor_system, [employer] Electronic Signature on File Electronically Reviewed/Signed by: Usha Weaver DO Author Signature Dt/Tm:08/17/2023 09:27 AM Department of Family Medicine [facility] Patient Care team information Care Team Personnel Name: NICOLA Saeed Janet Griffith Position: Nurse Pract - Pulmonary Med Member Role: Lifetime Relationship Address: Address: [address] [place] [address] Name: DO Weaver Kristen M Position: Physician - Family Med Member Role: Primary Care Provider Address: Address: [address] [place] [address] Name: NICOLA Beavers Shari A Position: Nurse Pract - Family Med Member Role: Lifetime Relationship Address: Address: [address] [place] [address] Care Team Related Persons Name: SHELLEY JEAN Address: [facility] Address: home [address], [place] [id number] Name: MITUL JEAN Address: home [address], [place] [id number]"
--- OUTSIDE RECORDS SUMMARY | 2024-01-22 16:21 | External Medical Summary | Summary of Care ---
Author Name Unknown Organization [facility] Address [address] [place] [address] Phone [phone] Care Team Providers Care Infrastructure Architect Name Role Phone Usha Weaver DO Primary Care Provider Reason for Visit * Reason Comments Outpatient Testing Encounter Details Date Type Department Care Team (Late st Contact Info) Description 08/06/2023 9:10 AM EDT Laboratory Laboratory [address] [place] [phone] [facility] Lab [address] [place] [address] Encounter for long-term (current) use of medications; [...] in partial remission 09/15/[address] 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 10/07/2015 [...] EDT Telemedicine Care at Home [address] [place] [address] Merissa England CRNP [address] [place] [address] 12/07/2023 10:00 AM EDT Office Visit Cardiology [address] [place] [address] Jerald Guo PA-C [address] [facility] [address] 01/31/2024 2:00 PM EST Office Visit Rheumatology [address] [place] [phone] Kellie Bales CRNP [address] [place] [address] [place] [address] 05/26/2024 9:00 AM EDT Imaging Radiology [address] [place] [address] Pending Results Name Type Priority Associated Diagnoses [...] hypothyroidism documented in this encounter Care Teams Infrastructure Architect Relationship Specialty Start Date End Date Usha Weaver DO 6 [facility] [address] [place] [address] PCP - General Family Medicine 03/15/14 documented as of this encounter
--- OUTSIDE RECORDS SUMMARY | 2024-01-22 16:21 | External Medical Summary | Summary of Care ---
Author Name Unknown Organization [facility] Address [address] [place] [address] Phone [phone] Care Team Providers Care Hearing Aid Mechanic Name Role Phone Avery Bo DO Primary Care Provider Reason for Visit * Reason Onset Date Comments Health Risk Assessment 09/21/2023 Leandro diaz Visit Encounter Details Date Type Department Care Team (Latest Contact Info) Description 09/21/2023 10:30 AM EDT Telemedicine Care at Home [address] [place] [address] Merissa England CRNP [address] [place] [address] Routine general medical examination at a health care facility*; Rheumatoid arthritis of 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 factor (HCC); Recurrent major depressive disorder, in partial remission (HCC); Sacroiliitis (HCC); Polymyalgia (HCC); Other psoriasis; Hypothyroidism, unspecified type; Hyperlipidemia, unspecified hyperlipidemia type; Age-related osteoporosis without current pathological fracture; Prediabetes; Obstructive sleep apnea syndrome; Raynaud's disease without gangrene; Hypertension, unspecified type; Tobacco user; Fibromyalgia Allergies Active Allergy Reactions Criticality Noted Date Comments Amoxicillin-Pot Clavulanate 10/24/19 Other reaction(s): C diff documented as of this encounter (statuses as of 09/21/2023) Medications Medication Sig Dispensed Refills Start Date [...] as of this encounter (statuses as of 09/21/2023) Active Problems Problem Noted Date Diagnosed Date Hyperlipidemia 09/21/2023 Age-related osteoporosis wit hout current pathological fracture 09/21/2023 History of squamous cell carcinoma of skin 09/15 Prediabetes 09/15/2022 Fibromyalgia 09/15/2022 Obstructive sleep apnea syndrome 09/15/2022 Polymyalgia 09/15/2022 Sacroiliitis 09/15/2022 Steatosis of liver 09/15/2022 Tobacco user 09/15/2022 Recurrent major depressive disorder, in partial remission 09/15/2022 Rheumatoid arthritis of [facility] sites without rheumatoid factor 10/07/2015 Hypothyroidism 05/10/2014 Hypertension 05/10/2014 Raynaud's syndrome 04/14/2007 Other psoriasis 04/14/2007 documented as of this encounter (statuses as of 09/21/2023) Resolved Problems Problem Noted Date Diagnosed Date Resolved Date Encounter for long-term (cur rent) use of high-risk medication 08/27/2014 11/25/2017 Encounter for long-term (cur rent) use of medications 06/03/2010 09/21/2023 ARTHRITIS,RHEUMATOID 01/18/2009 016 Arthropathy of hand 04/14/2007 07/25/19 11 Other and unspecified nonspe cific immunological findings 04/14/2007 10/31/2009 documented as of this encounter (statuses as of 09/21/2023) Immunizations Name Administration Dates Next Due COVID-19 mRNA, LNP-s, No Pre serve, 2-Dose Series (Moderna) 04/12/2020,03/15/2020 Covid-19, Mrna, Lnp-s, Pf, B ivalent, 50 Mcg, IM, 12 yrs and above (Moderna) 11/28/2021 Pneumococcal Conjugate Vacci ne, 20-valent ([id number]) 08/17/2023 Pneumococcal Polysaccharide PPV23 (Pneumovax) 11/22/2019,10/08/2014,01/18/2009,01/26(Deferred: Patient [...] on file documented as of this encounter Progress Notes * Merissa England CRNP - 09/21/2023 10:38 AM EDT ANNUAL HEALTH RISK ASSESSMENT Care at Home [address] [facility] [address] Patient Name: Madelaine Jean : 1955 Date of Assessment: 09/21/2023 Gender: Female PCP: AVERY BO [address] [facility] [address] [place] [id number] [phone] Extended Emergency Contact Information Primary Emergency Contact: MITUL JEAN Address: [address] [place] [phone] [facility] Relation: Spouse Secondary Emergency Contact: MITUL JEAN JR Address: [address] [place] [phone] [facility] Relation: Adult Child Patient location: HOME. I was not in a hospital or clinic location. After connecting through [email or web address], patient was verified with two unique identifiers. Patient (or authorized legal small business representative) was then informed that this was a Telemedicine visit and being conducted confidentially over secure lines. Methods to assure confidentiality were taken. Patient acknowledged consent and understanding of privacy and security of the Telemedicine visit. The patient agreed to participate. HRA Intake Documentation: Advance Care Planning: Advance Directive Type: None Advance Directive Date: Discussed Medical Adherence: Patient is able to obtain all medications? Yes Patient takes medications as prescribed? Yes Patient uses a pill box? Yes, refill(s) completed by self Medication Reconciliation Medications Medication reconciliation/review completed:: Yes (09/21/23 104) Medication adherence problem:: No (09/21/23 104) Experiencing side effects from current medications:: No (09/21/23 104) Medication support:: None (09/21/23 104) Admissions (within the last year): Not Applicable Hospital ER within 30 days: No Health Maintenance Last physical exam: 08/2023 Does patient see provider regularly? Yes, Primary Care Provider and Yes, Specialist. Type of Specialty: Rheumatology, Cardiology, Supervisor Wet Pour Spirometry: No Dental Exam: No Other Test(s) - No time frame specified EK05/25/2023 CONCLUSIONS: Sinus rhythm with Premature supraventricular complexes Nonspecific T wave abnormality Abnormal ECG When compared with ECG of 24-Apr-2022 15:25, Vent. rate has decreased by 38 bpm T wave inversion no longer evident in Inferior leads T wave inversion more evident in Lateral leads CXR: Not known Echo: 05/26/2022 CONCLUSIONS: Sinus tachycardia with Premature supraventricular complexes Moderate voltage criteria for LVH, may be normal variant Nonspecific ST and T wave abnormality Abnormal ECG No previous ECGs available MRI: Not known CT: EXAM: CT CHEST LOW DOSE SCAN LUNG CANCER SCREEN INITIAL - 05/27/2023 12:31 pm FINDINGS: Lung Screening Specific (LungRADS): There are 4-5 mm pleural based nodules in the right lower lobe along the major fissure and right middle lobe along the minor fissure, which likely represent lymph nodes. Potentially Significant Incidentals (LungRADS Category S): None. Pulmonary incidentals: There are very mild emphysematous changes. Focal atelectasis/scarring is seen in the lingula. Other Incidentals: There are mild atherosclerotic changes, noting partially imaged infrarenal abdominal aortic ectasia. There is slight nodularity of the left adrenal gland, which is likely benign. There are degenerative changes of the spine. IMPRESSION: 1. LungRADS Category 2: Negative, benign appearance or behavior. 2. LungRADS Category S: Negative. No new/unknown potentially significant incidental findings requiring additional evaluation. 3. Incidental findings as above. Communication and Comprehension: Communication and Comprehension Communication and Comprehension Follow-up Patient cognition:: Oriented to person;Oriented to place;Oriented to time;Alert (09/21/231046) Alteration in memory:: None (09/21/231046) Patient able to understand instructions:: Written;Verbal (09/21/231046) Does the patient have any vision issues?: No (09/21/231046) Does the patient have hearing issues?: Yes (09/21/231046) Supports used:: Other (Has hearing amplifier) (09/21/231046) Oriental Orthodox or spiritual beliefs that impact treatment:: No (09/21/231046) Patient and Caregiver Support System: Patient lives: and son Means of Transportation: Drives. Not a concern. Patient lives in: Two Story - How many stairs: 12 Functional Status and ADL Skills: Ambulation: Independent however she does use a cone for long walks ADLs/IADLs ADL/IADLs Does the patient need assistance with any of the following ADLs?: None (09/21/231047) Does the patient need assistance with any of the following IADLs?: None (09/21/231047) Fall Risk Assessment: Fall risk factors present. Uses more than 4 medications Uses assistive devices Balance or gait disturbances Rvi-Fx-pua-Go Test: Time began at 1039. Patient stood from sitting position and walked approximately 10 feet, returned and sat down. Total time for mrg-gp-bdq-go test was 11 seconds. The patient did well on the "Get Up and Go" test. Nutritional Health Checklist: Changed food due to illness or condition: No (0 pts) Eat fewer than 2 meals per day: No (0 pts) Eat few fruits veggies or milk products: No (0 pts) 3 or more drinks or beer, liquor, wine daily: No (0 pts) Tooth or mouth problem: No (0 pts) Not enough money to purchase food: No (0 pts) Eat alone: No (0 pts) 3 or more medications taken per day: Yes (2 pts) Weight change of 10 lbs. In 6 months: No (0 pts) Not always able to shop, cook or feed self: No (0 pts) Total points: 2 Nutritional Health Score & Recommendation: 0-2: Low nutritional risk Depression Screening: PHQ2/9 Screening PHQ2_9 Adult Little interest or pleasure in doing things: Not at all (09/21/231048) Feeling down, depressed or hopeless: Not at all (09/21/231048) PHQ Adult Total Score: 0 (09/21/231048) PHQ Adult Score Description: No Depression (09/21/231048) Social Determinants of Health Screening: SDoH Screening Tool Adult (for ages 18 years and over) Within the past 12 months, you worried that your food would run out before you got the money to buymore.: Never true (09/21/231048) Within the past 12 months, the food you bought just didn't last and you didn't have money to get more.: Never true (09/21/231048) Do you need food for this week?: No (09/21/231048) Do you currently live in a penitentiary or have no steady place to sleep at night?: No (09/21/231048) Are you homeless or worried that you might be in the future?: No (09/21/231048) Has lack of transportation kept you from medical appointments, meetings, work, or from getting things needed for daily living? Check all that apply.: No (09/21/231048) Do you have any trouble paying for your medications, or do you think you might in the future?: No (09/21/231048) How often do you feel lonely or isolated from those around you?: Never (09/21/231048) Do you feel unsafe or have concerns for your safety?: No (09/21/231048) Do you feel overwhelmed with taking care of a child, family member or friend?: No (09/21/231048) Have you been unable to get clothing when it was really needed?: No (09/21/231048) Do you have trouble paying your heating, water, or electric bill?: No (09/21/231048) Are you unemployed or without regular income?: No (09/21/231048) Would you like help connecting to resources in any of these categories?: None (09/21/231048) Community Resources: Community Resources: Not Applicable Potential Resource Needs from Benefits Identified: No Benefits: Benefits Benefits Health plan benefits assessed: Adequate to cover care (09/21/231049) Is the patient a SNP?: No (09/21/231049) HRA Provider Assessment Documentation: Objective Past Medical History: Diagnosis Date Anemia HTN, goal below 140/90 Hypertension, benign Hypothyroidism Patient Active Problem List Diagnosis Raynaud's syndrome Other psoriasis Rheumatoid arthritis of 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 factor (HCC) History of squamous cell carcinoma of skin Prediabetes Fibromyalgia Hypothyroidism Hypertension Obstructive sleep apnea syndrome Polymyalgia (HCC) Sacroiliitis (HCC) Steatosis of liver Tobacco user Recurrent major depressive disorder, in partial remission (HCC) Hyperlipidemia Age-related osteoporosis without current pathological fracture Family History Problem Relation Name Age of Onset Thyroid Disorder Mother Cancer Mother breast Diabetes Mother Stroke Father Hypertension Father Thyroid Disorder Sister Hypertension Brother Arthritis Grandmother (Maternal) Review of patient's allergies indicates: Allergen Reactions [...] MCG (1000 UT) Oral Capsule 1 daily Ciclopirox 8 % External Solution APPLY TOPICALLY EVERY DAY FOR THREE MONTHS Levothyroxine Sodium 150 MCG Oral Capsule Take [...] Take 1 Tablet by mouth every morning. predniSONE 5 MG Oral Tablet (Deltasone) Take 1 Tablet by mouth in the morning. 90 Tablet 2 Euflexxa 20 MG/2ML Intra-articular Solution Prefilled Syringe (Sodium Hyaluronate (Viscosup)) Inject 20mg intra-articularly into both knees once weekly for 3 weeks 12 mL 0 Methotrexate Sodium 2.5 MG Oral Tablet TAKE EIGHT TABLETS BY MOUTH ONCE WEEKLY 104 Tablet 1 Rosuvastatin Calcium 10 MG Oral Tablet (Crestor) [...] Tablet by mouth daily. 90 Tablet 3 No current facility-administered medications for this visit. Past Surgical History: Procedure Laterality Date BIOPSY OF BREAST, OPEN DILATION AND CURETTAGE (D&C) D&C and laproscopy Immunization History Administered Date(s) Administered COVID-19 mRNA, LNP-s, No Preserve, 2-Dose Series (Moderna) 03/15/2020, 04/12/2020 Covid-19, Mrna, Lnp-s, Pf, Bivalent, 50 Mcg, IM, 12 yrs and above (Moderna) 11/28/2021 Pneumococcal Conjugate Vaccine, 20-valent ([id number]) 08/17/2023 Pneumococcal Polysaccharide PPV23 (Pneumovax) 01/18/2009, 10/08/2014, 11/22/2019 Seasonal Influenza, Quadrivalent Hd (Fluzone Hd) 11/17/2022 Seasonal Influenza, Split, IIV3, With Preserve, Inj 12/09/2007, 01/30/2010, 12/19/2014, 10/25/2017 TDAP (age 10 and older)(Boostrix) 06/19/2021 Zoster Vaccine Recombinant (Shingrix) 12/20/2018, 02/18/2019 Preventative Plan: Mammogram (Every 2 years for women 50-74 years of age): 04/06/2023 Patient states Normal, done at [facility]. Pap Smear (every 3 years): States had in the last year and it was normal. Diabetes (Fasting plasma glucose every 3 years): Hemoglobin AIC Results: Lab Results Component Value Date/Time HEMOGLOBIN A1C - [facility] 6.4 (H) 08/06/2023 09:10 AM Glucose Results: Lab Results Component Value Date/Time GLUCOSE - [facility] 99 08/06/2023 09:10 AM GLUCOSE - [facility] 95 08/02/2023 10:48 AM GLUCOSE - [facility] 119 04/06/2023 09:44 AM GLUCOSE - [facility] 154 (H) 08/27/2016 01:29 PM GLUCOSE - [facility] 98 05/27/2016 03:35 PM GLUCOSE - [facility] 99 02/26/2016 03:39 PM Lipid Testing (Every 5 years): Lipid Panel Results: Results for orders placed or performed in visit on 02/07/02 LIPID PANEL Result Value Ref Range HOURS FASTING 13 hours Triglycerides 56 45 - 230 mg/dL Cholesterol 148 (L) 165 - 200 mg/dL HDL Cholesterol 53 40 - 59 mg/dL Cholesterol-HDL Ratio 2.8 LDL Cholesterol 84 0 - 130 mg/dL Results for orders placed or performed in visit on 08/06/23 LIPID PANEL WITH DIRECT LDL IF TG IS HIGH Result Value Ref Range Triglycerides 70 <=174 mg/dL Cholesterol 141 <200 mg/dL HDL Cholesterol 61 >49 mg/dL Non-HDL Cholesterol 80 <=159 mg/dL LDL Cholesterol 66 <=129 mg/dL Colonoscopy or other screenin11/06/2021 Impressions: One 5 mm polyp in the descending colon, removed with a jumbo cold forceps. Resected and retrieved. Diverticulosis in the sigmoid colon and in the descending colon. The examination was otherwise normal. Diagnosis 1. Colon, descending colon, polypectomy: - Colonic mucosa with mild hyperplastic change and mild melanosis coli. Bone Density (every 2+ years): DXA Performed: 03/31/23 DXA Resulted: 04/01/2023 Osteoporosis treatment (per questionnaire): A. Previous treatment: NONE B. Current treatment: NONE Major risk factors: current smoker, current glucocorticoid use, rheumatoid arthritis RESULTS: Lumbar spine: 0.820 gms/cm2 T-score: -2.1 Left femoral neck: 0.631 gms/cm2 T-score: -2.0 Health Maintenance Topic Date Due Depression Monitoring Never done Albumin/Creatinine Ratio Never done VITAMIN D LEVEL ONCE IN A LIFETIME-USE SMARTSET# 05709 Never done Colorectal Cancer Screening Never done COVID-19 Vaccine ( season) 2022 TSH 05/27/2023 Influenza Vaccine (FLU shot) (1) 10/10/2023 Mammogram 04/06/2024 HbA1c 08/05/2024 GFR 08/05/2024 DXA Scan 03/31/2025 Lipid Panel 08/05/2028 DTaP,Tdap,and Td Vaccines (2 - Td or Tdap) 06/20/2031 Zoster Vaccines Completed Pneumococcal Vaccine: 65+ Years Completed Hepatitis B Vaccine Aged Out MENINGOCOCCAL (MENACTRA/MENVEO) Aged Out HPV (Gardasil) Vaccine Aged Out Review of Systems: Constitutional ROS: No change in weight, No weakness, No fevers, sweats, or chills and "always tired" Eye ROS: No recent significant change in vision, No eye pain, redness, discharge, No diplopia, No h/o cataracts, No h/o glaucoma and No recent eye exam Ear ROS: No ear pain, No drainage, No tinnitus or vertigo and Notes that she is 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 Nose ROS: No history of frequent colds or sinusitis, No nasal stuffiness, No history of Hay Fever and No significant epistaxis Mouth/Throat ROS: No bleeding gums, No thrush or No sore throat Neck ROS: No lumps or masses, No swollen glands, No recent swelling in thyroid area, No significantpain in neck and + hypothyroid Pulmonary ROS: No cough, sputum, or hemoptysis, No wheezing, No rales, No recent change in breathing and + SOB at times smokes about 1/2 PPD Cardiovascular ROS: No chest pain, No edema, No palpitations and No syncope Gastrointestinal ROS: No abdominal pain, No change in bowel habits, No significant heartburn, No significant change in appetite, No hematemesis, No blood in stools or black tarry stools, No abdominalbloating or early satiety, No dysphagia and Chronic constipation. No nausea or vomiting Breast ROS: No new breast lumps or masses, No severe breast pain, No nipple discharge, No recent change in shape/color and Performs self breast exam Genito-Urinary Female ROS: No dysuria, No frequency, No incontinence and No urgency Musculoskeletal/Extremities ROS: + Rheumatoid arthritis most affected hands and knees. Also with fibromyalgia Hematologic/Lymphatic ROS: No anemia, No abnormal bleeding, No chills, No bruising, No night sweats, No swollen nodes and No weight loss Skin/Integumentary ROS: No edema, No rash and No itching Neurologic ROS: No headaches, No seizures and No weakness Endocrine ROS: No heat intolerance, No cold intolerance and No excessive thirst or urination Psychiatric ROS: + history of depression controlled on cymbalta Allergy/Immunologic ROS: No sneeze, nasal itch, ocular symptoms of allergy and + seasonal allergies Sleep: + sleep apnea, has a CPAP but admits she does not use Physical Exam: There were no vitals filed for this visit. Pain Screening: no Pain Scale: 0 = none There is no height or weight on file to calculate BMI. General: alert, healthy and no distress. Appears comfortable and cooperative. Head is normocephalic. Eyes: No drainage or erythema. Extra occular movements intact. Ears: No evidence of hearing problems during call. Lungs: Respirations even and unlabored at rest. Neuro: Alert and oriented x 3 with fluent speech. Smile is symmetrical Musculoskeletal: Moves all extremities. Lab Data: Lab Results Component Value Date/Time BUN - [facility] 13 08/06/2023 09:10 AM BUN - [facility] 12 08/27/2016 01:29 PM Lab Results Component Value Date/Time CREATININE - [facility] 0.8 08/06/2023 09:10 AM CREATININE - [facility] 0.8 09/18/2019 02:02 PM CREATININE MISTY 51 09/18/2019 12:21 PM CREATININE MISTY - [facility] 29 04/01/2020 03:51 PM Lab Results Component Value Date/Time GLUCOSE - [facility] 99 08/06/2023 09:10 AM GLUCOSE - [facility] 154 (H) 08/27/2016 01:29 PM No components found for: "[id number]" Lab Results Component Value Date/Time LDL CHOLESTEROL (CALCULATED) - [facility] 66 08/06/2023 09:10 AM LDL CHOLESTEROL (CALCULATED) - [facility] 84 02/07/2002 08:53 AM LDL CHOLESTEROL (DIRECT MEASURE) - [facility] 88 02/07/2002 08:53 AM No results found for: "MICROALBUMIN" Assessment/Plan: 1. Routine general medical examination at a [facility] care facility AWV in 1 year 2. Rheumatoid arthritis of 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 factor (HCC) Followed by Rheumatology. Pt reports no active issues or adverse effects to the established treatment plan. No changes at this time. Strongly advised to contact her care team if changes occur. 3. Recurrent major depressive disorder, in partial remission (HCC) Mood stable on current medication. Pt reports no active issues or adverse effects to the established treatment plan. No changes at this time. Strongly advised to contact her care team if changes occur. 4. Sacroiliitis (HCC) Pt reports no active issues or adverse effects to the established treatment plan. No changes at this time. Strongly advised to contact her care team if changes occur. 5. Polymyalgia (HCC) Pt reports no active issues or adverse effects to the established treatment plan. No changes at this time. Strongly advised to contact her care team if changes occur. 6. Other psoriasis Pt reports no active issues or adverse effects to the established treatment plan. No changes at this time. Strongly advised to contact her care team if changes occur. 7. Hypothyroidism, unspecified type Pt reports no active issues or adverse effects to the established treatment plan. No changes at this time. Strongly advised to contact her care team if changes occur. 8. Hyperlipidemia, unspecified hyperlipidemia type Pt reports no active issues or adverse effects to the established treatment plan. No changes at this time. Strongly advised to contact her care team if changes occur. 9. Age-related osteoporosis without current pathological fracture Pt reports no active issues or adverse effects to the established treatment plan. No changes at this time. Strongly advised to contact her care team if changes occur. 10. Prediabetes Discussed glucose control and preventing progression to Diabetes. Pt reports no active issues or adverse effects to the established treatment plan. No changes at this time. Strongly advised to contact her care team if changes occur. 11. Obstructive sleep apnea syndrome Admits that she is not using her CPAP. Encouraged to compliance. Pt reports no active issues or adverse effects to the established treatment plan. No changes at this time. Strongly advised to contacther care team if changes occur. 12. Raynaud's disease without gangrene Pt reports no active issues or adverse effects to the established treatment plan. No changes at this time. Strongly advised to contact her care team if changes occur. 13. Hypertension, unspecified type Pt reports no active issues or adverse effects to the established treatment plan. No changes at this time. Strongly advised to contact her care team if changes occur. 14. Tobacco user Not interested in cessation at this time. Pt reports no active issues or adverse effects to the established treatment plan. No changes at this time. Strongly advised to contact her care team if changes occur. 15. Fibromyalgia Pt reports no active issues or adverse effects to the established treatment plan. No changes at this time. Strongly advised to contact her care team if changes occur. Care Planning (3+ Personal and/or Medical Goals): Medication compliance Glucose control, diet and increased activity Smoking cessation Treatment Plan: Patient continues to work on their progress to the goals set by themselves and their PCP Continue present medication and follow up with PCP as needed Discussed importance of taking medication as prescribed Educated patient regarding diabetes care Educated patient about diet and exercise Educated patient about smoking cessation and avoiding tobacco Provided patient with information about advance directives Follow Up/Handouts: AWV in 1 year I spent a total of 40-54 minutes (exact time 50 mins) on the date of service in preparation, delivery, and documentation of the care provided to Madelaine Jean excluding any time spent in the performance of separately billed services. NICOLA Akhtar documented in this encounter Plan of Treatment Upcoming Encounters Date Type Department Care Team (Late st Contact Info) Description 12/07/2023 10:00 AM EDT Office Visit Cardiology [address] [place] [address] Jerald Guo PA-C [address] [place] [id number] 01/31/2024 2:00 PM EST Office Visit Rheumatology [address] [place] [phone] Kellie Bales CRNP [address] [place] [address] [place] [address] 05/26/2024 9:00 AM EDT Imaging Radiology [address] [place] [address] Health Maintenance Due Date Last Done Comments Depression Monitoring 1969 Albumin/Creatinine Ratio 1975 VITAMIN D LEVEL ONCE IN A LIFETIME-USE SMARTSET# [id number] 1997 Cologuard 2002 Colonoscopy 2002 Colorectal Cancer Screening 2002 Fecal Occult Blood Test 2002 Sigmoidoscopy 2002 COVID-19 Vaccine ( season) 2022 11/28/2021, 04/12/2020, 03/15/2020 TSH 05/27/2023 05/26/2022, 05/09, 11/01/2003, Additional history exists Influenza Vaccine (FLU shot) (#1) 2023 11/17/2022, 12/11/2021, 11/13/2020, Additional history exists Mammogram 04/06/2024 04/06/2023, 04/08, 05/16/2020, Additional history exists GFR 08/05/2024 08/06/2023, 07/10, 04/06/2023, Additional history exists HbA1c 08/05/2024 08/06/2023 DXA Scan 03/31/2025 03/31/2023, 03/12, 12/24/2020 Lipid Panel 08/05/2028 08/06/2023, 01/10, 02/07/2002 DTaP,Tdap,and Td Vaccines (2 - Td or Tdap) 06/20/2031 [...] as of this encounter Visit Diagnoses Diagnosis Routine general medical examination at a health care facility- Primary Rheumatoid arthritis of 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 factor (HCC) Rheumatoid arthritis Recurrent major depressive disorder, in partial remission (HCC) Sacroiliitis (HCC) Sacroiliitis, not elsewhere classified Polymyalgia (HCC) Polymyalgia rheumatica Other psoriasis Hypothyroidism, unspecified type Hyperlipidemia, unspecified hyperlipidemia type Age-related osteoporosis without current pathological fracture Senile osteoporosis Prediabetes Other abnormal glucose Obstructive sleep apnea syndrome Obstructive sleep apnea (adult) (pediatric) Raynaud's disease without gangrene Hypertension, unspecified type Tobacco user Tobacco use disorder Fibromyalgia Mylagia and myositis, unspecified documented in this encounter Care Teams Hearing Aid Mechanic Relationship Specialty Start Date End Date Avery Bo DO [address] [place] [address] Dr Sanders [address] [place] [address], [place] [address] PCP - General Family Medicine 03/15/14 documented as of this encounter
--- OUTSIDE RECORDS SUMMARY | 2024-01-22 16:21 | External Medical Summary | Summary of Care ---
Author Name Unknown Organization [facility] Address [address] [place] [address] Phone [phone] Care Team Providers Care Order Management Specialist Name Role Phone Usha Weaver DO Primary Care Provider Reason for Visit * Reason Comments Outpatient Testing Encounter Details Date Type Department Care Team (Late st Contact Info) Description 08/06/2023 9:10 AM EDT Laboratory Laboratory [address] [place] [phone] [facility] Lab [address] [place] [address] Encounter for long-term (current) use of medications; [...] in partial remission 09/15/2022 Rheumatoid arthritis of [facility] sites without rheumatoid factor 10/07/2015 Hypothyroidism 05/10/2014 [...] EDT Telemedicine Care at Home [address] [place] [address] Merissa England CRNP [address] [place] [address] 12/07/2023 10:00 AM EDT Office Visit Cardiology [address] [place] [address] Jerald Guo PA-C [address] [facility] [place] [address] 01/31/2024 2:00 PM EST Office Visit Rheumatology [address] [place] [phone] Kellie Bales CRNP [address] [place] [address] [place] [address] 05/26/2024 9:00 AM EDT Imaging Radiology [address] [place] [address] Pending Results Name Type Priority Associated Diagnoses [...] hypothyroidism documented in this encounter Care Teams Order Management Specialist Relationship Specialty Start Date End Date Usha Weaver DO [address] [facility] [address] [place] [address] PCP - General Family Medicine 03/15/14 documented as of this encounter
--- OUTSIDE RECORDS SUMMARY | 2024-01-22 16:21 | External Medical Summary | Summary of Care ---
Author Name Unknown Organization [facility] Address [address] [place] [address] Phone [phone] Care Team Providers Care Air Tank Assembler Name Role Phone Usha Weaver DO Primary Care Provider Reason for Referral * Evaluate & Treat - Unlimited Visits (Within 30 days (routine)) - Authorized Specialty Diagnoses / Procedures Referred By Andrea diaz Referred To Contact Optometry Diagnoses Encounter for long-term (current) use of medications Kellie Bales CRNP [address] [employer] [facility] [place] [address] Referral ID Status Reason Start Date Expiration Date Visits Requested Visits Authorized [id number] Authorized Specialty Services Required 08/06/2023 999 999 Question Answer Referral Priority Within 30 days (routine) Where should this appointment be scheduled? [facility] Referring for: Optometry Conditions Optometry Conditions Drug Toxicity Monitoring Comments Plaquenil Reason for Visit * Reason Comments Rheum Follow Up Follow up - RA Encounter Details Date Type Department Care Team (Late st Contact Info) Description 08/06/2023 8:30 AM EDT Office Visit Rheumatology [address] [place] [phone] Kellie Bales CRNP [address] [place] [address] Rheumatoid arthritis involving multiple sites with positive rheumatoid factor (HCC)*; Encounter for long-term (current) use of medications; Fibromyalgia Allergies Active Allergy Reactions Criticality Noted [...] in partial remission 09/15/2022 Rheumatoid arthritis of [facility] sites without rheumatoid factor 10/07/2015 [...] uit: Not Asked; Counseling Given: Not Answered Alcohol Use Standard Drinks/Week Comments Not Currently [...] Sign Reading Time Taken Comments Blood Pressure - - Pulse - - Temperature 35.8 C (96.4 F) 08/06/2023 8:29 AM ED T Respiratory Rate - - Oxygen Saturation - - Inhaled Oxygen Concentration - - Weight 83 kg (183 lb) 08/06/2023 8:29 AM EDT Height - - Body Mass Index 34.58 01/08/2023 10:50 AM EST documented in this encounter Progress Notes * Kellie Bales CRNP - 08/06/2023 8:27 AM EDT Images from the original note were not included. Assessment and Plan Rheumatoid arthritis involving multiple sites with positive rheumatoid factor (HCC) Encounter for long-term (current) use of medications - Adult/Peds Ophthalmology/Optometry Referral OP - CBC with WBC Differential; Standing - Comprehensive Metabolic Panel; Standing Fibromyalgia Mrs. Seo follows up today for evaluation and management of RA. She is doing overall well on anRA standpoint. She is currently taking Cymbalta for fibromyalgia. Will continue MTX 8 tablets weekly, Plaquenil 400 mg at bedtime, and Prednisone 5 mg daily for her RA. Education on fibromyalgia was discussed such as improving diet, exercise, and weight loss as well as continuing Cymbalta 60 mg daily. Continue checking labs every 3 months. Follow up 6 months. Patient advised to hold any immunosuppressant medication if they are sick or on antibiotics. Labs ordered for monitoring for medication toxicity. Patient advised to contact the clinic with questions. Rheumatology Synopsis: [facility] RA SYNOPSIS Date of RA Diagnosis: 04/14/07 (01/08/2023 11:00 AM) Current Treatment: MTX; HCQ (Prednisone) (01/08/2023 11:00 AM) Previous Treatment: ADA (01/08/2023 11:00 AM) 2009 Classification Criteria: Y (01/08/2023 11:00 AM) Seropositive or seronegative: Seropositive (01/08/2023 11:00 AM) RF and/or CCP: Dual Positive (01/08/2023 11:00 AM) Disease activity: Controlled Patient History History of Present Illness HPI:68 year old female presented to rheumatology clinic for Rheum Follow Up (Follow up - RA) She continues taking Plaquenil 2 tab daily and MTX 8 tab weekly without any missed doses. She notesshe missed taking her prednisone 5 mg daily for a week when she went away and felt pretty bad. She reports she stated taking Prednisone again and she is feel well. She reports her right foot has beentender, denies any injury but may have been a bug bite. She reports chronic right knee pain 5/10. She reports she does "hurt all over" from Fibromyalgia intermittently she will take Excedrin migraine once or twice a week and it will improves her symptoms. She notes moving will help improve her pain. She ntoes the hot humid days make her feel worse. She reports she has not had an eye exam in years. ROS: Review of Systems was asked and the following other significant symptoms are present: SOW, tobacco use, right foot tenderness. Rheumatology History Subjective Patient's past history, medications, and allergies were reviewed. Objective Physical Exam Temp 35.8 C (96.4 F) (Infrared ) | Wt 83 kg (183 lb) | BMI 34.58 kg/m | BSA 1.89 m Constitutional: no acute distress HEENT: normal: normocephalic, atraumatic; no masses, tenderness, or adenopathy Eyes: sclera and conjunctiva normal Neck: supple, normal range of motion CV: normal rate and rhythm, no murmur, gallops or rub Chest: normal respiratory effort, lungs clear to auscultation and percussion Abdomen: normal: soft, bowel sounds normal, no masses, tenderness or organomegaly Musculoskeletal: Degenerative changes to the hands, minimal right foot tenderness, no tenderness orsynovitis the hands Extremities: no clubbing, cyanosis, or edema, otherwise grossly normal, warm, and dry Skin: warm, dry, intact: Neuro: alert, oriented to person, place, and time, normal mental status exam, gait normal, sensory normal MSK/Joint exam (Homunculus) MSK Exam findings: Homunculus exam Studies: Labs and Imaging studies reviewed with pertinent findings noted below: Disease Treatment Response CDAI Scoring Patient Global: 30 mm Provider Global: 20 mm Tender (SALAZAR-28): 0 / 28 Swollen (SALAZAR-28): 0 / 28 CDAI: 5 CDAI (Clinical Disease Activity Index) [facility] Outcomes measures: Serial CDAI: Synopsis SmartLink 08/06/2023 08:30 01/08/2023 11:00 CDAI CDAI 5 21 - Serial CDAI: - Yes - Remission: - No - stable disease activity Currently on csDMARD: Yes Currently on Biologic DMARD: No Vaccination status: COVID: Vaccine and/or Health maintenance status Incomplete Influenza:Vaccine complete for this season Pneumococcal:Vaccine and/or Health maintainance status Incomplete Zoster:Vaccine Series Complete Last Hepatitis and TB testing: Hepatitis B: Tested, result reviewed Hepatitis C: Tested, result reviewed PPD or TB-Gold: Tested, result reviewed Lab Results Component Value Date HBSAG NEGATIVE 11/08/2007 HCVAB NEGATIVE 11/08/2007 TB GOLD AG NIL Date/Time Value Ref Range Status 10/08/2014 11:11 AM 0.06 IU/mL Final Comment: (NOTE) The Nil tube value is used to determine if the patient has a preexisting immune response which could cause a false-positive reading on the test. In order for a test to be valid, the Nil tube must have a value of <=8.0 IU/mL. The Mitogen control tube is used to assure the patient has a healthy immune status and also serves as a control for correct blood handling and incubation. It is used to detect false-negative readings. The mitogen tube must have a gamma interferon value >= 0.5 IU/mL higher than the value of the Nil tube. The TB Antigen tube is coated with the M tuberculosis specific antigens. For a test to be considered positive the TB antigen tube value minus the Nil tube value must be >=0.35 IU/mL. Data on the performance of the test in children younger than 5 years of age are limited, and the CDC advises that caution is warranted when using the assay in children aged <5 years (MMWR 2010; 59 (RR-05):1-25). For additional information, please refer to: http://education.[employer].L[employer] Agency/faq/QFT TB GOLD MITOGEN NIL Date/Time Value Ref Range Status 10/08/2014 11:11 AM 2.00 IU/mL Final Wrap-Up Follow Up: Return in about 24 weeks (around 01/21/2024) for Clinic Visit. | For: Clinic Visit PLAN Labs; Every 3 months Continue current medications Follow-up 6 months Contact clinic with any questions or concerns Discussed the above in detail with the patient. All questions answered. CC DR. Weaver Time: I spent a total of 30-39 minutes (exact time 39 mins) on the date of service in preparation, delivery, and documentation of the care provided to Madelaine uBck Rayray excluding any time spent in the performance of separately billed services. NICOLA Lo Rheumatology Department The patient was discussed with me. I agree with the findings and plan as documented by Kellie PETERSEN in this note. Reyes Andujar MD Rheumatology Department documented in this encounter Nursing Notes * Sandrita Sun LPN - 08/06/2023 8:27 AM EDT Chief Complaint Patient presents with Rheum Follow Up Follow up - RA documented in this encounter Plan of Treatment Upcoming Encounters Date Type Department Care Team (Late st Contact Info) Description 09/21/2023 10:30 AM EDT Telemedicine Care at Home [address] [place] [address] Merissa England CRNP [address] [place] [address] 12/07/2023 10:00 AM EDT Office Visit Cardiology [address] [place] [address] Jerald Guo PA-C [address] [place] [address] 01/31/2024 2:00 PM EST Office Visit Rheumatology [address] [place] [phone] Kellie Bales CRNP [address] [facility] [place] [address] 05/26/2024 9:00 AM EDT Imaging Radiology [address] [place] [address] Scheduled Orders Name Type Priority Associated Diagnoses Orde r Schedule CBC WITH WBC DIFFERENTIAL Lab Routine Encounter for long-term (current) use of medications Every 3 Months for 999 Occurrences starting 08/06/2023 until 08/05/2024 COMPREHENSIVE METABOLIC PANEL Lab Routine Encounter for long-term (current) use of medications Every 3 Months for 999 Occurrences starting 08/06/2023 until 08/05/2024 Scheduled Referrals Name Type Priority Associated Diagnoses Orde r Schedule ADULT/PEDS OPHTHALMOLOGY/OPTOM ETRY REFERRAL OP Referral Within 30 days (routine) Encounter for long-term (current) use of medications [...] as of this encounter Visit Diagnoses Diagnosis Rheumatoid arthritis involving multiple sites with positive rheumatoid factor (HCC)- Primary Encounter for long-term (current) use of medications Encounter for long-term (current) use of other medications Fibromyalgia Mylagia and myositis, unspecified documented in this encounter Care Teams Air Tank Assembler Relationship Specialty Start Date End Date Usha Weaver DO [address] [place] [address] [place] [address] PCP - General Family Medicine 03/15/14 documented as of this encounter
--- OUTSIDE RECORDS SUMMARY | 2024-01-22 16:21 | External Medical Summary | Summary of Care ---
Author Name Unknown Organization [facility] Address [address] [place] [address] Phone [phone] Care Team Providers Care Data Administrator Name Role Phone Usha Weaver DO Primary Care Provider Reason for Referral * Evaluate & Treat - Unlimited Visits (Within 30 days (routine)) - Authorized Specialty Diagnoses / Procedures Referred By Andrea diaz Referred To Contact Optometry Diagnoses Encounter for long-term (current) use of medications Kellie Bales CRNP [address] [employer] [facility] [place] [address] Referral ID Status Reason Start Date Expiration Date Visits Requested Visits Authorized [id number] Authorized Specialty Services Required 08/06/2023 999 999 [...] 08/06/2023 8:30 AM EDT Office Visit Rheumatology [address] [place] [phone] Kellie Bales CRNP [address] [place] [address] Rheumatoid arthritis involving multiple sites with positive [...] in partial remission 09/15/2022 Rheumatoid arthritis of [facility] sites without rheumatoid factor [...] every 3 months. Follow up 6 months. Start getting yearly eye exams Patient advised to hold any immunosuppressant medication if they are sick or on antibiotics. Labs ordered for monitoring for medication toxicity. Patient advised to contact the clinic with questions. Rheumatology Synopsis: [facility] RA SYNOPSIS Date of RA Diagnosis: 04/14/07 [...] CDAI: 5 CDAI (Clinical Disease Activity Index) [facility] Outcomes measures: Serial CDAI: Synopsis SmartLink [...] (RR-05):1-25). For additional information, please refer to: http://education.LegalZoom.WaysGo/faq/QFT TB GOLD MITOGEN NIL Date/Time Value Ref Range Status 10/08/2014 11:11 AM 2.00 IU/mL Final Wrap-Up Follow Up: Return in about 24 weeks (around 01/21/2024) for Clinic Visit. | For: Clinic Visit PLAN Labs; Every 3 months Continue current medications Follow-up 6 months Start getting yearly eye exams Contact clinic with any questions or concerns [...] EDT Telemedicine Care at Home [address] [place] [address] Merissa England CRNP [address] [place] [address] 12/07/2023 10:00 AM EDT Office Visit Cardiology [address] [place] [address] Jerald Guo PA-C [address] [facility] [place] [address] 01/31/2024 2:00 PM EST Office Visit Rheumatology [address] [place] [phone] Kellie Bales CRNP [facility] [address] 05/26/2024 9:00 AM EDT Imaging Radiology [address] [place] [address] Scheduled Orders Name Type Priority Associated Diagnoses [...] unspecified documented in this encounter Care Teams Data Administrator Relationship Specialty Start Date End Date Usha Weaver DO [address] [place] [address], [place] [address] PCP - General Family Medicine 03/15/14 documented as of this encounter
--- OUTSIDE RECORDS SUMMARY | 2024-01-22 16:22 | External Medical Summary ---
Author Name Unknown Address Unknown Organization [id number]:[facility] - [address] [place] [address] Laboratory Report Ordering Provider Test Date Status NENITA KEANE 08/02/2023 10:48:47 Final Observation Date Value Abnormality Reference (Units ) Status MYCODE SPECIMEN-SST 08/02/2023 10:48:47 Freezing of extracted DNA, whole blood and/or serum. Final Performing Location [facility] - [address] [place] [address]
--- OUTSIDE RECORDS SUMMARY | 2024-01-22 16:22 | External Medical Summary ---
Author Name Unknown Address Unknown Organization K01:[facility] - [address] [facility] [address] Laboratory Report Ordering Provider Test Date Status MARLEY PRIDE 08/02/2023 10:48:47 Final Observation Date Value Abnormality Reference (Units ) Status SYNC LEUKOCYTES IN BLOOD BY AUTOMATED COUNT 08/02/2023 10:48:47 11.96 Above high normal 4.00-10.80 (K/uL) Final Segs 08/02/2023 10:48:47 86.2 Above high normal 40.0-75.0 (%) Final Lymphs % 08/02/2023 10:48:47 9.1 Below low normal 18.0-42.0 (%) Final Monos 08/02/2023 10:48:47 4.0 1.0-11.0 (%) Final Eosinophils 08/02/2023 10:48:47 0.1 0.0-6.0 (%) Final Basos 08/02/2023 10:48:47 0.3 0.0-2.0 (%) Final Immature Granulocyte, Percent 08/02/2023 10:48:47 0.3 0.0-2.0 (%) Final Absolute Segs 08/02/2023 10:48:47 10.30 Above high normal 1.80-7.70 (K/uL) Final Lymphs, absolute 08/02/2023 10:48:47 1.09 1.00-4.80 (K/ul) Final Monos, Abs 08/02/2023 10:48:47 0.48 0.00-1.10 (K/uL) Final Eos, Abs 08/02/2023 10:48:47 0.01 0.00-0.70 (K/uL) Final Basos, Abs 08/02/2023 10:48:47 0.04 0.00-0.20 (K/uL) Final Immature Granulocytes, Number 08/02/2023 10:48:47 0.04 0.00-0.20 (K/uL) Final Performing Location [facility] [address] [facility] [address]
--- OUTSIDE RECORDS SUMMARY | 2024-01-22 16:22 | External Medical Summary | Continuity of Care Document ---
Author Name Unknown Organization [place] [id number] Address [address] [place] [id number] Care Team Providers Care Medical Administrator Name Role Phone Usha Weaver Primary Care Physician [phone] Encounter [facility] NELIDA [id number] Date(s): 07/29/23 - 07/29/23 [facility] 0 [place] [id number] [address] [place] [address] Encounter Diagnosis Bilateral primary osteoarthritis of knee(Discharge Diagnosis) - 07/29/23 Discharge Disposition: Home or Self Care Attending Physician: JOSE France Dennis Allergies, Adverse Reactions, Alerts Substance Criticality Severity Reaction Reaction Severity Status Augmentin C diff Active Assessment and Plan Extracted from: Title:Clinical Document Author:JOSE France Denn is Date:07/29/23 OUTPATIENT NOTE Name: BARTOLOME JEAN Patient Number:[id number] : 1955 Date of Service: 07/29/2023 HPI: This 68-year-old female presents to the clinic today for 3-month follow-up after receiving bilateral knee Euflexxa injections. Patient states that she has had significant pain relief. She has had several camping trips and is able to walk and do activities without significant pain. Patient states that she would like me to place an order for Euflexxa injections during today's visit. Physical examination: Bilateral knees; range of motion is from 0 degrees of extension to 108 degrees of flexion. Patient experiences medial and lateral joint line tenderness when the knees are palpated in the flexed position. Her right patella was not mobile however I was able to slightly manipulate her left patella with palpable crepitation. She had no laxity with varus or valgus stressing. AP drawer sign and Princess test were negative. Patient was neurovascularly intact in both lower extremities. Impression: Bilateral knee degenerative joint disease Plan: Placed an order for bilateral knee Euflexxa injections during today's visit. Will send the prescription to her specialty pharmacy to obtain the product. We can have her scheduled to initiate viscosupplementation in 3 months. Patient verbalizes understanding of all information provided during today's visit. She thanks for the care that she received. If she has questions or concerns should arise prior to the next follow-up, she will contact the clinic. This chart was completed utilizing [employer] voice recognition software. Grammatical errors, random word insertions, pronoun errors, and in complete sentences are an occasional consequence of the system. Any questions or concerns about the content, text, or information contained within the body of this dictation should be addressed directly to the physician for clarification. Immunizations Given and Recorded Vaccine Date Status Refusal Reason influenza virus vaccine, inactivated 12/11/21 Dylan rded influenza virus vaccine, inactivated 12/11/21 Dylan rded influenza virus vaccine, inactivated 11/13/20 Dylan rded influenza virus vaccine, inactivated 11/22/19 Give n influenza virus vaccine, inactivated 10/26/18 Dylan rded influenza virus vaccine, inactivated 10/26/17 Dylan rded influenza virus vaccine, inactivated 10/28/16 Give n influenza virus vaccine, inactivated 12/19/14 Dlyan rded SARS-CoV-2 mRNA-1273 (6y+ bivalent) 1 11/28/21 [...] g, PRN: as needed for wheezing, Pharmacy: [facility] Start Date: 02/13/22 Status: Ordered amLODIPine 2.5 mg oral tablet Start: 12/17/22 10:43:00 AM EST, 1 tab, PO, Daily Start Date: 12/17/22 Status: Ordered Crestor 10 mg oral tablet Start: 02/16/23 12:01:00 PM EST, 1 tab, PO, Daily, Disp# 90 tab, Refills: 3, Pharmacy: [facility] Start Date: 02/16/23 Status: Ordered DULoxetine 60 mg oral delayed release capsule Start: 07/02/23 3:33:00 PM EDT, 1 cap, PO, Daily, Disp# 90 cap, Refills: 3, Pharmacy: [facility] Start Date: 07/02/23 Status: Ordered Euflexxa 10 mg/mL intra-articular solution Start: 07/29/23 9:33:00 AM EDT, 20 mg =, intra-articular, q7days, Disp# 12 mL, josse knee euflexxa series, Brand Medically Necessary Start Date: 07/29/23 Status: Ordered Euflexxa 10 mg/mL intra-articular solution Start: 03/25/23 10:26:00 AM EST, 20 mg =, intra-articular, q7days, Disp# 12 mL, Refills: 0, B/L KNEEDJD M17.0, Note to Pharmacy: 6 syringes for B/L knees. Gerardas ship to physician's office: [address] [place] [address], Pharmacy: [facility] Start Date: 03/25/23 Stop Date: 04/15/23 Status: Ordered Euflexxa 10 mg/mL intra-articular solution Start: 06/15/22 6:36:00 AM EDT, 20 mg =, intra-articular, q7days, Disp# 6 mL, Refills: 0, R KNEE DJD M17.11, Note to Pharmacy: 3 syringes for R knee. Please ship to physician's office: [address] [place] [address], Brand Medically Necessary, Pharmacy: [facility] Start Date: 06/15/22 Stop Date: 07/06/22 Status: Ordered folic acid 1 mg oral tablet Start: 02/10/23 2:18:00 PM EST, 1 tab, PO, Daily, Disp# 90 tab, Refills: 3, Pharmacy: [facility] Start Date: 02/10/23 Stop Date: 02/05/24 Status: Ordered hydroxychloroquine 200 mg oral tablet TAKE TWO TABLETS BY MOUTH AT BEDTIME Start Date: 06/30/22 Status: Ordered levothyroxine 150 mcg (0.15 mg) oral tablet Start: 02/16/23 12:00:00 PM EST, See Instructions, Disp# 90 tab, Refills: 3, TAKE ONE TABLET BY MOUTHEVERY DAY, Pharmacy: [facility] Start Date: 02/16/23 Status: Ordered lisinopril 20 mg oral tablet Start: 07/01/23 9:30:00 AM EDT, 1 tab, PO, Daily, Disp# 90 tab, Refills: 1, Pharmacy: [facility] Start Date: 07/01/23 Status: Ordered methotrexate 2.5 [...] Daily, Disp# 6.6 mL, Refills: 4, Pharmacy: [facility] Start Date: 07/31/21 Stop Date: 11/18/23 Status: [...] Start Date: 10/21/22 Status: Ordered Mental Status 07/29/23 Barriers to Learning one year None evide nt Mandatory Health Literacy Documentation Yes Health Literacy Communication Barriers N ever Primary Language Bulgarian Problem List Condition Confirmation Course Effective Dates [...] Effective Dates Health Status Clinical Service Informant Bilateral primary osteoarthritis of knee Discharge Diagnosis 07/29/23 Procedures Procedure Date Related Diagnosis Body Site [...] recent to oldest [Reference Range]: 1 Height 154 cm (07/29/23 9:21 AM) Patient Weight 83.2 kg (07/29/23 9:21 AM) Body Mass Index 35.08 kg/m2 (07/29/23 9:21 AM) Social History Social History Type Response Tobacco Current every day sm oker, Cigarettes, 10 per day. Smoking Status Current every day he hector smoker Sex Outpatient Note * JOSE France, Skyler: PERFORM Event Display: .Outpt Note Authored Date: OUTPATIENT NOTE Name: BARTOLOME JEAN Patient Number:1 [id number] : 1955 Date of Service: 07/29/2023 HPI: This 68-year-old female presents to the clinic today for 3-month follow-up after receiving bilateral knee Euflexxa injections. Patient states that she has had significant pain relief. She has had several camping trips and is able to walk and do activities without significant pain. Patient states that she would like me to place an order for Euflexxa injections during today's visit. Physical examination: Bilateral knees; range of motion is from 0 degrees of extension to 108 degrees of flexion. Patient experiences medial and lateral joint line tenderness when the knees are palpated in the flexed position. Her right patella was not mobile however I was able to slightly manipulate her left patella with palpable crepitation. She had no laxity with varus or valgus stressing. AP drawer sign and Princess test were negative. Patient was neurovascularly intact in both lower extremities. Impression: Bilateral knee degenerative joint disease Plan: Placed an order for bilateral knee Euflexxa injections during today's visit. Will send the prescription to her specialty pharmacy to obtain the product. We can have her scheduled to initiate viscosupplementation in 3 months. Patient verbalizes understanding of all information provided during today's visit. She thanks for the care that she received. If she has questions or concerns should arise prior to the next follow-up, she will contact the clinic. This chart was completed utilizing [employer] voice recognition software. Grammatical errors,random word insertions, pronoun errors, and in complete sentences are an occasional consequence of the system. Any questions or concerns about the content, text, or information contained within the body of this dictation should be addressed directly to the physician for clarification. Electronic Signature on File Electronically Reviewed/Signed by: Skyler France PA-C Author Signature Dt/Tm:07/29/2023 11:58 AM Division of Sports Medicine Electronically Reviewed/Signed by: MD Law Medina Signature Dt/Tm: 07/29/2023 01:26 PM [facility] Roll Tension Tester Department of Orthopaedics and Rehabilitation [facility] [address], [place] [address] [place] Patient Care team information Care Team Personnel Name: NICOLA Saeed Janet Griffith Position: Nurse Pract - Pulmonary Med Member Role: Lifetime Relationship Address: Address: [address] [place] [id number] Name: DO Weaver Kristen M Position: Physician - Family Med Member Role: Primary Care Provider Address: Address: [address] [place] [address] Name: NICOLA Beavers Shari A Position: Nurse Pract - Family Med Member Role: Lifetime Relationship Address: Address: [address] [place] [address] Care Team Related Persons Name: SHELLEY JEAN Address: [facility] Address: home [address], [place] [id number] Name: MITUL JEAN Address: home [address], [place] [id number]
--- OUTSIDE RECORDS SUMMARY | 2024-01-22 16:22 | External Medical Summary ---
Author Name Unknown Address Unknown Organization K01:LABORATORY [facility] [place] - [address] [facility] [address] Laboratory Report Ordering Provider Test Date Status MARLEY PRIDE 08/02/2023 10:48:47 Final Observation Date Value Abnormality Reference (Units ) Status WBC, Total 08/02/2023 10:48:47 11.96 Above high normal 4.00-10.80 (K/uL) Final RBC 08/02/2023 10:48:47 4.04 3.85-5.15 (M/uL) Final Hemoglobin 08/02/2023 10:48:47 13.8 12.0-15.3 (g/dL) Final HCT 08/02/2023 10:48:47 41.5 36.0-45.2 (%) Final MCV 08/02/2023 10:48:47 102.7 81.5-97.5 (fL) Final MCH 08/02/2023 10:48:47 34.2 27.0-34.0 (pg) Final MCHC 08/02/2023 10:48:47 33.3 32.0-36.0 (g/dL) Final RDW 08/02/2023 10:48:47 13.1 11.5-15.5 (%) Final Platelets 08/02/2023 10:48:47 202 140-400 (K/uL) Final MPV 08/02/2023 10:48:47 12.2 6.6-11.1 (fL) Final Nucleated erythrocytes/100 leukocytes [Ratio] in Blood by Automated count 08/02/2023 10:48:47 0 <=0 (/100 WBCs) Final Performing Location LABORATORY C - [address] [facility] [address]
--- OUTSIDE RECORDS SUMMARY | 2024-01-22 16:22 | External Medical Summary ---
Author Name Unknown Address Unknown Organization K01:LABORATORY [facility] [place] - [address] [facility] [place] [address] Laboratory Report Ordering Provider Test Date Status MARLEY PRIDE 08/02/2023 10:48:47 Final Observation Date Value Abnormality Reference (Units ) Status BUN 08/02/2023 10:48:47 9 6-20 (mg/dL) Final Creatinine 08/02/2023 10:48:47 0.7 0.5-1.0 (mg/dL) Final Glomerular filtration rate/1.73 sq M.predicted [Volume Rate/Area] in Serum, Plasma or Blood by Creatinine-based formula (CKD-EPI) 08/02/2023 10:48:47 >90 >=60 (mL/min) Final eGFR is calculated based on the CKD-EPI 2020 equation Sodium 08/02/2023 10:48:47 142 135-146 (m mol/L) Final Potassium 08/02/2023 10:48:47 4.2 3.5-5.1 (m mol/L) Final Cl 08/02/2023 10:48:47 104 98-107 (mm ol/L) Final CO2 08/02/2023 10:48:47 27 22-32 (mmo l/L) Final Anion gap 08/02/2023 10:48:47 11 7-15 (mmol /L) Final Glucose 08/02/2023 10:48:47 95 70-120 (mg /dL) Final Albumin 08/02/2023 10:48:47 3.9 3.8-5.0 (g /dL) Final AST (Aspartate aminotransferase) 08/02/2023 10:48:47 29 10-35 (U/L) Final Alk Phos 08/02/2023 10:48:47 81 35-130 (U/ L) Final Bilirubin, Total 08/02/2023 10:48:47 0.2 <=1 .2 (mg/dL) Final Calcium 08/02/2023 10:48:47 9.4 8.4-10.2 ( mg/dL) Final Protein 08/02/2023 10:48:47 6.7 6.0-8.3 (g /dL) Final ALT (Alanine aminotransferase) 08/02/2023 10:48:47 27 10-35 (U/L) Final Performing Location LABORATORY [facility] [place] - [facility] [place] [place] [address] [facility] [address]
--- OUTSIDE RECORDS SUMMARY | 2024-01-22 16:22 | External Medical Summary ---
Author Name Unknown Address Unknown Organization K01:LABORATORY [facility] [place] - [address] [facility] [address] Laboratory Report Ordering Provider Test Date Status ANUPAM VARELA 08/06/2023 09:10:46 Final Observation Date Value Abnormality Reference (Units ) Status BUN 08/06/2023 09:10:46 13 6-20 (mg/dL) Final Creatinine 08/06/2023 09:10:46 0.8 0.5-1.0 (mg/dL) Final Glomerular filtration rate/1.73 sq M.predicted [Volume Rate/Area] in Serum, Plasma or Blood by Creatinine-based formula (CKD-EPI) 08/06/2023 09:10:46 84 >=60 (mL/min) Final eGFR is calculated based on the CKD-EPI 2020 equation Sodium 08/06/2023 09:10:46 142 135-146 (m mol/L) Final Potassium 08/06/2023 09:10:46 3.7 3.5-5.1 (m mol/L) Final Cl 08/06/2023 09:10:46 104 98-107 (mm ol/L) Final CO2 08/06/2023 09:10:46 25 22-32 (mmo l/L) Final Anion gap 08/06/2023 09:10:46 13 7-15 (mmol /L) Final Glucose 08/06/2023 09:10:46 99 70-120 (mg /dL) Final Albumin 08/06/2023 09:10:46 3.7 Below low normal 3.8 -5.0 (g/dL) Final AST (Aspartate aminotransferase) 08/06/2023 09:10:46 21 10-35 (U/L) Fin al Alk Phos 08/06/2023 09:10:46 73 35-130 (U/ L) Final Bilirubin, Total 08/06/2023 09:10:46 0.2 <=1 .2 (mg/dL) Final Calcium 08/06/2023 09:10:46 8.8 8.4-10.2 ( mg/dL) Final Protein 08/06/2023 09:10:46 6.3 6.0-8.3 (g /dL) Final ALT (Alanine aminotransferase) 08/06/2023 09:10:46 24 10-35 (U/L) Rick brizuela Performing Location LABORATORY [facility] [place] - [facility] [address] [facility] [address]
--- OUTSIDE RECORDS SUMMARY | 2024-01-22 16:22 | External Medical Summary ---
Author Name Unknown Address Unknown Organization K01:LABORATORY [facility] [place] - [address] [facility] [address] Laboratory Report Ordering Provider Test Date Status ANUPAM VARELA 08/06/2023 09:10:46 Final Observation Date Value Abnormality Reference (Units ) Status HbA1C 08/06/2023 09:10:46 6.4 Above high normal 4. 0-5.6 (%) Final The use of HbA1c to monitor glycemic status is based on normal hemoglobin and HbA composition. This test should not be used in patients with abnormal hemoglobin that affects the half life of the red blood cell or the in vivo glycation rates. Glucose, estimated average 08/06/2023 09:10:46 137 Above high normal <126 (mg/dL) Rick brizuela Performing Location LABORATORY [facility] [place] - [address] [facility] [address]
--- OUTSIDE RECORDS SUMMARY | 2024-01-22 16:22 | External Medical Summary ---
Author Name Unknown Address Unknown Organization K01:LABORATORY [facility] [place] [place] - [address] [place] [address] Laboratory Report Ordering Provider Test Date Status NENITA KEANE 08/02/2023 10:48:47 Final Observation Date Value Abnormality Reference (Units ) Status MYCODE SPECIMEN-SST 08/02/2023 10:48:47 Freezing of extracted DNA, whole blood and/or serum. Final Performing Location LABORATORY [facility] [place] [place] - [address] [place] [address]
--- OUTSIDE RECORDS SUMMARY | 2024-01-22 16:22 | External Medical Summary ---
Author Name Unknown Address Unknown Organization K01:[facility]ORY [facility] [place] - [address] [facility] [address] Laboratory Report Ordering Provider Test Date Status ANUPAM VARELA 08/06/2023 09:10:46 Final Observation Date Value Abnormality Reference (Units ) Status Triglyceride 08/06/2023 09:10:46 70 <=174 ( mg/dL) Final Triglyceride Reference Range s (mg/dL):
<150 Acceptable
150-174 Borderline high
175-499 High
>=500 Very high Cholesterol 08/06/2023 09:10:46 141 <200 (mg /dL) Final Total Cholesterol Reference Ranges (mg/dL):
<200 Desirable
200-239 Borderline high
>=240 High HDL 08/06/2023 09:10:46 61 >49 (mg/dL ) Final HDL Cholesterol Reference Ra nges (mg/dL):
>=60 High (Desirable)
<50 Low (Undesirable) For Females
<40 Low (Undesirable) For Males NON-HDL CHOLESTEROL 08/06/2023 09:10:46 80 <=159 (mg/dL) Final Non-HDL Cholesterol Referenc e Range (mg/dL):
<100 Target level for high risk ASCVD patient
<130 Optimal for general population
130-159 Near optimal for general population
160-189 Borderline High
190-219 High
>=220 Very High LDL, (calculated) 08/06/2023 09:10:46 66 <= 129 (mg/dL) Final LDL Cholesterol Reference Ra nges (mg/dL):
<70 Target level for high risk ASCVD patient
<100 Optimal for general population
100-129 Near optimal for general population
130-159 Borderline high
160-189 High
>=190 Very high Performing Location LABORATORY [facility] [place] - [address] [facility] [address]
[2024-01-23 02:58] VITALS: TEMP 97.7
[2024-01-23 07:27] LABS: Hematocrit (blood only) 37.4 % (37.0-47.0); Hemoglobin 12.9 g/dl (12.0-16.0); Mean Corpuscular Hemoglobin 33.5 pg (25.0-34.0); Mean Corpuscular Hgb Conc 34.5 g/dL (32.0-36.0); Mean Corpuscular Volume 97.1 fL (80.0-100.0); Mean Platelet Volume 11.7 fL (9.4-12.4); Platelet Count 210 K/uL (130-400); RDW Coefficient of Variation 13.5 % (11.5-14.5); RDW Standard Deviation 48.1 fL (36.4-46.3); Red Blood Count 3.85 M/uL (4.20-5.40); White Blood Count 16.47 K/ul (4.8-10.8)
[2024-01-23 07:30] LABS: BUN Creatinine Ratio 29.4 (10-20); Calcium 9.1 mg/dl (8.6-10.3); Potassium 3.9 mmol/L (3.5-5.1)
--- NOTE | 2024-01-23 08:01 | Hospitalist Progress Note ---
Date of Service January 23, 2024 Assessment & Plan (1) COPD exacerbation: Plan: No formal diagnosis COPD or CHF per patient, extensive smoking history x50 years - No supplemental O2 requirement at baseline; O2 as needed, currently stable on room air - VBG on admission consistent with mild respiratory alkalosis (pH 7.43, pCO2 37) - Biofire (+) for coronavirus 0C43 - CXR without evidence of pneumonia or acute processes - Continue DuoNeb q4hr, Budesonide-formoterol BID - Continue IV Methylprednisolone 40mg BID - IC + FV (2) Elevated troponin: Plan: Resolved - No chest pain or palpitations - Troponin peaked ~95, likely demand ischemia in the setting of COPD exacerbation - EKG without ischemic changes (3) Hypomagnesemia: Plan: Resolved - Mg 1.3 on admission s/p repletion - repeat Mg 1.9 (4) Rheumatoid arthritis: Plan: H/o RA - Prednisone/hydroxychloroquine/methotrexate (20 mg weekly) prior to admission - Okay to continue methotrexate (last dose 01/20) + hydroxychloroquine given no sign of bacterial infection at this time - no leukocytosis, afebrile - if hospital course reveals signs of possible infection/if antibiotics required, will hold immunosuppressive agents - Continue escalated steroid dosing for COPD exacerbation, then taper back to baseline dose of 5mg daily Plan Hypothyroidism- TSH ~.115, suggestive of overtreatment - continue Levothyroxine, recommend dose titration in outpatient setting HTN- amlodipine, lisinopril, metoprolol succinate HLD- rosuvastatin Polymyalgia, chronic pain- Duloxetine History of NANCIE on CPAP- To be on CPAP but has not been on since it was recalled; f/u appointment 02/15 Tobacco dependence- encouraged cessation, patch and nicotine gum offered - Smokes 1/2 ppd, since 19 y/o Diet: Reg VTE Prophylaxis: Lovenox Admission and Anticipated Discharge Date Admission Date: January 21, 2024 Subjective Patient reports increased SOB since Wednesday, also developed cough but denies fevers/chills, rhinorrhea, sore throat. Patient with significant smoking history, states that she has never had formal pulmonary function testing, not on oxygen at home. Currently on 2L though states that she does not think supplemental O2 is necessary. Not on maintenance inhale rs, only PRNs. Review of Systems Review of Systems: as per HPI Physical Exam Physical Exam: General: Alert and oriented. No acute distress Cardiac: Regular rate and rhythm, no murmurs appreciated Respiratory: Lungs diminished bilaterally, mild expiratory wheezes appreciated Extremities: No lower extremity edema, calves non-tender bilaterally Results & Data Results & Data Vital Signs (Past 12 Hours) Vital Signs Temp Pulse Pulse Resp BP Pulse Ox O2 Del Method 01/23/24 07:27 84 01/23/24 06:59 90 18 90 Room Air 01/23/24 02:57 36.5 C 86 20 157/80 H 92 Room Air 01/22/24 23:28 86 18 91 Room Air 01/22/24 22:52 36.4 C L 85 20 146/91 H 93 Nasal Cannula 01/22/24 22:35 78 01/22/24 21:45 Room Air O2 Flow Rate 01/23/24 07:27 01/23/24 06:59 01/23/24 02:57 01/22/24 23:28 01/22/24 22:52 2 01/22/24 22:35 01/22/24 21:45 1.5
[2024-01-23 10:44] VITALS: RESP 18
[2024-01-23 11:35] VITALS: BP 186/74; PULSE 91; O2SAT 94
--- NOTE | 2024-01-23 16:20 | Discharge Summary ---
Date of Service January 23, 2024 Admission HPI Per Admitting Provider 69-year-old female presenting for SOB and coughing x 1 day, no home O2. ED course: CBC grossly WNL with exception RDW 47.9, neutrophils 8.79, monocytes 0.95, lymphocytes 0.86; CMP sodium 135, chloride 97, glucose 183; magnesium 1.3 (replaced in ED); troponin 92.4, pending repeat; BNP 134; pending BioFire; CXR no acute abnormalities and no radiographic evidence of pneumonia; EKG sinus rhythm, PACs; rate around 100 bpm; provided with methylprednisolone, mag sulfate, and albuterol nebulizer in ED. Patient is a 69-year-old female PMHx RA, HTN, hypothyroidism, lifelong smoker without diagnosis of COPD, and NANCIE who presented for shortness of breath and coughing x 2-3 days. States that she has been using at home inhaler and nebulizer without relief. No O2 at home per baseline. Shortness of breath and coughing started approximately 2 to 3 days ago, rather sudden onset compared to slow progression. States that she has been having productive coughing, producing sputum a clear sputum. Notes wheezing and herself which has been ongoing. Some episodes of lightheadedness when coughing hard, no episodes syncope. Was provided with nebulizer as outpatient, and has been using that without great relief. Did have mild episode of chest pain 1 day [employer], but without radiation or diaphoresis. Denying current chest pain, palpitations, abdominal pain, N/V/D/C, numbness/tingling, LUTS, or headache. Did not take a.m. medications. Smokes approximately half pack cigarettes per day, ongoing since 19 years old. Has been unable to smoke past few days secondary to breathing. Please see Dr. Peace's attestation for adjustments/additions to treatment plan. Admission Exam Per Admitting Provider General: No acute distress Skin: Warm and dry, without rashes or lesions. No cyanosis Head: Normocephalic, atraumatic Eyes: PERRL, conjunctivae clear, sclera non-icteric ENT: External ear and ear canal without swelling; nose atraumatic; good dentition Neck: Supple, no LAD; no JVD Cardio: RRR, no M/G/R, S1 and S2 normal Resp: No respiratory distress; inspiratory + expiratory wheezing throughout, viki n when just talking; lungs without rales or rhonchi Abdomen: Soft, symmetric, nontender; no masses or hepatosplenomegaly; Bowel sounds normoactive MSK: No deformities, full ROM throughout; pulses palpable and equal; no edema. Neuro: Awake, alert; sensation intact bilaterally; CN intact Psych: Appropriate mood and affect Principal Diagnosis COPD exacerbation Discharge Exam General: Alert and oriented. No acute distress Cardiac: Regular rate and rhythm, no murmurs appreciated Respiratory: Lungs diminished bilaterally, mild expiratory wheezes appreciated Extremities: No lower extremity edema, calves non-tender bilaterally Discharge Data Allergies Allergy/AdvReac Type Severity Reaction Status Date / Time amoxicillin [From Augmentin] AdvReac Unknown Diarrhea Verified 04/03/22 07:55 clavulanic acid AdvReac Unknown Diarrhea Verified 04/03/22 07:55 [From Augmentin] Consultations 01/21/24 10:22 ED Decision to Admit Stat Hospital Course (1) COPD exacerbation: (2) Elevated troponin: (3) Hypomagnesemia: (4) Rheumatoid arthritis: Plan (1) COPD exacerbation: No formal diagnosis COPD or CHF - recommend outpatient PFTs/TTE - No supplemental O2 requirement at baseline;negative 2 step test, stable on room air at time of discharge - Biofire (+) for coronavirus [id number] - CXR without evidence of pneumonia or acute processes - Started on LABA/ICS - recommend continuing as maintenance/controller treatment - Steroid taper, PO prednisone starting at 50mg, taper over 10 days, then continue baseline dose of 5mg daily - Continue to use albuterol prn as rescue inhaler - Benzonatate sent for cough suppression (2) Elevated troponin - Resolved No chest pain or palpitations - Troponin peaked ~95, likely demand ischemia in the setting of COPD exacerbation - EKG without ischemic changes (3) Rheumatoid arthritis: - Prednisone/hydroxychloroquine/methotrexate (20 mg weekly) - Continue escalated steroid dosing for COPD exacerbation, then taper back to baseline dose of 5mg daily Total Time Total Time Spent Total Time Spent (In Minutes): see attending attestation Discharge Plan Discharge Items Patient Disposition: Home - Self-Care Reason For Visit: COPD EXACERBATION/HYPOXIC Discharge Diagnosis: COPD exacerbation Activity: Resume your previous activity Non-emergency contact: Primary Care Provider Call non-emergency contact if: you have any medication questions and your symptoms worsen Follow-up/Referrals: Grine,Usha M, [Primary Care Provider] - Diet: Regular Addtl Attending Provider Instructions: You were admitted to the hospital due to a presumed COPD exacerbation, likely caused by a viral illness. Please see below for recommended changes to your home medications. Your outpatient doctor may likely order additional tests to confirm the diagnosis of COPD. However, given your symptoms and smoking history, we recommend starting a daily maintenance inhaler. You may continue to use your albuterol on an as needed basis. Additionally, you were treated with steroids while in the hospital - we sent a course of an oral steroid (prednisone) to your pharmacy. Please take as directed. A discharge summary will be sent to your primary care physician to ensure continuity of care. Please bring this discharge summary with you to your next office appointment so that your provider can review it at that time. Medications: Your medication list has been reviewed and reconciled upon discharge to ensure accuracy and continuity of care. An updated list of all your medications is inc luded with your hospital discharge paperwork. Please review this list closely and make note of any changes to your medications. New Medications: - Prednisone: Please take 50mg (5 tabs) daily for 2 days, then take 40mg (4 tabs) daily for 2 days, then take 30mg (3 tabs) daily for 2 days, then take 20mg (2 tabs) daily for 2 days, then take 10mg (1 tab) daily for 2 days. Total duration = 10 days - Advair Diskus: This medication is meant to be taken everyday - please take 1 inhalation twice daily. - Benzonatate: This is a cough suppressant that you may take as needed, up to 1 tablet three times daily. Follow up appointments: - Make a follow up appointment with your PCP within the next week. It is very important that you follow up with them shortly after discharge from the hospital. - Keep all of your follow up appointments as already scheduled. If you cannot make an appointment, notify your provider. CONTACT YOUR PRIMARY CARE PROVIDER if you experience any of the following: - Difficulty following your treatment plan - Difficulty taking any of your medications CALL 911 OR GO TO THE EMERGENCY DEPARTMENT if you experience any of the following: - Sudden, severe abdominal pain or nausea/vomiting - Severe chest pain or chest pain that radiates to your jaw or arm - Sudden, severe shortness of breath or difficulty breathing Pending Studies at Discharge: No Stand-Alone Forms: [facility], Smoking Cessation Medications and DC Order Prescriptions: New prednisone 10 mg tablet 10 mg PO DIRECTED Qty: 30 0RF Rx Instructions: Please take 50mg (5 tabs) daily for 2 days, then take 40mg (4 tabs) daily for 2 days, then take 30mg (3 tabs) daily for 2 days, then take 20mg (2 tabs) daily for 2 days, then take 10mg (1 tab) daily for 2 days. Please take with food. fluticasone propion-salmeterol [Wixela Inhub] 250-50 mcg/dose blister with device 1 inh inhalation BID Qty: 60 0RF benzonatate 100 mg capsule 100 mg PO BID PRN (Reason: cough) Qty: 20 0RF Continued folic acid 1 mg Tablet 1 mg PO QAM prednisone 5 mg Tablet 5 mg PO QAM cholecalciferol (vitamin D3) [Vitamin D3] 25 mcg (1,000 unit) Capsule 25 mcg PO QAM Rx Instructions: Unable to verify OTC meds at this date/time. Centrum Women 18-400 mg-mcg Tablet 1 tab PO QAM Rx Instructions: Unable to verify OTC meds at this date/time. lisinopril 20 mg Tablet 20 mg PO QAM Qty: 30 1RF methotrexate sodium 2.5 mg tablet 20 mg PO WK Rx Instructions: takes 8 tabs on fridays turmeric 400 mg Capsule 400 mg PO QAM Qty: 0 Rx Instructions: Unable to verify OTC meds at this date/time. levothyroxine 150 mcg Tablet 150 mcg PO QAM ipratropium-albuterol 0.5 mg-3 mg(2.5 mg base)/3 mL solution for nebulization 3 ml inhalation Q6H PRN (Reason: SOB/Wheezing) metoprolol succinate 50 mg tablet extended release 24 hr 50 mg PO DAILY amlodipine 2.5 mg tablet 2.5 mg PO QAM hydroxychloroquine 200 mg tablet 400 mg PO HS rosuvastatin 10 mg tablet 10 mg PO DAILY duloxetine 60 mg capsule,delayed release(DR/EC) 60 mg PO DAILY Discharge Orders: Discharge Order (Routine); Ordered 01/23/24 Ordered By: Delon Cuevas Admission Data Admit Date/Time: 01/21/24 10:51 Attending Provider: Bindu Delgadillo Admit Provider: George Peace Primary Care Provider: Usha Weaver Other Providers: George Peace Other Interventions: Discharge Summary Assessment (RN) Last Done: 01/23/24 14:13 Supervising Physician Co-Signing Physician Notes Attending Physician Supervision Note: I independently interviewed and examined the patient and verified the [place] history and physical, reviewed labs and image studies and agree with findings and care plan noted above. 69 y/o F here with shortness of breath. No known history of COPD or asthma. Extensive history of smoking. Much improved with breathing. Cough still present. AAOx3 RRR, no murmurs, CTA, Suspected COPD exacerbation - Sec to viral illness. -Kept on Solu-medrol IV - transitioned to PO steroids on discharge. -Continue Duonebs, budesonide/formoterol Neb, -no antibiotics given history of c. diff -encouraged smoking cessation, -will need PFT, echo on discharge considering extensive h/o smoking and RA. Also, CT chest for lung cancer screening Resident Activity Tracking Resident Involvement: Resident Care Provided Care Provided: Adult [facility]
[2024-01-28] MEDS ORDERED: metHOTREXate sodium 2.5 MG TAB PO SCH (09:00)
== END 2024-01-23 14:42 | disposition home or self-care (01) | DRG 191 ==
LOC: ED 08:07 → SUATTDRO 10:51 → 2N 10:51